=== PATIENT | male | born 1950 | race African-American/Black ===

== ENCOUNTER 2017-06-22 21:05 | Inpatient (IN) | payer MEDICARE ==
[~2017-06-22] VITALS: Ht 167.6 cm; Wt 88.6 kg
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
[2017-06-22] MEDS ORDERED: ASPI81TA50 PO (22:05)
[2017-06-22] MEDS ORDERED: METO100T7 PO (22:05)
[2017-06-22] MEDS ORDERED: DIVA125C PO (22:05)
[2017-06-22] MEDS ORDERED: ACET500T68 PO (22:05)
[2017-06-22] MEDS ORDERED: ATOR20TA58 PO (22:05)
[2017-06-22] MEDS ORDERED: MELA3TAB2 PO (22:05)
[2017-06-22] MEDS ORDERED: CHOL10003 PO (22:05)
[2017-06-22] MEDS ORDERED: DONE5TAB56 PO (22:05)
[2017-06-22] MEDS ORDERED: DOCU-109 PO (22:05)
[2017-06-22] MEDS ORDERED: LACT10SO PO (22:05)
[2017-06-22 22:31] LABS: BASO # 0.1 x10^3/uL (0.0-0.2); BASO % 1 % (0-3); EOS # 0.5 x10^3/uL (0.0-0.7); EOS % 6 % (0-3); HEMOGLOBIN 13.1 g/dL (13.0-17.5); LYMPH # 2.6 x10^3/uL (1.0-4.8); LYMPH % 31 % (24-48); MEAN CORPUSCULAR HEMOGLOBIN 32 pg (25-35); MEAN CORPUSCULAR HGB CONC 34 g/dL (31-37); MEAN CORPUSCULAR VOLUME 94 fL (79-100); MONO # 1.8 x10^3/uL (0.0-1.1); MONO % 21 % (0-9); NEUT # 3.4 x10^3uL (1.8-7.7); NEUT % 40 % (31-73); PLATELET COUNT 156 x10^3/uL (140-400); RED BLOOD COUNT 4.05 x10^6/uL (4.30-5.70); RED CELL DISTRIBUTION WIDTH 13.8 % (11.5-14.5); WHITE BLOOD COUNT 8.5 x10^3/uL (4.0-11.0)
--- NOTE | 2017-06-22 22:31 | EKG ---
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
[2017-06-22 22:36] LABS: AMPHETAMINE/METHAMPHETAMINE NEG (NEG); BARBITURATES NEG (NEG); BENZODIAZEPINES NEG (NEG); CANNABINOIDS NEG (NEG); COCAINE NEG (NEG); METHADONE NEG (NEG); OPIATES NEG (NEG); PHENCYCLIDINE NEG (NEG)
[2017-06-22 22:39] LABS: BACTERIA,URINE 0 /HPF (0-FEW); BILIRUBIN,URINE NEG (NEG); CLARITY,URINE CLEAR; COLOR,URINE YELLOW; GLUCOSE,URINE NEG (NEG); NITRITE,URINE NEG (NEG); UROBILINOGEN,URINE 1 mg/dL (0.2 mg/dL); WBC,URINE OCC /HPF (0-4)
[2017-06-22 22:40] LABS: SQUAMOUS EPITHELIAL CELL,UR OCC /LPF
[2017-06-22 22:44] LABS: ALBUMIN 3.1 g/dL (3.4-5.0); ALBUMIN/GLOBULIN RATIO 0.8 (1.0-1.7); CALCIUM 8.4 mg/dL (8.5-10.1); GFR 90.5; POTASSIUM 3.8 mmol/L (3.5-5.1); TOTAL BILIRUBIN 0.2 mg/dL (0.2-1.0); TOTAL PROTEIN 7.1 g/dL (6.4-8.2)
--- NOTE | 2017-06-22 22:50 | RAD ---
EXAM: Chest, single view. HISTORY: Mental status changes. COMPARISON: None. FINDINGS: Frontal views of the chest are obtained. There is no infiltrate, effusion or pneumothorax. The heart is normal in size. IMPRESSION: No acute pulmonary finding. Electronically signed by: Farheen Cordoba MD (06/22/2017 10:47 PM) [facility]
--- NOTE | 2017-06-22 23:15 | RAD ---
EXAM: Head CT without contrast. HISTORY: Mental status changes. TECHNIQUE: Computed tomographic images of the head were obtained without contrast. *One or more of the following individualized dose reduction techniques were utilized for this examination: 1. Automated exposure control. 2. Adjustment of the mA and/or kV according to patient size. 3. Use of iterative reconstruction technique. COMPARISON: None. FINDINGS: There is no acute or subacute extra-axial or intraparenchymal hemorrhage. There is no mass effect or midline shift. There is no hydrocephalus. There are areas of decreased attenuation within the cerebral white matter, nonspecific and likely related to chronic small vessel disease. There is cerebral atrophy. The orbits and visualized portions of the paranasal sinuses and mastoid air cells are unremarkable. There is masslike thickening of the skin along the right posterior auricular and suboccipital region. IMPRESSION: 1. No acute intracranial finding. Note is made that MRI is more sensitive for acute infarction. 2. Subtle areas of hypodensity within the cerebral white matter, likely due to chronic small vessel disease. 3. Masslike thickening of the skin along the right posterior auricular and suboccipital region. Correlate with visual inspection. Electronically signed by: Farheen Cordoba MD (06/22/2017 11:11 PM) [facility]
[2017-06-23] MEDS ORDERED: ACETAMINOPHEN 325 MG TABLET PO PRN
[2017-06-23] MEDS ORDERED: MAGNESIUM HYDROXIDE 2,400 MG/30 ML ORAL.SUSP. PO PRN
[2017-06-23] MEDS ORDERED: METHYL SALICYLATE/MENTHOL TOPICAL OINTMENT 29GM TUBE. TP PRN
[2017-06-23] MEDS ORDERED: MAG HYDROX/AL HYDROX/SIMETH 30 ML ORAL.SUSP PO PRN
[2017-06-23 00:15] LABS: VAL ACID 47 mcg/mL (50-100)
[2017-06-23 00:34] VITALS: BP 154/97
[2017-06-23 06:12] VITALS: BP 148/76
[2017-06-23] MEDS ORDERED: ACETAMINOPHEN 500 MG TABLET PO PRN (06:30)
[2017-06-23] MEDS: LACTULOSE 20 GM/30 ML SOLUTION. PO SCH ×3 (08:19→17:21)
[2017-06-23] MEDS: ASPIRIN ENTERIC COATED 81 MG TABLET.DR. PO SCH (08:19)
[2017-06-23] MEDS: DIVALPROEX 125 MG CAP.SPRINK PO SCH ×3 (08:20→17:21)
[2017-06-23] MEDS: METOPROLOL TART IMMED RELEASE 50 MG TABLET PO SCH ×2 (08:21→19:33)
[2017-06-23] MEDS: CHOLECALCIFEROL (VITAMIN D3) 1,000 UNIT TABLET PO SCH (09:00)
[2017-06-23] MEDS: DOCUSATE SODIUM 100 MG CAPSULE PO SCH (09:00)
[2017-06-23] MEDS: DONEPEZIL HCL 5 MG TABLET. PO SCH (09:00)
[2017-06-23] MEDS ORDERED: LACTULOSE 20 GM/30 ML SOLUTION. ONE ×3 (09:00)
[2017-06-23 15:55] VITALS: BP 90/60
[2017-06-23] MEDS: ATORVASTATIN CALCIUM 20 MG TABLET PO SCH (19:33)
[2017-06-23] MEDS: MELATONIN 3 MG TABLET PO SCH (19:33)
--- NOTE | 2017-06-23 19:45 | PDOC ---
Exam Note: Darci Note: Please also refer to the separate dictated note~for this date of service dictated separately.~Patient seen individually. Discussed the patient with Nursing staff reviewed the chart.~Reviewed interim history and current functioning. Reviewed vital signs,~Labs/ Radiology~and current medications noted below. Continue current treatment with the changes noted in the dictated addendum note Assessment: Vital Signs: Vital Signs Date Time Temp Pulse Resp B/P (MAP) Pulse Ox O2 Delivery O2 Flow Rate FiO2 06/23/17 19:33 68 122/90 06/23/17 15:55 97.8 19 97 06/22/17 23:09 Room Air I&O Intake and Output 06/23/17 07:00 Intake Total 360 ml Balance 360 ml Intake Oral 360 ml Labs: Laboratory Tests Test 06/22/17 22:03 White Blood Count 8.5 x10^3/uL (4.0-11.0) Red Blood Count 4.05 x10^6/uL (4.30-5.70) L Hemoglobin 13.1 g/dL (13.0-17.5) Hematocrit 38.0 % (39.0-53.0) L Mean Corpuscular Volume 94 fL (79-100) Mean Corpuscular Hemoglobin 32 pg (25-35) Mean Corpuscular Hemoglobin Concent 34 g/dL (31-37) Red Cell Distribution Width 13.8 % (11.5-14.5) Platelet Count 156 x10^3/uL (140-400) Neutrophils (%) (Auto) 40 % (31-73) Lymphocytes (%) (Auto) 31 % (24-48) Monocytes (%) (Auto) 21 % (0-9) H Eosinophils (%) (Auto) 6 % (0-3) H Basophils (%) (Auto) 1 % (0-3) Neutrophils # (Auto) 3.4 x10^3uL (1.8-7.7) Lymphocytes # (Auto) 2.6 x10^3/uL (1.0-4.8) Monocytes # (Auto) 1.8 x10^3/uL (0.0-1.1) H Eosinophils # (Auto) 0.5 x10^3/uL (0.0-0.7) Basophils # (Auto) 0.1 x10^3/uL (0.0-0.2) Prothrombin Time 11.3 SEC (9.4-11.4) Prothrombin Time INR 1.1 (0.9-1.1) PTT 24 SEC (23-33) Urine Collection Type Unknown Urine Color Yellow Urine Clarity Clear Urine pH 6.0 Urine Specific [place] 1.020 Urine Protein Neg (NEG-TRACE) Urine Glucose (UA) Neg mg/dL (NEG) Urine Ketones (Stick) Trace mg/dL (NEG) Urine Blood Trace (NEG) Urine Nitrite Neg (NEG) Urine Bilirubin Neg (NEG) Urine Urobilinogen Dipstick 1 mg/dL (0.2 mg/dL) Urine Leukocyte Esterase Neg (NEG) Urine RBC 1-2 /HPF (0-2) Urine WBC Occ /HPF (0-4) Urine Squamous Epithelial Cells Occ /LPF Urine Bacteria 0 /HPF (0-FEW) Sodium Level 138 mmol/L (136-145) Potassium Level 3.8 mmol/L (3.5-5.1) Chloride Level 102 mmol/L (98-107) Carbon Dioxide Level 26 mmol/L (21-32) Anion Gap 10 (6-14) Blood Urea Nitrogen 19 mg/dL (8-26) Creatinine 1.0 mg/dL (0.7-1.3) Estimated GFR (Cockcroft-Gault) 90.5 BUN/Creatinine Ratio 19 (6-20) Glucose Level 88 mg/dL (70-99) Calcium Level 8.4 mg/dL (8.5-10.1) L Magnesium Level 2.0 mg/dL (1.8-2.4) Iron Level 31 ug/dL (65-175) L Total Iron Binding Capacity 245 ug/dL (250-450) L Iron Saturation 13 % (15-34) L Total Bilirubin 0.2 mg/dL (0.2-1.0) Aspartate Amino Transferase (AST) 14 U/L (15-37) L Alanine Aminotransferase (ALT) 22 U/L (16-63) Alkaline Phosphatase 86 U/L (46-116) Troponin I Quantitative < 0.017 ng/mL (0-0.055) BC-Qxt-F-Type Natriuretic Peptide 272 pg/mL (0-124) H Total Protein 7.1 g/dL (6.4-8.2) Albumin 3.1 g/dL (3.4-5.0) L Albumin/Globulin Ratio 0.8 (1.0-1.7) L Urine Opiates Screen Neg (NEG) Urine Methadone Screen Neg (NEG) Urine Barbiturates Neg (NEG) Valproic Acid Level 47 mcg/mL (50-100) L Valproic Acid Last Dose Date jun 14 Valproic Acid Last Dose Time 0900 Urine Phencyclidine Screen Neg (NEG) Urine Amphetamine/Methamphetamine Neg (NEG) Urine Benzodiazepines Screen Neg (NEG) Urine Cocaine Screen Neg (NEG) Urine Cannabinoids Screen Neg (NEG) Urine Ethyl Alcohol Neg (NEG) Current Medications: Meds: Current Medications Acetaminophen (Tylenol) 650 mg PRN Q6HRS PRN PO MILD PAIN / TEMP; Start at 00:00; Stop 06/23/17 at 06:34; Status DC Multi-Ingredient Ointment (Analgesic Fox) 1 yadi PRN QID PRN TP MUSCLE PAIN; Start 06/23/17 at 00:00 Al Hydroxide/Mg Hydroxide (Mylanta Plus Xs) 15 ml PRN AFTMEALHC PRN PO DYSPEPSIA; Start 06/23/17 at 00:00 Magnesium Hydroxide (Milk Of Magnesia) 2,400 mg PRN QHS PRN PO CONSTIPATION; Start 06/23/17 at 00:00 Divalproex Sodium (Depakote Sprinkles) 250 mg TID@0900,1300,1700 PO Last administered on 06/23/17 17:21; Start 06/23/17 at 09:00 Donepezil HCl (Aricept) 5 mg DAILY PO ; Start 06/23/17 at 09:00 Melatonin 3 mg QHS PO Last administered on 06/23/17 19:33; Start 06/23/17 at 21:00 Olanzapine (ZyPREXA ZYDIS) 2.5 mg PRN Q2HR PRN PO PSYCHOSIS Last administered on 06/23/17 01:08; Start 06/23/17 at 01:15 Acetaminophen (Tylenol) 500 mg PRN Q6HRS PRN PO PAIN / TEMP; Start 06/23/17 at 06:30 Aspirin (Aspirin Enteric Coated) 81 mg DAILY PO Last administered on 08:19; Start 06/23/17 at 09:00 Atorvastatin Calcium (Lipitor) 20 mg QHS PO Last administered on 06/23/17 19: 33; Start 06/23/17 at 21:00 Vitamin D (Vitamin D3) 1,000 unit DAILY PO ; Start 06/23/17 at 09:00 Docusate Sodium (Colace) 100 mg DAILY PO ; Start 06/23/17 at 09:00 Lactulose 20 gm TID@0900,1300,1700 PO Last administered on 06/23/17 17:21; Start 06/23/17 at 09:00 Metoprolol Tartrate (Lopressor) 300 mg BID PO Last administered on 06/23/17 19:33; Start 06/23/17 at 09:00 Active Scripts Active Reported Depakote Sprinkle (Divalproex Sodium) 125 Mg Cap.sprink 250 Mg PO TID@0900,1300, 1700 Acetaminophen 500 Mg Tablet 500 Mg PO PRN Q6HRS PRN Melatonin 3 Mg Tablet 3 Mg PO QHS Atorvastatin Calcium 20 Mg Tablet 20 Mg PO QHS Lactulose 10 Gm/15 Ml Solution 20 Gm PO TID@0900,1300,1700 Metoprolol Tartrate 100 Mg Tablet 300 Mg PO BID Colace (Docusate Sodium) 100 Mg Capsule 100 Mg PO DAILY Vitamin D3 (Cholecalciferol (Vitamin D3)) 1,000 Unit Tablet 1,000 Unit PO DAILY Aricept (Donepezil Hcl) 5 Mg Tablet 5 Mg PO DAILY Aspir-Low (Aspirin) 81 Mg Tablet. 81 Mg PO DAILY I have reviewed the current psychotropics carefully including drug interactions. Risk benefit ratio favors no change other than as noted in my dictated progress note. ELLIS NOBLES MD Jun 23, 2017 19:45
[2017-06-23] MEDS ORDERED: MELATONIN 3 MG TABLET ONE (21:00)
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
[2017-06-24 06:07] VITALS: BP 142/82
[2017-06-24] MEDS: LACTULOSE 20 GM/30 ML SOLUTION. PO SCH ×3 (09:08→16:54)
[2017-06-24] MEDS: DONEPEZIL HCL 5 MG TABLET. PO SCH (09:09)
[2017-06-24] MEDS: DIVALPROEX 125 MG CAP.SPRINK PO SCH ×3 (09:09→16:54)
[2017-06-24] MEDS: ASPIRIN ENTERIC COATED 81 MG TABLET.DR. PO SCH (09:09)
[2017-06-24] MEDS: DOCUSATE SODIUM 100 MG CAPSULE PO SCH (09:10)
[2017-06-24] MEDS: METOPROLOL TART IMMED RELEASE 50 MG TABLET PO SCH ×2 (09:10→19:30)
[2017-06-24] MEDS: CHOLECALCIFEROL (VITAMIN D3) 1,000 UNIT TABLET PO SCH ×2 (09:10→16:54)
--- NOTE | 2017-06-24 11:33 | PN ---
DATE: 06/23/2017 This note covers elements not covered in my initial note of 06/23/2017. The patient was seen individually evening of 06/23/2017. The patient slept very poorly previous evening and we will add trazodone p.r.n. 100 mg, may repeat x 1 for this. He remains confused, restless, anxious, paranoid. REVIEW OF SYSTEMS: No CV, , pulmonary, eye, ENT system symptoms on review. Reliability poor. MENTAL STATUS EXAM: Oriented to himself. Insight, judgment, recent and remote memory, attention, concentration, fund of knowledge poor, consistent with his diagnosis. IMPRESSION: Major neurocognitive disorder, multifactorial. 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 PLAN: Valproic acid level is 47, subtherapeutic. Continue Depakote sprinkles 250 mg 3 times a day. Maintain Aricept, melatonin, and trazodone along with Zyprexa added p.r.n. for psychosis, agitation. We will make further adjustments in psychotropics post baseline assessment. May need to increase Depakote in due course to reach a therapeutic level. ELLIS NOBLES MD DR: MONICA/joe JOB#: [id number] / [id number]
--- NOTE | 2017-06-24 11:40 | CONS ---
DATE OF CONSULTATION: 06/23/2017 REASON FOR CONSULTATION: Medical management. HISTORY OF PRESENT ILLNESS: The patient is a 67-year-old -[place] male patient, a resident at [facility], who was admitted on account of increased aggression, apparently tried to take storage facility housekeeper's dustpan and broom. She got the broom back, then he began to charge when another staff member entered. He has history of hitting staff and peers and all this in a background of dementia with behavioral disturbances and he was admitted to this facility for inpatient psychiatric stabilization. The patient has severe dementia and does not really give any useful information. PAST MEDICAL HISTORY: Significant for supraventricular tachycardia, encephalopathy, hyperlipidemia, vitamin D deficiency. PAST PSYCHIATRIC HISTORY: Significant for dementia with behavioral disturbances. PAST SURGICAL HISTORY: Unobtainable. FAMILY HISTORY: Unobtainable. SOCIAL HISTORY: He is a resident at [facility]. He apparently does not smoke, drink alcohol, or use recreational drugs. REVIEW OF SYSTEMS: Unobtainable. ALLERGIES: He is allergic to PENICILLIN. MEDICATIONS: He is currently on the following medications: Acetaminophen 500 mg every 6 hours, aspirin 81 mg once a day, atorvastatin calcium 20 mg at bedtime, cholecalciferol or vitamin D3 [employer] [address] once a day, divalproex sodium or Depakote 250 mg 3 times a day, Colace 100 mg twice a day, Aricept 5 mg daily, lactulose 20 grams 3 times a day, melatonin 3 mg at bedtime and metoprolol tartrate 300 mg p.o. b.i.d. PHYSICAL EXAMINATION: GENERAL: On examining him, he was sitting on the chair comfortably in no apparent distress. He is awake, alert, very confused, slightly pale, but no jaundice, cyanosis or thyromegaly. No jugular venous distension or edema. VITAL SIGNS: Her heart rate was 69, blood pressure 148/76, temperature was 97.2, respiratory rate was 20, and oxygen saturation was 98%. HEAD, EYES, EARS, NOSE AND THROAT: Shows normocephalic, atraumatic. NECK: Supple. HEART: Showed normal first and second heart sounds with no gallop, rub or murmur. CHEST: Clear to auscultation. No crepitation or rhonchi. ABDOMEN: Distended, soft, nontender. No guarding or rigidity. No organomegaly. Hernial orifice intact. Bowel sounds normal. NEUROLOGIC: He is demented, but there is no lateralizing sign. All his cranial nerves are intact. EXTREMITIES: He moves extremities without difficulty, ambulates without assistance or assistive devices. SKIN: He has very florid keloids both sides of his neck behind the ears. One of them has open wound that is clean without any redness, tenderness or discharge. LABORATORY DATA: This morning showed a serum sodium 138, potassium 3.8, chloride 102, bicarbonate 26, anion gap of 10, BUN 19, creatinine 1, estimated GFR was 90 mL per minute. His glucose was 88, calcium was 8.4, magnesium 2. His serum iron was 51, TIBC was 245 and percent saturation was 13%. His serum total bilirubin, AST, ALT, alkaline phosphatase were normal. His total protein was 7.1, albumin 3.1. His white cell count was 8500, hemoglobin 13, hematocrit 38, MCV 94 and platelet count of 156,000. His prothrombin time was 11.3, INR 1.1, aPTT was 24. Urinalysis showed the urine was yellow, clear with a pH of 6, specific gravity of 1.020. The urine was negative for protein, glucose, trace of ketones, trace of blood, negative for nitrites and leukocyte esterase. There are 1-2 rbc's, occasional wbc's, and no bacteria. His urine toxicology screen showed valproic acid was slightly below the lower limit of normal at 47 mcg/mL. IMPRESSION: In summary, this is a 67-year-old -[place] male patient with dementia and behavioral disturbances, who was admitted on the account of increased aggression. He apparently tried to take the storage facility housekeeper's dustpan and broom. She got the broom back, but he began to charge when another staff member entered. He has a history of hitting staff and peers and was admitted to this facility for inpatient psychiatric stabilization. Medically, he apparently is known to have episodes of supraventricular tachycardia for which he is on large amount of metoprolol 300 mg twice a day. He also has hyperlipidemia and his vital signs are stable as well as his lab work and he has very florid keloids on both sides of his neck behind the ears with an open area on the right side that is clean with no redness, tenderness or discharge. The patient overall seems to be medically stable. I will definitely continue with all these medications. Thank you, Dr. Bennett for allowing me to participate in the care of this patient. SAVANNAH ARIZMENDI MD DR: OCTAVIO/joe JOB#: [id number] / [id number]
[2017-06-24] MEDS ORDERED: CYANOCOBALAMIN (VITAMIN B-12) 1,000 MCG/ML VIAL IM ONE ×2 (14:45→21:00)
[2017-06-24] MEDS: MELATONIN 3 MG TABLET PO SCH (19:30)
[2017-06-24] MEDS: ATORVASTATIN CALCIUM 20 MG TABLET PO SCH (19:30)
--- NOTE | 2017-06-24 20:00 | PDOC ---
Exam Note: Darci Note: Please also refer to the separate dictated note~for this date of service dictated separately.~Patient seen individually. Discussed the patient with Nursing staff reviewed the chart.~Reviewed interim history and current functioning. Reviewed vital signs,~Labs/ Radiology~and current medications noted below. Continue current treatment with the changes noted in the dictated addendum note Assessment: Vital Signs: Vital Signs Date Time Temp Pulse Resp B/P (MAP) Pulse Ox O2 Delivery O2 Flow Rate FiO2 06/24/17 19:30 74 148/88 06/24/17 06:07 18 97 Room Air 06/23/17 15:55 97.8 I&O Intake and Output 06/24/17 07:00 Intake Total 1320 ml Balance 1320 ml Intake Oral 1320 ml # Voids 2 Labs: Laboratory Tests Test 06/24/17 09:59 Triglycerides Level 77 mg/dL (0-150) Cholesterol Level 118 mg/dL (0-200) LDL Cholesterol, Calculated 67 mg/dL (0-100) VLDL Cholesterol, Calculated 15 mg/dL (0-40) Non-HDL Cholesterol Calculated 82 mg/dL (0-129) HDL Cholesterol 36 mg/dL (40-60) L Cholesterol/HDL Ratio 3.0 Current Medications: Meds: Current Medications Acetaminophen (Tylenol) 650 mg PRN Q6HRS PRN PO MILD PAIN / TEMP; Start at 00:00; Stop 06/23/17 at 06:34; Status DC Multi-Ingredient Ointment (Analgesic [place]) 1 yadi PRN QID PRN TP MUSCLE PAIN; Start 06/23/17 at 00:00 Al Hydroxide/Mg Hydroxide (Mylanta Plus Xs) 15 ml PRN AFTMEALHC PRN PO DYSPEPSIA; Start 06/23/17 at 00:00 Magnesium Hydroxide (Milk Of Magnesia) 2,400 mg PRN QHS PRN PO CONSTIPATION; Start 06/23/17 at 00:00 Divalproex Sodium (Depakote Sprinkles) 250 mg TID@0900,1300,1700 PO Last administered on 06/24/17 16:54; Start 06/23/17 at 09:00; Stop 06/24/17 at 18 :39; Status DC Donepezil HCl (Aricept) 5 mg DAILY PO Last administered on 06/24/17 09:09; Start 06/23/17 at 09:00 Melatonin 3 mg QHS PO Last administered on 06/24/17 19:30; Start 06/23/17 at 21:00 Olanzapine (ZyPREXA ZYDIS) 2.5 mg PRN Q2HR PRN PO PSYCHOSIS Last administered on 06/24/17 15:29; Start 06/23/17 at 01:15 Acetaminophen (Tylenol) 500 mg PRN Q6HRS PRN PO PAIN / TEMP; Start 06/23/17 at 06:30 Aspirin (Aspirin Enteric Coated) 81 mg DAILY PO Last administered on 09:09; Start 06/23/17 at 09:00 Atorvastatin Calcium (Lipitor) 20 mg QHS PO Last administered on 06/24/17 19: 30; Start 06/23/17 at 21:00 Vitamin D (Vitamin D3) 1,000 unit DAILY PO Last administered on 06/24/17 09: 10; Start 06/23/17 at 09:00; Stop 06/24/17 at 14:36; Status DC Docusate Sodium (Colace) 100 mg DAILY PO Last administered on 06/24/17 09:10 ; Start 06/23/17 at 09:00 Lactulose 20 gm TID@0900,1300,1700 PO Last administered on 06/24/17 16:54; Start 06/23/17 at 09:00 Metoprolol Tartrate (Lopressor) 300 mg BID PO Last administered on 06/24/17 19:30; Start 06/23/17 at 09:00 Trazodone HCl (Desyrel) 100 mg PRN QHS PRN PO INSOMNIA, MAY REPEAT X1; Start 06/23/17 at 20:30 Prenat Multivit/ [place]/Iron/Folic Ac (Multivitamin ) 1 tab DAILY PO ; Start 06/25/17 at 09:00 Vitamin D (Vitamin D3) 2,000 unit DAILYBFRSUP PO Last administered on 16:54; Start 06/24/17 at 17:00 Cyanocobalamin (Vitamin B-12) 1,000 mcg DAILY PO ; Start 06/25/17 at 09:00 Cyanocobalamin (Vitamin B-12) 1,000 mcg 1X ONCE IM Last administered on 15:27; Start 06/24/17 at 14:45; Stop 06/24/17 at 14:46; Status DC Cyanocobalamin (Vitamin B-12) 1,000 mcg 1X ONCE IM Last administered on 19:44; Start 06/24/17 at 21:00; Stop 06/24/17 at 21:01 Divalproex Sodium (Depakote Sprinkles) 375 mg BID@0900,1700 PO ; Start at 09:00 Divalproex Sodium (Depakote Sprinkles) 250 mg DAILY@1300 PO ; Start 06/25/17 at 13:00 Active Scripts Active Reported Depakote Sprinkle (Divalproex Sodium) 125 Mg Cap.sprink 250 Mg PO TID@0900,1300, 1700 Acetaminophen 500 Mg Tablet 500 Mg PO PRN Q6HRS PRN Melatonin 3 Mg Tablet 3 Mg PO QHS Atorvastatin Calcium 20 Mg Tablet 20 Mg PO QHS Lactulose 10 Gm/15 Ml Solution 20 Gm PO TID@0900,1300,1700 Metoprolol Tartrate 100 Mg Tablet 300 Mg PO BID Colace (Docusate Sodium) 100 Mg Capsule 100 Mg PO DAILY Vitamin D3 (Cholecalciferol (Vitamin D3)) 1,000 Unit Tablet 1,000 Unit PO DAILY Aricept (Donepezil Hcl) 5 Mg Tablet 5 Mg PO DAILY Aspir-Low (Aspirin) 81 Mg Tablet.dr 81 Mg PO DAILY I have reviewed the current psychotropics carefully including drug interactions. Risk benefit ratio favors no change other than as noted in my dictated progress note. Diagnosis: Problems: (1) Anxiety disorder (2) Dementia in Alzheimer's disease with delusions (3) Dementia in Alzheimer's disease with depression (4) Dementia, vascular, with delirium (5) Dementia, vascular, with delusions (6) Impulse control disorder ELLIS NOBLES MD Jun 24, 2017 20:00
[2017-06-24] MEDS ORDERED: MELATONIN 3 MG TABLET ONE (21:00)
[2017-06-24] MEDS ORDERED: LACTULOSE 20 GM/30 ML SOLUTION. ONE ×3 (21:00)
[2017-06-25 01:07] LABS: HEMOGLOBIN A1C 5.8 % (4.8-5.6)
[2017-06-25 06:07] VITALS: BP 146/90
[2017-06-25] MEDS: DOCUSATE SODIUM 100 MG CAPSULE PO SCH (08:17)
[2017-06-25] MEDS: LACTULOSE 20 GM/30 ML SOLUTION. PO SCH ×3 (08:20→17:18)
[2017-06-25] MEDS: METOPROLOL TART IMMED RELEASE 50 MG TABLET PO SCH ×2 (08:20→19:24)
[2017-06-25] MEDS: ASPIRIN ENTERIC COATED 81 MG TABLET.DR. PO SCH (08:20)
[2017-06-25] MEDS: DONEPEZIL HCL 5 MG TABLET. PO SCH (08:20)
[2017-06-25] MEDS: DIVALPROEX 125 MG CAP.SPRINK PO SCH ×3 (08:42→17:18)
[2017-06-25] MEDS: CYANOCOBALAMIN (VITAMIN B-12) 1,000 MCG TABLET. PO SCH (08:42)
[2017-06-25] MEDS: PRENATAL MULTIVITAMIN TABLET. PO SCH (08:42)
[2017-06-25 15:19] VITALS: BP 122/77
[2017-06-25] MEDS: CHOLECALCIFEROL (VITAMIN D3) 1,000 UNIT TABLET PO SCH (17:22)
[2017-06-25] MEDS: ATORVASTATIN CALCIUM 20 MG TABLET PO SCH (19:24)
[2017-06-25] MEDS: MELATONIN 3 MG TABLET PO SCH (19:24)
--- NOTE | 2017-06-25 19:57 | PDOC ---
Exam Note: Darci Note: Please also refer to the separate dictated note~for this date of service dictated separately.~Patient seen individually. Discussed the patient with Nursing staff reviewed the chart.~Reviewed interim history and current functioning. Reviewed vital signs,~Labs/ Radiology~and current medications noted below. Continue current treatment with the changes noted in the dictated addendum note Assessment: Vital Signs: Vital Signs Date Time Temp Pulse Resp B/P (MAP) Pulse Ox O2 Delivery O2 Flow Rate FiO2 06/25/17 19:24 61 122/77 06/25/17 15:19 98.1 16 99 Room Air I&O Intake and Output 06/25/17 07:00 Intake Total 840 ml Balance 840 ml Intake Oral 840 ml Current Medications: Meds: Current Medications Acetaminophen (Tylenol) 650 mg PRN Q6HRS PRN PO MILD PAIN / TEMP; Start at 00:00; Stop 06/23/17 at 06:34; Status DC Multi-Ingredient Ointment (Analgesic [place]) 1 yadi PRN QID PRN TP MUSCLE PAIN; Start 06/23/17 at 00:00 Al Hydroxide/Mg Hydroxide (Mylanta Plus Xs) 15 ml PRN AFTMEALHC PRN PO DYSPEPSIA; Start 06/23/17 at 00:00 Magnesium Hydroxide (Milk Of Magnesia) 2,400 mg PRN QHS PRN PO CONSTIPATION; Start 06/23/17 at 00:00 Divalproex Sodium (Depakote Sprinkles) 250 mg TID@0900,1300,1700 PO Last administered on 06/24/17 16:54; Start 06/23/17 at 09:00; Stop 06/24/17 at 18 :39; Status DC Donepezil HCl (Aricept) 5 mg DAILY PO Last administered on 06/25/17 08:20; Start 06/23/17 at 09:00 Melatonin 3 mg QHS PO Last administered on 06/25/17 19:24; Start 06/23/17 at 21:00 Olanzapine (ZyPREXA ZYDIS) 2.5 mg PRN Q2HR PRN PO PSYCHOSIS Last administered on 06/24/17 15:29; Start 06/23/17 at 01:15 Acetaminophen (Tylenol) 500 mg PRN Q6HRS PRN PO PAIN / TEMP; Start 06/23/17 at 06:30 Aspirin (Aspirin Enteric Coated) 81 mg DAILY PO Last administered on 08:20; Start 06/23/17 at 09:00 Atorvastatin Calcium (Lipitor) 20 mg QHS PO Last administered on 06/25/17 19: 24; Start 06/23/17 at 21:00 Vitamin D (Vitamin D3) 1,000 unit DAILY PO Last administered on 06/24/17 09: 10; Start 06/23/17 at 09:00; Stop 06/24/17 at 14:36; Status DC Docusate Sodium (Colace) 100 mg DAILY PO Last administered on 06/25/17 08:17 ; Start 06/23/17 at 09:00 Lactulose 20 gm TID@0900,1300,1700 PO Last administered on 06/25/17 17:18; Start 06/23/17 at 09:00 Metoprolol Tartrate (Lopressor) 300 mg BID PO Last administered on 06/25/17 19:24; Start 06/23/17 at 09:00 Trazodone HCl (Desyrel) 100 mg PRN QHS PRN PO INSOMNIA, MAY REPEAT X1; Start 06/23/17 at 20:30 Prenat Multivit/ Employment Assistant/Iron/Folic Ac (Multivitamin ) 1 tab DAILY PO Last administered on 06/25/17 08:42; Start 06/25/17 at 09:00 Vitamin D (Vitamin D3) 2,000 unit DAILYBFRSUP PO Last administered on 17:22; Start 06/24/17 at 17:00 Cyanocobalamin (Vitamin B-12) 1,000 mcg DAILY PO Last administered on 08:42; Start 06/25/17 at 09:00 Cyanocobalamin (Vitamin B-12) 1,000 mcg 1X ONCE IM Last administered on 15:27; Start 06/24/17 at 14:45; Stop 06/24/17 at 14:46; Status DC Cyanocobalamin (Vitamin B-12) 1,000 mcg 1X ONCE IM Last administered on 19:44; Start 06/24/17 at 21:00; Stop 06/24/17 at 21:01; Status DC Divalproex Sodium (Depakote Sprinkles) 375 mg BID@0900,1700 PO Last administered on 06/25/17 17:18; Start 06/25/17 at 09:00 Divalproex Sodium (Depakote Sprinkles) 250 mg DAILY@1300 PO Last administered on 06/25/17 13:06; Start 06/25/17 at 13:00 Active Scripts Active Reported Depakote Sprinkle (Divalproex Sodium) 125 Mg Cap.sprink 250 Mg PO TID@0900,1300, 1700 Acetaminophen 500 Mg Tablet 500 Mg PO PRN Q6HRS PRN Melatonin 3 Mg Tablet 3 Mg PO QHS Atorvastatin Calcium 20 Mg Tablet 20 Mg PO QHS Lactulose 10 Gm/15 Ml Solution 20 Gm PO TID@0900,1300,1700 Metoprolol Tartrate 100 Mg Tablet 300 Mg PO BID Colace (Docusate Sodium) 100 Mg Capsule 100 Mg PO DAILY Vitamin D3 (Cholecalciferol (Vitamin D3)) 1,000 Unit Tablet 1,000 Unit PO DAILY Aricept (Donepezil Hcl) 5 Mg Tablet 5 Mg PO DAILY Aspir-Low (Aspirin) 81 Mg Tablet. 81 Mg PO DAILY I have reviewed the current psychotropics carefully including drug interactions. Risk benefit ratio favors no change other than as noted in my dictated progress note. Diagnosis: Problems: (1) Anxiety disorder (2) Dementia in Alzheimer's disease with delusions (3) Dementia in Alzheimer's disease with depression (4) Dementia, vascular, with delirium (5) Dementia, vascular, with delusions (6) Impulse control disorder ELLIS NOBLES MD Jun 25, 2017 19:57
[2017-06-25] MEDS ORDERED: LACTULOSE 20 GM/30 ML SOLUTION. ONE ×3 (21:00)
[2017-06-25] MEDS ORDERED: MELATONIN 3 MG TABLET ONE (21:00)
--- NOTE | 2017-06-25 22:13 | PN ---
DATE: 06/24/2017 This is a late entry for 06/24/2017 and covers elements not covered in my initial note of 06/24/2017. SUBJECTIVE: I met with the patient evening of 06/24/2017. Overall, the patient was quite agitated the previous evening when his blood pressure was being checked. He was walking rapidly difficult to redirect, slept 7-1/4 hours previous evening. He had to be placed in the locked hallway and responded positively to the lower stimuli with de-escalation. REVIEW OF SYSTEMS: No CV, , pulmonary, eye, ENT system symptoms on review. Reliability poor. MENTAL STATUS EXAM: Oriented to himself. Insight, judgment, recent and remote memory, attention, concentration, fund of knowledge poor, consistent with his diagnosis as mentioned in my initial note. PLAN: Valproic acid level subtherapeutic at 47. We will increase the Depakote Sprinkles from 250 mg t.i.d. to 375 mg b.i.d. and 250 mg once a day. Check CBC, CMP, valproic acid level in 3 days. Maintain Aricept 5 mg a day, melatonin 3 mg at bedtime, Zyprexa p.r.n., trazodone 100 mg at bedtime p.r.n., may repeat x 1. Make further adjustments as clinically indicated. MAN Estefany NOBLES MD DR: MONICA/joe JOB#: [id number] / [id number]
[2017-06-26 06:19] VITALS: BP 132/78
[2017-06-26] MEDS: LACTULOSE 20 GM/30 ML SOLUTION. PO SCH ×3 (09:24→16:50)
[2017-06-26] MEDS: DONEPEZIL HCL 5 MG TABLET. PO SCH (09:25)
[2017-06-26] MEDS: METOPROLOL TART IMMED RELEASE 50 MG TABLET PO SCH ×2 (09:25→19:13)
[2017-06-26] MEDS: ASPIRIN ENTERIC COATED 81 MG TABLET.DR. PO SCH (09:25)
[2017-06-26] MEDS: DIVALPROEX 125 MG CAP.SPRINK PO SCH ×3 (09:26→16:50)
[2017-06-26] MEDS: PRENATAL MULTIVITAMIN TABLET. PO SCH (09:26)
[2017-06-26] MEDS: DOCUSATE SODIUM 100 MG CAPSULE PO SCH (09:26)
[2017-06-26] MEDS: CYANOCOBALAMIN (VITAMIN B-12) 1,000 MCG TABLET. PO SCH (09:26)
[2017-06-26 15:24] VITALS: BP 132/81
[2017-06-26] MEDS: CHOLECALCIFEROL (VITAMIN D3) 1,000 UNIT TABLET PO SCH (16:51)
[2017-06-26] MEDS: ATORVASTATIN CALCIUM 20 MG TABLET PO SCH (19:13)
[2017-06-26] MEDS: MELATONIN 3 MG TABLET PO SCH (19:13)
--- NOTE | 2017-06-26 19:57 | PDOC ---
Exam Note: Darci Note: Please also refer to the separate dictated note~for this date of service dictated separately.~Patient seen individually. Discussed the patient with Nursing staff reviewed the chart.~Reviewed interim history and current functioning. Reviewed vital signs,~Labs/ Radiology~and current medications noted below. Continue current treatment with the changes noted in the dictated addendum note Assessment: Vital Signs: Vital Signs Date Time Temp Pulse Resp B/P (MAP) Pulse Ox O2 Delivery O2 Flow Rate FiO2 06/26/17 19:13 73 132/81 06/26/17 15:24 97.8 20 99 06/25/17 15:19 Room Air I&O Intake and Output 06/26/17 07:00 Intake Total 960 ml Balance 960 ml Intake Oral 960 ml Current Medications: Meds: Current Medications Acetaminophen (Tylenol) 650 mg PRN Q6HRS PRN PO MILD PAIN / TEMP; Start at 00:00; Stop 06/23/17 at 06:34; Status DC Multi-Ingredient Ointment (Analgesic [place]) 1 yadi PRN QID PRN TP MUSCLE PAIN; Start 06/23/17 at 00:00 Al Hydroxide/Mg Hydroxide (Mylanta Plus Xs) 15 ml PRN AFTMEALHC PRN PO DYSPEPSIA; Start 06/23/17 at 00:00 Magnesium Hydroxide (Milk Of Magnesia) 2,400 mg PRN QHS PRN PO CONSTIPATION Last administered on 06/26/17 09:58; Start 06/23/17 at 00:00 Divalproex Sodium (Depakote Sprinkles) 250 mg TID@0900,1300,1700 PO Last administered on 06/24/17 16:54; Start 06/23/17 at 09:00; Stop 06/24/17 at 18 :39; Status DC Donepezil HCl (Aricept) 5 mg DAILY PO Last administered on 06/26/17 09:25; Start 06/23/17 at 09:00 Melatonin 3 mg QHS PO Last administered on 06/26/17 19:13; Start 06/23/17 at 21:00 Olanzapine (ZyPREXA ZYDIS) 2.5 mg PRN Q2HR PRN PO PSYCHOSIS Last administered on 06/26/17 15:56; Start 06/23/17 at 01:15 Acetaminophen (Tylenol) 500 mg PRN Q6HRS PRN PO PAIN / TEMP; Start 06/23/17 at 06:30 Aspirin (Aspirin Enteric Coated) 81 mg DAILY PO Last administered on 09:25; Start 06/23/17 at 09:00 Atorvastatin Calcium (Lipitor) 20 mg QHS PO Last administered on 06/26/17 19: 13; Start 06/23/17 at 21:00 Vitamin D (Vitamin D3) 1,000 unit DAILY PO Last administered on 06/24/17 09: 10; Start 06/23/17 at 09:00; Stop 06/24/17 at 14:36; Status DC Docusate Sodium (Colace) 100 mg DAILY PO Last administered on 06/26/17 09:26 ; Start 06/23/17 at 09:00 Lactulose 20 gm TID@0900,1300,1700 PO Last administered on 06/26/17 16:50; Start 06/23/17 at 09:00 Metoprolol Tartrate (Lopressor) 300 mg BID PO Last administered on 06/26/17 19:13; Start 06/23/17 at 09:00 Trazodone HCl (Desyrel) 100 mg PRN QHS PRN PO INSOMNIA, MAY REPEAT X1; Start 06/23/17 at 20:30 Prenat Multivit/ [place]/Iron/Folic Ac (Multivitamin ) 1 tab DAILY PO Last administered on 06/26/17 09:26; Start 06/25/17 at 09:00 Vitamin D (Vitamin D3) 2,000 unit DAILYBFRSUP PO Last administered on 16:51; Start 06/24/17 at 17:00 Cyanocobalamin (Vitamin B-12) 1,000 mcg DAILY PO Last administered on 09:26; Start 06/25/17 at 09:00 Cyanocobalamin (Vitamin B-12) 1,000 mcg 1X ONCE IM Last administered on 15:27; Start 06/24/17 at 14:45; Stop 06/24/17 at 14:46; Status DC Cyanocobalamin (Vitamin B-12) 1,000 mcg 1X ONCE IM Last administered on 19:44; Start 06/24/17 at 21:00; Stop 06/24/17 at 21:01; Status DC Divalproex Sodium (Depakote Sprinkles) 375 mg BID@0900,1700 PO Last administered on 06/26/17 16:50; Start 06/25/17 at 09:00 Divalproex Sodium (Depakote Sprinkles) 250 mg DAILY@1300 PO Last administered on 06/26/17 13:28; Start 06/25/17 at 13:00 Lactulose 20 gm STK-MED ONCE .ROUTE ; Start 06/23/17 at 09:00; Stop 06/26/17 at 18:49; Status DC Lactulose 20 gm STK-MED ONCE .ROUTE ; Start 06/23/17 at 09:00; Stop 06/26/17 at 18:49; Status DC Lactulose 20 gm STK-MED ONCE .ROUTE ; Start 06/23/17 at 09:00; Stop 06/26/17 at 18:49; Status DC Melatonin 3 mg STK-MED ONCE .ROUTE ; Start 06/23/17 at 21:00; Stop 06/26/17 at 18:49; Status DC Lactulose 20 gm STK-MED ONCE .ROUTE ; Start 06/24/17 at 21:00; Stop 06/26/17 at 18:50; Status DC Lactulose 20 gm STK-MED ONCE .ROUTE ; Start 06/24/17 at 21:00; Stop 06/26/17 at 18:50; Status DC Lactulose 20 gm STK-MED ONCE .ROUTE ; Start 06/24/17 at 21:00; Stop 06/26/17 at 18:50; Status DC Melatonin 3 mg STK-MED ONCE .ROUTE ; Start 06/24/17 at 21:00; Stop 06/26/17 at 18:50; Status DC Lactulose 20 gm STK-MED ONCE .ROUTE ; Start 06/25/17 at 21:00; Stop 06/26/17 at 18:50; Status DC Lactulose 20 gm STK-MED ONCE .ROUTE ; Start 06/25/17 at 21:00; Stop 06/26/17 at 18:50; Status DC Lactulose 20 gm STK-MED ONCE .ROUTE ; Start 06/25/17 at 21:00; Stop 06/26/17 at 18:50; Status DC Melatonin 3 mg STK-MED ONCE .ROUTE ; Start 06/25/17 at 21:00; Stop 06/26/17 at 18:50; Status DC Lactulose 20 gm STK-MED ONCE .ROUTE ; Start 06/26/17 at 21:00; Stop 06/26/17 at 21:01; Status DC Lactulose 20 gm STK-MED ONCE .ROUTE ; Start 06/26/17 at 21:00; Stop 06/26/17 at 21:01; Status DC Lactulose 20 gm STK-MED ONCE .ROUTE ; Start 06/26/17 at 21:00; Stop 06/26/17 at 21:01; Status DC Active Scripts Active Reported Depakote Sprinkle (Divalproex Sodium) 125 Mg Cap.sprink 250 Mg PO TID@0900,1300, 1700 Acetaminophen 500 Mg Tablet 500 Mg PO PRN Q6HRS PRN Melatonin 3 Mg Tablet 3 Mg PO QHS Atorvastatin Calcium 20 Mg Tablet 20 Mg PO QHS Lactulose 10 Gm/15 Ml Solution 20 Gm PO TID@0900,1300,1700 Metoprolol Tartrate 100 Mg Tablet 300 Mg PO BID Colace (Docusate Sodium) 100 Mg Capsule 100 Mg PO DAILY Vitamin D3 (Cholecalciferol (Vitamin D3)) 1,000 Unit Tablet 1,000 Unit PO DAILY Aricept (Donepezil Hcl) 5 Mg Tablet 5 Mg PO DAILY Aspir-Low (Aspirin) 81 Mg Tablet. 81 Mg PO DAILY I have reviewed the current psychotropics carefully including drug interactions. Risk benefit ratio favors no change other than as noted in my dictated progress note. Diagnosis: Problems: (1) Anxiety disorder (2) Dementia in Alzheimer's disease with delusions (3) Dementia in Alzheimer's disease with depression (4) Dementia, vascular, with delirium (5) Dementia, vascular, with delusions (6) Impulse control disorder ELLIS NOBLES MD Jun 26, 2017 19:56
[2017-06-26] MEDS ORDERED: LACTULOSE 20 GM/30 ML SOLUTION. ONE ×3 (21:00)
[2017-06-27 05:47] VITALS: BP 141/81
--- NOTE | 2017-06-27 06:36 | PN ---
DATE: 06/25/2017 This is a late entry for 06/25/2017 and covers elements not covered in my initial note of 06/25/2017. SUBJECTIVE: The patient was seen individually evening of 06/25/2017. The patient slept 8 hours previous evening, was calmer, more compliant, knew his date of , but not aware of the year or where he was. REVIEW OF SYSTEMS: No CV, , pulmonary, eye, ENT system symptoms on review. Reliability poor. MENTAL STATUS EXAM: Oriented to himself. Insight, judgment, recent and remote memory, attention, concentration, fund of knowledge poor, consistent with his diagnosis. Quite pleasant, forthcoming, smiling as I met with him. LABORATORY DATA: Reviewed. IMPRESSION: Unchanged from initial note. PLAN: Continue current psychotropics and Depakote was just increased. Follow labs level to reach a therapeutic level. MAN Estefany NOBLES MD DR: MONICA/joe JOB#: [id number] / [id number]
[2017-06-27] MEDS: DIVALPROEX 125 MG CAP.SPRINK PO SCH ×3 (09:04→17:11)
[2017-06-27] MEDS: DOCUSATE SODIUM 100 MG CAPSULE PO SCH (09:04)
[2017-06-27] MEDS: LACTULOSE 20 GM/30 ML SOLUTION. PO SCH ×3 (09:04→17:10)
[2017-06-27] MEDS: PRENATAL MULTIVITAMIN TABLET. PO SCH (09:04)
[2017-06-27] MEDS: METOPROLOL TART IMMED RELEASE 50 MG TABLET PO SCH ×2 (09:05→19:17)
[2017-06-27] MEDS: ASPIRIN ENTERIC COATED 81 MG TABLET.DR. PO SCH (09:05)
[2017-06-27] MEDS: DONEPEZIL HCL 5 MG TABLET. PO SCH (09:05)
[2017-06-27] MEDS: CYANOCOBALAMIN (VITAMIN B-12) 1,000 MCG TABLET. PO SCH (09:05)
[2017-06-27 15:51] VITALS: BP 138/74
[2017-06-27] MEDS: CHOLECALCIFEROL (VITAMIN D3) 1,000 UNIT TABLET PO SCH (17:11)
[2017-06-27] MEDS: MELATONIN 3 MG TABLET PO SCH (19:17)
[2017-06-27] MEDS: ATORVASTATIN CALCIUM 20 MG TABLET PO SCH (19:17)
--- NOTE | 2017-06-27 19:57 | PDOC ---
Exam Note: Darci Note: Please also refer to the separate dictated note~for this date of service dictated separately.~Patient seen individually. Discussed the patient with Nursing staff reviewed the chart.~Reviewed interim history and current functioning. Reviewed vital signs,~Labs/ Radiology~and current medications noted below. Continue current treatment with the changes noted in the dictated addendum note Assessment: Vital Signs: Vital Signs Date Time Temp Pulse Resp B/P (MAP) Pulse Ox O2 Delivery O2 Flow Rate FiO2 06/27/17 19:17 67 138/74 06/27/17 15:51 97.4 18 99 Room Air I&O Intake and Output 06/27/17 07:00 Intake Total 1080 ml Balance 1080 ml Intake Oral 1080 ml Current Medications: Meds: Current Medications Acetaminophen (Tylenol) 650 mg PRN Q6HRS PRN PO MILD PAIN / TEMP; Start at 00:00; Stop 06/23/17 at 06:34; Status DC Multi-Ingredient Ointment (Analgesic [place]) 1 yadi PRN QID PRN TP MUSCLE PAIN; Start 06/23/17 at 00:00 Al Hydroxide/Mg Hydroxide (Mylanta Plus Xs) 15 ml PRN AFTMEALHC PRN PO DYSPEPSIA; Start 06/23/17 at 00:00 Magnesium Hydroxide (Milk Of Magnesia) 2,400 mg PRN QHS PRN PO CONSTIPATION Last administered on 06/26/17 09:58; Start 06/23/17 at 00:00 Divalproex Sodium (Depakote Sprinkles) 250 mg TID@0900,1300,1700 PO Last administered on 06/24/17 16:54; Start 06/23/17 at 09:00; Stop 06/24/17 at 18 :39; Status DC Donepezil HCl (Aricept) 5 mg DAILY PO Last administered on 06/27/17 09:05; Start 06/23/17 at 09:00 Melatonin 3 mg QHS PO Last administered on 06/27/17 19:17; Start 06/23/17 at 21:00 Olanzapine (ZyPREXA ZYDIS) 2.5 mg PRN Q2HR PRN PO PSYCHOSIS Last administered on 06/27/17 16:40; Start 06/23/17 at 01:15 Acetaminophen (Tylenol) 500 mg PRN Q6HRS PRN PO PAIN / TEMP; Start 06/23/17 at 06:30 Aspirin (Aspirin Enteric Coated) 81 mg DAILY PO Last administered on 09:05; Start 06/23/17 at 09:00 Atorvastatin Calcium (Lipitor) 20 mg QHS PO Last administered on 06/27/17 19: 17; Start 06/23/17 at 21:00 Vitamin D (Vitamin D3) 1,000 unit DAILY PO Last administered on 06/24/17 09: 10; Start 06/23/17 at 09:00; Stop 06/24/17 at 14:36; Status DC Docusate Sodium (Colace) 100 mg DAILY PO Last administered on 06/27/17 09:04 ; Start 06/23/17 at 09:00 Lactulose 20 gm TID@0900,1300,1700 PO Last administered on 06/27/17 17:10; Start 06/23/17 at 09:00 Metoprolol Tartrate (Lopressor) 300 mg BID PO Last administered on 06/27/17 19:17; Start 06/23/17 at 09:00 Trazodone HCl (Desyrel) 100 mg PRN QHS PRN PO INSOMNIA, MAY REPEAT X1; Start 06/23/17 at 20:30 Prenat Multivit/ [place]/Iron/Folic Ac (Multivitamin ) 1 tab DAILY PO Last administered on 06/27/17 09:04; Start 06/25/17 at 09:00 Vitamin D (Vitamin D3) 2,000 unit DAILYBFRSUP PO Last administered on 17:11; Start 06/24/17 at 17:00 Cyanocobalamin (Vitamin B-12) 1,000 mcg DAILY PO Last administered on 09:05; Start 06/25/17 at 09:00 Cyanocobalamin (Vitamin B-12) 1,000 mcg 1X ONCE IM Last administered on 15:27; Start 06/24/17 at 14:45; Stop 06/24/17 at 14:46; Status DC Cyanocobalamin (Vitamin B-12) 1,000 mcg 1X ONCE IM Last administered on 19:44; Start 06/24/17 at 21:00; Stop 06/24/17 at 21:01; Status DC Divalproex Sodium (Depakote Sprinkles) 375 mg BID@0900,1700 PO Last administered on 06/27/17 17:11; Start 06/25/17 at 09:00 Divalproex Sodium (Depakote Sprinkles) 250 mg DAILY@1300 PO Last administered on 06/27/17 12:31; Start 06/25/17 at 13:00 Lactulose 20 gm STK-MED ONCE .ROUTE ; Start 06/23/17 at 09:00; Stop 06/26/17 at 18:49; Status DC Lactulose 20 gm STK-MED ONCE .ROUTE ; Start 06/23/17 at 09:00; Stop 06/26/17 at 18:49; Status DC Lactulose 20 gm STK-MED ONCE .ROUTE ; Start 06/23/17 at 09:00; Stop 06/26/17 at 18:49; Status DC Melatonin 3 mg STK-MED ONCE .ROUTE ; Start 06/23/17 at 21:00; Stop 06/26/17 at 18:49; Status DC Lactulose 20 gm STK-MED ONCE .ROUTE ; Start 06/24/17 at 21:00; Stop 06/26/17 at 18:50; Status DC Lactulose 20 gm STK-MED ONCE .ROUTE ; Start 06/24/17 at 21:00; Stop 06/26/17 at 18:50; Status DC Lactulose 20 gm STK-MED ONCE .ROUTE ; Start 06/24/17 at 21:00; Stop 06/26/17 at 18:50; Status DC Melatonin 3 mg STK-MED ONCE .ROUTE ; Start 06/24/17 at 21:00; Stop 06/26/17 at 18:50; Status DC Lactulose 20 gm STK-MED ONCE .ROUTE ; Start 06/25/17 at 21:00; Stop 06/26/17 at 18:50; Status DC Lactulose 20 gm STK-MED ONCE .ROUTE ; Start 06/25/17 at 21:00; Stop 06/26/17 at 18:50; Status DC Lactulose 20 gm STK-MED ONCE .ROUTE ; Start 06/25/17 at 21:00; Stop 06/26/17 at 18:50; Status DC Melatonin 3 mg STK-MED ONCE .ROUTE ; Start 06/25/17 at 21:00; Stop 06/26/17 at 18:50; Status DC Lactulose 20 gm STK-MED ONCE .ROUTE ; Start 06/26/17 at 21:00; Stop 06/26/17 at 21:01; Status DC Lactulose 20 gm STK-MED ONCE .ROUTE ; Start 06/26/17 at 21:00; Stop 06/26/17 at 21:01; Status DC Lactulose 20 gm STK-MED ONCE .ROUTE ; Start 06/26/17 at 21:00; Stop 06/26/17 at 21:01; Status DC Active Scripts Active Reported Depakote Sprinkle (Divalproex Sodium) 125 Mg Cap.sprink 250 Mg PO TID@0900,1300, 1700 Acetaminophen 500 Mg Tablet 500 Mg PO PRN Q6HRS PRN Melatonin 3 Mg Tablet 3 Mg PO QHS Atorvastatin Calcium 20 Mg Tablet 20 Mg PO QHS Lactulose 10 Gm/15 Ml Solution 20 Gm PO TID@0900,1300,1700 Metoprolol Tartrate 100 Mg Tablet 300 Mg PO BID Colace (Docusate Sodium) 100 Mg Capsule 100 Mg PO DAILY Vitamin D3 (Cholecalciferol (Vitamin D3)) 1,000 Unit Tablet 1,000 Unit PO DAILY Aricept (Donepezil Hcl) 5 Mg Tablet 5 Mg PO DAILY Aspir-Low (Aspirin) 81 Mg Tablet.dr 81 Mg PO DAILY I have reviewed the current psychotropics carefully including drug interactions. Risk benefit ratio favors no change other than as noted in my dictated progress note. Diagnosis: Problems: (1) Anxiety disorder (2) Dementia in Alzheimer's disease with delusions (3) Dementia in Alzheimer's disease with depression (4) Dementia, vascular, with delirium (5) Dementia, vascular, with delusions (6) Impulse control disorder ELLIS NOBLES MD Jun 27, 2017 19:57
[2017-06-28 05:38] VITALS: BP 137/76
[2017-06-28 07:58] LABS: ALBUMIN 3.2 g/dL (3.4-5.0); ALBUMIN/GLOBULIN RATIO 0.7 (1.0-1.7); ALK PHOS 81 U/L (46-116); ALT (SGPT) 26 U/L (16-63); ANION GAP 9 (6-14); AST (SGOT) 15 U/L (15-37); BLOOD UREA NITROGEN 17 mg/dL (8-26); BUN/CREATININE RATIO 21 (6-20); CALCIUM 8.5 mg/dL (8.5-10.1); CARBON DIOXIDE 30 mmol/L (21-32); CHLORIDE 104 mmol/L (98-107); CREATININE 0.8 mg/dL (0.7-1.3); GLUCOSE 90 mg/dL (70-99); POTASSIUM 3.9 mmol/L (3.5-5.1); SODIUM 143 mmol/L (136-145); TOTAL BILIRUBIN 0.4 mg/dL (0.2-1.0); TOTAL PROTEIN 7.8 g/dL (6.4-8.2)
[2017-06-28 07:59] LABS: BASO # 0.1 x10^3/uL (0.0-0.2); BASO % 1 % (0-3); EOS # 0.3 x10^3/uL (0.0-0.7); EOS % 5 % (0-3); HEMATOCRIT 42.6 % (39.0-53.0); HEMOGLOBIN 14.5 g/dL (13.0-17.5); LYMPH # 2.3 x10^3/uL (1.0-4.8); LYMPH % 38 % (24-48); MEAN CORPUSCULAR HEMOGLOBIN 33 pg (25-35); MEAN CORPUSCULAR HGB CONC 34 g/dL (31-37); MEAN CORPUSCULAR VOLUME 95 fL (79-100); MONO # 0.7 x10^3/uL (0.0-1.1); MONO % 12 % (0-9); NEUT # 2.7 x10^3uL (1.8-7.7); NEUT % 45 % (31-73); PLATELET COUNT 165 x10^3/uL (140-400); RED BLOOD COUNT 4.46 x10^6/uL (4.30-5.70); RED CELL DISTRIBUTION WIDTH 13.8 % (11.5-14.5); WHITE BLOOD COUNT 6.1 x10^3/uL (4.0-11.0)
[2017-06-28 08:00] LABS: VAL ACID 44 mcg/mL (50-100)
[2017-06-28] MEDS: ASPIRIN ENTERIC COATED 81 MG TABLET.DR. PO SCH (08:56)
[2017-06-28] MEDS: CHOLECALCIFEROL (VITAMIN D3) 1,000 UNIT TABLET PO SCH (08:57)
[2017-06-28] MEDS: DONEPEZIL HCL 5 MG TABLET. PO SCH (08:57)
[2017-06-28] MEDS: DIVALPROEX 125 MG CAP.SPRINK PO SCH ×4 (08:57→19:37)
[2017-06-28] MEDS: CYANOCOBALAMIN (VITAMIN B-12) 1,000 MCG TABLET. PO SCH (08:57)
[2017-06-28] MEDS: DOCUSATE SODIUM 100 MG CAPSULE PO SCH (08:57)
[2017-06-28] MEDS: PRENATAL MULTIVITAMIN TABLET. PO SCH (08:57)
[2017-06-28] MEDS: METOPROLOL TART IMMED RELEASE 50 MG TABLET PO SCH ×2 (08:57→19:35)
[2017-06-28] MEDS: LACTULOSE 20 GM/30 ML SOLUTION. PO SCH ×3 (08:58→17:16)
[2017-06-28 15:47] VITALS: BP 140/81
[2017-06-28] MEDS: ATORVASTATIN CALCIUM 20 MG TABLET PO SCH (19:34)
[2017-06-28] MEDS: MELATONIN 3 MG TABLET PO SCH (19:34)
[2017-06-28] MEDS: traZODone 100 MG TABLET. PO PRN (19:37)
[2017-06-28] MEDS: MIRTAZAPINE 7.5 MG TABLET. PO SCH (19:37)
--- NOTE | 2017-06-28 20:15 | PDOC ---
Exam Note: Darci Note: Please also refer to the separate dictated note~for this date of service dictated separately.~Patient seen individually. Discussed the patient with Nursing staff reviewed the chart.~Reviewed interim history and current functioning. Reviewed vital signs,~Labs/ Radiology~and current medications noted below. Continue current treatment with the changes noted in the dictated addendum note Assessment: Vital Signs: Vital Signs Date Time Temp Pulse Resp B/P (MAP) Pulse Ox O2 Delivery O2 Flow Rate FiO2 06/28/17 19:35 67 140/81 06/28/17 15:47 97.5 18 99 06/27/17 15:51 Room Air I&O Intake and Output 06/28/17 07:00 Intake Total 960 ml Balance 960 ml Intake Oral 960 ml Labs: Laboratory Tests Test 06/28/17 07:28 White Blood Count 6.1 x10^3/uL (4.0-11.0) Red Blood Count 4.46 x10^6/uL (4.30-5.70) Hemoglobin 14.5 g/dL (13.0-17.5) Hematocrit 42.6 % (39.0-53.0) Mean Corpuscular Volume 95 fL (79-100) Mean Corpuscular Hemoglobin 33 pg (25-35) Mean Corpuscular Hemoglobin Concent 34 g/dL (31-37) Red Cell Distribution Width 13.8 % (11.5-14.5) Platelet Count 165 x10^3/uL (140-400) Neutrophils (%) (Auto) 45 % (31-73) Lymphocytes (%) (Auto) 38 % (24-48) Monocytes (%) (Auto) 12 % (0-9) H Eosinophils (%) (Auto) 5 % (0-3) H Basophils (%) (Auto) 1 % (0-3) Neutrophils # (Auto) 2.7 x10^3uL (1.8-7.7) Lymphocytes # (Auto) 2.3 x10^3/uL (1.0-4.8) Monocytes # (Auto) 0.7 x10^3/uL (0.0-1.1) Eosinophils # (Auto) 0.3 x10^3/uL (0.0-0.7) Basophils # (Auto) 0.1 x10^3/uL (0.0-0.2) Sodium Level 143 mmol/L (136-145) Potassium Level 3.9 mmol/L (3.5-5.1) Chloride Level 104 mmol/L (98-107) Carbon Dioxide Level 30 mmol/L (21-32) Anion Gap 9 (6-14) Blood Urea Nitrogen 17 mg/dL (8-26) Creatinine 0.8 mg/dL (0.7-1.3) Estimated GFR (Cockcroft-Gault) 117.0 BUN/Creatinine Ratio 21 (6-20) H Glucose Level 90 mg/dL (70-99) Calcium Level 8.5 mg/dL (8.5-10.1) Total Bilirubin 0.4 mg/dL (0.2-1.0) Aspartate Amino Transferase (AST) 15 U/L (15-37) Alanine Aminotransferase (ALT) 26 U/L (16-63) Alkaline Phosphatase 81 U/L (46-116) Total Protein 7.8 g/dL (6.4-8.2) Albumin 3.2 g/dL (3.4-5.0) L Albumin/Globulin Ratio 0.7 (1.0-1.7) L Valproic Acid Level 44 mcg/mL (50-100) L Valproic Acid Last Dose Date 06/27/17 Valproic Acid Last Dose Time 2100 Current Medications: Meds: Current Medications Acetaminophen (Tylenol) 650 mg PRN Q6HRS PRN PO MILD PAIN / TEMP; Start at 00:00; Stop 06/23/17 at 06:34; Status DC Multi-Ingredient Ointment (Analgesic [place]) 1 yadi PRN QID PRN TP MUSCLE PAIN; Start 06/23/17 at 00:00 Al Hydroxide/Mg Hydroxide (Mylanta Plus Xs) 15 ml PRN AFTMEALHC PRN PO DYSPEPSIA; Start 06/23/17 at 00:00 Magnesium Hydroxide (Milk Of Magnesia) 2,400 mg PRN QHS PRN PO CONSTIPATION Last administered on 06/26/17 09:58; Start 06/23/17 at 00:00 Divalproex Sodium (Depakote Sprinkles) 250 mg TID@0900,1300,1700 PO Last administered on 06/24/17 16:54; Start 06/23/17 at 09:00; Stop 06/24/17 at 18 :39; Status DC Donepezil HCl (Aricept) 5 mg DAILY PO Last administered on 06/28/17 08:57; Start 06/23/17 at 09:00 Melatonin 3 mg QHS PO Last administered on 06/28/17 19:34; Start 06/23/17 at 21:00 Olanzapine (ZyPREXA ZYDIS) 2.5 mg PRN Q2HR PRN PO PSYCHOSIS Last administered on 06/27/17 16:40; Start 06/23/17 at 01:15 Acetaminophen (Tylenol) 500 mg PRN Q6HRS PRN PO PAIN / TEMP; Start 06/23/17 at 06:30 Aspirin (Aspirin Enteric Coated) 81 mg DAILY PO Last administered on 06/28/17 08:56; Start 06/23/17 at 09:00 Atorvastatin Calcium (Lipitor) 20 mg QHS PO Last administered on 06/28/17 19: 34; Start 06/23/17 at 21:00 Vitamin D (Vitamin D3) 1,000 unit DAILY PO Last administered on 06/24/17 09: 10; Start 06/23/17 at 09:00; Stop 06/24/17 at 14:36; Status DC Docusate Sodium (Colace) 100 mg DAILY PO Last administered on 06/28/17 08:57; Start 06/23/17 at 09:00 Lactulose 20 gm TID@0900,1300,1700 PO Last administered on 06/28/17 17:16; Start 06/23/17 at 09:00 Metoprolol Tartrate (Lopressor) 300 mg BID PO Last administered on 06/28/17 19 :35; Start 06/23/17 at 09:00 Trazodone HCl (Desyrel) 100 mg PRN QHS PRN PO INSOMNIA, MAY REPEAT X1 Last administered on 06/28/17 19:37; Start 06/23/17 at 20:30 Prenat Multivit/ [place]/Iron/Folic Ac (Multivitamin ) 1 tab DAILY PO Last administered on 06/28/17 08:57; Start 06/25/17 at 09:00 Vitamin D (Vitamin D3) 2,000 unit DAILYBFRSUP PO Last administered on 08:57; Start 06/24/17 at 17:00 Cyanocobalamin (Vitamin B-12) 1,000 mcg DAILY PO Last administered on 08:57; Start 06/25/17 at 09:00 Cyanocobalamin (Vitamin B-12) 1,000 mcg 1X ONCE IM Last administered on 15:27; Start 06/24/17 at 14:45; Stop 06/24/17 at 14:46; Status DC Cyanocobalamin (Vitamin B-12) 1,000 mcg 1X ONCE IM Last administered on 19:44; Start 06/24/17 at 21:00; Stop 06/24/17 at 21:01; Status DC Divalproex Sodium (Depakote Sprinkles) 375 mg BID@0900,1700 PO Last administered on 06/28/17 17:16; Start 06/25/17 at 09:00; Stop 06/28/17 at 19: 03; Status DC Divalproex Sodium (Depakote Sprinkles) 250 mg DAILY@1300 PO Last administered on 06/28/17 12:42; Start 06/25/17 at 13:00; Stop 06/28/17 at 19:03; Status DC Lactulose 20 gm STK-MED ONCE .ROUTE ; Start 06/23/17 at 09:00; Stop 06/26/17 at 18:49; Status DC Lactulose 20 gm STK-MED ONCE .ROUTE ; Start 06/23/17 at 09:00; Stop 06/26/17 at 18:49; Status DC Lactulose 20 gm STK-MED ONCE .ROUTE ; Start 06/23/17 at 09:00; Stop 06/26/17 at 18:49; Status DC Melatonin 3 mg STK-MED ONCE .ROUTE ; Start 06/23/17 at 21:00; Stop 06/26/17 at 18:49; Status DC Lactulose 20 gm STK-MED ONCE .ROUTE ; Start 06/24/17 at 21:00; Stop 06/26/17 at 18:50; Status DC Lactulose 20 gm STK-MED ONCE .ROUTE ; Start 06/24/17 at 21:00; Stop 06/26/17 at 18:50; Status DC Lactulose 20 gm STK-MED ONCE .ROUTE ; Start 06/24/17 at 21:00; Stop 06/26/17 at 18:50; Status DC Melatonin 3 mg STK-MED ONCE .ROUTE ; Start 06/24/17 at 21:00; Stop 06/26/17 at 18:50; Status DC Lactulose 20 gm STK-MED ONCE .ROUTE ; Start 06/25/17 at 21:00; Stop 06/26/17 at 18:50; Status DC Lactulose 20 gm STK-MED ONCE .ROUTE ; Start 06/25/17 at 21:00; Stop 06/26/17 at 18:50; Status DC Lactulose 20 gm STK-MED ONCE .ROUTE ; Start 06/25/17 at 21:00; Stop 06/26/17 at 18:50; Status DC Melatonin 3 mg STK-MED ONCE .ROUTE ; Start 06/25/17 at 21:00; Stop 06/26/17 at 18:50; Status DC Lactulose 20 gm STK-MED ONCE .ROUTE ; Start 06/26/17 at 21:00; Stop 06/26/17 at 21:01; Status DC Lactulose 20 gm STK-MED ONCE .ROUTE ; Start 06/26/17 at 21:00; Stop 06/26/17 at 21:01; Status DC Lactulose 20 gm STK-MED ONCE .ROUTE ; Start 06/26/17 at 21:00; Stop 06/26/17 at 21:01; Status DC Divalproex Sodium (Depakote Sprinkles) 375 mg TID PO Last administered on t 19:37; Start 06/28/17 at 21:00 Divalproex Sodium (Depakote Sprinkles) 375 mg DAILY@1300 PO ; Start 06/29/17 at 13:00; Status UNV Mirtazapine (Remeron) 7.5 mg QHS PO Last administered on 06/28/17t 19:37; Start 06/28/17 at 21:00 Quetiapine Fumarate (SEROquel) 12.5 mg DAILY@1500 PO ; Start 06/29/17 at 15:00 Active Scripts Active Reported Depakote Sprinkle (Divalproex Sodium) 125 Mg Cap.sprink 250 Mg PO TID@0900,1300, 1700 Acetaminophen 500 Mg Tablet 500 Mg PO PRN Q6HRS PRN Melatonin 3 Mg Tablet 3 Mg PO QHS Atorvastatin Calcium 20 Mg Tablet 20 Mg PO QHS Lactulose 10 Gm/15 Ml Solution 20 Gm PO TID@0900,1300,1700 Metoprolol Tartrate 100 Mg Tablet 300 Mg PO BID Colace (Docusate Sodium) 100 Mg Capsule 100 Mg PO DAILY Vitamin D3 (Cholecalciferol (Vitamin D3)) 1,000 Unit Tablet 1,000 Unit PO DAILY Aricept (Donepezil Hcl) 5 Mg Tablet 5 Mg PO DAILY Aspir-Low (Aspirin) 81 Mg Tablet.dr 81 Mg PO DAILY I have reviewed the current psychotropics carefully including drug interactions. Risk benefit ratio favors no change other than as noted in my dictated progress note. Diagnosis: Problems: (1) Anxiety disorder (2) Dementia in Alzheimer's disease with delusions (3) Dementia in Alzheimer's disease with depression (4) Dementia, vascular, with delirium (5) Dementia, vascular, with delusions (6) Impulse control disorder ELLIS NOBLES MD Jun 28, 2017 20:15
[2017-06-29 05:54] VITALS: BP 158/79
[2017-06-29] MEDS: METOPROLOL TART IMMED RELEASE 50 MG TABLET PO SCH ×2 (08:02→19:22)
[2017-06-29] MEDS: PRENATAL MULTIVITAMIN TABLET. PO SCH (08:02)
[2017-06-29] MEDS: LACTULOSE 20 GM/30 ML SOLUTION. PO SCH ×3 (08:02→17:00)
[2017-06-29] MEDS: DONEPEZIL HCL 5 MG TABLET. PO SCH (08:02)
[2017-06-29] MEDS: CYANOCOBALAMIN (VITAMIN B-12) 1,000 MCG TABLET. PO SCH (08:02)
[2017-06-29] MEDS: DOCUSATE SODIUM 100 MG CAPSULE PO SCH (08:02)
[2017-06-29] MEDS: DIVALPROEX 125 MG CAP.SPRINK PO SCH ×3 (08:03→19:22)
[2017-06-29] MEDS: ASPIRIN ENTERIC COATED 81 MG TABLET.DR. PO SCH (08:03)
[2017-06-29] MEDS ORDERED: DIVALPROEX 125 MG CAP.SPRINK PO SCH (13:00)
[2017-06-29] MEDS: QUEtiapine 25 MG TABLET. PO SCH (13:30)
[2017-06-29] MEDS: CHOLECALCIFEROL (VITAMIN D3) 1,000 UNIT TABLET PO SCH (13:30)
[2017-06-29 16:26] VITALS: BP 125/78
[2017-06-29] MEDS: MIRTAZAPINE 7.5 MG TABLET. PO SCH (19:22)
[2017-06-29] MEDS: ATORVASTATIN CALCIUM 20 MG TABLET PO SCH (19:22)
[2017-06-29] MEDS: MELATONIN 3 MG TABLET PO SCH (19:22)
--- NOTE | 2017-06-29 21:44 | PDOC ---
Exam Note: Darci Note: Please also refer to the separate dictated note~for this date of service dictated separately.~Patient seen individually. Discussed the patient with Nursing staff reviewed the chart.~Reviewed interim history and current functioning. Reviewed vital signs,~Labs/ Radiology~and current medications noted below. Continue current treatment with the changes noted in the dictated addendum note Assessment: Vital Signs: Vital Signs Date Time Temp Pulse Resp B/P (MAP) Pulse Ox O2 Delivery O2 Flow Rate FiO2 06/29/17 19:22 66 125/78 06/29/17 16:26 98.2 16 98 06/27/17 15:51 Room Air I&O Intake and Output 06/29/17 07:00 Intake Total 1440 ml Balance 1440 ml Intake Oral 1440 ml # Voids 2 Current Medications: Meds: Current Medications Acetaminophen (Tylenol) 650 mg PRN Q6HRS PRN PO MILD PAIN / TEMP; Start at 00:00; Stop 06/23/17 at 06:34; Status DC Multi-Ingredient Ointment (Analgesic [place]) 1 yadi PRN QID PRN TP MUSCLE PAIN; Start 06/23/17 at 00:00 Al Hydroxide/Mg Hydroxide (Mylanta Plus Xs) 15 ml PRN AFTMEALHC PRN PO DYSPEPSIA; Start 06/23/17 at 00:00 Magnesium Hydroxide (Milk Of Magnesia) 2,400 mg PRN QHS PRN PO CONSTIPATION Last administered on 06/26/17 09:58; Start 06/23/17 at 00:00 Divalproex Sodium (Depakote Sprinkles) 250 mg TID@0900,1300,1700 PO Last administered on 06/24/17 16:54; Start 06/23/17 at 09:00; Stop 06/24/17 at 18 :39; Status DC Donepezil HCl (Aricept) 5 mg DAILY PO Last administered on 06/29/17 08:02; Start 06/23/17 at 09:00 Melatonin 3 mg QHS PO Last administered on 06/29/17 19:22; Start 06/23/17 at 21:00 Olanzapine (ZyPREXA ZYDIS) 2.5 mg PRN Q2HR PRN PO PSYCHOSIS Last administered on 06/27/17 16:40; Start 06/23/17 at 01:15 Acetaminophen (Tylenol) 500 mg PRN Q6HRS PRN PO PAIN / TEMP; Start 06/23/17 at 06:30 Aspirin (Aspirin Enteric Coated) 81 mg DAILY PO Last administered on 06/29/17 08:03; Start 06/23/17 at 09:00 Atorvastatin Calcium (Lipitor) 20 mg QHS PO Last administered on 06/29/17 19: 22; Start 06/23/17 at 21:00 Vitamin D (Vitamin D3) 1,000 unit DAILY PO Last administered on 06/24/17 09: 10; Start 06/23/17 at 09:00; Stop 06/24/17 at 14:36; Status DC Docusate Sodium (Colace) 100 mg DAILY PO Last administered on 06/29/17 08:02; Start 06/23/17 at 09:00 Lactulose 20 gm TID@0900,1300,1700 PO Last administered on 06/29/17 13:27; Start 06/23/17 at 09:00 Metoprolol Tartrate (Lopressor) 300 mg BID PO Last administered on 06/29/17 19 :22; Start 06/23/17 at 09:00 Trazodone HCl (Desyrel) 100 mg PRN QHS PRN PO INSOMNIA, MAY REPEAT X1 Last administered on 06/28/17 19:37; Start 06/23/17 at 20:30 Prenat Multivit/ [place]/Iron/Folic Ac (Multivitamin ) 1 tab DAILY PO Last administered on 06/29/17 08:02; Start 06/25/17 at 09:00 Vitamin D (Vitamin D3) 2,000 unit DAILYBFRSUP PO Last administered on 13:30; Start 06/24/17 at 17:00 Cyanocobalamin (Vitamin B-12) 1,000 mcg DAILY PO Last administered on 08:02; Start 06/25/17 at 09:00 Cyanocobalamin (Vitamin B-12) 1,000 mcg 1X ONCE IM Last administered on 15:27; Start 06/24/17 at 14:45; Stop 06/24/17 at 14:46; Status DC Cyanocobalamin (Vitamin B-12) 1,000 mcg 1X ONCE IM Last administered on 19:44; Start 06/24/17 at 21:00; Stop 06/24/17 at 21:01; Status DC Divalproex Sodium (Depakote Sprinkles) 375 mg BID@0900,1700 PO Last administered on 06/28/17 17:16; Start 06/25/17 at 09:00; Stop 06/28/17 at 19: 03; Status DC Divalproex Sodium (Depakote Sprinkles) 250 mg DAILY@1300 PO Last administered on 06/28/17 12:42; Start 06/25/17 at 13:00; Stop 06/28/17 at 19:03; Status DC Lactulose 20 gm STK-MED ONCE .ROUTE ; Start 06/23/17 at 09:00; Stop 06/26/17 at 18:49; Status DC Lactulose 20 gm STK-MED ONCE .ROUTE ; Start 06/23/17 at 09:00; Stop 06/26/17 at 18:49; Status DC Lactulose 20 gm STK-MED ONCE .ROUTE ; Start 06/23/17 at 09:00; Stop 06/26/17 at 18:49; Status DC Melatonin 3 mg STK-MED ONCE .ROUTE ; Start 06/23/17 at 21:00; Stop 06/26/17 at 18:49; Status DC Lactulose 20 gm STK-MED ONCE .ROUTE ; Start 06/24/17 at 21:00; Stop 06/26/17 at 18:50; Status DC Lactulose 20 gm STK-MED ONCE .ROUTE ; Start 06/24/17 at 21:00; Stop 06/26/17 at 18:50; Status DC Lactulose 20 gm STK-MED ONCE .ROUTE ; Start 06/24/17 at 21:00; Stop 06/26/17 at 18:50; Status DC Melatonin 3 mg STK-MED ONCE .ROUTE ; Start 06/24/17 at 21:00; Stop 06/26/17 at 18:50; Status DC Lactulose 20 gm STK-MED ONCE .ROUTE ; Start 06/25/17 at 21:00; Stop 06/26/17 at 18:50; Status DC Lactulose 20 gm STK-MED ONCE .ROUTE ; Start 06/25/17 at 21:00; Stop 06/26/17 at 18:50; Status DC Lactulose 20 gm STK-MED ONCE .ROUTE ; Start 06/25/17 at 21:00; Stop 06/26/17 at 18:50; Status DC Melatonin 3 mg STK-MED ONCE .ROUTE ; Start 06/25/17 at 21:00; Stop 06/26/17 at 18:50; Status DC Lactulose 20 gm STK-MED ONCE .ROUTE ; Start 06/26/17 at 21:00; Stop 06/26/17 at 21:01; Status DC Lactulose 20 gm STK-MED ONCE .ROUTE ; Start 06/26/17 at 21:00; Stop 06/26/17 at 21:01; Status DC Lactulose 20 gm STK-MED ONCE .ROUTE ; Start 06/26/17 at 21:00; Stop 06/26/17 at 21:01; Status DC Divalproex Sodium (Depakote Sprinkles) 375 mg TID PO Last administered on 19:22; Start 06/28/17 at 21:00 Divalproex Sodium (Depakote Sprinkles) 375 mg DAILY@1300 PO ; Start 06/29/17 at 13:00; Status UNV Mirtazapine (Remeron) 7.5 mg QHS PO Last administered on 06/29/17 19:22; Start 06/28/17 at 21:00 Quetiapine Fumarate (SEROquel) 12.5 mg DAILY@1500 PO Last administered on 13:30; Start 06/29/17 at 15:00 Active Scripts Active Reported Depakote Sprinkle (Divalproex Sodium) 125 Mg Cap.sprink 250 Mg PO TID@0900,1300, 1700 Acetaminophen 500 Mg Tablet 500 Mg PO PRN Q6HRS PRN Melatonin 3 Mg Tablet 3 Mg PO QHS Atorvastatin Calcium 20 Mg Tablet 20 Mg PO QHS Lactulose 10 Gm/15 Ml Solution 20 Gm PO TID@0900,1300,1700 Metoprolol Tartrate 100 Mg Tablet 300 Mg PO BID Colace (Docusate Sodium) 100 Mg Capsule 100 Mg PO DAILY Vitamin D3 (Cholecalciferol (Vitamin D3)) 1,000 Unit Tablet 1,000 Unit PO DAILY Aricept (Donepezil Hcl) 5 Mg Tablet 5 Mg PO DAILY Aspir-Low (Aspirin) 81 Mg Tablet. 81 Mg PO DAILY I have reviewed the current psychotropics carefully including drug interactions. Risk benefit ratio favors no change other than as noted in my dictated progress note. Diagnosis: Problems: (1) Anxiety disorder (2) Dementia in Alzheimer's disease with delusions (3) Dementia in Alzheimer's disease with depression (4) Dementia, vascular, with delirium (5) Dementia, vascular, with delusions (6) Impulse control disorder ELLIS NOBLES MD Jun 29, 2017 21:44
[2017-06-30 05:48] VITALS: BP 133/82
[2017-06-30] MEDS: ASPIRIN ENTERIC COATED 81 MG TABLET.DR. PO SCH (08:32)
[2017-06-30] MEDS: CYANOCOBALAMIN (VITAMIN B-12) 1,000 MCG TABLET. PO SCH (08:32)
[2017-06-30] MEDS: DIVALPROEX 125 MG CAP.SPRINK PO SCH ×3 (08:32→19:30)
[2017-06-30] MEDS: LACTULOSE 20 GM/30 ML SOLUTION. PO SCH ×3 (08:33→16:47)
[2017-06-30] MEDS: DONEPEZIL HCL 5 MG TABLET. PO SCH (08:33)
[2017-06-30] MEDS: PRENATAL MULTIVITAMIN TABLET. PO SCH (08:33)
[2017-06-30] MEDS: METOPROLOL TART IMMED RELEASE 50 MG TABLET PO SCH ×2 (08:33→19:34)
[2017-06-30] MEDS: DOCUSATE SODIUM 100 MG CAPSULE PO SCH (08:33)
[2017-06-30] MEDS: QUEtiapine 25 MG TABLET. PO SCH (14:39)
[2017-06-30] MEDS: CHOLECALCIFEROL (VITAMIN D3) 1,000 UNIT TABLET PO SCH (14:40)
[2017-06-30 16:10] VITALS: BP 132/80
[2017-06-30] MEDS: MIRTAZAPINE 7.5 MG TABLET. PO SCH (19:31)
[2017-06-30] MEDS: traZODone 100 MG TABLET. PO PRN (19:31)
[2017-06-30] MEDS: MELATONIN 3 MG TABLET PO SCH (19:33)
[2017-06-30] MEDS: ATORVASTATIN CALCIUM 20 MG TABLET PO SCH (19:34)
--- NOTE | 2017-06-30 19:58 | PDOC ---
Exam Note: Darci Note: Please also refer to the separate dictated note~for this date of service dictated separately.~Patient seen individually. Discussed the patient with Nursing staff reviewed the chart.~Reviewed interim history and current functioning. Reviewed vital signs,~Labs/ Radiology~and current medications noted below. Continue current treatment with the changes noted in the dictated addendum note Assessment: Vital Signs: Vital Signs Date Time Temp Pulse Resp B/P (MAP) Pulse Ox O2 Delivery O2 Flow Rate FiO2 06/30/17 19:34 69 132/80 06/30/17 16:10 97.4 18 100 06/27/17 15:51 Room Air I&O Intake and Output 06/30/17 07:00 Intake Total 1080 ml Balance 1080 ml Intake Oral 1080 ml Current Medications: Meds: Current Medications Acetaminophen (Tylenol) 650 mg PRN Q6HRS PRN PO MILD PAIN / TEMP; Start at 00:00; Stop 06/23/17 at 06:34; Status DC Multi-Ingredient Ointment (Analgesic [place]) 1 yadi PRN QID PRN TP MUSCLE PAIN; Start 06/23/17 at 00:00 Al Hydroxide/Mg Hydroxide (Mylanta Plus Xs) 15 ml PRN AFTMEALHC PRN PO DYSPEPSIA; Start 06/23/17 at 00:00 Magnesium Hydroxide (Milk Of Magnesia) 2,400 mg PRN QHS PRN PO CONSTIPATION Last administered on 06/26/17 09:58; Start 06/23/17 at 00:00 Divalproex Sodium (Depakote Sprinkles) 250 mg TID@0900,1300,1700 PO Last administered on 06/24/17 16:54; Start 06/23/17 at 09:00; Stop 06/24/17 at 18 :39; Status DC Donepezil HCl (Aricept) 5 mg DAILY PO Last administered on 06/30/17 08:33; Start 06/23/17 at 09:00 Melatonin 3 mg QHS PO Last administered on 06/30/17 19:33; Start 06/23/17 at 21:00 Olanzapine (ZyPREXA ZYDIS) 2.5 mg PRN Q2HR PRN PO PSYCHOSIS Last administered on 06/27/17 16:40; Start 06/23/17 at 01:15 Acetaminophen (Tylenol) 500 mg PRN Q6HRS PRN PO PAIN / TEMP; Start 06/23/17 at 06:30 Aspirin (Aspirin Enteric Coated) 81 mg DAILY PO Last administered on 06/30/17 08:32; Start 06/23/17 at 09:00 Atorvastatin Calcium (Lipitor) 20 mg QHS PO Last administered on 06/30/17 19: 34; Start 06/23/17 at 21:00 Vitamin D (Vitamin D3) 1,000 unit DAILY PO Last administered on 06/24/17 09: 10; Start 06/23/17 at 09:00; Stop 06/24/17 at 14:36; Status DC Docusate Sodium (Colace) 100 mg DAILY PO Last administered on 06/30/17 08:33; Start 06/23/17 at 09:00 Lactulose 20 gm TID@0900,1300,1700 PO Last administered on 06/30/17 14:39; Start 06/23/17 at 09:00 Metoprolol Tartrate (Lopressor) 300 mg BID PO Last administered on 06/30/17 19 :34; Start 06/23/17 at 09:00 Trazodone HCl (Desyrel) 100 mg PRN QHS PRN PO INSOMNIA, MAY REPEAT X1 Last administered on 06/30/17 19:31; Start 06/23/17 at 20:30 Prenat Multivit/ [place]/Iron/Folic Ac (Multivitamin ) 1 tab DAILY PO Last administered on 06/30/17 08:33; Start 06/25/17 at 09:00 Vitamin D (Vitamin D3) 2,000 unit DAILYBFRSUP PO Last administered on 14:40; Start 06/24/17 at 17:00 Cyanocobalamin (Vitamin B-12) 1,000 mcg DAILY PO Last administered on 08:32; Start 06/25/17 at 09:00 Cyanocobalamin (Vitamin B-12) 1,000 mcg 1X ONCE IM Last administered on 15:27; Start 06/24/17 at 14:45; Stop 06/24/17 at 14:46; Status DC Cyanocobalamin (Vitamin B-12) 1,000 mcg 1X ONCE IM Last administered on 19:44; Start 06/24/17 at 21:00; Stop 06/24/17 at 21:01; Status DC Divalproex Sodium (Depakote Sprinkles) 375 mg BID@0900,1700 PO Last administered on 06/28/17 17:16; Start 06/25/17 at 09:00; Stop 06/28/17 at 19: 03; Status DC Divalproex Sodium (Depakote Sprinkles) 250 mg DAILY@1300 PO Last administered on 06/28/17 12:42; Start 06/25/17 at 13:00; Stop 06/28/17 at 19:03; Status DC Lactulose 20 gm STK-MED ONCE .ROUTE ; Start 06/23/17 at 09:00; Stop 06/26/17 at 18:49; Status DC Lactulose 20 gm STK-MED ONCE .ROUTE ; Start 06/23/17 at 09:00; Stop 06/26/17 at 18:49; Status DC Lactulose 20 gm STK-MED ONCE .ROUTE ; Start 06/23/17 at 09:00; Stop 06/26/17 at 18:49; Status DC Melatonin 3 mg STK-MED ONCE .ROUTE ; Start 06/23/17 at 21:00; Stop 06/26/17 at 18:49; Status DC Lactulose 20 gm STK-MED ONCE .ROUTE ; Start 06/24/17 at 21:00; Stop 06/26/17 at 18:50; Status DC Lactulose 20 gm STK-MED ONCE .ROUTE ; Start 06/24/17 at 21:00; Stop 06/26/17 at 18:50; Status DC Lactulose 20 gm STK-MED ONCE .ROUTE ; Start 06/24/17 at 21:00; Stop 06/26/17 at 18:50; Status DC Melatonin 3 mg STK-MED ONCE .ROUTE ; Start 06/24/17 at 21:00; Stop 06/26/17 at 18:50; Status DC Lactulose 20 gm STK-MED ONCE .ROUTE ; Start 06/25/17 at 21:00; Stop 06/26/17 at 18:50; Status DC Lactulose 20 gm STK-MED ONCE .ROUTE ; Start 06/25/17 at 21:00; Stop 06/26/17 at 18:50; Status DC Lactulose 20 gm STK-MED ONCE .ROUTE ; Start 06/25/17 at 21:00; Stop 06/26/17 at 18:50; Status DC Melatonin 3 mg STK-MED ONCE .ROUTE ; Start 06/25/17 at 21:00; Stop 06/26/17 at 18:50; Status DC Lactulose 20 gm STK-MED ONCE .ROUTE ; Start 06/26/17 at 21:00; Stop 06/26/17 at 21:01; Status DC Lactulose 20 gm STK-MED ONCE .ROUTE ; Start 06/26/17 at 21:00; Stop 06/26/17 at 21:01; Status DC Lactulose 20 gm STK-MED ONCE .ROUTE ; Start 06/26/17 at 21:00; Stop 06/26/17 at 21:01; Status DC Divalproex Sodium (Depakote Sprinkles) 375 mg TID PO Last administered on 19:30; Start 06/28/17 at 21:00 Divalproex Sodium (Depakote Sprinkles) 375 mg DAILY@1300 PO ; Start 06/29/17 at 13:00; Status UNV Mirtazapine (Remeron) 7.5 mg QHS PO Last administered on 06/30/17 19:31; Start 06/28/17 at 21:00 Quetiapine Fumarate (SEROquel) 12.5 mg DAILY@1500 PO Last administered on 14:39; Start 06/29/17 at 15:00 Active Scripts Active Reported Depakote Sprinkle (Divalproex Sodium) 125 Mg Cap.sprink 250 Mg PO TID@0900,1300, 1700 Acetaminophen 500 Mg Tablet 500 Mg PO PRN Q6HRS PRN Melatonin 3 Mg Tablet 3 Mg PO QHS Atorvastatin Calcium 20 Mg Tablet 20 Mg PO QHS Lactulose 10 Gm/15 Ml Solution 20 Gm PO TID@0900,1300,1700 Metoprolol Tartrate 100 Mg Tablet 300 Mg PO BID Colace (Docusate Sodium) 100 Mg Capsule 100 Mg PO DAILY Vitamin D3 (Cholecalciferol (Vitamin D3)) 1,000 Unit Tablet 1,000 Unit PO DAILY Aricept (Donepezil Hcl) 5 Mg Tablet 5 Mg PO DAILY Aspir-Low (Aspirin) 81 Mg Tablet. 81 Mg PO DAILY I have reviewed the current psychotropics carefully including drug interactions. Risk benefit ratio favors no change other than as noted in my dictated progress note. Diagnosis: Problems: (1) Anxiety disorder (2) Dementia in Alzheimer's disease with delusions (3) Dementia in Alzheimer's disease with depression (4) Dementia, vascular, with delirium (5) Dementia, vascular, with delusions (6) Impulse control disorder ELLIS NOBLES MD Jun 30, 2017 19:58
[2017-07-01 05:51] VITALS: BP 169/87
[2017-07-01 08:04] LABS: BASO % 1 % (0-3); EOS # 0.3 x10^3/uL (0.0-0.7); EOS % 5 % (0-3); HEMATOCRIT 43.3 % (39.0-53.0); HEMOGLOBIN 14.6 g/dL (13.0-17.5); LYMPH # 2.2 x10^3/uL (1.0-4.8); LYMPH % 38 % (24-48); MEAN CORPUSCULAR HEMOGLOBIN 32 pg (25-35); MEAN CORPUSCULAR HGB CONC 34 g/dL (31-37); MEAN CORPUSCULAR VOLUME 96 fL (79-100); MONO # 0.6 x10^3/uL (0.0-1.1); MONO % 11 % (0-9); NEUT # 2.6 x10^3uL (1.8-7.7); NEUT % 46 % (31-73); PLATELET COUNT 203 x10^3/uL (140-400); RED BLOOD COUNT 4.53 x10^6/uL (4.30-5.70); RED CELL DISTRIBUTION WIDTH 13.7 % (11.5-14.5); WHITE BLOOD COUNT 5.7 x10^3/uL (4.0-11.0)
[2017-07-01 08:13] LABS: ALBUMIN 3.1 g/dL (3.4-5.0); ALBUMIN/GLOBULIN RATIO 0.7 (1.0-1.7); ALK PHOS 80 U/L (46-116); ALT (SGPT) 28 U/L (16-63); ANION GAP 7 (6-14); AST (SGOT) 17 U/L (15-37); BLOOD UREA NITROGEN 15 mg/dL (8-26); BUN/CREATININE RATIO 17 (6-20); CALCIUM 8.7 mg/dL (8.5-10.1); CARBON DIOXIDE 30 mmol/L (21-32); CHLORIDE 103 mmol/L (98-107); CREATININE 0.9 mg/dL (0.7-1.3); GFR 102.2; GLUCOSE 87 mg/dL (70-99); SODIUM 140 mmol/L (136-145); TOTAL BILIRUBIN 0.3 mg/dL (0.2-1.0); TOTAL PROTEIN 7.7 g/dL (6.4-8.2)
[2017-07-01 08:19] LABS: VAL ACID 55 mcg/mL (50-100)
[2017-07-01] MEDS: LACTULOSE 20 GM/30 ML SOLUTION. PO SCH ×3 (09:35→17:17)
[2017-07-01] MEDS: METOPROLOL TART IMMED RELEASE 50 MG TABLET PO SCH ×2 (09:36→19:22)
[2017-07-01] MEDS: CYANOCOBALAMIN (VITAMIN B-12) 1,000 MCG TABLET. PO SCH (09:36)
[2017-07-01] MEDS: DOCUSATE SODIUM 100 MG CAPSULE PO SCH (09:36)
[2017-07-01] MEDS: DIVALPROEX 125 MG CAP.SPRINK PO SCH ×3 (09:36→19:21)
[2017-07-01] MEDS: DONEPEZIL HCL 5 MG TABLET. PO SCH (09:36)
[2017-07-01] MEDS: PRENATAL MULTIVITAMIN TABLET. PO SCH (09:36)
[2017-07-01] MEDS: ASPIRIN ENTERIC COATED 81 MG TABLET.DR. PO SCH (09:36)
--- NOTE | 2017-07-01 09:40 | PN ---
DATE: 06/26/2017 PSYCHIATRIC PROGRESS NOTE This is a late entry for 06/26/2017, covers the elements not covered in my initial note of 06/26/2017. SUBJECTIVE: I met with the patient evening of 06/26/2017, patient slept 6-3/4 hours previous evening, remains confused, did well until about 1600, then was loud in the dining room, had to be placed in the hallway to separate from the others to reduce stimulation, talking about his mother being "madam" and talking about gangsters. Somewhat psychotic. He is described having to protect his sister on the streets. All of this is not totally confirmed information. REVIEW OF SYSTEMS: No CV, , pulmonary, eye, ENT system symptoms on review. Reliability poor. MENTAL STATUS EXAM: Oriented to himself. Insight, judgment, recent and remote memory, attention, concentration, fund of knowledge poor, consistent with his diagnosis mentioned in my initial note. PLAN: Check CBC, CMP, valproic acid level in 3 days. Depakote was increased, attempt to reach a therapeutic level, then may add scheduled atypical antipsychotic. Continue Aricept, melatonin, along with trazodone and Zyprexa p.r.n. ELLIS NOBLES MD DR: MONICA/joe JOB#: [id number] / [id number]
--- NOTE | 2017-07-01 09:51 | PN ---
DATE: 06/27/2017 PSYCHIATRIC PROGRESS NOTE This late entry 06/27/2017 covers elements not covered in my initial note of 06/27/2017. I met with the patient evening of 06/27/2017, staffed at treatment team meeting with the entire team morning of 06/27/2017. Reviewed his history at length. 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 No clear alcohol history noted on further verification from family and other sources. He remains withdrawn, confused, somewhat paranoid. No CV, , pulmonary, eye, ENT system symptoms on review. MENTAL STATUS EXAM: Oriented to himself. Insight, judgment, recent and remote memory, attention, concentration, fund of knowledge poor, consistent with his diagnosis. Speech moderate latency, often responses monosyllabic, somewhat paranoid. LABORATORY DATA: Reviewed. IMPRESSION: Unchanged from initial note. PLAN: Continue psychotropics mentioned in my initial note. Check valproic acid levels since Depakote was increased. We will achieve a therapeutic level and then add an atypical antipsychotic if above symptoms persist including the paranoia. Reviewed at length. MAN Estefany NOBLES MD DR: MONICA/joe JOB#: [id number] / [id number]
--- NOTE | 2017-07-01 09:52 | PN ---
DATE: 06/28/2017 PSYCHIATRIC PROGRESS NOTE This late entry 06/28/2017 covers elements, not covered in my initial note of 06/28/2017. I met with the patient in the evening of 06/28/2017. The patient remains somewhat withdrawn, walks into other patient's rooms, wanders, confused, agitated, almost daily around 3 and 4 p.m., slept 4-1/2 hours previous evening. REVIEW OF SYSTEMS: No CV, , pulmonary, eye, ENT system symptoms on review. Reliability poor. MENTAL STATUS EXAM: Oriented to himself. Insight, judgment, recent and remote memory, attention, concentration, fund of knowledge poor, consistent with his diagnosis. Valproic acid level is 44. IMPRESSION: Unchanged from initial note. PLAN: Increase Depakote from 250 mg at 1300 to 375 mg at 1300 and continue the 375 mg at 900 and 1500. Check CBC, CMP, valproic acid level in 3 days. Start Seroquel 12.5 mg at 3 p.m. to help with his mood lability, agitation, which presents almost daily around 4:00 p.m. Start Remeron 7.5 mg p.o. at bedtime, both for his insomnia and anxiety symptoms. Zyprexa remains p.r.n. Lengthy consideration regarding changes and treatment noted. MAN Estefany NOBLES MD DR: MONICA/joe JOB#: [id number] / [id number]
--- NOTE | 2017-07-01 09:53 | PN ---
DATE: 06/29/2017 PSYCHIATRIC PROGRESS NOTE This late entry 06/29/2017 covers elements, not covered in my initial of 06/29/2017. I met with the patient in the evening of 06/29/2017. The patient has been agitated in the evening and intermittently in the morning, takes his medications in ice cream. Otherwise, withdrawn, confused. REVIEW OF SYSTEMS: No CV, , pulmonary, eye, ENT system symptoms on review. Ambulates independently. MENTAL STATUS EXAM: Oriented to himself. Insight, judgment, recent and remote memory, attention, concentration, fund of knowledge poor, consistent with his diagnosis. His dressing had come off the lesion on the right side of his neck and it was oozing. I have asked the nursing staff to address this with Dr. Valerio. IMPRESSION: Unchanged from initial note. PLAN: Continue psychotropics mentioned in my initial note with the changes noted for 06/28/2017 including increase of Depakote. Repeat labs. Addition of Seroquel and Remeron amongst others. MAN Estefany NOBELS MD DR: MONICA/joe JOB#: [id number] / [id number]
[2017-07-01 15:58] VITALS: BP 142/85
[2017-07-01] MEDS: QUEtiapine 25 MG TABLET. PO SCH (16:12)
[2017-07-01] MEDS: CHOLECALCIFEROL (VITAMIN D3) 1,000 UNIT TABLET PO SCH (17:16)
[2017-07-01] MEDS: MIRTAZAPINE 7.5 MG TABLET. PO SCH (19:20)
[2017-07-01] MEDS: ATORVASTATIN CALCIUM 20 MG TABLET PO SCH (19:21)
[2017-07-01] MEDS: MELATONIN 3 MG TABLET PO SCH (19:21)
--- NOTE | 2017-07-01 19:56 | PDOC ---
Exam Note: Darci Note: Please also refer to the separate dictated note~for this date of service dictated separately.~Patient seen individually. Discussed the patient with Nursing staff reviewed the chart.~Reviewed interim history and current functioning. Reviewed vital signs,~Labs/ Radiology~and current medications noted below. Continue current treatment with the changes noted in the dictated addendum note Assessment: Vital Signs: Vital Signs Date Time Temp Pulse Resp B/P (MAP) Pulse Ox O2 Delivery O2 Flow Rate FiO2 07/01/17 19:22 64 142/85 07/01/17 15:58 97.9 18 99 06/27/17 15:51 Room Air I&O Intake and Output 07/01/17 07:00 Intake Total 1200 ml Balance 1200 ml Intake Oral 1200 ml # Voids 1 # Bowel Movements 1 Labs: Laboratory Tests Test 07/01/17 07:28 White Blood Count 5.7 x10^3/uL (4.0-11.0) Red Blood Count 4.53 x10^6/uL (4.30-5.70) Hemoglobin 14.6 g/dL (13.0-17.5) Hematocrit 43.3 % (39.0-53.0) Mean Corpuscular Volume 96 fL (79-100) Mean Corpuscular Hemoglobin 32 pg (25-35) Mean Corpuscular Hemoglobin Concent 34 g/dL (31-37) Red Cell Distribution Width 13.7 % (11.5-14.5) Platelet Count 203 x10^3/uL (140-400) Neutrophils (%) (Auto) 46 % (31-73) Lymphocytes (%) (Auto) 38 % (24-48) Monocytes (%) (Auto) 11 % (0-9) H Eosinophils (%) (Auto) 5 % (0-3) H Basophils (%) (Auto) 1 % (0-3) Neutrophils # (Auto) 2.6 x10^3uL (1.8-7.7) Lymphocytes # (Auto) 2.2 x10^3/uL (1.0-4.8) Monocytes # (Auto) 0.6 x10^3/uL (0.0-1.1) Eosinophils # (Auto) 0.3 x10^3/uL (0.0-0.7) Basophils # (Auto) 0.0 x10^3/uL (0.0-0.2) Sodium Level 140 mmol/L (136-145) Potassium Level 4.0 mmol/L (3.5-5.1) Chloride Level 103 mmol/L (98-107) Carbon Dioxide Level 30 mmol/L (21-32) Anion Gap 7 (6-14) Blood Urea Nitrogen 15 mg/dL (8-26) Creatinine 0.9 mg/dL (0.7-1.3) Estimated GFR (Cockcroft-Gault) 102.2 BUN/Creatinine Ratio 17 (6-20) Glucose Level 87 mg/dL (70-99) Calcium Level 8.7 mg/dL (8.5-10.1) Total Bilirubin 0.3 mg/dL (0.2-1.0) Aspartate Amino Transferase (AST) 17 U/L (15-37) Alanine Aminotransferase (ALT) 28 U/L (16-63) Alkaline Phosphatase 80 U/L (46-116) Total Protein 7.7 g/dL (6.4-8.2) Albumin 3.1 g/dL (3.4-5.0) L Albumin/Globulin Ratio 0.7 (1.0-1.7) L Valproic Acid Level 55 mcg/mL (50-100) Valproic Acid Last Dose Date 06/30/17 Valproic Acid Last Dose Time 2100 Current Medications: Meds: Current Medications Acetaminophen (Tylenol) 650 mg PRN Q6HRS PRN PO MILD PAIN / TEMP; Start at 00:00; Stop 06/23/17 at 06:34; Status DC Multi-Ingredient Ointment (Analgesic [place]) 1 yadi PRN QID PRN TP MUSCLE PAIN; Start 06/23/17 at 00:00 Al Hydroxide/Mg Hydroxide (Mylanta Plus Xs) 15 ml PRN AFTMEALHC PRN PO DYSPEPSIA; Start 06/23/17 at 00:00 Magnesium Hydroxide (Milk Of Magnesia) 2,400 mg PRN QHS PRN PO CONSTIPATION Last administered on 06/26/17 09:58; Start 06/23/17 at 00:00 Divalproex Sodium (Depakote Sprinkles) 250 mg TID@0900,1300,1700 PO Last administered on 06/24/17 16:54; Start 06/23/17 at 09:00; Stop 06/24/17 at 18 :39; Status DC Donepezil HCl (Aricept) 5 mg DAILY PO Last administered on 07/01/17 09:36; Start 06/23/17 at 09:00 Melatonin 3 mg QHS PO Last administered on 07/01/17 19:21; Start 06/23/17 at 21:00 Olanzapine (ZyPREXA ZYDIS) 2.5 mg PRN Q2HR PRN PO PSYCHOSIS Last administered on 07/01/17 11:49; Start 06/23/17 at 01:15 Acetaminophen (Tylenol) 500 mg PRN Q6HRS PRN PO PAIN / TEMP; Start 06/23/17 at 06:30 Aspirin (Aspirin Enteric Coated) 81 mg DAILY PO Last administered on 07/01/17 09:36; Start 06/23/17 at 09:00 Atorvastatin Calcium (Lipitor) 20 mg QHS PO Last administered on 07/01/17 19: 21; Start 06/23/17 at 21:00 Vitamin D (Vitamin D3) 1,000 unit DAILY PO Last administered on 06/24/17 09: 10; Start 06/23/17 at 09:00; Stop 06/24/17 at 14:36; Status DC Docusate Sodium (Colace) 100 mg DAILY PO Last administered on 07/01/17 09:36; Start 06/23/17 at 09:00 Lactulose 20 gm TID@0900,1300,1700 PO Last administered on 07/01/17 17:17; Start 06/23/17 at 09:00 Metoprolol Tartrate (Lopressor) 300 mg BID PO Last administered on 07/01/17 19 :22; Start 06/23/17 at 09:00 Trazodone HCl (Desyrel) 100 mg PRN QHS PRN PO INSOMNIA, MAY REPEAT X1 Last administered on 06/30/17 19:31; Start 06/23/17 at 20:30 Prenat Multivit/ [place]/Iron/Folic Ac (Multivitamin ) 1 tab DAILY PO Last administered on 07/01/17 09:36; Start 06/25/17 at 09:00 Vitamin D (Vitamin D3) 2,000 unit DAILYBFRSUP PO Last administered on 17:16; Start 06/24/17 at 17:00 Cyanocobalamin (Vitamin B-12) 1,000 mcg DAILY PO Last administered on 09:36; Start 06/25/17 at 09:00 Cyanocobalamin (Vitamin B-12) 1,000 mcg 1X ONCE IM Last administered on 15:27; Start 06/24/17 at 14:45; Stop 06/24/17 at 14:46; Status DC Cyanocobalamin (Vitamin B-12) 1,000 mcg 1X ONCE IM Last administered on 19:44; Start 06/24/17 at 21:00; Stop 06/24/17 at 21:01; Status DC Divalproex Sodium (Depakote Sprinkles) 375 mg BID@0900,1700 PO Last administered on 06/28/17 17:16; Start 06/25/17 at 09:00; Stop 06/28/17 at 19: 03; Status DC Divalproex Sodium (Depakote Sprinkles) 250 mg DAILY@1300 PO Last administered on 06/28/17 12:42; Start 06/25/17 at 13:00; Stop 06/28/17 at 19:03; Status DC Lactulose 20 gm STK-MED ONCE .ROUTE ; Start 06/23/17 at 09:00; Stop 06/26/17 at 18:49; Status DC Lactulose 20 gm STK-MED ONCE .ROUTE ; Start 06/23/17 at 09:00; Stop 06/26/17 at 18:49; Status DC Lactulose 20 gm STK-MED ONCE .ROUTE ; Start 06/23/17 at 09:00; Stop 06/26/17 at 18:49; Status DC Melatonin 3 mg STK-MED ONCE .ROUTE ; Start 06/23/17 at 21:00; Stop 06/26/17 at 18:49; Status DC Lactulose 20 gm STK-MED ONCE .ROUTE ; Start 06/24/17 at 21:00; Stop 06/26/17 at 18:50; Status DC Lactulose 20 gm STK-MED ONCE .ROUTE ; Start 06/24/17 at 21:00; Stop 06/26/17 at 18:50; Status DC Lactulose 20 gm STK-MED ONCE .ROUTE ; Start 06/24/17 at 21:00; Stop 06/26/17 at 18:50; Status DC Melatonin 3 mg STK-MED ONCE .ROUTE ; Start 06/24/17 at 21:00; Stop 06/26/17 at 18:50; Status DC Lactulose 20 gm STK-MED ONCE .ROUTE ; Start 06/25/17 at 21:00; Stop 06/26/17 at 18:50; Status DC Lactulose 20 gm STK-MED ONCE .ROUTE ; Start 06/25/17 at 21:00; Stop 06/26/17 at 18:50; Status DC Lactulose 20 gm STK-MED ONCE .ROUTE ; Start 06/25/17 at 21:00; Stop 06/26/17 at 18:50; Status DC Melatonin 3 mg STK-MED ONCE .ROUTE ; Start 06/25/17 at 21:00; Stop 06/26/17 at 18:50; Status DC Lactulose 20 gm STK-MED ONCE .ROUTE ; Start 06/26/17 at 21:00; Stop 06/26/17 at 21:01; Status DC Lactulose 20 gm STK-MED ONCE .ROUTE ; Start 06/26/17 at 21:00; Stop 06/26/17 at 21:01; Status DC Lactulose 20 gm STK-MED ONCE .ROUTE ; Start 06/26/17 at 21:00; Stop 06/26/17 at 21:01; Status DC Divalproex Sodium (Depakote Sprinkles) 375 mg TID PO Last administered on 19:21; Start 06/28/17 at 21:00 Divalproex Sodium (Depakote Sprinkles) 375 mg DAILY@1300 PO ; Start 06/29/17 at 13:00; Status UNV Mirtazapine (Remeron) 7.5 mg QHS PO Last administered on 07/01/17 19:20; Start 06/28/17 at 21:00 Quetiapine Fumarate (SEROquel) 12.5 mg DAILY@1500 PO Last administered on 16:12; Start 06/29/17 at 15:00 Active Scripts Active Reported Depakote Sprinkle (Divalproex Sodium) 125 Mg Cap.sprink 250 Mg PO TID@0900,1300, 1700 Acetaminophen 500 Mg Tablet 500 Mg PO PRN Q6HRS PRN Melatonin 3 Mg Tablet 3 Mg PO QHS Atorvastatin Calcium 20 Mg Tablet 20 Mg PO QHS Lactulose 10 Gm/15 Ml Solution 20 Gm PO TID@0900,1300,1700 Metoprolol Tartrate 100 Mg Tablet 300 Mg PO BID Colace (Docusate Sodium) 100 Mg Capsule 100 Mg PO DAILY Vitamin D3 (Cholecalciferol (Vitamin D3)) 1,000 Unit Tablet 1,000 Unit PO DAILY Aricept (Donepezil Hcl) 5 Mg Tablet 5 Mg PO DAILY Aspir-Low (Aspirin) 81 Mg Tablet.dr 81 Mg PO DAILY I have reviewed the current psychotropics carefully including drug interactions. Risk benefit ratio favors no change other than as noted in my dictated progress note. Diagnosis: Problems: (1) Anxiety disorder (2) Dementia in Alzheimer's disease with delusions (3) Dementia in Alzheimer's disease with depression (4) Dementia, vascular, with delirium (5) Dementia, vascular, with delusions (6) Impulse control disorder ELLIS NOBLES MD Jul 01, 2017 19:56
[2017-07-01] MEDS: traZODone 100 MG TABLET. PO PRN (21:06)
[2017-07-02 06:19] VITALS: BP 123/80
[2017-07-02] MEDS: PRENATAL MULTIVITAMIN TABLET. PO SCH (09:28)
[2017-07-02] MEDS: LACTULOSE 20 GM/30 ML SOLUTION. PO SCH ×3 (09:28→18:27)
[2017-07-02] MEDS: METOPROLOL TART IMMED RELEASE 50 MG TABLET PO SCH ×2 (09:28→19:28)
[2017-07-02] MEDS: DIVALPROEX 125 MG CAP.SPRINK PO SCH ×3 (09:29→19:28)
[2017-07-02] MEDS: CYANOCOBALAMIN (VITAMIN B-12) 1,000 MCG TABLET. PO SCH (09:29)
[2017-07-02] MEDS: DONEPEZIL HCL 5 MG TABLET. PO SCH (09:29)
[2017-07-02] MEDS: ASPIRIN ENTERIC COATED 81 MG TABLET.DR. PO SCH (09:29)
[2017-07-02] MEDS: DOCUSATE SODIUM 100 MG CAPSULE PO SCH (09:30)
--- NOTE | 2017-07-02 10:07 | PN ---
DATE: 06/30/2017 This is a late entry, covers the elements not covered in my initial note of 06/30/2017. I met with the patient in the evening of 06/30/2017. The patient has been somewhat withdrawn, not very verbal, takes his meds in ice cream. Slept 6-1/4 hours the previous evening. The patient has not been aggressive. REVIEW OF SYSTEMS: No CV, , pulmonary, eye, ENT system symptoms on review. MENTAL STATUS EXAM: Oriented to himself. Insight, judgment, recent and remote memory, attention, concentration, fund of knowledge poor, consistent with his diagnosis, not very verbal. LABORATORY DATA: Reviewed. IMPRESSION: Major neurocognitive disorder, Alzheimer, vascular with depression, delusion, behavioral disturbance; anxiety disorder, unspecified; impulse control disorder, unspecified. PLAN: Continue current psychotropics as mentioned in my initial note. Reviewed drug interactions, risk/benefit ratio favors no further change, may need to adjust Seroquel further depending on his progress agitation or aggression. MAN Estefany NOBLES MD DR: MONICA/joe JOB#: [id number] / [id number]
[2017-07-02 15:07] VITALS: BP 144/88
[2017-07-02] MEDS: QUEtiapine 25 MG TABLET. PO SCH (15:09)
[2017-07-02] MEDS: CHOLECALCIFEROL (VITAMIN D3) 1,000 UNIT TABLET PO SCH (18:27)
[2017-07-02] MEDS: ATORVASTATIN CALCIUM 20 MG TABLET PO SCH (19:28)
[2017-07-02] MEDS: MELATONIN 3 MG TABLET PO SCH (19:28)
[2017-07-02] MEDS: MIRTAZAPINE 7.5 MG TABLET. PO SCH (19:28)
--- NOTE | 2017-07-02 19:56 | PDOC ---
Exam Note: Darci Note: Please also refer to the separate dictated note~for this date of service dictated separately.~Patient seen individually. Discussed the patient with Nursing staff reviewed the chart.~Reviewed interim history and current functioning. Reviewed vital signs,~Labs/ Radiology~and current medications noted below. Continue current treatment with the changes noted in the dictated addendum note Assessment: Vital Signs: Vital Signs Date Time Temp Pulse Resp B/P (MAP) Pulse Ox O2 Delivery O2 Flow Rate FiO2 07/02/17 19:28 66 144/88 07/02/17 15:07 97.9 18 99 06/27/17 15:51 Room Air I&O Intake and Output 07/02/17 07:00 Intake Total 1680 ml Balance 1680 ml Intake Oral 1680 ml # Voids 1 Current Medications: Meds: Current Medications Acetaminophen (Tylenol) 650 mg PRN Q6HRS PRN PO MILD PAIN / TEMP; Start at 00:00; Stop 06/23/17 at 06:34; Status DC Multi-Ingredient Ointment (Analgesic [place]) 1 yadi PRN QID PRN TP MUSCLE PAIN; Start 06/23/17 at 00:00 Al Hydroxide/Mg Hydroxide (Mylanta Plus Xs) 15 ml PRN AFTMEALHC PRN PO DYSPEPSIA; Start 06/23/17 at 00:00 Magnesium Hydroxide (Milk Of Magnesia) 2,400 mg PRN QHS PRN PO CONSTIPATION Last administered on 06/26/17 09:58; Start 06/23/17 at 00:00 Divalproex Sodium (Depakote Sprinkles) 250 mg TID@0900,1300,1700 PO Last administered on 06/24/17 16:54; Start 06/23/17 at 09:00; Stop 06/24/17 at 18 :39; Status DC Donepezil HCl (Aricept) 5 mg DAILY PO Last administered on 07/02/17 09:29; Start 06/23/17 at 09:00 Melatonin 3 mg QHS PO Last administered on 07/02/17 19:28; Start 06/23/17 at 21:00 Olanzapine (ZyPREXA ZYDIS) 2.5 mg PRN Q2HR PRN PO PSYCHOSIS Last administered on 07/02/17 13:52; Start 06/23/17 at 01:15 Acetaminophen (Tylenol) 500 mg PRN Q6HRS PRN PO PAIN / TEMP; Start 06/23/17 at 06:30 Aspirin (Aspirin Enteric Coated) 81 mg DAILY PO Last administered on 07/02/17 09:29; Start 06/23/17 at 09:00 Atorvastatin Calcium (Lipitor) 20 mg QHS PO Last administered on 07/02/17 19: 28; Start 06/23/17 at 21:00 Vitamin D (Vitamin D3) 1,000 unit DAILY PO Last administered on 06/24/17 09: 10; Start 06/23/17 at 09:00; Stop 06/24/17 at 14:36; Status DC Docusate Sodium (Colace) 100 mg DAILY PO Last administered on 07/02/17 09:30; Start 06/23/17 at 09:00 Lactulose 20 gm TID@0900,1300,1700 PO Last administered on 07/02/17 18:27; Start 06/23/17 at 09:00 Metoprolol Tartrate (Lopressor) 300 mg BID PO Last administered on 07/02/17 19 :28; Start 06/23/17 at 09:00 Trazodone HCl (Desyrel) 100 mg PRN QHS PRN PO INSOMNIA, MAY REPEAT X1 Last administered on 07/01/17 21:06; Start 06/23/17 at 20:30 Prenat Multivit/ [place]/Iron/Folic Ac (Multivitamin ) 1 tab DAILY PO Last administered on 07/02/17 09:28; Start 06/25/17 at 09:00 Vitamin D (Vitamin D3) 2,000 unit DAILYBFRSUP PO Last administered on 18:27; Start 06/24/17 at 17:00 Cyanocobalamin (Vitamin B-12) 1,000 mcg DAILY PO Last administered on 09:29; Start 06/25/17 at 09:00 Cyanocobalamin (Vitamin B-12) 1,000 mcg 1X ONCE IM Last administered on 15:27; Start 06/24/17 at 14:45; Stop 06/24/17 at 14:46; Status DC Cyanocobalamin (Vitamin B-12) 1,000 mcg 1X ONCE IM Last administered on 19:44; Start 06/24/17 at 21:00; Stop 06/24/17 at 21:01; Status DC Divalproex Sodium (Depakote Sprinkles) 375 mg BID@0900,1700 PO Last administered on 06/28/17 17:16; Start 06/25/17 at 09:00; Stop 06/28/17 at 19: 03; Status DC Divalproex Sodium (Depakote Sprinkles) 250 mg DAILY@1300 PO Last administered on 06/28/17 12:42; Start 06/25/17 at 13:00; Stop 06/28/17 at 19:03; Status DC Lactulose 20 gm STK-MED ONCE .ROUTE ; Start 06/23/17 at 09:00; Stop 06/26/17 at 18:49; Status DC Lactulose 20 gm STK-MED ONCE .ROUTE ; Start 06/23/17 at 09:00; Stop 06/26/17 at 18:49; Status DC Lactulose 20 gm STK-MED ONCE .ROUTE ; Start 06/23/17 at 09:00; Stop 06/26/17 at 18:49; Status DC Melatonin 3 mg STK-MED ONCE .ROUTE ; Start 06/23/17 at 21:00; Stop 06/26/17 at 18:49; Status DC Lactulose 20 gm STK-MED ONCE .ROUTE ; Start 06/24/17 at 21:00; Stop 06/26/17 at 18:50; Status DC Lactulose 20 gm STK-MED ONCE .ROUTE ; Start 06/24/17 at 21:00; Stop 06/26/17 at 18:50; Status DC Lactulose 20 gm STK-MED ONCE .ROUTE ; Start 06/24/17 at 21:00; Stop 06/26/17 at 18:50; Status DC Melatonin 3 mg STK-MED ONCE .ROUTE ; Start 06/24/17 at 21:00; Stop 06/26/17 at 18:50; Status DC Lactulose 20 gm STK-MED ONCE .ROUTE ; Start 06/25/17 at 21:00; Stop 06/26/17 at 18:50; Status DC Lactulose 20 gm STK-MED ONCE .ROUTE ; Start 06/25/17 at 21:00; Stop 06/26/17 at 18:50; Status DC Lactulose 20 gm STK-MED ONCE .ROUTE ; Start 06/25/17 at 21:00; Stop 06/26/17 at 18:50; Status DC Melatonin 3 mg STK-MED ONCE .ROUTE ; Start 06/25/17 at 21:00; Stop 06/26/17 at 18:50; Status DC Lactulose 20 gm STK-MED ONCE .ROUTE ; Start 06/26/17 at 21:00; Stop 06/26/17 at 21:01; Status DC Lactulose 20 gm STK-MED ONCE .ROUTE ; Start 06/26/17 at 21:00; Stop 06/26/17 at 21:01; Status DC Lactulose 20 gm STK-MED ONCE .ROUTE ; Start 06/26/17 at 21:00; Stop 06/26/17 at 21:01; Status DC Divalproex Sodium (Depakote Sprinkles) 375 mg TID PO Last administered on 19:28; Start 06/28/17 at 21:00 Divalproex Sodium (Depakote Sprinkles) 375 mg DAILY@1300 PO ; Start 06/29/17 at 13:00; Status UNV Mirtazapine (Remeron) 7.5 mg QHS PO Last administered on 07/02/17 19:28; Start 06/28/17 at 21:00 Quetiapine Fumarate (SEROquel) 12.5 mg DAILY@1500 PO Last administered on 15:09; Start 06/29/17 at 15:00; Stop 07/02/17 at 17:45; Status DC Quetiapine Fumarate (SEROquel) 12.5 mg DAILY@0900,1500 PO ; Start 07/03/17 at 09 :00 Active Scripts Active Reported Depakote Sprinkle (Divalproex Sodium) 125 Mg Cap.sprink 250 Mg PO TID@0900,1300, 1700 Acetaminophen 500 Mg Tablet 500 Mg PO PRN Q6HRS PRN Melatonin 3 Mg Tablet 3 Mg PO QHS Atorvastatin Calcium 20 Mg Tablet 20 Mg PO QHS Lactulose 10 Gm/15 Ml Solution 20 Gm PO TID@0900,1300,1700 Metoprolol Tartrate 100 Mg Tablet 300 Mg PO BID Colace (Docusate Sodium) 100 Mg Capsule 100 Mg PO DAILY Vitamin D3 (Cholecalciferol (Vitamin D3)) 1,000 Unit Tablet 1,000 Unit PO DAILY Aricept (Donepezil Hcl) 5 Mg Tablet 5 Mg PO DAILY Aspir-Low (Aspirin) 81 Mg Tablet.dr 81 Mg PO DAILY I have reviewed the current psychotropics carefully including drug interactions. Risk benefit ratio favors no change other than as noted in my dictated progress note. Diagnosis: Problems: (1) Anxiety disorder (2) Dementia in Alzheimer's disease with delusions (3) Dementia in Alzheimer's disease with depression (4) Dementia, vascular, with delirium (5) Dementia, vascular, with delusions (6) Impulse control disorder ELLIS NOBLES MD Jul 02, 2017 19:56
[2017-07-02] MEDS: traZODone 100 MG TABLET. PO PRN (21:56)
[2017-07-03 06:17] VITALS: BP 123/85
[2017-07-03] MEDS: METOPROLOL TART IMMED RELEASE 50 MG TABLET PO SCH ×2 (09:02→19:31)
[2017-07-03] MEDS: DOCUSATE SODIUM 100 MG CAPSULE PO SCH (09:02)
[2017-07-03] MEDS: PRENATAL MULTIVITAMIN TABLET. PO SCH (09:02)
[2017-07-03] MEDS: ASPIRIN ENTERIC COATED 81 MG TABLET.DR. PO SCH (09:02)
[2017-07-03] MEDS: CYANOCOBALAMIN (VITAMIN B-12) 1,000 MCG TABLET. PO SCH (09:02)
[2017-07-03] MEDS: DIVALPROEX 125 MG CAP.SPRINK PO SCH ×3 (09:02→19:31)
[2017-07-03] MEDS: LACTULOSE 20 GM/30 ML SOLUTION. PO SCH ×3 (09:02→16:30)
[2017-07-03] MEDS: DONEPEZIL HCL 5 MG TABLET. PO SCH (09:02)
[2017-07-03] MEDS: QUEtiapine 25 MG TABLET. PO SCH ×2 (09:03→16:29)
--- NOTE | 2017-07-03 11:50 | PN ---
DATE: 07/01/2017 This is a late entry for 07/01/2017 and covers the elements not covered in my initial of 07/01/2017. SUBJECTIVE: I met with the patient in the evening of 07/01/2017. The patient slept 7-1/2 hours previous evening, remains confused, wandering, had a brief episode of agitation when approached by a peer, Zyprexa was given, spent short time in the hallway. REVIEW OF SYSTEMS: No CV, , pulmonary, eye, ENT system symptoms on review. Reliability poor. MENTAL STATUS EXAM: Oriented to himself. Insight, judgment, recent and remote memory, attention, concentration, fund of knowledge poor, consistent with his diagnosis mentioned in my initial note. He is not very verbal as I met with him. LABORATORY DATA: Reviewed. IMPRESSION: Unchanged from initial note. PLAN: Continue psychotropics mentioned in my initial note. Valproic acid level is therapeutic at 55. We will increase the Seroquel to 12.5 mg at 9 and 3. MAN Estefany NOBLES MD DR: MONICA/joe JOB#: [id number] / [id number]
[2017-07-03 16:26] VITALS: BP 124/80
[2017-07-03] MEDS: CHOLECALCIFEROL (VITAMIN D3) 1,000 UNIT TABLET PO SCH (16:30)
[2017-07-03] MEDS: MELATONIN 3 MG TABLET PO SCH (19:26)
[2017-07-03] MEDS: ATORVASTATIN CALCIUM 20 MG TABLET PO SCH (19:31)
[2017-07-03] MEDS: MIRTAZAPINE 7.5 MG TABLET. PO SCH (19:31)
--- NOTE | 2017-07-03 21:07 | PDOC ---
Exam Note: Darci Note: Please also refer to the separate dictated note~for this date of service dictated separately.~Patient seen individually. Discussed the patient with Nursing staff reviewed the chart.~Reviewed interim history and current functioning. Reviewed vital signs,~Labs/ Radiology~and current medications noted below. Continue current treatment with the changes noted in the dictated addendum note Assessment: Vital Signs: Vital Signs Date Time Temp Pulse Resp B/P (MAP) Pulse Ox O2 Delivery O2 Flow Rate FiO2 07/03/17 19:31 67 131/82 07/03/17 16:26 97.7 18 95 Room Air I&O Intake and Output 07/03/17 07:00 Intake Total 1320 ml Balance 1320 ml Intake Oral 1320 ml # Voids 1 Current Medications: Meds: Current Medications Acetaminophen (Tylenol) 650 mg PRN Q6HRS PRN PO MILD PAIN / TEMP; Start at 00:00; Stop 06/23/17 at 06:34; Status DC Multi-Ingredient Ointment (Analgesic [place]) 1 yadi PRN QID PRN TP MUSCLE PAIN; Start 06/23/17 at 00:00 Al Hydroxide/Mg Hydroxide (Mylanta Plus Xs) 15 ml PRN AFTMEALHC PRN PO DYSPEPSIA; Start 06/23/17 at 00:00 Magnesium Hydroxide (Milk Of Magnesia) 2,400 mg PRN QHS PRN PO CONSTIPATION Last administered on 06/26/17 09:58; Start 06/23/17 at 00:00 Divalproex Sodium (Depakote Sprinkles) 250 mg TID@0900,1300,1700 PO Last administered on 06/24/17 16:54; Start 06/23/17 at 09:00; Stop 06/24/17 at 18 :39; Status DC Donepezil HCl (Aricept) 5 mg DAILY PO Last administered on 07/03/17 09:02; Start 06/23/17 at 09:00; Stop 07/03/17 at 18:23; Status DC Melatonin 3 mg QHS PO Last administered on 07/03/17 19:26; Start 06/23/17 at 21:00 Olanzapine (ZyPREXA ZYDIS) 2.5 mg PRN Q2HR PRN PO PSYCHOSIS Last administered on 07/02/17 13:52; Start 06/23/17 at 01:15 Acetaminophen (Tylenol) 500 mg PRN Q6HRS PRN PO PAIN / TEMP; Start 06/23/17 at 06:30 Aspirin (Aspirin Enteric Coated) 81 mg DAILY PO Last administered on 07/03/17 09:02; Start 06/23/17 at 09:00 Atorvastatin Calcium (Lipitor) 20 mg QHS PO Last administered on 07/03/17 19: 31; Start 06/23/17 at 21:00 Vitamin D (Vitamin D3) 1,000 unit DAILY PO Last administered on 06/24/17 09: 10; Start 06/23/17 at 09:00; Stop 06/24/17 at 14:36; Status DC Docusate Sodium (Colace) 100 mg DAILY PO Last administered on 07/03/17 09:02; Start 06/23/17 at 09:00 Lactulose 20 gm TID@0900,1300,1700 PO Last administered on 07/03/17 16:30; Start 06/23/17 at 09:00 Metoprolol Tartrate (Lopressor) 300 mg BID PO Last administered on 07/03/17 19 :31; Start 06/23/17 at 09:00 Trazodone HCl (Desyrel) 100 mg PRN QHS PRN PO INSOMNIA, MAY REPEAT X1 Last administered on 07/02/17 21:56; Start 06/23/17 at 20:30 Prenat Multivit/ [place]/Iron/Folic Ac (Multivitamin ) 1 tab DAILY PO Last administered on 07/03/17 09:02; Start 06/25/17 at 09:00 Vitamin D (Vitamin D3) 2,000 unit DAILYBFRSUP PO Last administered on 16:30; Start 06/24/17 at 17:00 Cyanocobalamin (Vitamin B-12) 1,000 mcg DAILY PO Last administered on 09:02; Start 06/25/17 at 09:00 Cyanocobalamin (Vitamin B-12) 1,000 mcg 1X ONCE IM Last administered on 15:27; Start 06/24/17 at 14:45; Stop 06/24/17 at 14:46; Status DC Cyanocobalamin (Vitamin B-12) 1,000 mcg 1X ONCE IM Last administered on 19:44; Start 06/24/17 at 21:00; Stop 06/24/17 at 21:01; Status DC Divalproex Sodium (Depakote Sprinkles) 375 mg BID@0900,1700 PO Last administered on 06/28/17 17:16; Start 06/25/17 at 09:00; Stop 06/28/17 at 19: 03; Status DC Divalproex Sodium (Depakote Sprinkles) 250 mg DAILY@1300 PO Last administered on 06/28/17 12:42; Start 06/25/17 at 13:00; Stop 06/28/17 at 19:03; Status DC Lactulose 20 gm STK-MED ONCE .ROUTE ; Start 06/23/17 at 09:00; Stop 06/26/17 at 18:49; Status DC Lactulose 20 gm STK-MED ONCE .ROUTE ; Start 06/23/17 at 09:00; Stop 06/26/17 at 18:49; Status DC Lactulose 20 gm STK-MED ONCE .ROUTE ; Start 06/23/17 at 09:00; Stop 06/26/17 at 18:49; Status DC Melatonin 3 mg STK-MED ONCE .ROUTE ; Start 06/23/17 at 21:00; Stop 06/26/17 at 18:49; Status DC Lactulose 20 gm STK-MED ONCE .ROUTE ; Start 06/24/17 at 21:00; Stop 06/26/17 at 18:50; Status DC Lactulose 20 gm STK-MED ONCE .ROUTE ; Start 06/24/17 at 21:00; Stop 06/26/17 at 18:50; Status DC Lactulose 20 gm STK-MED ONCE .ROUTE ; Start 06/24/17 at 21:00; Stop 06/26/17 at 18:50; Status DC Melatonin 3 mg STK-MED ONCE .ROUTE ; Start 06/24/17 at 21:00; Stop 06/26/17 at 18:50; Status DC Lactulose 20 gm STK-MED ONCE .ROUTE ; Start 06/25/17 at 21:00; Stop 06/26/17 at 18:50; Status DC Lactulose 20 gm STK-MED ONCE .ROUTE ; Start 06/25/17 at 21:00; Stop 06/26/17 at 18:50; Status DC Lactulose 20 gm STK-MED ONCE .ROUTE ; Start 06/25/17 at 21:00; Stop 06/26/17 at 18:50; Status DC Melatonin 3 mg STK-MED ONCE .ROUTE ; Start 06/25/17 at 21:00; Stop 06/26/17 at 18:50; Status DC Lactulose 20 gm STK-MED ONCE .ROUTE ; Start 06/26/17 at 21:00; Stop 06/26/17 at 21:01; Status DC Lactulose 20 gm STK-MED ONCE .ROUTE ; Start 06/26/17 at 21:00; Stop 06/26/17 at 21:01; Status DC Lactulose 20 gm STK-MED ONCE .ROUTE ; Start 06/26/17 at 21:00; Stop 06/26/17 at 21:01; Status DC Divalproex Sodium (Depakote Sprinkles) 375 mg TID PO Last administered on 19:31; Start 06/28/17 at 21:00 Divalproex Sodium (Depakote Sprinkles) 375 mg DAILY@1300 PO ; Start 06/29/17 at 13:00; Status UNV Mirtazapine (Remeron) 7.5 mg QHS PO Last administered on 07/03/17 19:31; Start 06/28/17 at 21:00 Quetiapine Fumarate (SEROquel) 12.5 mg DAILY@1500 PO Last administered on 15:09; Start 06/29/17 at 15:00; Stop 07/02/17 at 17:45; Status DC Quetiapine Fumarate (SEROquel) 12.5 mg DAILY@0900,1500 PO Last administered on 07/03/17 16:29; Start 07/03/17 at 09:00 Donepezil HCl (Aricept) 10 mg DAILY PO ; Start 07/04/17 at 09:00 Active Scripts Active Reported Depakote Sprinkle (Divalproex Sodium) 125 Mg Cap.sprink 250 Mg PO TID@0900,1300, 1700 Acetaminophen 500 Mg Tablet 500 Mg PO PRN Q6HRS PRN Melatonin 3 Mg Tablet 3 Mg PO QHS Atorvastatin Calcium 20 Mg Tablet 20 Mg PO QHS Lactulose 10 Gm/15 Ml Solution 20 Gm PO TID@0900,1300,1700 Metoprolol Tartrate 100 Mg Tablet 300 Mg PO BID Colace (Docusate Sodium) 100 Mg Capsule 100 Mg PO DAILY Vitamin D3 (Cholecalciferol (Vitamin D3)) 1,000 Unit Tablet 1,000 Unit PO DAILY Aricept (Donepezil Hcl) 5 Mg Tablet 5 Mg PO DAILY Aspir-Low (Aspirin) 81 Mg Tablet.dr 81 Mg PO DAILY I have reviewed the current psychotropics carefully including drug interactions. Risk benefit ratio favors no change other than as noted in my dictated progress note. Diagnosis: Problems: (1) Anxiety disorder (2) Dementia in Alzheimer's disease with delusions (3) Dementia in Alzheimer's disease with depression (4) Dementia, vascular, with delirium (5) Dementia, vascular, with delusions (6) Impulse control disorder ELLIS NOBLES MD Jul 03, 2017 21:07
[2017-07-03] MEDS: traZODone 100 MG TABLET. PO PRN (21:53)
[2017-07-04 05:42] VITALS: BP 137/78
[2017-07-04] MEDS: CYANOCOBALAMIN (VITAMIN B-12) 1,000 MCG TABLET. PO SCH (09:19)
[2017-07-04] MEDS: METOPROLOL TART IMMED RELEASE 50 MG TABLET PO SCH ×2 (09:19→19:16)
[2017-07-04] MEDS: DIVALPROEX 125 MG CAP.SPRINK PO SCH ×3 (09:19→19:14)
[2017-07-04] MEDS: ASPIRIN ENTERIC COATED 81 MG TABLET.DR. PO SCH (09:19)
[2017-07-04] MEDS: LACTULOSE 20 GM/30 ML SOLUTION. PO SCH ×3 (09:19→17:27)
[2017-07-04] MEDS: QUEtiapine 25 MG TABLET. PO SCH ×4 (09:19→19:30)
[2017-07-04] MEDS: PRENATAL MULTIVITAMIN TABLET. PO SCH (09:19)
[2017-07-04] MEDS: DOCUSATE SODIUM 100 MG CAPSULE PO SCH (09:20)
[2017-07-04] MEDS: DONEPEZIL HCL 10 MG TABLET PO SCH (09:20)
--- NOTE | 2017-07-04 10:35 | PN ---
DATE: 07/02/2017 This is a late entry 07/02, covers elements not covered in my initial note 07/02. SUBJECTIVE: I met with the patient in the evening of 07/02. The patient was somewhat agitated previous evening, refused to go to his room, difficult to redirect until much later after he received trazodone, Zyprexa and slept thereafter. He has been wandering during the day on 07/02 into others' rooms. Slept 7-1/2 hours previous evening. REVIEW OF SYSTEMS: No CV, , pulmonary, eye, ENT system symptoms on review. Reliability poor. MENTAL STATUS EXAM: Oriented to himself. Insight, judgment, recent and remote memory, attention, concentration, fund of knowledge poor, consistent with his diagnosis mentioned in my initial note. PLAN: Continue current psychotropics mentioned in my initial note. Adjust further as clinically indicated. MAN Estefany NOBLES MD DR: MONICA/joe JOB#: [id number] / [id number]
[2017-07-04 16:30] VITALS: BP 116/73
[2017-07-04] MEDS: CHOLECALCIFEROL (VITAMIN D3) 1,000 UNIT TABLET PO SCH (17:27)
[2017-07-04] MEDS: ATORVASTATIN CALCIUM 20 MG TABLET PO SCH (19:14)
[2017-07-04] MEDS: MIRTAZAPINE 7.5 MG TABLET. PO SCH (19:14)
[2017-07-04] MEDS: MELATONIN 3 MG TABLET PO SCH (19:14)
[2017-07-04] MEDS: traZODone 100 MG TABLET. PO PRN (19:27)
--- NOTE | 2017-07-04 19:51 | PDOC ---
Exam Note: Daric Note: Please also refer to the separate dictated note~for this date of service dictated separately.~Patient seen individually. Discussed the patient with Nursing staff reviewed the chart.~Reviewed interim history and current functioning. Reviewed vital signs,~Labs/ Radiology~and current medications noted below. Continue current treatment with the changes noted in the dictated addendum note Assessment: Vital Signs: Vital Signs Date Time Temp Pulse Resp B/P (MAP) Pulse Ox O2 Delivery O2 Flow Rate FiO2 07/04/17 19:16 62 116/73 07/04/17 16:30 97.1 18 100 07/04/17 05:42 Room Air I&O Intake and Output 07/04/17 07:00 Intake Total 960 ml Balance 960 ml Intake Oral 960 ml # Voids 1 Current Medications: Meds: Current Medications Acetaminophen (Tylenol) 650 mg PRN Q6HRS PRN PO MILD PAIN / TEMP; Start at 00:00; Stop 06/23/17 at 06:34; Status DC Multi-Ingredient Ointment (Analgesic [place]) 1 yadi PRN QID PRN TP MUSCLE PAIN; Start 06/23/17 at 00:00 Al Hydroxide/Mg Hydroxide (Mylanta Plus Xs) 15 ml PRN AFTMEALHC PRN PO DYSPEPSIA; Start 06/23/17 at 00:00 Magnesium Hydroxide (Milk Of Magnesia) 2,400 mg PRN QHS PRN PO CONSTIPATION Last administered on 06/26/17 09:58; Start 06/23/17 at 00:00 Divalproex Sodium (Depakote Sprinkles) 250 mg TID@0900,1300,1700 PO Last administered on 06/24/17 16:54; Start 06/23/17 at 09:00; Stop 06/24/17 at 18 :39; Status DC Donepezil HCl (Aricept) 5 mg DAILY PO Last administered on 07/03/17 09:02; Start 06/23/17 at 09:00; Stop 07/03/17 at 18:23; Status DC Melatonin 3 mg QHS PO Last administered on 07/04/17 19:14; Start 06/23/17 at 21:00 Olanzapine (ZyPREXA ZYDIS) 2.5 mg PRN Q2HR PRN PO PSYCHOSIS Last administered on 07/02/17 13:52; Start 06/23/17 at 01:15 Acetaminophen (Tylenol) 500 mg PRN Q6HRS PRN PO PAIN / TEMP; Start 06/23/17 at 06:30 Aspirin (Aspirin Enteric Coated) 81 mg DAILY PO Last administered on 07/04/17 09:19; Start 06/23/17 at 09:00 Atorvastatin Calcium (Lipitor) 20 mg QHS PO Last administered on 07/04/17 19: 14; Start 06/23/17 at 21:00 Vitamin D (Vitamin D3) 1,000 unit DAILY PO Last administered on 06/24/17 09: 10; Start 06/23/17 at 09:00; Stop 06/24/17 at 14:36; Status DC Docusate Sodium (Colace) 100 mg DAILY PO Last administered on 07/04/17 09:20; Start 06/23/17 at 09:00 Lactulose 20 gm TID@0900,1300,1700 PO Last administered on 07/04/17 17:27; Start 06/23/17 at 09:00 Metoprolol Tartrate (Lopressor) 300 mg BID PO Last administered on 07/04/17 19 :16; Start 06/23/17 at 09:00 Trazodone HCl (Desyrel) 100 mg PRN QHS PRN PO INSOMNIA, MAY REPEAT X1 Last administered on 07/04/17 19:27; Start 06/23/17 at 20:30 Prenat Multivit/ [place]/Iron/Folic Ac (Multivitamin ) 1 tab DAILY PO Last administered on 07/04/17 09:19; Start 06/25/17 at 09:00 Vitamin D (Vitamin D3) 2,000 unit DAILYBFRSUP PO Last administered on 17:27; Start 06/24/17 at 17:00 Cyanocobalamin (Vitamin B-12) 1,000 mcg DAILY PO Last administered on 09:19; Start 06/25/17 at 09:00 Cyanocobalamin (Vitamin B-12) 1,000 mcg 1X ONCE IM Last administered on 15:27; Start 06/24/17 at 14:45; Stop 06/24/17 at 14:46; Status DC Cyanocobalamin (Vitamin B-12) 1,000 mcg 1X ONCE IM Last administered on 19:44; Start 06/24/17 at 21:00; Stop 06/24/17 at 21:01; Status DC Divalproex Sodium (Depakote Sprinkles) 375 mg BID@0900,1700 PO Last administered on 06/28/17 17:16; Start 06/25/17 at 09:00; Stop 06/28/17 at 19: 03; Status DC Divalproex Sodium (Depakote Sprinkles) 250 mg DAILY@1300 PO Last administered on 06/28/17 12:42; Start 06/25/17 at 13:00; Stop 06/28/17 at 19:03; Status DC Lactulose 20 gm STK-MED ONCE .ROUTE ; Start 06/23/17 at 09:00; Stop 06/26/17 at 18:49; Status DC Lactulose 20 gm STK-MED ONCE .ROUTE ; Start 06/23/17 at 09:00; Stop 06/26/17 at 18:49; Status DC Lactulose 20 gm STK-MED ONCE .ROUTE ; Start 06/23/17 at 09:00; Stop 06/26/17 at 18:49; Status DC Melatonin 3 mg STK-MED ONCE .ROUTE ; Start 06/23/17 at 21:00; Stop 06/26/17 at 18:49; Status DC Lactulose 20 gm STK-MED ONCE .ROUTE ; Start 06/24/17 at 21:00; Stop 06/26/17 at 18:50; Status DC Lactulose 20 gm STK-MED ONCE .ROUTE ; Start 06/24/17 at 21:00; Stop 06/26/17 at 18:50; Status DC Lactulose 20 gm STK-MED ONCE .ROUTE ; Start 06/24/17 at 21:00; Stop 06/26/17 at 18:50; Status DC Melatonin 3 mg STK-MED ONCE .ROUTE ; Start 06/24/17 at 21:00; Stop 06/26/17 at 18:50; Status DC Lactulose 20 gm STK-MED ONCE .ROUTE ; Start 06/25/17 at 21:00; Stop 06/26/17 at 18:50; Status DC Lactulose 20 gm STK-MED ONCE .ROUTE ; Start 06/25/17 at 21:00; Stop 06/26/17 at 18:50; Status DC Lactulose 20 gm STK-MED ONCE .ROUTE ; Start 06/25/17 at 21:00; Stop 06/26/17 at 18:50; Status DC Melatonin 3 mg STK-MED ONCE .ROUTE ; Start 06/25/17 at 21:00; Stop 06/26/17 at 18:50; Status DC Lactulose 20 gm STK-MED ONCE .ROUTE ; Start 06/26/17 at 21:00; Stop 06/26/17 at 21:01; Status DC Lactulose 20 gm STK-MED ONCE .ROUTE ; Start 06/26/17 at 21:00; Stop 06/26/17 at 21:01; Status DC Lactulose 20 gm STK-MED ONCE .ROUTE ; Start 06/26/17 at 21:00; Stop 06/26/17 at 21:01; Status DC Divalproex Sodium (Depakote Sprinkles) 375 mg TID PO Last administered on 19:14; Start 06/28/17 at 21:00 Divalproex Sodium (Depakote Sprinkles) 375 mg DAILY@1300 PO ; Start 06/29/17 at 13:00; Status UNV Mirtazapine (Remeron) 7.5 mg QHS PO Last administered on 07/04/17 19:14; Start 06/28/17 at 21:00 Quetiapine Fumarate (SEROquel) 12.5 mg DAILY@1500 PO Last administered on 15:09; Start 06/29/17 at 15:00; Stop 07/02/17 at 17:45; Status DC Quetiapine Fumarate (SEROquel) 12.5 mg DAILY@0900,1500 PO Last administered on 07/04/17 09:19; Start 07/03/17 at 09:00; Stop 07/04/17 at 11:51; Status DC Donepezil HCl (Aricept) 10 mg DAILY PO Last administered on 07/04/17 09:20; Start 07/04/17 at 09:00 Quetiapine Fumarate (SEROquel) 12.5 mg DAILY@0900,1300,1700 PO Last administered on 07/04/17 17:27; Start 07/04/17 at 13:00 Quetiapine Fumarate (SEROquel) 12.5 mg QHS PO Last administered on 07/04/17 19 :30; Start 07/04/17 at 21:00 Neomycin/ Polymyxin/ Bacitracin (Triple Antibiotic) 1 yadi BID TP ; Start at 21:00 Active Scripts Active Reported Depakote Sprinkle (Divalproex Sodium) 125 Mg Cap.sprink 250 Mg PO TID@0900,1300, 1700 Acetaminophen 500 Mg Tablet 500 Mg PO PRN Q6HRS PRN Melatonin 3 Mg Tablet 3 Mg PO QHS Atorvastatin Calcium 20 Mg Tablet 20 Mg PO QHS Lactulose 10 Gm/15 Ml Solution 20 Gm PO TID@0900,1300,1700 Metoprolol Tartrate 100 Mg Tablet 300 Mg PO BID Colace (Docusate Sodium) 100 Mg Capsule 100 Mg PO DAILY Vitamin D3 (Cholecalciferol (Vitamin D3)) 1,000 Unit Tablet 1,000 Unit PO DAILY Aricept (Donepezil Hcl) 5 Mg Tablet 5 Mg PO DAILY Aspir-Low (Aspirin) 81 Mg Tablet.dr 81 Mg PO DAILY I have reviewed the current psychotropics carefully including drug interactions. Risk benefit ratio favors no change other than as noted in my dictated progress note. Diagnosis: Problems: (1) Anxiety disorder (2) Dementia in Alzheimer's disease with delusions (3) Dementia in Alzheimer's disease with depression (4) Dementia, vascular, with delirium (5) Dementia, vascular, with delusions (6) Impulse control disorder ELLIS NOBLES MD Jul 04, 2017 19:51
[2017-07-04] MEDS: NEOMYCIN/BACITRAC/POLY TOPICAL OINTMENT 28GM TUBE. TP SCH (21:00)
[2017-07-05 05:44] VITALS: BP 135/76
[2017-07-05] MEDS: ASPIRIN ENTERIC COATED 81 MG TABLET.DR. PO SCH (09:03)
[2017-07-05] MEDS: QUEtiapine 25 MG TABLET. PO SCH ×4 (09:03→19:28)
[2017-07-05] MEDS: DIVALPROEX 125 MG CAP.SPRINK PO SCH ×3 (09:04→19:28)
[2017-07-05] MEDS: PRENATAL MULTIVITAMIN TABLET. PO SCH (09:04)
[2017-07-05] MEDS: DONEPEZIL HCL 10 MG TABLET PO SCH (09:04)
[2017-07-05] MEDS: DOCUSATE SODIUM 100 MG CAPSULE PO SCH (09:04)
[2017-07-05] MEDS: CYANOCOBALAMIN (VITAMIN B-12) 1,000 MCG TABLET. PO SCH (09:04)
[2017-07-05] MEDS: LACTULOSE 20 GM/30 ML SOLUTION. PO SCH ×3 (09:05→17:46)
[2017-07-05] MEDS: METOPROLOL TART IMMED RELEASE 50 MG TABLET PO SCH ×2 (09:05→19:29)
--- NOTE | 2017-07-05 09:40 | PN ---
DATE: 07/03/2017 This is a late entry, covers the elements not covered in my initial note 07/03/2017. SUBJECTIVE: I met with the patient evening of 07/03/2017. The patient takes his medications in ice cream, quite confused, wandering the hallways, wandering previous evening as well. Received trazodone at 2200, which seemed to help. REVIEW OF SYSTEMS: No CV, , pulmonary, eye, ENT system symptoms on review. Reliability poor. MENTAL STATUS EXAM: Oriented to himself. Insight, judgment, recent and remote memory, attention, concentration, fund of knowledge poor, consistent with his diagnosis mentioned in my initial note. PLAN: Increase Aricept to 10 mg a day. Continue rest psychotropics unchanged. Adjust as clinically indicated. MAN Estefany NOBLES MD DR: MONICA/joe JOB#: [id number] / [id number]
[2017-07-05] MEDS: NEOMYCIN/BACITRAC/POLY TOPICAL OINTMENT 28GM TUBE. TP SCH ×2 (12:17→19:30)
[2017-07-05 15:59] VITALS: BP 132/86
[2017-07-05] MEDS: CHOLECALCIFEROL (VITAMIN D3) 1,000 UNIT TABLET PO SCH (17:46)
[2017-07-05] MEDS: ATORVASTATIN CALCIUM 20 MG TABLET PO SCH (19:28)
[2017-07-05] MEDS: MIRTAZAPINE 7.5 MG TABLET. PO SCH (19:28)
[2017-07-05] MEDS: MELATONIN 3 MG TABLET PO SCH (19:28)
--- NOTE | 2017-07-05 19:46 | PDOC ---
Exam Note: Darci Note: Please also refer to the separate dictated note~for this date of service dictated separately.~Patient seen individually. Discussed the patient with Nursing staff reviewed the chart.~Reviewed interim history and current functioning. Reviewed vital signs,~Labs/ Radiology~and current medications noted below. Continue current treatment with the changes noted in the dictated addendum note Assessment: Vital Signs: Vital Signs Date Time Temp Pulse Resp B/P (MAP) Pulse Ox O2 Delivery O2 Flow Rate FiO2 07/05/17 19:29 62 132/86 07/05/17 15:59 97.2 18 98 07/04/17 05:42 Room Air I&O Intake and Output 07/05/17 07:00 Intake Total 1200 ml Balance 1200 ml Intake Oral 1200 ml # Voids 2 Current Medications: Meds: Current Medications Acetaminophen (Tylenol) 650 mg PRN Q6HRS PRN PO MILD PAIN / TEMP; Start at 00:00; Stop 06/23/17 at 06:34; Status DC Multi-Ingredient Ointment (Analgesic [place]) 1 yadi PRN QID PRN TP MUSCLE PAIN; Start 06/23/17 at 00:00 Al Hydroxide/Mg Hydroxide (Mylanta Plus Xs) 15 ml PRN AFTMEALHC PRN PO DYSPEPSIA; Start 06/23/17 at 00:00 Magnesium Hydroxide (Milk Of Magnesia) 2,400 mg PRN QHS PRN PO CONSTIPATION Last administered on 06/26/17 09:58; Start 06/23/17 at 00:00 Divalproex Sodium (Depakote Sprinkles) 250 mg TID@0900,1300,1700 PO Last administered on 06/24/17 16:54; Start 06/23/17 at 09:00; Stop 06/24/17 at 18 :39; Status DC Donepezil HCl (Aricept) 5 mg DAILY PO Last administered on 07/03/17 09:02; Start 06/23/17 at 09:00; Stop 07/03/17 at 18:23; Status DC Melatonin 3 mg QHS PO Last administered on 07/05/17 19:28; Start 06/23/17 at 21:00 Olanzapine (ZyPREXA ZYDIS) 2.5 mg PRN Q2HR PRN PO PSYCHOSIS Last administered on 07/02/17 13:52; Start 06/23/17 at 01:15 Acetaminophen (Tylenol) 500 mg PRN Q6HRS PRN PO PAIN / TEMP; Start 06/23/17 at 06:30 Aspirin (Aspirin Enteric Coated) 81 mg DAILY PO Last administered on 07/05/17 09:03; Start 06/23/17 at 09:00 Atorvastatin Calcium (Lipitor) 20 mg QHS PO Last administered on 07/05/17 19: 28; Start 06/23/17 at 21:00 Vitamin D (Vitamin D3) 1,000 unit DAILY PO Last administered on 06/24/17 09: 10; Start 06/23/17 at 09:00; Stop 06/24/17 at 14:36; Status DC Docusate Sodium (Colace) 100 mg DAILY PO Last administered on 07/05/17 09:04; Start 06/23/17 at 09:00 Lactulose 20 gm TID@0900,1300,1700 PO Last administered on 07/05/17 17:46; Start 06/23/17 at 09:00 Metoprolol Tartrate (Lopressor) 300 mg BID PO Last administered on 07/05/17 19 :29; Start 06/23/17 at 09:00 Trazodone HCl (Desyrel) 100 mg PRN QHS PRN PO INSOMNIA, MAY REPEAT X1 Last administered on 07/04/17 19:27; Start 06/23/17 at 20:30 Prenat Multivit/ [place]/Iron/Folic Ac (Multivitamin ) 1 tab DAILY PO Last administered on 07/05/17 09:04; Start 06/25/17 at 09:00 Vitamin D (Vitamin D3) 2,000 unit DAILYBFRSUP PO Last administered on 17:46; Start 06/24/17 at 17:00 Cyanocobalamin (Vitamin B-12) 1,000 mcg DAILY PO Last administered on 09:04; Start 06/25/17 at 09:00 Cyanocobalamin (Vitamin B-12) 1,000 mcg 1X ONCE IM Last administered on 15:27; Start 06/24/17 at 14:45; Stop 06/24/17 at 14:46; Status DC Cyanocobalamin (Vitamin B-12) 1,000 mcg 1X ONCE IM Last administered on 19:44; Start 06/24/17 at 21:00; Stop 06/24/17 at 21:01; Status DC Divalproex Sodium (Depakote Sprinkles) 375 mg BID@0900,1700 PO Last administered on 06/28/17 17:16; Start 06/25/17 at 09:00; Stop 06/28/17 at 19: 03; Status DC Divalproex Sodium (Depakote Sprinkles) 250 mg DAILY@1300 PO Last administered on 06/28/17 12:42; Start 06/25/17 at 13:00; Stop 06/28/17 at 19:03; Status DC Lactulose 20 gm STK-MED ONCE .ROUTE ; Start 06/23/17 at 09:00; Stop 06/26/17 at 18:49; Status DC Lactulose 20 gm STK-MED ONCE .ROUTE ; Start 06/23/17 at 09:00; Stop 06/26/17 at 18:49; Status DC Lactulose 20 gm STK-MED ONCE .ROUTE ; Start 06/23/17 at 09:00; Stop 06/26/17 at 18:49; Status DC Melatonin 3 mg STK-MED ONCE .ROUTE ; Start 06/23/17 at 21:00; Stop 06/26/17 at 18:49; Status DC Lactulose 20 gm STK-MED ONCE .ROUTE ; Start 06/24/17 at 21:00; Stop 06/26/17 at 18:50; Status DC Lactulose 20 gm STK-MED ONCE .ROUTE ; Start 06/24/17 at 21:00; Stop 06/26/17 at 18:50; Status DC Lactulose 20 gm STK-MED ONCE .ROUTE ; Start 06/24/17 at 21:00; Stop 06/26/17 at 18:50; Status DC Melatonin 3 mg STK-MED ONCE .ROUTE ; Start 06/24/17 at 21:00; Stop 06/26/17 at 18:50; Status DC Lactulose 20 gm STK-MED ONCE .ROUTE ; Start 06/25/17 at 21:00; Stop 06/26/17 at 18:50; Status DC Lactulose 20 gm STK-MED ONCE .ROUTE ; Start 06/25/17 at 21:00; Stop 06/26/17 at 18:50; Status DC Lactulose 20 gm STK-MED ONCE .ROUTE ; Start 06/25/17 at 21:00; Stop 06/26/17 at 18:50; Status DC Melatonin 3 mg STK-MED ONCE .ROUTE ; Start 06/25/17 at 21:00; Stop 06/26/17 at 18:50; Status DC Lactulose 20 gm STK-MED ONCE .ROUTE ; Start 06/26/17 at 21:00; Stop 06/26/17 at 21:01; Status DC Lactulose 20 gm STK-MED ONCE .ROUTE ; Start 06/26/17 at 21:00; Stop 06/26/17 at 21:01; Status DC Lactulose 20 gm STK-MED ONCE .ROUTE ; Start 06/26/17 at 21:00; Stop 06/26/17 at 21:01; Status DC Divalproex Sodium (Depakote Sprinkles) 375 mg TID PO Last administered on 19:28; Start 06/28/17 at 21:00 Divalproex Sodium (Depakote Sprinkles) 375 mg DAILY@1300 PO ; Start 06/29/17 at 13:00; Status UNV Mirtazapine (Remeron) 7.5 mg QHS PO Last administered on 07/05/17 19:28; Start 06/28/17 at 21:00 Quetiapine Fumarate (SEROquel) 12.5 mg DAILY@1500 PO Last administered on 15:09; Start 06/29/17 at 15:00; Stop 07/02/17 at 17:45; Status DC Quetiapine Fumarate (SEROquel) 12.5 mg DAILY@0900,1500 PO Last administered on 07/04/17 09:19; Start 07/03/17 at 09:00; Stop 07/04/17 at 11:51; Status DC Donepezil HCl (Aricept) 10 mg DAILY PO Last administered on 07/05/17 09:04; Start 07/04/17 at 09:00 Quetiapine Fumarate (SEROquel) 12.5 mg DAILY@0900,1300,1700 PO Last administered on 12/8/17at 17:45; Start 07/04/17 at 13:00 Quetiapine Fumarate (SEROquel) 12.5 mg QHS PO Last administered on 07/05/17 19 :28; Start 07/04/17 at 21:00 Neomycin/ Polymyxin/ Bacitracin (Triple Antibiotic) 1 yadi BID TP Last administered on 07/05/17t 12:17; Start 07/04/17 at 21:00 Active Scripts Active Reported Depakote Sprinkle (Divalproex Sodium) 125 Mg Cap.sprink 250 Mg PO TID@0900,1300, 1700 Acetaminophen 500 Mg Tablet 500 Mg PO PRN Q6HRS PRN Melatonin 3 Mg Tablet 3 Mg PO QHS Atorvastatin Calcium 20 Mg Tablet 20 Mg PO QHS Lactulose 10 Gm/15 Ml Solution 20 Gm PO TID@0900,1300,1700 Metoprolol Tartrate 100 Mg Tablet 300 Mg PO BID Colace (Docusate Sodium) 100 Mg Capsule 100 Mg PO DAILY Vitamin D3 (Cholecalciferol (Vitamin D3)) 1,000 Unit Tablet 1,000 Unit PO DAILY Aricept (Donepezil Hcl) 5 Mg Tablet 5 Mg PO DAILY Aspir-Low (Aspirin) 81 Mg Tablet. 81 Mg PO DAILY I have reviewed the current psychotropics carefully including drug interactions. Risk benefit ratio favors no change other than as noted in my dictated progress note. Diagnosis: Problems: (1) Anxiety disorder (2) Dementia in Alzheimer's disease with delusions (3) Dementia in Alzheimer's disease with depression (4) Dementia, vascular, with delirium (5) Dementia, vascular, with delusions (6) Impulse control disorder ELLIS NOBLES MD Jul 05, 2017 19:46
[2017-07-06] MEDS: LACTULOSE 20 GM/30 ML SOLUTION. PO SCH ×3 (08:15→17:20)
[2017-07-06] MEDS: ASPIRIN ENTERIC COATED 81 MG TABLET.DR. PO SCH (08:16)
[2017-07-06] MEDS: DONEPEZIL HCL 10 MG TABLET PO SCH (08:16)
[2017-07-06] MEDS: DIVALPROEX 125 MG CAP.SPRINK PO SCH ×3 (08:16→20:10)
[2017-07-06] MEDS: QUEtiapine 25 MG TABLET. PO SCH ×4 (08:16→20:12)
[2017-07-06] MEDS: DOCUSATE SODIUM 100 MG CAPSULE PO SCH (08:16)
[2017-07-06] MEDS: PRENATAL MULTIVITAMIN TABLET. PO SCH (08:16)
[2017-07-06] MEDS: CYANOCOBALAMIN (VITAMIN B-12) 1,000 MCG TABLET. PO SCH (08:17)
[2017-07-06] MEDS: CHOLECALCIFEROL (VITAMIN D3) 1,000 UNIT TABLET PO SCH (08:18)
[2017-07-06] MEDS: NEOMYCIN/BACITRAC/POLY TOPICAL OINTMENT 28GM TUBE. TP SCH ×2 (08:18→20:21)
[2017-07-06 08:22] VITALS: BP 130/72
[2017-07-06] MEDS: METOPROLOL TART IMMED RELEASE 50 MG TABLET PO SCH ×2 (09:00→20:12)
[2017-07-06 16:16] VITALS: BP 142/86
[2017-07-06] MEDS: MELATONIN 3 MG TABLET PO SCH (20:10)
[2017-07-06] MEDS: MIRTAZAPINE 7.5 MG TABLET. PO SCH (20:12)
[2017-07-06] MEDS: ATORVASTATIN CALCIUM 20 MG TABLET PO SCH (20:12)
--- NOTE | 2017-07-06 21:30 | PDOC ---
Exam Note: Darci Note: Please also refer to the separate dictated note~for this date of service dictated separately.~Patient seen individually. Discussed the patient with Nursing staff reviewed the chart.~Reviewed interim history and current functioning. Reviewed vital signs,~Labs/ Radiology~and current medications noted below. Continue current treatment with the changes noted in the dictated addendum note Assessment: Vital Signs: Vital Signs Date Time Temp Pulse Resp B/P (MAP) Pulse Ox O2 Delivery O2 Flow Rate FiO2 07/06/17 20:12 64 142/86 07/06/17 16:16 97.8 20 100 Room Air I&O Intake and Output 07/06/17 07:00 Intake Total 1080 ml Balance 1080 ml Intake Oral 1080 ml # Voids 2 Current Medications: Meds: Current Medications Acetaminophen (Tylenol) 650 mg PRN Q6HRS PRN PO MILD PAIN / TEMP; Start at 00:00; Stop 06/23/17 at 06:34; Status DC Multi-Ingredient Ointment (Analgesic [place]) 1 yadi PRN QID PRN TP MUSCLE PAIN; Start 06/23/17 at 00:00 Al Hydroxide/Mg Hydroxide (Mylanta Plus Xs) 15 ml PRN AFTMEALHC PRN PO DYSPEPSIA; Start 06/23/17 at 00:00 Magnesium Hydroxide (Milk Of Magnesia) 2,400 mg PRN QHS PRN PO CONSTIPATION Last administered on 06/26/17 09:58; Start 06/23/17 at 00:00 Divalproex Sodium (Depakote Sprinkles) 250 mg TID@0900,1300,1700 PO Last administered on 06/24/17 16:54; Start 06/23/17 at 09:00; Stop 06/24/17 at 18 :39; Status DC Donepezil HCl (Aricept) 5 mg DAILY PO Last administered on 07/03/17 09:02; Start 06/23/17 at 09:00; Stop 07/03/17 at 18:23; Status DC Melatonin 3 mg QHS PO Last administered on 07/06/17 20:10; Start 06/23/17 at 21:00 Olanzapine (ZyPREXA ZYDIS) 2.5 mg PRN Q2HR PRN PO PSYCHOSIS Last administered on 07/02/17 13:52; Start 06/23/17 at 01:15 Acetaminophen (Tylenol) 500 mg PRN Q6HRS PRN PO PAIN / TEMP; Start 06/23/17 at 06:30 Aspirin (Aspirin Enteric Coated) 81 mg DAILY PO Last administered on 07/06/17 08:16; Start 06/23/17 at 09:00 Atorvastatin Calcium (Lipitor) 20 mg QHS PO Last administered on 07/06/17 20: 12; Start 06/23/17 at 21:00 Vitamin D (Vitamin D3) 1,000 unit DAILY PO Last administered on 06/24/17 09: 10; Start 06/23/17 at 09:00; Stop 06/24/17 at 14:36; Status DC Docusate Sodium (Colace) 100 mg DAILY PO Last administered on 07/06/17 08:16; Start 06/23/17 at 09:00 Lactulose 20 gm TID@0900,1300,1700 PO Last administered on 07/06/17 17:20; Start 06/23/17 at 09:00 Metoprolol Tartrate (Lopressor) 300 mg BID PO Last administered on 07/06/17 20 :12; Start 06/23/17 at 09:00 Trazodone HCl (Desyrel) 100 mg PRN QHS PRN PO INSOMNIA, MAY REPEAT X1 Last administered on 07/04/17 19:27; Start 06/23/17 at 20:30 Prenat Multivit/ [place]/Iron/Folic Ac (Multivitamin ) 1 tab DAILY PO Last administered on 07/06/17 08:16; Start 06/25/17 at 09:00 Vitamin D (Vitamin D3) 2,000 unit DAILYBFRSUP PO Last administered on 08:18; Start 06/24/17 at 17:00 Cyanocobalamin (Vitamin B-12) 1,000 mcg DAILY PO Last administered on 08:17; Start 06/25/17 at 09:00 Cyanocobalamin (Vitamin B-12) 1,000 mcg 1X ONCE IM Last administered on 15:27; Start 06/24/17 at 14:45; Stop 06/24/17 at 14:46; Status DC Cyanocobalamin (Vitamin B-12) 1,000 mcg 1X ONCE IM Last administered on 19:44; Start 06/24/17 at 21:00; Stop 06/24/17 at 21:01; Status DC Divalproex Sodium (Depakote Sprinkles) 375 mg BID@0900,1700 PO Last administered on 06/28/17 17:16; Start 06/25/17 at 09:00; Stop 06/28/17 at 19: 03; Status DC Divalproex Sodium (Depakote Sprinkles) 250 mg DAILY@1300 PO Last administered on 06/28/17 12:42; Start 06/25/17 at 13:00; Stop 06/28/17 at 19:03; Status DC Lactulose 20 gm STK-MED ONCE .ROUTE ; Start 06/23/17 at 09:00; Stop 06/26/17 at 18:49; Status DC Lactulose 20 gm STK-MED ONCE .ROUTE ; Start 06/23/17 at 09:00; Stop 06/26/17 at 18:49; Status DC Lactulose 20 gm STK-MED ONCE .ROUTE ; Start 06/23/17 at 09:00; Stop 06/26/17 at 18:49; Status DC Melatonin 3 mg STK-MED ONCE .ROUTE ; Start 06/23/17 at 21:00; Stop 06/26/17 at 18:49; Status DC Lactulose 20 gm STK-MED ONCE .ROUTE ; Start 06/24/17 at 21:00; Stop 06/26/17 at 18:50; Status DC Lactulose 20 gm STK-MED ONCE .ROUTE ; Start 06/24/17 at 21:00; Stop 06/26/17 at 18:50; Status DC Lactulose 20 gm STK-MED ONCE .ROUTE ; Start 06/24/17 at 21:00; Stop 06/26/17 at 18:50; Status DC Melatonin 3 mg STK-MED ONCE .ROUTE ; Start 06/24/17 at 21:00; Stop 06/26/17 at 18:50; Status DC Lactulose 20 gm STK-MED ONCE .ROUTE ; Start 06/25/17 at 21:00; Stop 06/26/17 at 18:50; Status DC Lactulose 20 gm STK-MED ONCE .ROUTE ; Start 06/25/17 at 21:00; Stop 06/26/17 at 18:50; Status DC Lactulose 20 gm STK-MED ONCE .ROUTE ; Start 06/25/17 at 21:00; Stop 06/26/17 at 18:50; Status DC Melatonin 3 mg STK-MED ONCE .ROUTE ; Start 06/25/17 at 21:00; Stop 06/26/17 at 18:50; Status DC Lactulose 20 gm STK-MED ONCE .ROUTE ; Start 06/26/17 at 21:00; Stop 06/26/17 at 21:01; Status DC Lactulose 20 gm STK-MED ONCE .ROUTE ; Start 06/26/17 at 21:00; Stop 06/26/17 at 21:01; Status DC Lactulose 20 gm STK-MED ONCE .ROUTE ; Start 06/26/17 at 21:00; Stop 06/26/17 at 21:01; Status DC Divalproex Sodium (Depakote Sprinkles) 375 mg TID PO Last administered on 20:10; Start 06/28/17 at 21:00 Divalproex Sodium (Depakote Sprinkles) 375 mg DAILY@1300 PO ; Start 06/29/17 at 13:00; Status UNV Mirtazapine (Remeron) 7.5 mg QHS PO Last administered on 07/06/17 20:12; Start 06/28/17 at 21:00 Quetiapine Fumarate (SEROquel) 12.5 mg DAILY@1500 PO Last administered on 15:09; Start 06/29/17 at 15:00; Stop 07/02/17 at 17:45; Status DC Quetiapine Fumarate (SEROquel) 12.5 mg DAILY@0900,1500 PO Last administered on 07/04/17 09:19; Start 07/03/17 at 09:00; Stop 07/04/17 at 11:51; Status DC Donepezil HCl (Aricept) 10 mg DAILY PO Last administered on 07/06/17 08:16; Start 07/04/17 at 09:00 Quetiapine Fumarate (SEROquel) 12.5 mg DAILY@0900,1300,1700 PO Last administered on 07/06/17 17:20; Start 07/04/17 at 13:00 Quetiapine Fumarate (SEROquel) 12.5 mg QHS PO Last administered on 07/06/17 20 :12; Start 07/04/17 at 21:00 Neomycin/ Polymyxin/ Bacitracin (Triple Antibiotic) 1 yadi BID TP Last administered on 07/06/17 20:21; Start 07/04/17 at 21:00 Active Scripts Active Reported Depakote Sprinkle (Divalproex Sodium) 125 Mg Cap.sprink 250 Mg PO TID@0900,1300, 1700 Acetaminophen 500 Mg Tablet 500 Mg PO PRN Q6HRS PRN Melatonin 3 Mg Tablet 3 Mg PO QHS Atorvastatin Calcium 20 Mg Tablet 20 Mg PO QHS Lactulose 10 Gm/15 Ml Solution 20 Gm PO TID@0900,1300,1700 Metoprolol Tartrate 100 Mg Tablet 300 Mg PO BID Colace (Docusate Sodium) 100 Mg Capsule 100 Mg PO DAILY Vitamin D3 (Cholecalciferol (Vitamin D3)) 1,000 Unit Tablet 1,000 Unit PO DAILY Aricept (Donepezil Hcl) 5 Mg Tablet 5 Mg PO DAILY Aspir-Low (Aspirin) 81 Mg Tablet. 81 Mg PO DAILY I have reviewed the current psychotropics carefully including drug interactions. Risk benefit ratio favors no change other than as noted in my dictated progress note. Diagnosis: Problems: (1) Anxiety disorder (2) Dementia in Alzheimer's disease with delusions (3) Dementia in Alzheimer's disease with depression (4) Dementia, vascular, with delirium (5) Dementia, vascular, with delusions (6) Impulse control disorder ELLIS NOBLES MD Jul 06, 2017 21:30
[2017-07-06] MEDS: traZODone 100 MG TABLET. PO PRN (21:57)
[2017-07-07 06:03] VITALS: BP 142/91
--- NOTE | 2017-07-07 07:11 | PN ---
DATE: 07/04/2017 PSYCHIATRIC PROGRESS NOTE This late entry 07/04/2017 covers elements not covered in my initial note of 07/04/2017. I met with the patient evening of 07/04/2017. SUBJECTIVE: The patient was staffed at treatment team meeting morning of 07/04/2017. Reviewed the patient's progress diagnosis. He has been babbling in his speech, seems to be psychotic, hallucinating, talking about "____ and righteousness" amongst other things. He has been paranoid, looking through the window, wandering in and out of other patient's rooms. REVIEW OF SYSTEMS: No CV, , pulmonary, eye, ENT system symptoms on review. Reliability poor. MENTAL STATUS EXAM: Oriented to himself. Insight, judgment, recent and remote memory, attention, concentration, fund of knowledge poor, consistent with his diagnosis mentioned in my initial note. PLAN: Increase Seroquel from 12.5 mg twice a day to 12.5 mg 4 times a day. Maintain Depakote, melatonin, Aricept, trazodone, Remeron at current dosage. Adjust further as clinically indicated. MAN Estefany NOBLES MD DR: MONICA/joe JOB#: [id number] / [id number]
[2017-07-07] MEDS: LACTULOSE 20 GM/30 ML SOLUTION. PO SCH ×3 (08:18→17:09)
[2017-07-07] MEDS: PRENATAL MULTIVITAMIN TABLET. PO SCH (08:19)
[2017-07-07] MEDS: CYANOCOBALAMIN (VITAMIN B-12) 1,000 MCG TABLET. PO SCH (08:19)
[2017-07-07] MEDS: DIVALPROEX 125 MG CAP.SPRINK PO SCH ×3 (08:19→19:54)
[2017-07-07] MEDS: DONEPEZIL HCL 10 MG TABLET PO SCH (08:19)
[2017-07-07] MEDS: QUEtiapine 25 MG TABLET. PO SCH ×4 (08:19→19:55)
[2017-07-07] MEDS: ASPIRIN ENTERIC COATED 81 MG TABLET.DR. PO SCH (08:19)
[2017-07-07] MEDS: DOCUSATE SODIUM 100 MG CAPSULE PO SCH (08:19)
[2017-07-07] MEDS: CHOLECALCIFEROL (VITAMIN D3) 1,000 UNIT TABLET PO SCH (08:31)
[2017-07-07] MEDS: NEOMYCIN/BACITRAC/POLY TOPICAL OINTMENT 28GM TUBE. TP SCH ×2 (08:32→19:56)
[2017-07-07] MEDS: METOPROLOL TART IMMED RELEASE 50 MG TABLET PO SCH ×2 (10:43→19:54)
[2017-07-07 11:14] LABS: BASO % 1 % (0-3); EOS # 0.3 x10^3/uL (0.0-0.7); EOS % 5 % (0-3); HEMATOCRIT 45.5 % (39.0-53.0); HEMOGLOBIN 15.3 g/dL (13.0-17.5); LYMPH # 2.2 x10^3/uL (1.0-4.8); LYMPH % 37 % (24-48); MEAN CORPUSCULAR HEMOGLOBIN 32 pg (25-35); MEAN CORPUSCULAR HGB CONC 34 g/dL (31-37); MEAN CORPUSCULAR VOLUME 96 fL (79-100); MONO # 0.7 x10^3/uL (0.0-1.1); MONO % 11 % (0-9); NEUT # 2.8 x10^3uL (1.8-7.7); NEUT % 47 % (31-73); PLATELET COUNT 180 x10^3/uL (140-400); RED BLOOD COUNT 4.73 x10^6/uL (4.30-5.70); RED CELL DISTRIBUTION WIDTH 14.2 % (11.5-14.5)
[2017-07-07 11:19] LABS: ALBUMIN 3.3 g/dL (3.4-5.0); ALBUMIN/GLOBULIN RATIO 0.7 (1.0-1.7); CALCIUM 8.8 mg/dL (8.5-10.1); GFR 90.5; TOTAL BILIRUBIN 0.3 mg/dL (0.2-1.0); TOTAL PROTEIN 8.2 g/dL (6.4-8.2)
--- NOTE | 2017-07-07 12:25 | PN ---
DATE: 07/05/2017 PSYCHIATRIC PROGRESS NOTE This is a late entry 07/05/2017, covers elements not covered in my initial note 07/05/2017. SUBJECTIVE: I met with the patient the evening of 07/05/2017. The patient has not had to be from the [facility], which is an improvement. He was somewhat anxious lunch time, restless, paranoid, better after that. REVIEW OF SYSTEMS: No CV, , pulmonary, eye, ENT system symptoms on review. Reliability poor. MENTAL STATUS EXAM: Oriented to himself. Insight, judgment, recent and remote memory, attention, concentration, fund of knowledge poor, consistent with his diagnoses mentioned in my initial note. PLAN: Continue current psychotropics with Seroquel having being adjusted up to 4 times a day, Depakote at current dosage, level therapeutic at 55, Aricept 10 mg a day, melatonin 3 mg at bedtime, Remeron 7.5 at bedtime, trazodone p.r.n. Adjust further as clinically indicated. MAN Estefany NOBLES MD DR: MONICA/joe JOB#: [id number] / [id number]
[2017-07-07 16:13] VITALS: BP 124/75
--- NOTE | 2017-07-07 19:52 | PDOC ---
Exam Note: Darci Note: Please also refer to the separate dictated note~for this date of service dictated separately.~Patient seen individually. Discussed the patient with Nursing staff reviewed the chart.~Reviewed interim history and current functioning. Reviewed vital signs,~Labs/ Radiology~and current medications noted below. Continue current treatment with the changes noted in the dictated addendum note Assessment: Vital Signs: Vital Signs Date Time Temp Pulse Resp B/P (MAP) Pulse Ox O2 Delivery O2 Flow Rate FiO2 07/07/17 16:13 97.5 68 18 124/75 (91) 100 07/06/17 16:16 Room Air I&O Intake and Output 07/07/17 07:00 Intake Total 720 ml Balance 720 ml Intake Oral 720 ml Labs: Laboratory Tests Test 07/07/17 10:45 White Blood Count 6.0 x10^3/uL (4.0-11.0) Red Blood Count 4.73 x10^6/uL (4.30-5.70) Hemoglobin 15.3 g/dL (13.0-17.5) Hematocrit 45.5 % (39.0-53.0) Mean Corpuscular Volume 96 fL (79-100) Mean Corpuscular Hemoglobin 32 pg (25-35) Mean Corpuscular Hemoglobin Concent 34 g/dL (31-37) Red Cell Distribution Width 14.2 % (11.5-14.5) Platelet Count 180 x10^3/uL (140-400) Neutrophils (%) (Auto) 47 % (31-73) Lymphocytes (%) (Auto) 37 % (24-48) Monocytes (%) (Auto) 11 % (0-9) H Eosinophils (%) (Auto) 5 % (0-3) H Basophils (%) (Auto) 1 % (0-3) Neutrophils # (Auto) 2.8 x10^3uL (1.8-7.7) Lymphocytes # (Auto) 2.2 x10^3/uL (1.0-4.8) Monocytes # (Auto) 0.7 x10^3/uL (0.0-1.1) Eosinophils # (Auto) 0.3 x10^3/uL (0.0-0.7) Basophils # (Auto) 0.0 x10^3/uL (0.0-0.2) Sodium Level 142 mmol/L (136-145) Potassium Level 4.0 mmol/L (3.5-5.1) Chloride Level 103 mmol/L (98-107) Carbon Dioxide Level 31 mmol/L (21-32) Anion Gap 8 (6-14) Blood Urea Nitrogen 15 mg/dL (8-26) Creatinine 1.0 mg/dL (0.7-1.3) Estimated GFR (Cockcroft-Gault) 90.5 BUN/Creatinine Ratio 15 (6-20) Glucose Level 99 mg/dL (70-99) Calcium Level 8.8 mg/dL (8.5-10.1) Total Bilirubin 0.3 mg/dL (0.2-1.0) Aspartate Amino Transferase (AST) 21 U/L (15-37) Alanine Aminotransferase (ALT) 31 U/L (16-63) Alkaline Phosphatase 84 U/L (46-116) Total Protein 8.2 g/dL (6.4-8.2) Albumin 3.3 g/dL (3.4-5.0) L Albumin/Globulin Ratio 0.7 (1.0-1.7) L Current Medications: Meds: Current Medications Acetaminophen (Tylenol) 650 mg PRN Q6HRS PRN PO MILD PAIN / TEMP; Start at 00:00; Stop 06/23/17 at 06:34; Status DC Multi-Ingredient Ointment (Analgesic [place]) 1 yadi PRN QID PRN TP MUSCLE PAIN; Start 06/23/17 at 00:00 Al Hydroxide/Mg Hydroxide (Mylanta Plus Xs) 15 ml PRN AFTMEALHC PRN PO DYSPEPSIA; Start 06/23/17 at 00:00 Magnesium Hydroxide (Milk Of Magnesia) 2,400 mg PRN QHS PRN PO CONSTIPATION Last administered on 06/26/17 09:58; Start 06/23/17 at 00:00 Divalproex Sodium (Depakote Sprinkles) 250 mg TID@0900,1300,1700 PO Last administered on 06/24/17 16:54; Start 06/23/17 at 09:00; Stop 06/24/17 at 18 :39; Status DC Donepezil HCl (Aricept) 5 mg DAILY PO Last administered on 07/03/17 09:02; Start 06/23/17 at 09:00; Stop 07/03/17 at 18:23; Status DC Melatonin 3 mg QHS PO Last administered on 07/06/17 20:10; Start 06/23/17 at 21:00 Olanzapine (ZyPREXA ZYDIS) 2.5 mg PRN Q2HR PRN PO PSYCHOSIS Last administered on 07/02/17 13:52; Start 06/23/17 at 01:15 Acetaminophen (Tylenol) 500 mg PRN Q6HRS PRN PO PAIN / TEMP; Start 06/23/17 at 06:30 Aspirin (Aspirin Enteric Coated) 81 mg DAILY PO Last administered on 08:19; Start 06/23/17 at 09:00 Atorvastatin Calcium (Lipitor) 20 mg QHS PO Last administered on 07/06/17 20: 12; Start 06/23/17 at 21:00 Vitamin D (Vitamin D3) 1,000 unit DAILY PO Last administered on 06/24/17 09: 10; Start 06/23/17 at 09:00; Stop 06/24/17 at 14:36; Status DC Docusate Sodium (Colace) 100 mg DAILY PO Last administered on 07/07/17 08:19 ; Start 06/23/17 at 09:00 Lactulose 20 gm TID@0900,1300,1700 PO Last administered on 07/07/17 17:09; Start 06/23/17 at 09:00 Metoprolol Tartrate (Lopressor) 300 mg BID PO Last administered on 07/07/17 10:43; Start 06/23/17 at 09:00 Trazodone HCl (Desyrel) 100 mg PRN QHS PRN PO INSOMNIA, MAY REPEAT X1 Last administered on 07/06/17 21:57; Start 06/23/17 at 20:30 Prenat Multivit/ [place]/Iron/Folic Ac (Multivitamin ) 1 tab DAILY PO Last administered on 07/07/17 08:19; Start 06/25/17 at 09:00 Vitamin D (Vitamin D3) 2,000 unit DAILYBFRSUP PO Last administered on 08:31; Start 06/24/17 at 17:00 Cyanocobalamin (Vitamin B-12) 1,000 mcg DAILY PO Last administered on 08:19; Start 06/25/17 at 09:00 Cyanocobalamin (Vitamin B-12) 1,000 mcg 1X ONCE IM Last administered on 15:27; Start 06/24/17 at 14:45; Stop 06/24/17 at 14:46; Status DC Cyanocobalamin (Vitamin B-12) 1,000 mcg 1X ONCE IM Last administered on 19:44; Start 06/24/17 at 21:00; Stop 06/24/17 at 21:01; Status DC Divalproex Sodium (Depakote Sprinkles) 375 mg BID@0900,1700 PO Last administered on 06/28/17 17:16; Start 06/25/17 at 09:00; Stop 06/28/17 at 19: 03; Status DC Divalproex Sodium (Depakote Sprinkles) 250 mg DAILY@1300 PO Last administered on 06/28/17 12:42; Start 06/25/17 at 13:00; Stop 06/28/17 at 19:03; Status DC Lactulose 20 gm STK-MED ONCE .ROUTE ; Start 06/23/17 at 09:00; Stop 06/26/17 at 18:49; Status DC Lactulose 20 gm STK-MED ONCE .ROUTE ; Start 06/23/17 at 09:00; Stop 06/26/17 at 18:49; Status DC Lactulose 20 gm STK-MED ONCE .ROUTE ; Start 06/23/17 at 09:00; Stop 06/26/17 at 18:49; Status DC Melatonin 3 mg STK-MED ONCE .ROUTE ; Start 06/23/17 at 21:00; Stop 06/26/17 at 18:49; Status DC Lactulose 20 gm STK-MED ONCE .ROUTE ; Start 06/24/17 at 21:00; Stop 06/26/17 at 18:50; Status DC Lactulose 20 gm STK-MED ONCE .ROUTE ; Start 06/24/17 at 21:00; Stop 06/26/17 at 18:50; Status DC Lactulose 20 gm STK-MED ONCE .ROUTE ; Start 06/24/17 at 21:00; Stop 06/26/17 at 18:50; Status DC Melatonin 3 mg STK-MED ONCE .ROUTE ; Start 06/24/17 at 21:00; Stop 06/26/17 at 18:50; Status DC Lactulose 20 gm STK-MED ONCE .ROUTE ; Start 06/25/17 at 21:00; Stop 06/26/17 at 18:50; Status DC Lactulose 20 gm STK-MED ONCE .ROUTE ; Start 06/25/17 at 21:00; Stop 06/26/17 at 18:50; Status DC Lactulose 20 gm STK-MED ONCE .ROUTE ; Start 06/25/17 at 21:00; Stop 06/26/17 at 18:50; Status DC Melatonin 3 mg STK-MED ONCE .ROUTE ; Start 06/25/17 at 21:00; Stop 06/26/17 at 18:50; Status DC Lactulose 20 gm STK-MED ONCE .ROUTE ; Start 06/26/17 at 21:00; Stop 06/26/17 at 21:01; Status DC Lactulose 20 gm STK-MED ONCE .ROUTE ; Start 06/26/17 at 21:00; Stop 06/26/17 at 21:01; Status DC Lactulose 20 gm STK-MED ONCE .ROUTE ; Start 06/26/17 at 21:00; Stop 06/26/17 at 21:01; Status DC Divalproex Sodium (Depakote Sprinkles) 375 mg TID PO Last administered on 07/07 14:06; Start 06/28/17 at 21:00 Divalproex Sodium (Depakote Sprinkles) 375 mg DAILY@1300 PO ; Start 06/29/17 at 13:00; Status UNV Mirtazapine (Remeron) 7.5 mg QHS PO Last administered on 07/06/17 20:12; Start 06/28/17 at 21:00 Quetiapine Fumarate (SEROquel) 12.5 mg DAILY@1500 PO Last administered on 15:09; Start 06/29/17 at 15:00; Stop 07/02/17 at 17:45; Status DC Quetiapine Fumarate (SEROquel) 12.5 mg DAILY@0900,1500 PO Last administered on 07/04/17 09:19; Start 07/03/17 at 09:00; Stop 07/04/17 at 11:51; Status DC Donepezil HCl (Aricept) 10 mg DAILY PO Last administered on 07/07/17 08:19; Start 07/04/17 at 09:00 Quetiapine Fumarate (SEROquel) 12.5 mg DAILY@0900,1300,1700 PO Last administered on 07/07/17 17:09; Start 07/04/17 at 13:00 Quetiapine Fumarate (SEROquel) 12.5 mg QHS PO Last administered on 07/06/17 20 :12; Start 07/04/17 at 21:00 Neomycin/ Polymyxin/ Bacitracin (Triple Antibiotic) 1 yadi BID TP Last administered on 07/06/17 20:21; Start 07/04/17 at 21:00 Active Scripts Active Reported Depakote Sprinkle (Divalproex Sodium) 125 Mg Cap.sprink 250 Mg PO TID@0900,1300, 1700 Acetaminophen 500 Mg Tablet 500 Mg PO PRN Q6HRS PRN Melatonin 3 Mg Tablet 3 Mg PO QHS Atorvastatin Calcium 20 Mg Tablet 20 Mg PO QHS Lactulose 10 Gm/15 Ml Solution 20 Gm PO TID@0900,1300,1700 Metoprolol Tartrate 100 Mg Tablet 300 Mg PO BID Colace (Docusate Sodium) 100 Mg Capsule 100 Mg PO DAILY Vitamin D3 (Cholecalciferol (Vitamin D3)) 1,000 Unit Tablet 1,000 Unit PO DAILY Aricept (Donepezil Hcl) 5 Mg Tablet 5 Mg PO DAILY Aspir-Low (Aspirin) 81 Mg Tablet. 81 Mg PO DAILY I have reviewed the current psychotropics carefully including drug interactions. Risk benefit ratio favors no change other than as noted in my dictated progress note. Diagnosis: Problems: (1) Anxiety disorder (2) Dementia in Alzheimer's disease with delusions (3) Dementia in Alzheimer's disease with depression (4) Dementia, vascular, with delirium (5) Dementia, vascular, with delusions (6) Impulse control disorder ELLIS NOBLES MD Jul 07, 2017 19:52
[2017-07-07] MEDS: MELATONIN 3 MG TABLET PO SCH (19:54)
[2017-07-07] MEDS: ATORVASTATIN CALCIUM 20 MG TABLET PO SCH (19:54)
[2017-07-07] MEDS: MIRTAZAPINE 7.5 MG TABLET. PO SCH (19:54)
[2017-07-07] MEDS: traZODone 100 MG TABLET. PO PRN (19:57)
--- NOTE | 2017-07-08 05:35 | PN ---
DATE: 07/06/2017 This is a late entry 07/06/2017 covers elements not covered in my initial note 07/06/2017. I met with the patient evening of 07/06/2017. Previous evening, the patient was threatening nursing staff, "I will punch you in the head." He got irritable at snack time. During the day on 07/06/2017, he is not very verbal in the morning, but smiling more in the afternoon, not talking to unknown objects as he was a few days back. REVIEW OF SYSTEMS: No CV, , pulmonary, eye, ENT system symptoms on review. Reliability poor. MENTAL STATUS EXAM: Oriented to himself. Insight, judgment, recent and remote memory, attention, concentration, fund of knowledge poor, consistent with his diagnosis mentioned in my initial note. PLAN: Continue his psychotropics mentioned in my initial note. Adjust as clinically indicated. MAN Estefany NOBLES MD DR: MONICA/joe JOB#: [id number] / [id number]
[2017-07-08 05:50] VITALS: BP 135/75
[2017-07-08] MEDS: ASPIRIN ENTERIC COATED 81 MG TABLET.DR. PO SCH (09:58)
[2017-07-08] MEDS: DOCUSATE SODIUM 100 MG CAPSULE PO SCH (09:58)
[2017-07-08] MEDS: DIVALPROEX 125 MG CAP.SPRINK PO SCH ×3 (09:58→19:49)
[2017-07-08] MEDS: DONEPEZIL HCL 10 MG TABLET PO SCH (09:58)
[2017-07-08] MEDS: LACTULOSE 20 GM/30 ML SOLUTION. PO SCH ×3 (09:58→17:02)
[2017-07-08] MEDS: METOPROLOL TART IMMED RELEASE 50 MG TABLET PO SCH ×2 (10:00→19:48)
[2017-07-08] MEDS: CYANOCOBALAMIN (VITAMIN B-12) 1,000 MCG TABLET. PO SCH (10:00)
[2017-07-08] MEDS: QUEtiapine 25 MG TABLET. PO SCH ×4 (10:00→19:47)
[2017-07-08] MEDS: PRENATAL MULTIVITAMIN TABLET. PO SCH (10:00)
[2017-07-08] MEDS: NEOMYCIN/BACITRAC/POLY TOPICAL OINTMENT 28GM TUBE. TP SCH ×2 (10:01→19:53)
[2017-07-08] MEDS: CHOLECALCIFEROL (VITAMIN D3) 1,000 UNIT TABLET PO SCH (10:01)
--- NOTE | 2017-07-08 12:28 | EKG ---
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
[2017-07-08 13:34] VITALS: BP 107/70
[2017-07-08 15:52] VITALS: BP 131/78
[2017-07-08] MEDS: MIRTAZAPINE 7.5 MG TABLET. PO SCH (19:48)
[2017-07-08] MEDS: ATORVASTATIN CALCIUM 20 MG TABLET PO SCH (19:48)
[2017-07-08] MEDS: MELATONIN 3 MG TABLET PO SCH (19:48)
--- NOTE | 2017-07-08 21:20 | PDOC ---
Exam Note: Darci Note: Please also refer to the separate dictated note~for this date of service dictated separately.~Patient seen individually. Discussed the patient with Nursing staff reviewed the chart.~Reviewed interim history and current functioning. Reviewed vital signs,~Labs/ Radiology~and current medications noted below. Continue current treatment with the changes noted in the dictated addendum note Assessment: Vital Signs: Vital Signs Date Time Temp Pulse Resp B/P (MAP) Pulse Ox O2 Delivery O2 Flow Rate FiO2 07/08/17 19:48 65 131/78 07/08/17 15:52 98.0 16 97 07/06/17 16:16 Room Air I&O Intake and Output 07/08/17 06:59 Intake Total 960 ml Balance 960 ml Intake Oral 960 ml Current Medications: Meds: Current Medications Acetaminophen (Tylenol) 650 mg PRN Q6HRS PRN PO MILD PAIN / TEMP; Start at 00:00; Stop 06/23/17 at 06:34; Status DC Multi-Ingredient Ointment (Analgesic [place]) 1 yadi PRN QID PRN TP MUSCLE PAIN; Start 06/23/17 at 00:00 Al Hydroxide/Mg Hydroxide (Mylanta Plus Xs) 15 ml PRN AFTMEALHC PRN PO DYSPEPSIA; Start 06/23/17 at 00:00 Magnesium Hydroxide (Milk Of Magnesia) 2,400 mg PRN QHS PRN PO CONSTIPATION Last administered on 06/26/17 09:58; Start 06/23/17 at 00:00 Divalproex Sodium (Depakote Sprinkles) 250 mg TID@0900,1300,1700 PO Last administered on 06/24/17 16:54; Start 06/23/17 at 09:00; Stop 06/24/17 at 18 :39; Status DC Donepezil HCl (Aricept) 5 mg DAILY PO Last administered on 07/03/17 09:02; Start 06/23/17 at 09:00; Stop 07/03/17 at 18:23; Status DC Melatonin 3 mg QHS PO Last administered on 07/08/17 19:48; Start 06/23/17 at 21:00 Olanzapine (ZyPREXA ZYDIS) 2.5 mg PRN Q2HR PRN PO PSYCHOSIS Last administered on 07/08/17 12:21; Start 06/23/17 at 01:15 Acetaminophen (Tylenol) 500 mg PRN Q6HRS PRN PO PAIN / TEMP; Start 06/23/17 at 06:30 Aspirin (Aspirin Enteric Coated) 81 mg DAILY PO Last administered on 09:58; Start 06/23/17 at 09:00 Atorvastatin Calcium (Lipitor) 20 mg QHS PO Last administered on 07/08/17 19: 48; Start 06/23/17 at 21:00 Vitamin D (Vitamin D3) 1,000 unit DAILY PO Last administered on 06/24/17 09: 10; Start 06/23/17 at 09:00; Stop 06/24/17 at 14:36; Status DC Docusate Sodium (Colace) 100 mg DAILY PO Last administered on 07/08/17 09:58 ; Start 06/23/17 at 09:00 Lactulose 20 gm TID@0900,1300,1700 PO Last administered on 07/08/17 17:02; Start 06/23/17 at 09:00 Metoprolol Tartrate (Lopressor) 300 mg BID PO Last administered on 07/08/17 19:48; Start 06/23/17 at 09:00 Trazodone HCl (Desyrel) 100 mg PRN QHS PRN PO INSOMNIA, MAY REPEAT X1 Last administered on 07/07/17 19:57; Start 06/23/17 at 20:30 Prenat Multivit/ [place]/Iron/Folic Ac (Multivitamin ) 1 tab DAILY PO Last administered on 07/08/17 10:00; Start 06/25/17 at 09:00 Vitamin D (Vitamin D3) 2,000 unit DAILYBFRSUP PO Last administered on 10:01; Start 06/24/17 at 17:00 Cyanocobalamin (Vitamin B-12) 1,000 mcg DAILY PO Last administered on 10:00; Start 06/25/17 at 09:00 Cyanocobalamin (Vitamin B-12) 1,000 mcg 1X ONCE IM Last administered on 15:27; Start 06/24/17 at 14:45; Stop 06/24/17 at 14:46; Status DC Cyanocobalamin (Vitamin B-12) 1,000 mcg 1X ONCE IM Last administered on 19:44; Start 06/24/17 at 21:00; Stop 06/24/17 at 21:01; Status DC Divalproex Sodium (Depakote Sprinkles) 375 mg BID@0900,1700 PO Last administered on 06/28/17 17:16; Start 06/25/17 at 09:00; Stop 06/28/17 at 19: 03; Status DC Divalproex Sodium (Depakote Sprinkles) 250 mg DAILY@1300 PO Last administered on 06/28/17 12:42; Start 06/25/17 at 13:00; Stop 06/28/17 at 19:03; Status DC Lactulose 20 gm STK-MED ONCE .ROUTE ; Start 06/23/17 at 09:00; Stop 06/26/17 at 18:49; Status DC Lactulose 20 gm STK-MED ONCE .ROUTE ; Start 06/23/17 at 09:00; Stop 06/26/17 at 18:49; Status DC Lactulose 20 gm STK-MED ONCE .ROUTE ; Start 06/23/17 at 09:00; Stop 06/26/17 at 18:49; Status DC Melatonin 3 mg STK-MED ONCE .ROUTE ; Start 06/23/17 at 21:00; Stop 06/26/17 at 18:49; Status DC Lactulose 20 gm STK-MED ONCE .ROUTE ; Start 06/24/17 at 21:00; Stop 06/26/17 at 18:50; Status DC Lactulose 20 gm STK-MED ONCE .ROUTE ; Start 06/24/17 at 21:00; Stop 06/26/17 at 18:50; Status DC Lactulose 20 gm STK-MED ONCE .ROUTE ; Start 06/24/17 at 21:00; Stop 06/26/17 at 18:50; Status DC Melatonin 3 mg STK-MED ONCE .ROUTE ; Start 06/24/17 at 21:00; Stop 06/26/17 at 18:50; Status DC Lactulose 20 gm STK-MED ONCE .ROUTE ; Start 06/25/17 at 21:00; Stop 06/26/17 at 18:50; Status DC Lactulose 20 gm STK-MED ONCE .ROUTE ; Start 06/25/17 at 21:00; Stop 06/26/17 at 18:50; Status DC Lactulose 20 gm STK-MED ONCE .ROUTE ; Start 06/25/17 at 21:00; Stop 06/26/17 at 18:50; Status DC Melatonin 3 mg STK-MED ONCE .ROUTE ; Start 06/25/17 at 21:00; Stop 06/26/17 at 18:50; Status DC Lactulose 20 gm STK-MED ONCE .ROUTE ; Start 06/26/17 at 21:00; Stop 06/26/17 at 21:01; Status DC Lactulose 20 gm STK-MED ONCE .ROUTE ; Start 06/26/17 at 21:00; Stop 06/26/17 at 21:01; Status DC Lactulose 20 gm STK-MED ONCE .ROUTE ; Start 06/26/17 at 21:00; Stop 06/26/17 at 21:01; Status DC Divalproex Sodium (Depakote Sprinkles) 375 mg TID PO Last administered on 07/08 19:49; Start 06/28/17 at 21:00 Divalproex Sodium (Depakote Sprinkles) 375 mg DAILY@1300 PO ; Start 06/29/17 at 13:00; Status UNV Mirtazapine (Remeron) 7.5 mg QHS PO Last administered on 07/08/17 19:48; Start 06/28/17 at 21:00 Quetiapine Fumarate (SEROquel) 12.5 mg DAILY@1500 PO Last administered on 15:09; Start 06/29/17 at 15:00; Stop 07/02/17 at 17:45; Status DC Quetiapine Fumarate (SEROquel) 12.5 mg DAILY@0900,1500 PO Last administered on 07/04/17 09:19; Start 07/03/17 at 09:00; Stop 07/04/17 at 11:51; Status DC Donepezil HCl (Aricept) 10 mg DAILY PO Last administered on 07/08/17 09:58; Start 07/04/17 at 09:00 Quetiapine Fumarate (SEROquel) 12.5 mg DAILY@0900,1300,1700 PO Last administered on 07/08/17 17:03; Start 07/04/17 at 13:00 Quetiapine Fumarate (SEROquel) 12.5 mg QHS PO Last administered on 07/08/17 19:47; Start 07/04/17 at 21:00 Neomycin/ Polymyxin/ Bacitracin (Triple Antibiotic) 1 yaid BID TP Last administered on 07/08/17 19:53; Start 07/04/17 at 21:00 Sertraline HCl (Zoloft) 50 mg DAILY PO ; Start 07/09/17 at 09:00 Active Scripts Active Reported Depakote Sprinkle (Divalproex Sodium) 125 Mg Cap.sprink 250 Mg PO TID@0900,1300, 1700 Acetaminophen 500 Mg Tablet 500 Mg PO PRN Q6HRS PRN Melatonin 3 Mg Tablet 3 Mg PO QHS Atorvastatin Calcium 20 Mg Tablet 20 Mg PO QHS Lactulose 10 Gm/15 Ml Solution 20 Gm PO TID@0900,1300,1700 Metoprolol Tartrate 100 Mg Tablet 300 Mg PO BID Colace (Docusate Sodium) 100 Mg Capsule 100 Mg PO DAILY Vitamin D3 (Cholecalciferol (Vitamin D3)) 1,000 Unit Tablet 1,000 Unit PO DAILY Aricept (Donepezil Hcl) 5 Mg Tablet 5 Mg PO DAILY Aspir-Low (Aspirin) 81 Mg Tablet. 81 Mg PO DAILY I have reviewed the current psychotropics carefully including drug interactions. Risk benefit ratio favors no change other than as noted in my dictated progress note. Diagnosis: Problems: (1) Anxiety disorder (2) Dementia in Alzheimer's disease with delusions (3) Dementia in Alzheimer's disease with depression (4) Dementia, vascular, with delirium (5) Dementia, vascular, with delusions (6) Impulse control disorder ELLIS NOBLES MD Jul 08, 2017 21:20
--- NOTE | 2017-07-09 05:24 | PN ---
DATE: 07/07/2017 PSYCHIATRIC PROGRESS NOTE This late entry for date of service 07/07/2017 covers elements not covered in my initial note of 07/07/2017. SUBJECTIVE: I met with the patient evening of 07/07/2017. The patient remains confused, wandering the hallways, sleeping well at night, not actively hallucinating like he was a couple of days back. REVIEW OF SYSTEMS: No CV, , pulmonary, eye, ENT system symptoms on review. Reliability poor. MENTAL STATUS EXAM: Oriented to himself. Insight, judgment, recent and remote memory, attention, concentration, fund of knowledge poor, consistent with his diagnosis mentioned in my initial note. PLAN: Continue current psychotropics mentioned in my initial note. Adjust further as clinically indicated. Valproic acid level therapeutic at 55. MAN Estefany NOBLES MD DR: MONICA/joe JOB#: [id number] / [id number]
[2017-07-09 05:50] VITALS: BP 135/69
[2017-07-09] MEDS: ASPIRIN ENTERIC COATED 81 MG TABLET.DR. PO SCH (08:02)
[2017-07-09] MEDS: CHOLECALCIFEROL (VITAMIN D3) 1,000 UNIT TABLET PO SCH (08:02)
[2017-07-09] MEDS: PRENATAL MULTIVITAMIN TABLET. PO SCH (08:02)
[2017-07-09] MEDS: DOCUSATE SODIUM 100 MG CAPSULE PO SCH (08:02)
[2017-07-09] MEDS: LACTULOSE 20 GM/30 ML SOLUTION. PO SCH ×3 (08:02→17:19)
[2017-07-09] MEDS: DONEPEZIL HCL 10 MG TABLET PO SCH (08:02)
[2017-07-09] MEDS: DIVALPROEX 125 MG CAP.SPRINK PO SCH ×3 (08:03→20:07)
[2017-07-09] MEDS: CYANOCOBALAMIN (VITAMIN B-12) 1,000 MCG TABLET. PO SCH (08:03)
[2017-07-09] MEDS: QUEtiapine 25 MG TABLET. PO SCH ×4 (08:03→20:09)
[2017-07-09] MEDS: METOPROLOL TART IMMED RELEASE 50 MG TABLET PO SCH (08:04)
[2017-07-09] MEDS: SERTRALINE 50 MG TABLET. PO SCH (08:08)
[2017-07-09] MEDS: NEOMYCIN/BACITRAC/POLY TOPICAL OINTMENT 28GM TUBE. TP SCH ×2 (08:09→20:09)
--- NOTE | 2017-07-09 14:37 | PDOC2 ---
CONSULT Date of Admission DATE: 07/09/17 TIME: 14:34 Reason for Consult: History of SVT, bradycardia, metoprolol dosing Problem List Problems Medical Problems: (1) Dementia Status: Acute History of Present Illness Mr Lemon is a 67 year old male with a history of SVT on a current dose of 300mg BID of metoprolol. Nursing noted that he had been mildly bradycardic and so consult was called. Mr Lemon was originally admitted to [facility] increased aggression, and behavioral disturbances in the setting of severe dementia. He is unable to give history though he does admit to the history of SVT "years ago ". He denies any chest discomfort, dyspnea or palpitations. He denies lightheadedness or sycnope. Past Medical History supraventricular tachycardia, encephalopathy, hyperlipidemia, vitamin D deficiency. Past Surgical History PAST SURGICAL HISTORY: Unobtainable due to patient mental status. Family History Unobtainable due to mental status Social History He is a resident at [facility]. He apparently does not smoke, drink alcohol, or use recreational drugs. Current Medications Current Medications Acetaminophen (Tylenol) 650 mg PRN Q6HRS PRN PO MILD PAIN / TEMP; Start at 00:00; Stop 06/23/17 at 06:34; Status DC Multi-Ingredient Ointment (Analgesic [place]) 1 yadi PRN QID PRN TP MUSCLE PAIN; Start 06/23/17 at 00:00 Al Hydroxide/Mg Hydroxide (Mylanta Plus Xs) 15 ml PRN AFTMEALHC PRN PO DYSPEPSIA; Start 06/23/17 at 00:00 Magnesium Hydroxide (Milk Of Magnesia) 2,400 mg PRN QHS PRN PO CONSTIPATION Last administered on 06/26/17 09:58; Start 06/23/17 at 00:00 Divalproex Sodium (Depakote Sprinkles) 250 mg TID@0900,1300,1700 PO Last administered on 06/24/17 16:54; Start 06/23/17 at 09:00; Stop 06/24/17 at 18 :39; Status DC Donepezil HCl (Aricept) 5 mg DAILY PO Last administered on 07/03/17 09:02; Start 06/23/17 at 09:00; Stop 07/03/17 at 18:23; Status DC Melatonin 3 mg QHS PO Last administered on 07/08/17 19:48; Start 06/23/17 at 21:00 Olanzapine (ZyPREXA ZYDIS) 2.5 mg PRN Q2HR PRN PO PSYCHOSIS Last administered on 07/08/17 12:21; Start 06/23/17 at 01:15 Acetaminophen (Tylenol) 500 mg PRN Q6HRS PRN PO PAIN / TEMP; Start 06/23/17 at 06:30 Aspirin (Aspirin Enteric Coated) 81 mg DAILY PO Last administered on 08:02; Start 06/23/17 at 09:00 Atorvastatin Calcium (Lipitor) 20 mg QHS PO Last administered on 07/08/17 19: 48; Start 06/23/17 at 21:00 Vitamin D (Vitamin D3) 1,000 unit DAILY PO Last administered on 06/24/17 09: 10; Start 06/23/17 at 09:00; Stop 06/24/17 at 14:36; Status DC Docusate Sodium (Colace) 100 mg DAILY PO Last administered on 07/09/17 08:02 ; Start 06/23/17 at 09:00 Lactulose 20 gm TID@0900,1300,1700 PO Last administered on 07/09/17 13:06; Start 06/23/17 at 09:00 Metoprolol Tartrate (Lopressor) 300 mg BID PO Last administered on 07/09/17 08:04; Start 06/23/17 at 09:00; Stop 07/09/17 at 10:43; Status DC Trazodone HCl (Desyrel) 100 mg PRN QHS PRN PO INSOMNIA, MAY REPEAT X1 Last administered on 07/07/17 19:57; Start 06/23/17 at 20:30 Prenat Multivit/ [place]/Iron/Folic Ac (Multivitamin ) 1 tab DAILY PO Last administered on 07/09/17 08:02; Start 06/25/17 at 09:00 Vitamin D (Vitamin D3) 2,000 unit DAILYBFRSUP PO Last administered on 08:02; Start 06/24/17 at 17:00 Cyanocobalamin (Vitamin B-12) 1,000 mcg DAILY PO Last administered on 08:03; Start 06/25/17 at 09:00 Cyanocobalamin (Vitamin B-12) 1,000 mcg 1X ONCE IM Last administered on 15:27; Start 06/24/17 at 14:45; Stop 06/24/17 at 14:46; Status DC Cyanocobalamin (Vitamin B-12) 1,000 mcg 1X ONCE IM Last administered on 19:44; Start 06/24/17 at 21:00; Stop 06/24/17 at 21:01; Status DC Divalproex Sodium (Depakote Sprinkles) 375 mg BID@0900,1700 PO Last administered on 06/28/17 17:16; Start 06/25/17 at 09:00; Stop 06/28/17 at 19: 03; Status DC Divalproex Sodium (Depakote Sprinkles) 250 mg DAILY@1300 PO Last administered on 06/28/17 12:42; Start 06/25/17 at 13:00; Stop 06/28/17 at 19:03; Status DC Lactulose 20 gm STK-MED ONCE .ROUTE ; Start 06/23/17 at 09:00; Stop 06/26/17 at 18:49; Status DC Lactulose 20 gm STK-MED ONCE .ROUTE ; Start 06/23/17 at 09:00; Stop 06/26/17 at 18:49; Status DC Lactulose 20 gm STK-MED ONCE .ROUTE ; Start 06/23/17 at 09:00; Stop 06/26/17 at 18:49; Status DC Melatonin 3 mg STK-MED ONCE .ROUTE ; Start 06/23/17 at 21:00; Stop 06/26/17 at 18:49; Status DC Lactulose 20 gm STK-MED ONCE .ROUTE ; Start 06/24/17 at 21:00; Stop 06/26/17 at 18:50; Status DC Lactulose 20 gm STK-MED ONCE .ROUTE ; Start 06/24/17 at 21:00; Stop 06/26/17 at 18:50; Status DC Lactulose 20 gm STK-MED ONCE .ROUTE ; Start 06/24/17 at 21:00; Stop 06/26/17 at 18:50; Status DC Melatonin 3 mg STK-MED ONCE .ROUTE ; Start 06/24/17 at 21:00; Stop 06/26/17 at 18:50; Status DC Lactulose 20 gm STK-MED ONCE .ROUTE ; Start 06/25/17 at 21:00; Stop 06/26/17 at 18:50; Status DC Lactulose 20 gm STK-MED ONCE .ROUTE ; Start 06/25/17 at 21:00; Stop 06/26/17 at 18:50; Status DC Lactulose 20 gm STK-MED ONCE .ROUTE ; Start 06/25/17 at 21:00; Stop 06/26/17 at 18:50; Status DC Melatonin 3 mg STK-MED ONCE .ROUTE ; Start 06/25/17 at 21:00; Stop 06/26/17 at 18:50; Status DC Lactulose 20 gm STK-MED ONCE .ROUTE ; Start 06/26/17 at 21:00; Stop 06/26/17 at 21:01; Status DC Lactulose 20 gm STK-MED ONCE .ROUTE ; Start 06/26/17 at 21:00; Stop 06/26/17 at 21:01; Status DC Lactulose 20 gm STK-MED ONCE .ROUTE ; Start 06/26/17 at 21:00; Stop 06/26/17 at 21:01; Status DC Divalproex Sodium (Depakote Sprinkles) 375 mg TID PO Last administered on 07/09 13:06; Start 06/28/17 at 21:00 Divalproex Sodium (Depakote Sprinkles) 375 mg DAILY@1300 PO ; Start 06/29/17 at 13:00; Status UNV Mirtazapine (Remeron) 7.5 mg QHS PO Last administered on 07/08/17 19:48; Start 06/28/17 at 21:00 Quetiapine Fumarate (SEROquel) 12.5 mg DAILY@1500 PO Last administered on 15:09; Start 06/29/17 at 15:00; Stop 07/02/17 at 17:45; Status DC Quetiapine Fumarate (SEROquel) 12.5 mg DAILY@0900,1500 PO Last administered on 07/04/17 09:19; Start 07/03/17 at 09:00; Stop 07/04/17 at 11:51; Status DC Donepezil HCl (Aricept) 10 mg DAILY PO Last administered on 07/09/17 08:02; Start 07/04/17 at 09:00 Quetiapine Fumarate (SEROquel) 12.5 mg DAILY@0900,1300,1700 PO Last administered on 07/09/17 13:07; Start 07/04/17 at 13:00 Quetiapine Fumarate (SEROquel) 12.5 mg QHS PO Last administered on 07/08/17 19:47; Start 07/04/17 at 21:00 Neomycin/ Polymyxin/ Bacitracin (Triple Antibiotic) 1 yadi BID TP Last administered on 07/09/17 08:09; Start 07/04/17 at 21:00 Sertraline HCl (Zoloft) 50 mg DAILY PO Last administered on 07/09/17 08:08; Start 07/09/17 at 09:00 Metoprolol Succinate (Toprol Xl) 200 mg DAILY PO ; Start 07/10/17 at 09:00 Active Scripts Active Reported Depakote Sprinkle (Divalproex Sodium) 125 Mg Cap.sprink 250 Mg PO TID@0900,1300, 1700 Acetaminophen 500 Mg Tablet 500 Mg PO PRN Q6HRS PRN Melatonin 3 Mg Tablet 3 Mg PO QHS Atorvastatin Calcium 20 Mg Tablet 20 Mg PO QHS Lactulose 10 Gm/15 Ml Solution 20 Gm PO TID@0900,1300,1700 Metoprolol Tartrate 100 Mg Tablet 300 Mg PO BID Colace (Docusate Sodium) 100 Mg Capsule 100 Mg PO DAILY Vitamin D3 (Cholecalciferol (Vitamin D3)) 1,000 Unit Tablet 1,000 Unit PO DAILY Aricept (Donepezil Hcl) 5 Mg Tablet 5 Mg PO DAILY Aspir-Low (Aspirin) 81 Mg Tablet.dr 81 Mg PO DAILY Allergies: Coded Allergies: Penicillins (Verified Allergy, Intermediate, 06/22/17) Review of System unobtainable General: Alert, Cooperative, No acute distress HEENT: EOMI, Mucous membr. moist/pink Lungs: Clear to auscultation, Normal air movement Heart: Regular rate, Normal S1, Normal S2 Abdomen: Normal bowel sounds, Soft Extremities: No cyanosis, Normal pulses Neuro: Normal gait Psych/Mental Status: Mood NL VITALS Vital Signs Date Time Temp Pulse Resp B/P (MAP) Pulse Ox O2 Delivery O2 Flow Rate FiO2 07/09/17 08:04 56 135/69 07/09/17 05:50 97.2 16 99 07/06/17 16:16 Room Air Labs Reviewed. Images EKG - sinus rhythm without acute ischemic changes. Assessment/Plan 1. Bradycardia - reviewed VS history. No significant bradycardia noted. 2. Hx of SVT - on significant dose of metoprolol. Will reduce to Metoprolol ER 200 daily as there are no recommendations for dosing above this. Call for any recurrent tachycardia. 3. neurocognitive disorder - mgmt per Psych. Thank you for the consult, no further recommendations at this time. Call with any questions or concerns. Problems: JOANA EDUARDO [employer]SERVATION AGENT Jul 09, 2017 14:37
[2017-07-09 16:02] VITALS: BP 135/89
[2017-07-09] MEDS: MELATONIN 3 MG TABLET PO SCH (20:07)
[2017-07-09] MEDS: ATORVASTATIN CALCIUM 20 MG TABLET PO SCH (20:07)
[2017-07-09] MEDS: MIRTAZAPINE 7.5 MG TABLET. PO SCH (20:09)
--- NOTE | 2017-07-09 22:02 | PDOC ---
Exam Note: Darci Note: Please also refer to the separate dictated note~for this date of service dictated separately.~Patient seen individually. Discussed the patient with Nursing staff reviewed the chart.~Reviewed interim history and current functioning. Reviewed vital signs,~Labs/ Radiology~and current medications noted below. Continue current treatment with the changes noted in the dictated addendum note Assessment: Vital Signs: Vital Signs Date Time Temp Pulse Resp B/P (MAP) Pulse Ox O2 Delivery O2 Flow Rate FiO2 07/09/17 16:02 97.1 65 16 135/89 (104) 97 07/06/17 16:16 Room Air I&O Intake and Output 07/09/17 07:00 Intake Total 960 ml Balance 960 ml Intake Oral 960 ml Current Medications: Meds: Current Medications Acetaminophen (Tylenol) 650 mg PRN Q6HRS PRN PO MILD PAIN / TEMP; Start at 00:00; Stop 06/23/17 at 06:34; Status DC Multi-Ingredient Ointment (Analgesic [place]) 1 yadi PRN QID PRN TP MUSCLE PAIN; Start 06/23/17 at 00:00 Al Hydroxide/Mg Hydroxide (Mylanta Plus Xs) 15 ml PRN AFTMEALHC PRN PO DYSPEPSIA; Start 06/23/17 at 00:00 Magnesium Hydroxide (Milk Of Magnesia) 2,400 mg PRN QHS PRN PO CONSTIPATION Last administered on 06/26/17 09:58; Start 06/23/17 at 00:00 Divalproex Sodium (Depakote Sprinkles) 250 mg TID@0900,1300,1700 PO Last administered on 06/24/17 16:54; Start 06/23/17 at 09:00; Stop 06/24/17 at 18 :39; Status DC Donepezil HCl (Aricept) 5 mg DAILY PO Last administered on 07/03/17 09:02; Start 06/23/17 at 09:00; Stop 07/03/17 at 18:23; Status DC Melatonin 3 mg QHS PO Last administered on 07/09/17 20:07; Start 06/23/17 at 21:00 Olanzapine (ZyPREXA ZYDIS) 2.5 mg PRN Q2HR PRN PO PSYCHOSIS Last administered on 07/08/17 12:21; Start 06/23/17 at 01:15 Acetaminophen (Tylenol) 500 mg PRN Q6HRS PRN PO PAIN / TEMP; Start 06/23/17 at 06:30 Aspirin (Aspirin Enteric Coated) 81 mg DAILY PO Last administered on 08:02; Start 06/23/17 at 09:00 Atorvastatin Calcium (Lipitor) 20 mg QHS PO Last administered on 07/09/17 20: 07; Start 06/23/17 at 21:00 Vitamin D (Vitamin D3) 1,000 unit DAILY PO Last administered on 06/24/17 09: 10; Start 06/23/17 at 09:00; Stop 06/24/17 at 14:36; Status DC Docusate Sodium (Colace) 100 mg DAILY PO Last administered on 07/09/17 08:02 ; Start 06/23/17 at 09:00 Lactulose 20 gm TID@0900,1300,1700 PO Last administered on 07/09/17 17:19; Start 06/23/17 at 09:00 Metoprolol Tartrate (Lopressor) 300 mg BID PO Last administered on 07/09/17 08:04; Start 06/23/17 at 09:00; Stop 07/09/17 at 10:43; Status DC Trazodone HCl (Desyrel) 100 mg PRN QHS PRN PO INSOMNIA, MAY REPEAT X1 Last administered on 07/07/17 19:57; Start 06/23/17 at 20:30 Prenat Multivit/ [place]/Iron/Folic Ac (Multivitamin ) 1 tab DAILY PO Last administered on 07/09/17 08:02; Start 06/25/17 at 09:00 Vitamin D (Vitamin D3) 2,000 unit DAILYBFRSUP PO Last administered on 08:02; Start 06/24/17 at 17:00 Cyanocobalamin (Vitamin B-12) 1,000 mcg DAILY PO Last administered on 08:03; Start 06/25/17 at 09:00 Cyanocobalamin (Vitamin B-12) 1,000 mcg 1X ONCE IM Last administered on 15:27; Start 06/24/17 at 14:45; Stop 06/24/17 at 14:46; Status DC Cyanocobalamin (Vitamin B-12) 1,000 mcg 1X ONCE IM Last administered on 19:44; Start 06/24/17 at 21:00; Stop 06/24/17 at 21:01; Status DC Divalproex Sodium (Depakote Sprinkles) 375 mg BID@0900,1700 PO Last administered on 06/28/17 17:16; Start 06/25/17 at 09:00; Stop 06/28/17 at 19: 03; Status DC Divalproex Sodium (Depakote Sprinkles) 250 mg DAILY@1300 PO Last administered on 06/28/17 12:42; Start 06/25/17 at 13:00; Stop 06/28/17 at 19:03; Status DC Lactulose 20 gm STK-MED ONCE .ROUTE ; Start 06/23/17 at 09:00; Stop 06/26/17 at 18:49; Status DC Lactulose 20 gm STK-MED ONCE .ROUTE ; Start 06/23/17 at 09:00; Stop 06/26/17 at 18:49; Status DC Lactulose 20 gm STK-MED ONCE .ROUTE ; Start 06/23/17 at 09:00; Stop 06/26/17 at 18:49; Status DC Melatonin 3 mg STK-MED ONCE .ROUTE ; Start 06/23/17 at 21:00; Stop 06/26/17 at 18:49; Status DC Lactulose 20 gm STK-MED ONCE .ROUTE ; Start 06/24/17 at 21:00; Stop 06/26/17 at 18:50; Status DC Lactulose 20 gm STK-MED ONCE .ROUTE ; Start 06/24/17 at 21:00; Stop 06/26/17 at 18:50; Status DC Lactulose 20 gm STK-MED ONCE .ROUTE ; Start 06/24/17 at 21:00; Stop 06/26/17 at 18:50; Status DC Melatonin 3 mg STK-MED ONCE .ROUTE ; Start 06/24/17 at 21:00; Stop 06/26/17 at 18:50; Status DC Lactulose 20 gm STK-MED ONCE .ROUTE ; Start 06/25/17 at 21:00; Stop 06/26/17 at 18:50; Status DC Lactulose 20 gm STK-MED ONCE .ROUTE ; Start 06/25/17 at 21:00; Stop 06/26/17 at 18:50; Status DC Lactulose 20 gm STK-MED ONCE .ROUTE ; Start 06/25/17 at 21:00; Stop 06/26/17 at 18:50; Status DC Melatonin 3 mg STK-MED ONCE .ROUTE ; Start 06/25/17 at 21:00; Stop 06/26/17 at 18:50; Status DC Lactulose 20 gm STK-MED ONCE .ROUTE ; Start 06/26/17 at 21:00; Stop 06/26/17 at 21:01; Status DC Lactulose 20 gm STK-MED ONCE .ROUTE ; Start 06/26/17 at 21:00; Stop 06/26/17 at 21:01; Status DC Lactulose 20 gm STK-MED ONCE .ROUTE ; Start 06/26/17 at 21:00; Stop 06/26/17 at 21:01; Status DC Divalproex Sodium (Depakote Sprinkles) 375 mg TID PO Last administered on 07/09 20:07; Start 06/28/17 at 21:00 Divalproex Sodium (Depakote Sprinkles) 375 mg DAILY@1300 PO ; Start 06/29/17 at 13:00; Status UNV Mirtazapine (Remeron) 7.5 mg QHS PO Last administered on 07/09/17 20:09; Start 06/28/17 at 21:00 Quetiapine Fumarate (SEROquel) 12.5 mg DAILY@1500 PO Last administered on 15:09; Start 06/29/17 at 15:00; Stop 07/02/17 at 17:45; Status DC Quetiapine Fumarate (SEROquel) 12.5 mg DAILY@0900,1500 PO Last administered on 07/04/17 09:19; Start 07/03/17 at 09:00; Stop 07/04/17 at 11:51; Status DC Donepezil HCl (Aricept) 10 mg DAILY PO Last administered on 07/09/17 08:02; Start 07/04/17 at 09:00 Quetiapine Fumarate (SEROquel) 12.5 mg DAILY@0900,1300,1700 PO Last administered on 07/09/17 17:19; Start 07/04/17 at 13:00 Quetiapine Fumarate (SEROquel) 12.5 mg QHS PO Last administered on 07/09/17 20:09; Start 07/04/17 at 21:00 Neomycin/ Polymyxin/ Bacitracin (Triple Antibiotic) 1 yadi BID TP Last administered on 07/09/17 20:09; Start 07/04/17 at 21:00 Sertraline HCl (Zoloft) 50 mg DAILY PO Last administered on 07/09/17 08:08; Start 07/09/17 at 09:00 Metoprolol Succinate (Toprol Xl) 200 mg DAILY PO ; Start 07/10/17 at 09:00 Active Scripts Active Reported Depakote Sprinkle (Divalproex Sodium) 125 Mg Cap.sprink 250 Mg PO TID@0900,1300, 1700 Acetaminophen 500 Mg Tablet 500 Mg PO PRN Q6HRS PRN Melatonin 3 Mg Tablet 3 Mg PO QHS Atorvastatin Calcium 20 Mg Tablet 20 Mg PO QHS Lactulose 10 Gm/15 Ml Solution 20 Gm PO TID@0900,1300,1700 Metoprolol Tartrate 100 Mg Tablet 300 Mg PO BID Colace (Docusate Sodium) 100 Mg Capsule 100 Mg PO DAILY Vitamin D3 (Cholecalciferol (Vitamin D3)) 1,000 Unit Tablet 1,000 Unit PO DAILY Aricept (Donepezil Hcl) 5 Mg Tablet 5 Mg PO DAILY Aspir-Low (Aspirin) 81 Mg Tablet.dr 81 Mg PO DAILY I have reviewed the current psychotropics carefully including drug interactions. Risk benefit ratio favors no change other than as noted in my dictated progress note. 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
--- NOTE | 2017-07-10 05:33 | PN ---
DATE: 07/08/2017 PSYCHIATRIC PROGRESS NOTE This is a late entry for 07/08/2017, covers elements not covered in my initial note of 07/08/2017. SUBJECTIVE: The patient slept 7 hours previous evening. Previous night, he was irritable at night, pacing the hallways. Today, he walked to the dining room with someone else's clothing, got quite agitated, mumbling "f--- you" to the nursing staff, received Zyprexa p.r.n., little better after that, appears depressed, pulse in the 60s, is on a high dose of metoprolol. Cardiology consult in place. REVIEW OF SYSTEMS: No CV, , pulmonary, eye, ENT system symptoms on review. Reliability poor. MENTAL STATUS EXAM: Oriented to himself. Insight, judgment, recent and remote memory, attention, concentration, fund of knowledge poor, consistent with his diagnosis mentioned in my initial note. PLAN: Start Zoloft 50 mg a day. Continue rest psychotropics as mentioned in my initial note including Seroquel 12.5 mg 4 times a day. MAN Estefany NOBLES MD DR: MONICA/joe JOB#: [id number] / [id number]
[2017-07-10 06:13] VITALS: BP 146/98
[2017-07-10] MEDS: DONEPEZIL HCL 10 MG TABLET PO SCH (10:10)
[2017-07-10] MEDS: PRENATAL MULTIVITAMIN TABLET. PO SCH (10:10)
[2017-07-10] MEDS: ASPIRIN ENTERIC COATED 81 MG TABLET.DR. PO SCH (10:11)
[2017-07-10] MEDS: DIVALPROEX 125 MG CAP.SPRINK PO SCH ×3 (10:11→20:12)
[2017-07-10] MEDS: CYANOCOBALAMIN (VITAMIN B-12) 1,000 MCG TABLET. PO SCH (10:12)
[2017-07-10] MEDS: DOCUSATE SODIUM 100 MG CAPSULE PO SCH (10:12)
[2017-07-10] MEDS: QUEtiapine 25 MG TABLET. PO SCH ×4 (10:12→20:11)
[2017-07-10] MEDS: LACTULOSE 20 GM/30 ML SOLUTION. PO SCH ×3 (10:13→18:02)
[2017-07-10] MEDS: SERTRALINE 50 MG TABLET. PO SCH (10:13)
[2017-07-10] MEDS: METOPROLOL SUCC 24HR ER 50 MG TAB.ER.24H. PO SCH (10:15)
[2017-07-10] MEDS: NEOMYCIN/BACITRAC/POLY TOPICAL OINTMENT 28GM TUBE. TP SCH ×2 (10:16→20:12)
[2017-07-10 16:22] VITALS: BP 138/90
[2017-07-10] MEDS: CHOLECALCIFEROL (VITAMIN D3) 1,000 UNIT TABLET PO SCH (18:02)
--- NOTE | 2017-07-10 20:01 | PDOC ---
Exam Note: Darci Note: Please also refer to the separate dictated note~for this date of service dictated separately.~Patient seen individually. Discussed the patient with Nursing staff reviewed the chart.~Reviewed interim history and current functioning. Reviewed vital signs,~Labs/ Radiology~and current medications noted below. Continue current treatment with the changes noted in the dictated addendum note Assessment: Vital Signs: Vital Signs Date Time Temp Pulse Resp B/P (MAP) Pulse Ox O2 Delivery O2 Flow Rate FiO2 07/10/17 16:22 97.4 66 19 138/90 (106) 97 07/06/17 16:16 Room Air I&O Intake and Output 07/10/17 07:00 Intake Total 1560 ml Balance 1560 ml Intake Oral 1560 ml Current Medications: Meds: Current Medications Acetaminophen (Tylenol) 650 mg PRN Q6HRS PRN PO MILD PAIN / TEMP; Start at 00:00; Stop 06/23/17 at 06:34; Status DC Multi-Ingredient Ointment (Analgesic [place]) 1 yadi PRN QID PRN TP MUSCLE PAIN; Start 06/23/17 at 00:00 Al Hydroxide/Mg Hydroxide (Mylanta Plus Xs) 15 ml PRN AFTMEALHC PRN PO DYSPEPSIA; Start 06/23/17 at 00:00 Magnesium Hydroxide (Milk Of Magnesia) 2,400 mg PRN QHS PRN PO CONSTIPATION Last administered on 06/26/17 09:58; Start 06/23/17 at 00:00 Divalproex Sodium (Depakote Sprinkles) 250 mg TID@0900,1300,1700 PO Last administered on 06/24/17 16:54; Start 06/23/17 at 09:00; Stop 06/24/17 at 18 :39; Status DC Donepezil HCl (Aricept) 5 mg DAILY PO Last administered on 07/03/17 09:02; Start 06/23/17 at 09:00; Stop 07/03/17 at 18:23; Status DC Melatonin 3 mg QHS PO Last administered on 07/09/17 20:07; Start 06/23/17 at 21:00 Olanzapine (ZyPREXA ZYDIS) 2.5 mg PRN Q2HR PRN PO PSYCHOSIS Last administered on 12/11/17at 12:21; Start 06/23/17 at 01:15 Acetaminophen (Tylenol) 500 mg PRN Q6HRS PRN PO PAIN / TEMP; Start 06/23/17 at 06:30 Aspirin (Aspirin Enteric Coated) 81 mg DAILY PO Last administered on 10:11; Start 06/23/17 at 09:00 Atorvastatin Calcium (Lipitor) 20 mg QHS PO Last administered on 07/09/17 20: 07; Start 06/23/17 at 21:00 Vitamin D (Vitamin D3) 1,000 unit DAILY PO Last administered on 06/24/17 09: 10; Start 06/23/17 at 09:00; Stop 06/24/17 at 14:36; Status DC Docusate Sodium (Colace) 100 mg DAILY PO Last administered on 07/10/17 10:12 ; Start 06/23/17 at 09:00 Lactulose 20 gm TID@0900,1300,1700 PO Last administered on 07/10/17 18:02; Start 06/23/17 at 09:00 Metoprolol Tartrate (Lopressor) 300 mg BID PO Last administered on 07/09/17 08:04; Start 06/23/17 at 09:00; Stop 07/09/17 at 10:43; Status DC Trazodone HCl (Desyrel) 100 mg PRN QHS PRN PO INSOMNIA, MAY REPEAT X1 Last administered on 07/07/17 19:57; Start 06/23/17 at 20:30 Prenat Multivit/ Fire Management Technician/Iron/Folic Ac (Multivitamin ) 1 tab DAILY PO Last administered on 07/10/17 10:10; Start 06/25/17 at 09:00 Vitamin D (Vitamin D3) 2,000 unit DAILYBFRSUP PO Last administered on 18:02; Start 06/24/17 at 17:00 Cyanocobalamin (Vitamin B-12) 1,000 mcg DAILY PO Last administered on 10:12; Start 06/25/17 at 09:00 Cyanocobalamin (Vitamin B-12) 1,000 mcg 1X ONCE IM Last administered on 15:27; Start 06/24/17 at 14:45; Stop 06/24/17 at 14:46; Status DC Cyanocobalamin (Vitamin B-12) 1,000 mcg 1X ONCE IM Last administered on 19:44; Start 06/24/17 at 21:00; Stop 06/24/17 at 21:01; Status DC Divalproex Sodium (Depakote Sprinkles) 375 mg BID@0900,1700 PO Last administered on 06/28/17 17:16; Start 06/25/17 at 09:00; Stop 06/28/17 at 19: 03; Status DC Divalproex Sodium (Depakote Sprinkles) 250 mg DAILY@1300 PO Last administered on 06/28/17 12:42; Start 06/25/17 at 13:00; Stop 06/28/17 at 19:03; Status DC Lactulose 20 gm STK-MED ONCE .ROUTE ; Start 06/23/17 at 09:00; Stop 06/26/17 at 18:49; Status DC Lactulose 20 gm STK-MED ONCE .ROUTE ; Start 06/23/17 at 09:00; Stop 06/26/17 at 18:49; Status DC Lactulose 20 gm STK-MED ONCE .ROUTE ; Start 06/23/17 at 09:00; Stop 06/26/17 at 18:49; Status DC Melatonin 3 mg STK-MED ONCE .ROUTE ; Start 06/23/17 at 21:00; Stop 06/26/17 at 18:49; Status DC Lactulose 20 gm STK-MED ONCE .ROUTE ; Start 06/24/17 at 21:00; Stop 06/26/17 at 18:50; Status DC Lactulose 20 gm STK-MED ONCE .ROUTE ; Start 06/24/17 at 21:00; Stop 06/26/17 at 18:50; Status DC Lactulose 20 gm STK-MED ONCE .ROUTE ; Start 06/24/17 at 21:00; Stop 06/26/17 at 18:50; Status DC Melatonin 3 mg STK-MED ONCE .ROUTE ; Start 06/24/17 at 21:00; Stop 06/26/17 at 18:50; Status DC Lactulose 20 gm STK-MED ONCE .ROUTE ; Start 06/25/17 at 21:00; Stop 06/26/17 at 18:50; Status DC Lactulose 20 gm STK-MED ONCE .ROUTE ; Start 06/25/17 at 21:00; Stop 06/26/17 at 18:50; Status DC Lactulose 20 gm STK-MED ONCE .ROUTE ; Start 06/25/17 at 21:00; Stop 06/26/17 at 18:50; Status DC Melatonin 3 mg STK-MED ONCE .ROUTE ; Start 06/25/17 at 21:00; Stop 06/26/17 at 18:50; Status DC Lactulose 20 gm STK-MED ONCE .ROUTE ; Start 06/26/17 at 21:00; Stop 06/26/17 at 21:01; Status DC Lactulose 20 gm STK-MED ONCE .ROUTE ; Start 06/26/17 at 21:00; Stop 06/26/17 at 21:01; Status DC Lactulose 20 gm STK-MED ONCE .ROUTE ; Start 06/26/17 at 21:00; Stop 06/26/17 at 21:01; Status DC Divalproex Sodium (Depakote Sprinkles) 375 mg TID PO Last administered on 07/10 15:04; Start 06/28/17 at 21:00 Divalproex Sodium (Depakote Sprinkles) 375 mg DAILY@1300 PO ; Start 06/29/17 at 13:00; Status UNV Mirtazapine (Remeron) 7.5 mg QHS PO Last administered on 07/09/17 20:09; Start 06/28/17 at 21:00 Quetiapine Fumarate (SEROquel) 12.5 mg DAILY@1500 PO Last administered on 15:09; Start 06/29/17 at 15:00; Stop 07/02/17 at 17:45; Status DC Quetiapine Fumarate (SEROquel) 12.5 mg DAILY@0900,1500 PO Last administered on 07/04/17 09:19; Start 07/03/17 at 09:00; Stop 07/04/17 at 11:51; Status DC Donepezil HCl (Aricept) 10 mg DAILY PO Last administered on 07/10/17 10:10; Start 07/04/17 at 09:00 Quetiapine Fumarate (SEROquel) 12.5 mg DAILY@0900,1300,1700 PO Last administered on 07/10/17 18:03; Start 07/04/17 at 13:00 Quetiapine Fumarate (SEROquel) 12.5 mg QHS PO Last administered on 07/09/17 20:09; Start 07/04/17 at 21:00 Neomycin/ Polymyxin/ Bacitracin (Triple Antibiotic) 1 yadi BID TP Last administered on 07/10/17 10:16; Start 07/04/17 at 21:00 Sertraline HCl (Zoloft) 50 mg DAILY PO Last administered on 07/10/17 10:13; Start 07/09/17 at 09:00 Metoprolol Succinate (Toprol Xl) 200 mg DAILY PO Last administered on 10:15; Start 07/10/17 at 09:00 Active Scripts Active Reported Depakote Sprinkle (Divalproex Sodium) 125 Mg Cap.sprink 250 Mg PO TID@0900,1300, 1700 Acetaminophen 500 Mg Tablet 500 Mg PO PRN Q6HRS PRN Melatonin 3 Mg Tablet 3 Mg PO QHS Atorvastatin Calcium 20 Mg Tablet 20 Mg PO QHS Lactulose 10 Gm/15 Ml Solution 20 Gm PO TID@0900,1300,1700 Metoprolol Tartrate 100 Mg Tablet 300 Mg PO BID Colace (Docusate Sodium) 100 Mg Capsule 100 Mg PO DAILY Vitamin D3 (Cholecalciferol (Vitamin D3)) 1,000 Unit Tablet 1,000 Unit PO DAILY Aricept (Donepezil Hcl) 5 Mg Tablet 5 Mg PO DAILY Aspir-Low (Aspirin) 81 Mg Tablet. 81 Mg PO DAILY I have reviewed the current psychotropics carefully including drug interactions. Risk benefit ratio favors no change other than as noted in my dictated progress note. Diagnosis: Problems: (1) Anxiety disorder (2) Dementia in Alzheimer's disease with delusions (3) Dementia in Alzheimer's disease with depression (4) Dementia, vascular, with delirium (5) Dementia, vascular, with delusions (6) Impulse control disorder ELLIS NOBLES MD Jul 10, 2017 20:01
[2017-07-10] MEDS: MELATONIN 3 MG TABLET PO SCH (20:10)
[2017-07-10] MEDS: ATORVASTATIN CALCIUM 20 MG TABLET PO SCH (20:10)
[2017-07-10] MEDS: MIRTAZAPINE 7.5 MG TABLET. PO SCH (20:10)
[2017-07-11 06:08] VITALS: BP 119/80
--- NOTE | 2017-07-11 09:31 | PN ---
DATE: 07/09/2017 This late entry 07/09/2017 covers elements not covered in my initial note 07/09/2017. I met with the patient evening of 07/09/2017. Overall, the patient remains confused, but less psychotic, not hallucinating as much as before, and not talking to himself when no one is around him. REVIEW OF SYSTEMS: No CV, , pulmonary, eye, ENT system symptoms on review. Reliability poor. MENTAL STATUS EXAM: Oriented to himself. Insight, judgment, recent and remote memory, attention, concentration, fund of knowledge poor consistent with his diagnosis mentioned in my initial note. PLAN: Continue current psychotropics mentioned in my initial note. Valproic acid level therapeutic at 55 on Depakote Sprinkles 375 mg t.i.d. Continue rest unchanged. MAN Estefany NOBLES MD DR: MONICA/joe JOB#: [id number] / [id number]
[2017-07-11] MEDS: SERTRALINE 50 MG TABLET. PO SCH (11:00)
[2017-07-11] MEDS: LACTULOSE 20 GM/30 ML SOLUTION. PO SCH ×3 (11:00→17:14)
[2017-07-11] MEDS: CYANOCOBALAMIN (VITAMIN B-12) 1,000 MCG TABLET. PO SCH (11:01)
[2017-07-11] MEDS: DOCUSATE SODIUM 100 MG CAPSULE PO SCH (11:01)
[2017-07-11] MEDS: METOPROLOL SUCC 24HR ER 50 MG TAB.ER.24H. PO SCH (11:01)
[2017-07-11] MEDS: ASPIRIN ENTERIC COATED 81 MG TABLET.DR. PO SCH (11:01)
[2017-07-11] MEDS: DIVALPROEX 125 MG CAP.SPRINK PO SCH ×3 (11:01→19:46)
[2017-07-11] MEDS: QUEtiapine 25 MG TABLET. PO SCH ×4 (11:02→19:46)
[2017-07-11] MEDS: NEOMYCIN/BACITRAC/POLY TOPICAL OINTMENT 28GM TUBE. TP SCH ×2 (11:03→19:47)
[2017-07-11] MEDS: DONEPEZIL HCL 10 MG TABLET PO SCH (11:03)
[2017-07-11] MEDS: PRENATAL MULTIVITAMIN TABLET. PO SCH (11:03)
[2017-07-11 16:22] VITALS: BP 133/76
[2017-07-11] MEDS: CHOLECALCIFEROL (VITAMIN D3) 1,000 UNIT TABLET PO SCH (17:13)
[2017-07-11] MEDS: MELATONIN 3 MG TABLET PO SCH (19:45)
[2017-07-11] MEDS: ATORVASTATIN CALCIUM 20 MG TABLET PO SCH (19:46)
[2017-07-11] MEDS: MIRTAZAPINE 7.5 MG TABLET. PO SCH (19:46)
--- NOTE | 2017-07-11 20:03 | PDOC ---
Exam Note: Darci Note: Please also refer to the separate dictated note~for this date of service dictated separately.~Patient seen individually. Discussed the patient with Nursing staff reviewed the chart.~Reviewed interim history and current functioning. Reviewed vital signs,~Labs/ Radiology~and current medications noted below. Continue current treatment with the changes noted in the dictated addendum note Assessment: Vital Signs: Vital Signs Date Time Temp Pulse Resp B/P (MAP) Pulse Ox O2 Delivery O2 Flow Rate FiO2 07/11/17 16:22 97.6 61 16 133/76 (95) 99 07/06/17 16:16 Room Air I&O Intake and Output 07/11/17 07:00 Intake Total 960 ml Balance 960 ml Intake Oral 960 ml Current Medications: Meds: Current Medications Acetaminophen (Tylenol) 650 mg PRN Q6HRS PRN PO MILD PAIN / TEMP; Start at 00:00; Stop 06/23/17 at 06:34; Status DC Multi-Ingredient Ointment (Analgesic [place]) 1 yadi PRN QID PRN TP MUSCLE PAIN; Start 06/23/17 at 00:00 Al Hydroxide/Mg Hydroxide (Mylanta Plus Xs) 15 ml PRN AFTMEALHC PRN PO DYSPEPSIA; Start 06/23/17 at 00:00 Magnesium Hydroxide (Milk Of Magnesia) 2,400 mg PRN QHS PRN PO CONSTIPATION Last administered on 06/26/17 09:58; Start 06/23/17 at 00:00 Divalproex Sodium (Depakote Sprinkles) 250 mg TID@0900,1300,1700 PO Last administered on 06/24/17 16:54; Start 06/23/17 at 09:00; Stop 06/24/17 at 18 :39; Status DC Donepezil HCl (Aricept) 5 mg DAILY PO Last administered on 07/03/17 09:02; Start 06/23/17 at 09:00; Stop 07/03/17 at 18:23; Status DC Melatonin 3 mg QHS PO Last administered on 07/11/17 19:45; Start 06/23/17 at 21:00 Olanzapine (ZyPREXA ZYDIS) 2.5 mg PRN Q2HR PRN PO PSYCHOSIS Last administered on 12/14/17at 08:08; Start 06/23/17 at 01:15 Acetaminophen (Tylenol) 500 mg PRN Q6HRS PRN PO PAIN / TEMP; Start 06/23/17 at 06:30 Aspirin (Aspirin Enteric Coated) 81 mg DAILY PO Last administered on 11:01; Start 06/23/17 at 09:00 Atorvastatin Calcium (Lipitor) 20 mg QHS PO Last administered on 07/11/17 19: 46; Start 06/23/17 at 21:00 Vitamin D (Vitamin D3) 1,000 unit DAILY PO Last administered on 06/24/17 09: 10; Start 06/23/17 at 09:00; Stop 06/24/17 at 14:36; Status DC Docusate Sodium (Colace) 100 mg DAILY PO Last administered on 07/11/17 11:01 ; Start 06/23/17 at 09:00 Lactulose 20 gm TID@0900,1300,1700 PO Last administered on 07/11/17 17:14; Start 06/23/17 at 09:00 Metoprolol Tartrate (Lopressor) 300 mg BID PO Last administered on 07/09/17 08:04; Start 06/23/17 at 09:00; Stop 07/09/17 at 10:43; Status DC Trazodone HCl (Desyrel) 100 mg PRN QHS PRN PO INSOMNIA, MAY REPEAT X1 Last administered on 07/07/17 19:57; Start 06/23/17 at 20:30 Prenat Multivit/ [place]/Iron/Folic Ac (Multivitamin ) 1 tab DAILY PO Last administered on 07/11/17 11:03; Start 06/25/17 at 09:00 Vitamin D (Vitamin D3) 2,000 unit DAILYBFRSUP PO Last administered on 17:13; Start 06/24/17 at 17:00 Cyanocobalamin (Vitamin B-12) 1,000 mcg DAILY PO Last administered on 11:01; Start 06/25/17 at 09:00 Cyanocobalamin (Vitamin B-12) 1,000 mcg 1X ONCE IM Last administered on 15:27; Start 06/24/17 at 14:45; Stop 06/24/17 at 14:46; Status DC Cyanocobalamin (Vitamin B-12) 1,000 mcg 1X ONCE IM Last administered on 19:44; Start 06/24/17 at 21:00; Stop 06/24/17 at 21:01; Status DC Divalproex Sodium (Depakote Sprinkles) 375 mg BID@0900,1700 PO Last administered on 06/28/17 17:16; Start 06/25/17 at 09:00; Stop 06/28/17 at 19: 03; Status DC Divalproex Sodium (Depakote Sprinkles) 250 mg DAILY@1300 PO Last administered on 06/28/17 12:42; Start 06/25/17 at 13:00; Stop 06/28/17 at 19:03; Status DC Lactulose 20 gm STK-MED ONCE .ROUTE ; Start 06/23/17 at 09:00; Stop 06/26/17 at 18:49; Status DC Lactulose 20 gm STK-MED ONCE .ROUTE ; Start 06/23/17 at 09:00; Stop 06/26/17 at 18:49; Status DC Lactulose 20 gm STK-MED ONCE .ROUTE ; Start 06/23/17 at 09:00; Stop 06/26/17 at 18:49; Status DC Melatonin 3 mg STK-MED ONCE .ROUTE ; Start 06/23/17 at 21:00; Stop 06/26/17 at 18:49; Status DC Lactulose 20 gm STK-MED ONCE .ROUTE ; Start 06/24/17 at 21:00; Stop 06/26/17 at 18:50; Status DC Lactulose 20 gm STK-MED ONCE .ROUTE ; Start 06/24/17 at 21:00; Stop 06/26/17 at 18:50; Status DC Lactulose 20 gm STK-MED ONCE .ROUTE ; Start 06/24/17 at 21:00; Stop 06/26/17 at 18:50; Status DC Melatonin 3 mg STK-MED ONCE .ROUTE ; Start 06/24/17 at 21:00; Stop 06/26/17 at 18:50; Status DC Lactulose 20 gm STK-MED ONCE .ROUTE ; Start 06/25/17 at 21:00; Stop 06/26/17 at 18:50; Status DC Lactulose 20 gm STK-MED ONCE .ROUTE ; Start 06/25/17 at 21:00; Stop 06/26/17 at 18:50; Status DC Lactulose 20 gm STK-MED ONCE .ROUTE ; Start 06/25/17 at 21:00; Stop 06/26/17 at 18:50; Status DC Melatonin 3 mg STK-MED ONCE .ROUTE ; Start 06/25/17 at 21:00; Stop 06/26/17 at 18:50; Status DC Lactulose 20 gm STK-MED ONCE .ROUTE ; Start 06/26/17 at 21:00; Stop 06/26/17 at 21:01; Status DC Lactulose 20 gm STK-MED ONCE .ROUTE ; Start 06/26/17 at 21:00; Stop 06/26/17 at 21:01; Status DC Lactulose 20 gm STK-MED ONCE .ROUTE ; Start 06/26/17 at 21:00; Stop 06/26/17 at 21:01; Status DC Divalproex Sodium (Depakote Sprinkles) 375 mg TID PO Last administered on 07/11 19:46; Start 06/28/17 at 21:00 Divalproex Sodium (Depakote Sprinkles) 375 mg DAILY@1300 PO ; Start 06/29/17 at 13:00; Status UNV Mirtazapine (Remeron) 7.5 mg QHS PO Last administered on 07/11/17 19:46; Start 06/28/17 at 21:00 Quetiapine Fumarate (SEROquel) 12.5 mg DAILY@1500 PO Last administered on 15:09; Start 06/29/17 at 15:00; Stop 07/02/17 at 17:45; Status DC Quetiapine Fumarate (SEROquel) 12.5 mg DAILY@0900,1500 PO Last administered on 07/04/17 09:19; Start 07/03/17 at 09:00; Stop 07/04/17 at 11:51; Status DC Donepezil HCl (Aricept) 10 mg DAILY PO Last administered on 07/11/17 11:03; Start 07/04/17 at 09:00 Quetiapine Fumarate (SEROquel) 12.5 mg DAILY@0900,1300,1700 PO Last administered on 07/11/17 11:02; Start 07/04/17 at 13:00; Stop 07/11/17 at 11: 09; Status DC Quetiapine Fumarate (SEROquel) 12.5 mg QHS PO Last administered on 07/10/17 20:11; Start 07/04/17 at 21:00; Stop 07/11/17 at 11:13; Status DC Neomycin/ Polymyxin/ Bacitracin (Triple Antibiotic) 1 yadi BID TP Last administered on 07/11/17 19:47; Start 07/04/17 at 21:00 Sertraline HCl (Zoloft) 50 mg DAILY PO Last administered on 07/11/17 11:00; Start 07/09/17 at 09:00 Metoprolol Succinate (Toprol Xl) 200 mg DAILY PO Last administered on 11:01; Start 07/10/17 at 09:00 Quetiapine Fumarate (SEROquel) 25 mg BID@0900,1700 PO Last administered on 17:14; Start 07/11/17 at 17:00 Quetiapine Fumarate (SEROquel) 12.5 mg DAILY@1300,2100 PO Last administered on 07/11/17 19:46; Start 07/11/17 at 13:00 Active Scripts Active Reported Depakote Sprinkle (Divalproex Sodium) 125 Mg Cap.sprink 250 Mg PO TID@0900,1300, 1700 Acetaminophen 500 Mg Tablet 500 Mg PO PRN Q6HRS PRN Melatonin 3 Mg Tablet 3 Mg PO QHS Atorvastatin Calcium 20 Mg Tablet 20 Mg PO QHS Lactulose 10 Gm/15 Ml Solution 20 Gm PO TID@0900,1300,1700 Metoprolol Tartrate 100 Mg Tablet 300 Mg PO BID Colace (Docusate Sodium) 100 Mg Capsule 100 Mg PO DAILY Vitamin D3 (Cholecalciferol (Vitamin D3)) 1,000 Unit Tablet 1,000 Unit PO DAILY Aricept (Donepezil Hcl) 5 Mg Tablet 5 Mg PO DAILY Aspir-Low (Aspirin) 81 Mg Tablet. 81 Mg PO DAILY I have reviewed the current psychotropics carefully including drug interactions. Risk benefit ratio favors no change other than as noted in my dictated progress note. Diagnosis: Problems: (1) Anxiety disorder (2) Dementia in Alzheimer's disease with delusions (3) Dementia in Alzheimer's disease with depression (4) Dementia, vascular, with delirium (5) Dementia, vascular, with delusions (6) Impulse control disorder ELLIS NOBLES MD Jul 11, 2017 20:03
[2017-07-12 06:20] VITALS: BP 148/89
[2017-07-12] MEDS: DIVALPROEX 125 MG CAP.SPRINK PO SCH ×3 (08:26→19:28)
[2017-07-12] MEDS: LACTULOSE 20 GM/30 ML SOLUTION. PO SCH ×3 (08:26→17:41)
[2017-07-12] MEDS: DONEPEZIL HCL 10 MG TABLET PO SCH (08:26)
[2017-07-12] MEDS: CYANOCOBALAMIN (VITAMIN B-12) 1,000 MCG TABLET. PO SCH (08:27)
[2017-07-12] MEDS: PRENATAL MULTIVITAMIN TABLET. PO SCH (08:27)
[2017-07-12] MEDS: QUEtiapine 25 MG TABLET. PO SCH ×4 (08:27→19:30)
[2017-07-12] MEDS: METOPROLOL SUCC 24HR ER 50 MG TAB.ER.24H. PO SCH (08:27)
[2017-07-12] MEDS: ASPIRIN ENTERIC COATED 81 MG TABLET.DR. PO SCH (08:27)
[2017-07-12] MEDS: SERTRALINE 50 MG TABLET. PO SCH (08:27)
[2017-07-12] MEDS: DOCUSATE SODIUM 100 MG CAPSULE PO SCH (08:27)
[2017-07-12] MEDS: NEOMYCIN/BACITRAC/POLY TOPICAL OINTMENT 28GM TUBE. TP SCH ×2 (10:07→19:29)
[2017-07-12 16:10] VITALS: BP 148/103
[2017-07-12] MEDS: CHOLECALCIFEROL (VITAMIN D3) 1,000 UNIT TABLET PO SCH (17:41)
[2017-07-12] MEDS: ATORVASTATIN CALCIUM 20 MG TABLET PO SCH (19:28)
[2017-07-12] MEDS: MELATONIN 3 MG TABLET PO SCH (19:28)
[2017-07-12] MEDS: MIRTAZAPINE 7.5 MG TABLET. PO SCH (19:29)
[2017-07-12] MEDS: traZODone 100 MG TABLET. PO PRN (22:01)
[2017-07-13 06:06] VITALS: BP 179/96
--- NOTE | 2017-07-13 07:11 | PN ---
DATE: 07/11/2017 This is a late entry for 07/11/2017 and covers elements not covered in my initial note of 07/11/2017. The patient was staffed at a treatment team meeting morning of 07/11/2017, seen individually evening of 07/11/2017. The patient has been anxious, intrusive, agitated in the morning, aggressive with nursing staff, flipping staff off at one point. REVIEW OF SYSTEMS: No CV, , pulmonary, eye, ENT system symptoms on review. Reliability poor. MENTAL STATUS EXAM: Oriented to himself. Insight, judgment, recent and remote memory, attention, concentration, fund of knowledge poor, consistent with his diagnosis as mentioned in my initial note. PLAN: Increase Seroquel from 12.5 mg 4 times a day to 25 mg twice a day and 12.5 mg twice a day. Maintain rest unchanged. Reviewed drug interactions, risk/benefit ratio favors no further change. ELLIS NOBLES MD DR: MONICA/joe JOB#: [id number] / [id number]
[2017-07-13] MEDS: LACTULOSE 20 GM/30 ML SOLUTION. PO SCH ×3 (08:21→16:31)
[2017-07-13] MEDS: DOCUSATE SODIUM 100 MG CAPSULE PO SCH (08:21)
[2017-07-13] MEDS: DONEPEZIL HCL 10 MG TABLET PO SCH (08:21)
[2017-07-13] MEDS: ASPIRIN ENTERIC COATED 81 MG TABLET.DR. PO SCH (08:21)
[2017-07-13] MEDS: DIVALPROEX 125 MG CAP.SPRINK PO SCH ×3 (08:22→20:11)
[2017-07-13] MEDS: QUEtiapine 25 MG TABLET. PO SCH ×4 (08:22→20:13)
[2017-07-13] MEDS: PRENATAL MULTIVITAMIN TABLET. PO SCH (08:22)
[2017-07-13] MEDS: CYANOCOBALAMIN (VITAMIN B-12) 1,000 MCG TABLET. PO SCH (08:23)
[2017-07-13] MEDS: METOPROLOL SUCC 24HR ER 50 MG TAB.ER.24H. PO SCH (08:23)
[2017-07-13] MEDS: NEOMYCIN/BACITRAC/POLY TOPICAL OINTMENT 28GM TUBE. TP SCH ×2 (08:23→20:12)
[2017-07-13] MEDS: SERTRALINE 50 MG TABLET. PO SCH (08:23)
[2017-07-13 09:20] LABS: BASO # 0.1 x10^3/uL (0.0-0.2); BASO % 1 % (0-3); EOS # 0.2 x10^3/uL (0.0-0.7); EOS % 4 % (0-3); HEMATOCRIT 44.1 % (39.0-53.0); HEMOGLOBIN 14.7 g/dL (13.0-17.5); LYMPH # 2.2 x10^3/uL (1.0-4.8); LYMPH % 33 % (24-48); MEAN CORPUSCULAR HEMOGLOBIN 32 pg (25-35); MEAN CORPUSCULAR HGB CONC 33 g/dL (31-37); MEAN CORPUSCULAR VOLUME 96 fL (79-100); MONO # 0.7 x10^3/uL (0.0-1.1); MONO % 11 % (0-9); NEUT # 3.4 x10^3uL (1.8-7.7); NEUT % 52 % (31-73); PLATELET COUNT 161 x10^3/uL (140-400); RED BLOOD COUNT 4.58 x10^6/uL (4.30-5.70); RED CELL DISTRIBUTION WIDTH 14.2 % (11.5-14.5); WHITE BLOOD COUNT 6.7 x10^3/uL (4.0-11.0)
[2017-07-13 09:36] LABS: ALBUMIN 3.4 g/dL (3.4-5.0); ALBUMIN/GLOBULIN RATIO 0.7 (1.0-1.7); CALCIUM 8.7 mg/dL (8.5-10.1); GFR 90.5; POTASSIUM 3.6 mmol/L (3.5-5.1); TOTAL BILIRUBIN 0.3 mg/dL (0.2-1.0); TOTAL PROTEIN 8.1 g/dL (6.4-8.2)
--- NOTE | 2017-07-13 10:16 | PDOC ---
Exam Note: Darci Note: This is late entry for date of service 07/12/2017.Please also refer to the separate dictated note~for this date of service dictated separately.~Patient seen individually. Discussed the patient with Nursing staff reviewed the chart.~ Reviewed interim history and current functioning. Reviewed vital signs,~Labs/ Radiology~and current medications noted below. Continue current treatment with the changes noted in the dictated addendum note Assessment: Vital Signs: VS - Last 72 Hours, by Label Date Time Temp Pulse Resp B/P (MAP) Pulse Ox O2 Delivery O2 Flow Rate FiO2 07/13/17 08:23 68 179/96 07/13/17 06:06 96.9 68 18 179/96 (123) 99 07/12/17 16:10 98.2 73 16 148/103 (118) 96 Room Air 07/12/17 08:27 54 148/89 07/12/17 06:20 97.3 54 18 148/89 (108) 100 Room Air 07/11/17 16:22 97.6 61 16 133/76 (95) 99 07/11/17 11:01 60 119/80 07/11/17 06:08 97.2 60 16 119/80 (93) 96 07/10/17 16:22 97.4 66 19 138/90 (106) 97 Vital Signs Date Time Temp Pulse Resp B/P (MAP) Pulse Ox O2 Delivery O2 Flow Rate FiO2 07/13/17 08:23 68 179/96 07/13/17 06:06 96.9 18 99 07/12/17 16:10 Room Air I&O Intake and Output 07/13/17 07:00 Intake Total 1080 ml Balance 1080 ml Intake Oral 1080 ml Labs: Laboratory Tests Test 07/13/17 09:10 White Blood Count 6.7 x10^3/uL (4.0-11.0) Red Blood Count 4.58 x10^6/uL (4.30-5.70) Hemoglobin 14.7 g/dL (13.0-17.5) Hematocrit 44.1 % (39.0-53.0) Mean Corpuscular Volume 96 fL (79-100) Mean Corpuscular Hemoglobin 32 pg (25-35) Mean Corpuscular Hemoglobin Concent 33 g/dL (31-37) Red Cell Distribution Width 14.2 % (11.5-14.5) Platelet Count 161 x10^3/uL (140-400) Neutrophils (%) (Auto) 52 % (31-73) Lymphocytes (%) (Auto) 33 % (24-48) Monocytes (%) (Auto) 11 % (0-9) H Eosinophils (%) (Auto) 4 % (0-3) H Basophils (%) (Auto) 1 % (0-3) Neutrophils # (Auto) 3.4 x10^3uL (1.8-7.7) Lymphocytes # (Auto) 2.2 x10^3/uL (1.0-4.8) Monocytes # (Auto) 0.7 x10^3/uL (0.0-1.1) Eosinophils # (Auto) 0.2 x10^3/uL (0.0-0.7) Basophils # (Auto) 0.1 x10^3/uL (0.0-0.2) Sodium Level 146 mmol/L (136-145) H Potassium Level 3.6 mmol/L (3.5-5.1) Chloride Level 105 mmol/L (98-107) Carbon Dioxide Level 30 mmol/L (21-32) Anion Gap 11 (6-14) Blood Urea Nitrogen 19 mg/dL (8-26) Creatinine 1.0 mg/dL (0.7-1.3) Estimated GFR (Cockcroft-Gault) 90.5 BUN/Creatinine Ratio 19 (6-20) Glucose Level 102 mg/dL (70-99) H Calcium Level 8.7 mg/dL (8.5-10.1) Total Bilirubin 0.3 mg/dL (0.2-1.0) Aspartate Amino Transferase (AST) 21 U/L (15-37) Alanine Aminotransferase (ALT) 47 U/L (16-63) Alkaline Phosphatase 89 U/L (46-116) Total Protein 8.1 g/dL (6.4-8.2) Albumin 3.4 g/dL (3.4-5.0) Albumin/Globulin Ratio 0.7 (1.0-1.7) L Current Medications: Meds: Current Medications Acetaminophen (Tylenol) 650 mg PRN Q6HRS PRN PO MILD PAIN / TEMP; Start at 00:00; Stop 06/23/17 at 06:34; Status DC Multi-Ingredient Ointment (Analgesic [place]) 1 yadi PRN QID PRN TP MUSCLE PAIN; Start 06/23/17 at 00:00 Al Hydroxide/Mg Hydroxide (Mylanta Plus Xs) 15 ml PRN AFTMEALHC PRN PO DYSPEPSIA; Start 06/23/17 at 00:00 Magnesium Hydroxide (Milk Of Magnesia) 2,400 mg PRN QHS PRN PO CONSTIPATION Last administered on 06/26/17 09:58; Start 06/23/17 at 00:00 Divalproex Sodium (Depakote Sprinkles) 250 mg TID@0900,1300,1700 PO Last administered on 06/24/17 16:54; Start 06/23/17 at 09:00; Stop 06/24/17 at 18 :39; Status DC Donepezil HCl (Aricept) 5 mg DAILY PO Last administered on 07/03/17 09:02; Start 06/23/17 at 09:00; Stop 07/03/17 at 18:23; Status DC Melatonin 3 mg QHS PO Last administered on 07/12/17 19:28; Start 06/23/17 at 21:00 Olanzapine (ZyPREXA ZYDIS) 2.5 mg PRN Q2HR PRN PO PSYCHOSIS Last administered on 07/11/17 08:08; Start 06/23/17 at 01:15 Acetaminophen (Tylenol) 500 mg PRN Q6HRS PRN PO PAIN / TEMP; Start 06/23/17 at 06:30 Aspirin (Aspirin Enteric Coated) 81 mg DAILY PO Last administered on 08:21; Start 06/23/17 at 09:00 Atorvastatin Calcium (Lipitor) 20 mg QHS PO Last administered on 07/12/17 19: 28; Start 06/23/17 at 21:00 Vitamin D (Vitamin D3) 1,000 unit DAILY PO Last administered on 06/24/17 09: 10; Start 06/23/17 at 09:00; Stop 06/24/17 at 14:36; Status DC Docusate Sodium (Colace) 100 mg DAILY PO Last administered on 07/13/17 08:21 ; Start 06/23/17 at 09:00 Lactulose 20 gm TID@0900,1300,1700 PO Last administered on 07/13/17 08:21; Start 06/23/17 at 09:00 Metoprolol Tartrate (Lopressor) 300 mg BID PO Last administered on 07/09/17 08:04; Start 06/23/17 at 09:00; Stop 07/09/17 at 10:43; Status DC Trazodone HCl (Desyrel) 100 mg PRN QHS PRN PO INSOMNIA, MAY REPEAT X1 Last administered on 07/12/17 22:01; Start 06/23/17 at 20:30 Prenat Multivit/ [place]/Iron/Folic Ac (Multivitamin ) 1 tab DAILY PO Last administered on 07/13/17 08:22; Start 06/25/17 at 09:00 Vitamin D (Vitamin D3) 2,000 unit DAILYBFRSUP PO Last administered on 17:41; Start 06/24/17 at 17:00 Cyanocobalamin (Vitamin B-12) 1,000 mcg DAILY PO Last administered on 08:23; Start 06/25/17 at 09:00 Cyanocobalamin (Vitamin B-12) 1,000 mcg 1X ONCE IM Last administered on 15:27; Start 06/24/17 at 14:45; Stop 06/24/17 at 14:46; Status DC Cyanocobalamin (Vitamin B-12) 1,000 mcg 1X ONCE IM Last administered on 19:44; Start 06/24/17 at 21:00; Stop 06/24/17 at 21:01; Status DC Divalproex Sodium (Depakote Sprinkles) 375 mg BID@0900,1700 PO Last administered on 06/28/17 17:16; Start 06/25/17 at 09:00; Stop 06/28/17 at 19: 03; Status DC Divalproex Sodium (Depakote Sprinkles) 250 mg DAILY@1300 PO Last administered on 06/28/17 12:42; Start 06/25/17 at 13:00; Stop 06/28/17 at 19:03; Status DC Lactulose 20 gm STK-MED ONCE .ROUTE ; Start 06/23/17 at 09:00; Stop 06/26/17 at 18:49; Status DC Lactulose 20 gm STK-MED ONCE .ROUTE ; Start 06/23/17 at 09:00; Stop 06/26/17 at 18:49; Status DC Lactulose 20 gm STK-MED ONCE .ROUTE ; Start 06/23/17 at 09:00; Stop 06/26/17 at 18:49; Status DC Melatonin 3 mg STK-MED ONCE .ROUTE ; Start 06/23/17 at 21:00; Stop 06/26/17 at 18:49; Status DC Lactulose 20 gm STK-MED ONCE .ROUTE ; Start 06/24/17 at 21:00; Stop 06/26/17 at 18:50; Status DC Lactulose 20 gm STK-MED ONCE .ROUTE ; Start 06/24/17 at 21:00; Stop 06/26/17 at 18:50; Status DC Lactulose 20 gm STK-MED ONCE .ROUTE ; Start 06/24/17 at 21:00; Stop 06/26/17 at 18:50; Status DC Melatonin 3 mg STK-MED ONCE .ROUTE ; Start 06/24/17 at 21:00; Stop 06/26/17 at 18:50; Status DC Lactulose 20 gm STK-MED ONCE .ROUTE ; Start 06/25/17 at 21:00; Stop 06/26/17 at 18:50; Status DC Lactulose 20 gm STK-MED ONCE .ROUTE ; Start 06/25/17 at 21:00; Stop 06/26/17 at 18:50; Status DC Lactulose 20 gm STK-MED ONCE .ROUTE ; Start 06/25/17 at 21:00; Stop 06/26/17 at 18:50; Status DC Melatonin 3 mg STK-MED ONCE .ROUTE ; Start 06/25/17 at 21:00; Stop 06/26/17 at 18:50; Status DC Lactulose 20 gm STK-MED ONCE .ROUTE ; Start 06/26/17 at 21:00; Stop 06/26/17 at 21:01; Status DC Lactulose 20 gm STK-MED ONCE .ROUTE ; Start 06/26/17 at 21:00; Stop 06/26/17 at 21:01; Status DC Lactulose 20 gm STK-MED ONCE .ROUTE ; Start 06/26/17 at 21:00; Stop 06/26/17 at 21:01; Status DC Divalproex Sodium (Depakote Sprinkles) 375 mg TID PO Last administered on 07/13 08:22; Start 06/28/17 at 21:00 Divalproex Sodium (Depakote Sprinkles) 375 mg DAILY@1300 PO ; Start 06/29/17 at 13:00; Status UNV Mirtazapine (Remeron) 7.5 mg QHS PO Last administered on 07/12/17 19:29; Start 06/28/17 at 21:00 Quetiapine Fumarate (SEROquel) 12.5 mg DAILY@1500 PO Last administered on 15:09; Start 06/29/17 at 15:00; Stop 07/02/17 at 17:45; Status DC Quetiapine Fumarate (SEROquel) 12.5 mg DAILY@0900,1500 PO Last administered on 07/04/17 09:19; Start 07/03/17 at 09:00; Stop 07/04/17 at 11:51; Status DC Donepezil HCl (Aricept) 10 mg DAILY PO Last administered on 07/13/17 08:21; Start 07/04/17 at 09:00 Quetiapine Fumarate (SEROquel) 12.5 mg DAILY@0900,1300,1700 PO Last administered on 07/11/17 11:02; Start 07/04/17 at 13:00; Stop 07/11/17 at 11: 09; Status DC Quetiapine Fumarate (SEROquel) 12.5 mg QHS PO Last administered on 07/10/17 20:11; Start 07/04/17 at 21:00; Stop 07/11/17 at 11:13; Status DC Neomycin/ Polymyxin/ Bacitracin (Triple Antibiotic) 1 yadi BID TP Last administered on 07/13/17 08:23; Start 07/04/17 at 21:00 Sertraline HCl (Zoloft) 50 mg DAILY PO Last administered on 07/13/17 08:23; Start 07/09/17 at 09:00 Metoprolol Succinate (Toprol Xl) 200 mg DAILY PO Last administered on 08:23; Start 07/10/17 at 09:00 Quetiapine Fumarate (SEROquel) 25 mg BID@0900,1700 PO Last administered on 08:22; Start 07/11/17 at 17:00 Quetiapine Fumarate (SEROquel) 12.5 mg DAILY@1300,2100 PO Last administered on 07/12/17 19:30; Start 07/11/17 at 13:00 Active Scripts Active Reported Depakote Sprinkle (Divalproex Sodium) 125 Mg Cap.sprink 250 Mg PO TID@0900,1300, 1700 Acetaminophen 500 Mg Tablet 500 Mg PO PRN Q6HRS PRN Melatonin 3 Mg Tablet 3 Mg PO QHS Atorvastatin Calcium 20 Mg Tablet 20 Mg PO QHS Lactulose 10 Gm/15 Ml Solution 20 Gm PO TID@0900,1300,1700 Metoprolol Tartrate 100 Mg Tablet 300 Mg PO BID Colace (Docusate Sodium) 100 Mg Capsule 100 Mg PO DAILY Vitamin D3 (Cholecalciferol (Vitamin D3)) 1,000 Unit Tablet 1,000 Unit PO DAILY Aricept (Donepezil Hcl) 5 Mg Tablet 5 Mg PO DAILY Aspir-Low (Aspirin) 81 Mg Tablet.dr 81 Mg PO DAILY I have reviewed the current psychotropics carefully including drug interactions. Risk benefit ratio favors no change other than as noted in my dictated progress note. Diagnosis: Problems: (1) Anxiety disorder (2) Dementia in Alzheimer's disease with delusions (3) Dementia in Alzheimer's disease with depression (4) Dementia, vascular, with delirium (5) Dementia, vascular, with delusions (6) Impulse control disorder ELLIS NOBLES MD Jul 13, 2017 10:16
[2017-07-13 13:44] VITALS: BP 165/77
[2017-07-13 16:29] VITALS: BP 136/79
[2017-07-13] MEDS: CHOLECALCIFEROL (VITAMIN D3) 1,000 UNIT TABLET PO SCH (16:31)
[2017-07-13] MEDS: MELATONIN 3 MG TABLET PO SCH (20:11)
[2017-07-13] MEDS: ATORVASTATIN CALCIUM 20 MG TABLET PO SCH (20:12)
[2017-07-13] MEDS: MIRTAZAPINE 7.5 MG TABLET. PO SCH (20:12)
--- NOTE | 2017-07-13 21:37 | PDOC ---
Exam Note: Darci Note: Please also refer to the separate dictated note~for this date of service dictated separately.~Patient seen individually. Discussed the patient with Nursing staff reviewed the chart.~Reviewed interim history and current functioning. Reviewed vital signs,~Labs/ Radiology~and current medications noted below. Continue current treatment with the changes noted in the dictated addendum note Assessment: Vital Signs: Vital Signs Date Time Temp Pulse Resp B/P (MAP) Pulse Ox O2 Delivery O2 Flow Rate FiO2 07/13/17 16:29 97.8 88 18 136/79 (98) 97 07/12/17 16:10 Room Air I&O Intake and Output 07/13/17 07:00 Intake Total 1080 ml Balance 1080 ml Intake Oral 1080 ml Labs: Laboratory Tests Test 07/13/17 09:10 White Blood Count 6.7 x10^3/uL (4.0-11.0) Red Blood Count 4.58 x10^6/uL (4.30-5.70) Hemoglobin 14.7 g/dL (13.0-17.5) Hematocrit 44.1 % (39.0-53.0) Mean Corpuscular Volume 96 fL (79-100) Mean Corpuscular Hemoglobin 32 pg (25-35) Mean Corpuscular Hemoglobin Concent 33 g/dL (31-37) Red Cell Distribution Width 14.2 % (11.5-14.5) Platelet Count 161 x10^3/uL (140-400) Neutrophils (%) (Auto) 52 % (31-73) Lymphocytes (%) (Auto) 33 % (24-48) Monocytes (%) (Auto) 11 % (0-9) H Eosinophils (%) (Auto) 4 % (0-3) H Basophils (%) (Auto) 1 % (0-3) Neutrophils # (Auto) 3.4 x10^3uL (1.8-7.7) Lymphocytes # (Auto) 2.2 x10^3/uL (1.0-4.8) Monocytes # (Auto) 0.7 x10^3/uL (0.0-1.1) Eosinophils # (Auto) 0.2 x10^3/uL (0.0-0.7) Basophils # (Auto) 0.1 x10^3/uL (0.0-0.2) Sodium Level 146 mmol/L (136-145) H Potassium Level 3.6 mmol/L (3.5-5.1) Chloride Level 105 mmol/L (98-107) Carbon Dioxide Level 30 mmol/L (21-32) Anion Gap 11 (6-14) Blood Urea Nitrogen 19 mg/dL (8-26) Creatinine 1.0 mg/dL (0.7-1.3) Estimated GFR (Cockcroft-Gault) 90.5 BUN/Creatinine Ratio 19 (6-20) Glucose Level 102 mg/dL (70-99) H Calcium Level 8.7 mg/dL (8.5-10.1) Total Bilirubin 0.3 mg/dL (0.2-1.0) Aspartate Amino Transferase (AST) 21 U/L (15-37) Alanine Aminotransferase (ALT) 47 U/L (16-63) Alkaline Phosphatase 89 U/L (46-116) Total Protein 8.1 g/dL (6.4-8.2) Albumin 3.4 g/dL (3.4-5.0) Albumin/Globulin Ratio 0.7 (1.0-1.7) L Current Medications: Meds: Current Medications Acetaminophen (Tylenol) 650 mg PRN Q6HRS PRN PO MILD PAIN / TEMP; Start at 00:00; Stop 06/23/17 at 06:34; Status DC Multi-Ingredient Ointment (Analgesic [place]) 1 yadi PRN QID PRN TP MUSCLE PAIN; Start 06/23/17 at 00:00 Al Hydroxide/Mg Hydroxide (Mylanta Plus Xs) 15 ml PRN AFTMEALHC PRN PO DYSPEPSIA; Start 06/23/17 at 00:00 Magnesium Hydroxide (Milk Of Magnesia) 2,400 mg PRN QHS PRN PO CONSTIPATION Last administered on 06/26/17 09:58; Start 06/23/17 at 00:00 Divalproex Sodium (Depakote Sprinkles) 250 mg TID@0900,1300,1700 PO Last administered on 06/24/17 16:54; Start 06/23/17 at 09:00; Stop 06/24/17 at 18 :39; Status DC Donepezil HCl (Aricept) 5 mg DAILY PO Last administered on 07/03/17 09:02; Start 06/23/17 at 09:00; Stop 07/03/17 at 18:23; Status DC Melatonin 3 mg QHS PO Last administered on 07/13/17 20:11; Start 06/23/17 at 21:00 Olanzapine (ZyPREXA ZYDIS) 2.5 mg PRN Q2HR PRN PO PSYCHOSIS Last administered on 07/11/17 08:08; Start 06/23/17 at 01:15 Acetaminophen (Tylenol) 500 mg PRN Q6HRS PRN PO PAIN / TEMP; Start 06/23/17 at 06:30 Aspirin (Aspirin Enteric Coated) 81 mg DAILY PO Last administered on 08:21; Start 06/23/17 at 09:00 Atorvastatin Calcium (Lipitor) 20 mg QHS PO Last administered on 07/13/17 20: 12; Start 06/23/17 at 21:00 Vitamin D (Vitamin D3) 1,000 unit DAILY PO Last administered on 06/24/17 09: 10; Start 06/23/17 at 09:00; Stop 06/24/17 at 14:36; Status DC Docusate Sodium (Colace) 100 mg DAILY PO Last administered on 07/13/17 08:21 ; Start 06/23/17 at 09:00 Lactulose 20 gm TID@0900,1300,1700 PO Last administered on 07/13/17 16:31; Start 06/23/17 at 09:00 Metoprolol Tartrate (Lopressor) 300 mg BID PO Last administered on 07/09/17 08:04; Start 06/23/17 at 09:00; Stop 07/09/17 at 10:43; Status DC Trazodone HCl (Desyrel) 100 mg PRN QHS PRN PO INSOMNIA, MAY REPEAT X1 Last administered on 07/12/17 22:01; Start 06/23/17 at 20:30 Prenat Multivit/ [employer]/Iron/Folic Ac (Multivitamin ) 1 tab DAILY PO Last administered on 07/13/17 08:22; Start 06/25/17 at 09:00 Vitamin D (Vitamin D3) 2,000 unit DAILYBFRSUP PO Last administered on 16:31; Start 06/24/17 at 17:00 Cyanocobalamin (Vitamin B-12) 1,000 mcg DAILY PO Last administered on 08:23; Start 06/25/17 at 09:00 Cyanocobalamin (Vitamin B-12) 1,000 mcg 1X ONCE IM Last administered on 15:27; Start 06/24/17 at 14:45; Stop 06/24/17 at 14:46; Status DC Cyanocobalamin (Vitamin B-12) 1,000 mcg 1X ONCE IM Last administered on 19:44; Start 06/24/17 at 21:00; Stop 06/24/17 at 21:01; Status DC Divalproex Sodium (Depakote Sprinkles) 375 mg BID@0900,1700 PO Last administered on 06/28/17 17:16; Start 06/25/17 at 09:00; Stop 06/28/17 at 19: 03; Status DC Divalproex Sodium (Depakote Sprinkles) 250 mg DAILY@1300 PO Last administered on 06/28/17 12:42; Start 06/25/17 at 13:00; Stop 06/28/17 at 19:03; Status DC Lactulose 20 gm STK-MED ONCE .ROUTE ; Start 06/23/17 at 09:00; Stop 06/26/17 at 18:49; Status DC Lactulose 20 gm STK-MED ONCE .ROUTE ; Start 06/23/17 at 09:00; Stop 06/26/17 at 18:49; Status DC Lactulose 20 gm STK-MED ONCE .ROUTE ; Start 06/23/17 at 09:00; Stop 06/26/17 at 18:49; Status DC Melatonin 3 mg STK-MED ONCE .ROUTE ; Start 06/23/17 at 21:00; Stop 06/26/17 at 18:49; Status DC Lactulose 20 gm STK-MED ONCE .ROUTE ; Start 06/24/17 at 21:00; Stop 06/26/17 at 18:50; Status DC Lactulose 20 gm STK-MED ONCE .ROUTE ; Start 06/24/17 at 21:00; Stop 06/26/17 at 18:50; Status DC Lactulose 20 gm STK-MED ONCE .ROUTE ; Start 06/24/17 at 21:00; Stop 06/26/17 at 18:50; Status DC Melatonin 3 mg STK-MED ONCE .ROUTE ; Start 06/24/17 at 21:00; Stop 06/26/17 at 18:50; Status DC Lactulose 20 gm STK-MED ONCE .ROUTE ; Start 06/25/17 at 21:00; Stop 06/26/17 at 18:50; Status DC Lactulose 20 gm STK-MED ONCE .ROUTE ; Start 06/25/17 at 21:00; Stop 06/26/17 at 18:50; Status DC Lactulose 20 gm STK-MED ONCE .ROUTE ; Start 06/25/17 at 21:00; Stop 06/26/17 at 18:50; Status DC Melatonin 3 mg STK-MED ONCE .ROUTE ; Start 06/25/17 at 21:00; Stop 06/26/17 at 18:50; Status DC Lactulose 20 gm STK-MED ONCE .ROUTE ; Start 06/26/17 at 21:00; Stop 06/26/17 at 21:01; Status DC Lactulose 20 gm STK-MED ONCE .ROUTE ; Start 06/26/17 at 21:00; Stop 06/26/17 at 21:01; Status DC Lactulose 20 gm STK-MED ONCE .ROUTE ; Start 06/26/17 at 21:00; Stop 06/26/17 at 21:01; Status DC Divalproex Sodium (Depakote Sprinkles) 375 mg TID PO Last administered on 07/13 20:11; Start 06/28/17 at 21:00 Divalproex Sodium (Depakote Sprinkles) 375 mg DAILY@1300 PO ; Start 06/29/17 at 13:00; Status UNV Mirtazapine (Remeron) 7.5 mg QHS PO Last administered on 07/13/17 20:12; Start 06/28/17 at 21:00 Quetiapine Fumarate (SEROquel) 12.5 mg DAILY@1500 PO Last administered on 15:09; Start 06/29/17 at 15:00; Stop 07/02/17 at 17:45; Status DC Quetiapine Fumarate (SEROquel) 12.5 mg DAILY@0900,1500 PO Last administered on 07/04/17 09:19; Start 07/03/17 at 09:00; Stop 07/04/17 at 11:51; Status DC Donepezil HCl (Aricept) 10 mg DAILY PO Last administered on 07/13/17 08:21; Start 07/04/17 at 09:00 Quetiapine Fumarate (SEROquel) 12.5 mg DAILY@0900,1300,1700 PO Last administered on 07/11/17 11:02; Start 07/04/17 at 13:00; Stop 07/11/17 at 11: 09; Status DC Quetiapine Fumarate (SEROquel) 12.5 mg QHS PO Last administered on 07/10/17 20:11; Start 07/04/17 at 21:00; Stop 07/11/17 at 11:13; Status DC Neomycin/ Polymyxin/ Bacitracin (Triple Antibiotic) 1 yadi BID TP Last administered on 07/13/17 20:12; Start 07/04/17 at 21:00 Sertraline HCl (Zoloft) 50 mg DAILY PO Last administered on 07/13/17 08:23; Start 07/09/17 at 09:00 Metoprolol Succinate (Toprol Xl) 200 mg DAILY PO Last administered on 08:23; Start 07/10/17 at 09:00; Stop 07/13/17 at 15:20; Status DC Quetiapine Fumarate (SEROquel) 25 mg BID@0900,1700 PO Last administered on 16:31; Start 07/11/17 at 17:00 Quetiapine Fumarate (SEROquel) 12.5 mg DAILY@1300,2100 PO Last administered on 07/13/17 20:13; Start 07/11/17 at 13:00 Amlodipine Besylate (Norvasc) 2.5 mg DAILY PO ; Start 07/14/17 at 09:00 Metoprolol Tartrate (Lopressor) 100 mg BID PO ; Start 07/14/17 at 09:00 Active Scripts Active Reported Depakote Sprinkle (Divalproex Sodium) 125 Mg Cap.sprink 250 Mg PO TID@0900,1300, 1700 Acetaminophen 500 Mg Tablet 500 Mg PO PRN Q6HRS PRN Melatonin 3 Mg Tablet 3 Mg PO QHS Atorvastatin Calcium 20 Mg Tablet 20 Mg PO QHS Lactulose 10 Gm/15 Ml Solution 20 Gm PO TID@0900,1300,1700 Metoprolol Tartrate 100 Mg Tablet 300 Mg PO BID Colace (Docusate Sodium) 100 Mg Capsule 100 Mg PO DAILY Vitamin D3 (Cholecalciferol (Vitamin D3)) 1,000 Unit Tablet 1,000 Unit PO DAILY Aricept (Donepezil Hcl) 5 Mg Tablet 5 Mg PO DAILY Aspir-Low (Aspirin) 81 Mg Tablet.dr 81 Mg PO DAILY I have reviewed the current psychotropics carefully including drug interactions. Risk benefit ratio favors no change other than as noted in my dictated progress note. Diagnosis: Problems: (1) Anxiety disorder (2) Dementia in Alzheimer's disease with delusions (3) Dementia in Alzheimer's disease with depression (4) Dementia, vascular, with delirium (5) Dementia, vascular, with delusions (6) Impulse control disorder ELLIS NOBLES MD Jul 13, 2017 21:37
[2017-07-14 05:44] VITALS: BP 104/69
--- NOTE | 2017-07-14 08:32 | PN ---
DATE: 07/12/2017 This is a late entry for 07/12/2017 and covers elements not covered in my initial note of 07/12/2017. I met with the patient the evening of 07/12/2017. He has been coming out of his room more into the dayroom the previous evening, he was wandering, but compliant. REVIEW OF SYSTEMS: No CV, , pulmonary, eye, ENT system symptoms on review. Reliability poor. MENTAL STATUS EXAM: Oriented to himself. Insight, judgment, recent and remote memory, attention, concentration, fund of knowledge poor, consistent with his diagnosis as mentioned in my initial note. PLAN: Continue psychotropics as mentioned in my initial, no further change from a psychiatric standpoint. MAN Estefany NOBLES MD DR: MONICA/joe JOB#: [id number] / [id number]
--- NOTE | 2017-07-14 08:34 | PN ---
DATE: 07/13/2017 This is a late entry for 07/13/2017 and covers elements not covered in my initial note of 07/13/2017. I met with the patient in the evening of 07/13/2017. The patient did reasonably well previous evening, irritable in the morning. He had a Cardiology consult. Metoprolol is being adjusted. REVIEW OF SYSTEMS: Ambulation impaired with walker. No CV, , pulmonary, eye system symptoms on review. MENTAL STATUS EXAM: Oriented to himself and situation. Speech has some latency, coherent, often responses monosyllabic. Abstraction fair, computation impaired, language function intact. Mood and affect withdrawn. IMPRESSION: Unchanged from initial note. PLAN: Continue psychotropics as mentioned in my initial note. Valproic acid level therapeutic at 55. MAN Estefany NOBLES MD DR: MONICA/joe JOB#: [id number] / [id number]
[2017-07-14] MEDS: LACTULOSE 20 GM/30 ML SOLUTION. PO SCH ×3 (08:40→17:05)
[2017-07-14] MEDS: ASPIRIN ENTERIC COATED 81 MG TABLET.DR. PO SCH (08:41)
[2017-07-14] MEDS: DONEPEZIL HCL 10 MG TABLET PO SCH (08:41)
[2017-07-14] MEDS: DOCUSATE SODIUM 100 MG CAPSULE PO SCH (08:41)
[2017-07-14] MEDS: DIVALPROEX 125 MG CAP.SPRINK PO SCH ×3 (08:42→20:14)
[2017-07-14] MEDS: QUEtiapine 25 MG TABLET. PO SCH ×4 (08:46→20:18)
[2017-07-14] MEDS: PRENATAL MULTIVITAMIN TABLET. PO SCH (08:46)
[2017-07-14] MEDS: METOPROLOL TART IMMED RELEASE 50 MG TABLET PO SCH ×2 (08:46→20:15)
[2017-07-14] MEDS: SERTRALINE 50 MG TABLET. PO SCH (08:46)
[2017-07-14] MEDS: CYANOCOBALAMIN (VITAMIN B-12) 1,000 MCG TABLET. PO SCH (08:46)
[2017-07-14] MEDS ORDERED: amLODIPine BESYLATE 2.5 MG TABLET PO SCH (09:00)
[2017-07-14] MEDS: NEOMYCIN/BACITRAC/POLY TOPICAL OINTMENT 28GM TUBE. TP SCH ×2 (12:17→20:18)
[2017-07-14 16:04] VITALS: BP 154/80
[2017-07-14] MEDS: CHOLECALCIFEROL (VITAMIN D3) 1,000 UNIT TABLET PO SCH (17:06)
--- NOTE | 2017-07-14 20:10 | PDOC ---
Exam Note: Darci Note: Please also refer to the separate dictated note~for this date of service dictated separately.~Patient seen individually. Discussed the patient with Nursing staff reviewed the chart.~Reviewed interim history and current functioning. Reviewed vital signs,~Labs/ Radiology~and current medications noted below. Continue current treatment with the changes noted in the dictated addendum note Assessment: Vital Signs: Vital Signs Date Time Temp Pulse Resp B/P (MAP) Pulse Ox O2 Delivery O2 Flow Rate FiO2 07/14/17 16:04 98.0 84 18 154/80 (104) 95 07/12/17 16:10 Room Air I&O Intake and Output 07/14/17 07:00 Intake Total 960 ml Balance 960 ml Intake Oral 960 ml Current Medications: Meds: Current Medications Acetaminophen (Tylenol) 650 mg PRN Q6HRS PRN PO MILD PAIN / TEMP; Start at 00:00; Stop 06/23/17 at 06:34; Status DC Multi-Ingredient Ointment (Analgesic [place]) 1 yadi PRN QID PRN TP MUSCLE PAIN; Start 06/23/17 at 00:00 Al Hydroxide/Mg Hydroxide (Mylanta Plus Xs) 15 ml PRN AFTMEALHC PRN PO DYSPEPSIA; Start 06/23/17 at 00:00 Magnesium Hydroxide (Milk Of Magnesia) 2,400 mg PRN QHS PRN PO CONSTIPATION Last administered on 06/26/17 09:58; Start 06/23/17 at 00:00 Divalproex Sodium (Depakote Sprinkles) 250 mg TID@0900,1300,1700 PO Last administered on 06/24/17 16:54; Start 06/23/17 at 09:00; Stop 06/24/17 at 18 :39; Status DC Donepezil HCl (Aricept) 5 mg DAILY PO Last administered on 07/03/17 09:02; Start 06/23/17 at 09:00; Stop 07/03/17 at 18:23; Status DC Melatonin 3 mg QHS PO Last administered on 07/13/17 20:11; Start 06/23/17 at 21:00 Olanzapine (ZyPREXA ZYDIS) 2.5 mg PRN Q2HR PRN PO PSYCHOSIS Last administered on 12/14/17at 08:08; Start 06/23/17 at 01:15 Acetaminophen (Tylenol) 500 mg PRN Q6HRS PRN PO PAIN / TEMP; Start 06/23/17 at 06:30 Aspirin (Aspirin Enteric Coated) 81 mg DAILY PO Last administered on 08:41; Start 06/23/17 at 09:00 Atorvastatin Calcium (Lipitor) 20 mg QHS PO Last administered on 07/13/17 20: 12; Start 06/23/17 at 21:00 Vitamin D (Vitamin D3) 1,000 unit DAILY PO Last administered on 06/24/17 09: 10; Start 06/23/17 at 09:00; Stop 06/24/17 at 14:36; Status DC Docusate Sodium (Colace) 100 mg DAILY PO Last administered on 07/14/17 08:41 ; Start 06/23/17 at 09:00 Lactulose 20 gm TID@0900,1300,1700 PO Last administered on 07/14/17 17:05; Start 06/23/17 at 09:00 Metoprolol Tartrate (Lopressor) 300 mg BID PO Last administered on 07/09/17 08:04; Start 06/23/17 at 09:00; Stop 07/09/17 at 10:43; Status DC Trazodone HCl (Desyrel) 100 mg PRN QHS PRN PO INSOMNIA, MAY REPEAT X1 Last administered on 07/12/17 22:01; Start 06/23/17 at 20:30 Prenat Multivit/ [place]/Iron/Folic Ac (Multivitamin ) 1 tab DAILY PO Last administered on 07/14/17 08:46; Start 06/25/17 at 09:00 Vitamin D (Vitamin D3) 2,000 unit DAILYBFRSUP PO Last administered on 17:06; Start 06/24/17 at 17:00 Cyanocobalamin (Vitamin B-12) 1,000 mcg DAILY PO Last administered on 08:46; Start 06/25/17 at 09:00 Cyanocobalamin (Vitamin B-12) 1,000 mcg 1X ONCE IM Last administered on 15:27; Start 06/24/17 at 14:45; Stop 06/24/17 at 14:46; Status DC Cyanocobalamin (Vitamin B-12) 1,000 mcg 1X ONCE IM Last administered on 19:44; Start 06/24/17 at 21:00; Stop 06/24/17 at 21:01; Status DC Divalproex Sodium (Depakote Sprinkles) 375 mg BID@0900,1700 PO Last administered on 06/28/17 17:16; Start 06/25/17 at 09:00; Stop 06/28/17 at 19: 03; Status DC Divalproex Sodium (Depakote Sprinkles) 250 mg DAILY@1300 PO Last administered on 06/28/17 12:42; Start 06/25/17 at 13:00; Stop 06/28/17 at 19:03; Status DC Lactulose 20 gm STK-MED ONCE .ROUTE ; Start 06/23/17 at 09:00; Stop 06/26/17 at 18:49; Status DC Lactulose 20 gm STK-MED ONCE .ROUTE ; Start 06/23/17 at 09:00; Stop 06/26/17 at 18:49; Status DC Lactulose 20 gm STK-MED ONCE .ROUTE ; Start 06/23/17 at 09:00; Stop 06/26/17 at 18:49; Status DC Melatonin 3 mg STK-MED ONCE .ROUTE ; Start 06/23/17 at 21:00; Stop 06/26/17 at 18:49; Status DC Lactulose 20 gm STK-MED ONCE .ROUTE ; Start 06/24/17 at 21:00; Stop 06/26/17 at 18:50; Status DC Lactulose 20 gm STK-MED ONCE .ROUTE ; Start 06/24/17 at 21:00; Stop 06/26/17 at 18:50; Status DC Lactulose 20 gm STK-MED ONCE .ROUTE ; Start 06/24/17 at 21:00; Stop 06/26/17 at 18:50; Status DC Melatonin 3 mg STK-MED ONCE .ROUTE ; Start 06/24/17 at 21:00; Stop 06/26/17 at 18:50; Status DC Lactulose 20 gm STK-MED ONCE .ROUTE ; Start 06/25/17 at 21:00; Stop 06/26/17 at 18:50; Status DC Lactulose 20 gm STK-MED ONCE .ROUTE ; Start 06/25/17 at 21:00; Stop 06/26/17 at 18:50; Status DC Lactulose 20 gm STK-MED ONCE .ROUTE ; Start 06/25/17 at 21:00; Stop 06/26/17 at 18:50; Status DC Melatonin 3 mg STK-MED ONCE .ROUTE ; Start 06/25/17 at 21:00; Stop 06/26/17 at 18:50; Status DC Lactulose 20 gm STK-MED ONCE .ROUTE ; Start 06/26/17 at 21:00; Stop 06/26/17 at 21:01; Status DC Lactulose 20 gm STK-MED ONCE .ROUTE ; Start 06/26/17 at 21:00; Stop 06/26/17 at 21:01; Status DC Lactulose 20 gm STK-MED ONCE .ROUTE ; Start 06/26/17 at 21:00; Stop 06/26/17 at 21:01; Status DC Divalproex Sodium (Depakote Sprinkles) 375 mg TID PO Last administered on 07/14 13:57; Start 06/28/17 at 21:00 Divalproex Sodium (Depakote Sprinkles) 375 mg DAILY@1300 PO ; Start 06/29/17 at 13:00; Status UNV Mirtazapine (Remeron) 7.5 mg QHS PO Last administered on 07/13/17 20:12; Start 06/28/17 at 21:00 Quetiapine Fumarate (SEROquel) 12.5 mg DAILY@1500 PO Last administered on 15:09; Start 06/29/17 at 15:00; Stop 07/02/17 at 17:45; Status DC Quetiapine Fumarate (SEROquel) 12.5 mg DAILY@0900,1500 PO Last administered on 07/04/17 09:19; Start 07/03/17 at 09:00; Stop 07/04/17 at 11:51; Status DC Donepezil HCl (Aricept) 10 mg DAILY PO Last administered on 07/14/17 08:41; Start 07/04/17 at 09:00 Quetiapine Fumarate (SEROquel) 12.5 mg DAILY@0900,1300,1700 PO Last administered on 07/11/17 11:02; Start 07/04/17 at 13:00; Stop 07/11/17 at 11: 09; Status DC Quetiapine Fumarate (SEROquel) 12.5 mg QHS PO Last administered on 07/10/17 20:11; Start 07/04/17 at 21:00; Stop 07/11/17 at 11:13; Status DC Neomycin/ Polymyxin/ Bacitracin (Triple Antibiotic) 1 yadi BID TP Last administered on 07/14/17 12:17; Start 07/04/17 at 21:00 Sertraline HCl (Zoloft) 50 mg DAILY PO Last administered on 07/14/17 08:46; Start 07/09/17 at 09:00 Metoprolol Succinate (Toprol Xl) 200 mg DAILY PO Last administered on 08:23; Start 07/10/17 at 09:00; Stop 07/13/17 at 15:20; Status DC Quetiapine Fumarate (SEROquel) 25 mg BID@0900,1700 PO Last administered on 17:07; Start 07/11/17 at 17:00 Quetiapine Fumarate (SEROquel) 12.5 mg DAILY@1300,2100 PO Last administered on 07/14/17 13:57; Start 07/11/17 at 13:00 Amlodipine Besylate (Norvasc) 2.5 mg DAILY PO ; Start 07/14/17 at 09:00; Stop 07/14/17 at 09:00; Status DC Metoprolol Tartrate (Lopressor) 100 mg BID PO Last administered on 07/14/17 08:46; Start 07/14/17 at 09:00 Active Scripts Active Reported Depakote Sprinkle (Divalproex Sodium) 125 Mg Cap.sprink 250 Mg PO TID@0900,1300, 1700 Acetaminophen 500 Mg Tablet 500 Mg PO PRN Q6HRS PRN Melatonin 3 Mg Tablet 3 Mg PO QHS Atorvastatin Calcium 20 Mg Tablet 20 Mg PO QHS Lactulose 10 Gm/15 Ml Solution 20 Gm PO TID@0900,1300,1700 Metoprolol Tartrate 100 Mg Tablet 300 Mg PO BID Colace (Docusate Sodium) 100 Mg Capsule 100 Mg PO DAILY Vitamin D3 (Cholecalciferol (Vitamin D3)) 1,000 Unit Tablet 1,000 Unit PO DAILY Aricept (Donepezil Hcl) 5 Mg Tablet 5 Mg PO DAILY Aspir-Low (Aspirin) 81 Mg Tablet. 81 Mg PO DAILY I have reviewed the current psychotropics carefully including drug interactions. Risk benefit ratio favors no change other than as noted in my dictated progress note. Diagnosis: Problems: (1) Anxiety disorder (2) Dementia in Alzheimer's disease with delusions (3) Dementia in Alzheimer's disease with depression (4) Dementia, vascular, with delirium (5) Dementia, vascular, with delusions (6) Impulse control disorder ELLIS NOBLES MD Jul 14, 2017 20:10
[2017-07-14] MEDS: MIRTAZAPINE 7.5 MG TABLET. PO SCH (20:15)
[2017-07-14] MEDS: ATORVASTATIN CALCIUM 20 MG TABLET PO SCH (20:15)
[2017-07-14] MEDS: MELATONIN 3 MG TABLET PO SCH (20:17)
[2017-07-15 06:31] VITALS: BP 148/89
[2017-07-15] MEDS: DOCUSATE SODIUM 100 MG CAPSULE PO SCH (08:24)
[2017-07-15] MEDS: SERTRALINE 50 MG TABLET. PO SCH (08:24)
[2017-07-15] MEDS: DIVALPROEX 125 MG CAP.SPRINK PO SCH ×3 (08:24→19:36)
[2017-07-15] MEDS: DONEPEZIL HCL 10 MG TABLET PO SCH (08:24)
[2017-07-15] MEDS: METOPROLOL TART IMMED RELEASE 50 MG TABLET PO SCH ×2 (08:24→19:40)
[2017-07-15] MEDS: ASPIRIN ENTERIC COATED 81 MG TABLET.DR. PO SCH (08:24)
[2017-07-15] MEDS: LACTULOSE 20 GM/30 ML SOLUTION. PO SCH ×3 (08:24→17:07)
[2017-07-15] MEDS: PRENATAL MULTIVITAMIN TABLET. PO SCH (08:25)
[2017-07-15] MEDS: QUEtiapine 25 MG TABLET. PO SCH ×4 (08:25→19:41)
[2017-07-15] MEDS: CYANOCOBALAMIN (VITAMIN B-12) 1,000 MCG TABLET. PO SCH (08:25)
[2017-07-15] MEDS: NEOMYCIN/BACITRAC/POLY TOPICAL OINTMENT 28GM TUBE. TP SCH ×2 (08:26→19:42)
--- NOTE | 2017-07-15 09:10 | PN ---
DATE: 07/10/2017 This is a late entry 07/10/2017 covers elements not covered in my initial note 07/10/2017 I met with the patient evening of 07/10/2017. The patient has been somewhat anxious, slept 5-1/4 hours, compliant with medications, but coming out more to the day room, smiling at times, talking about having taken care of his grandmother. REVIEW OF SYSTEMS: No CV, , pulmonary, eye, ENT system symptoms on review. Reliability poor. MENTAL STATUS EXAM: Oriented to himself. Insight, judgment, recent and remote memory, attention, concentration, fund of knowledge poor, consistent with his diagnosis mentioned in my initial note. PLAN: Continue current psychotropics. Adjust further as clinically indicated. MAN Estefany NOBLES MD DR: MONICA/joe JOB#: [id number] / [id number]
--- NOTE | 2017-07-15 09:11 | PN ---
DATE: 07/11/2017 This is a late entry 07/11/2017 covers elements not covered in my initial note 07/11/2017. I met with the patient evening of 07/11/2017 and staffed at a treatment team meeting with the entire team morning of 07/11/2017. The patient has been sleeping reasonably, was agitated in the morning, intrusive, disruptive and somewhat labile in his mood. REVIEW OF SYSTEMS: No CV, , pulmonary, eye, ENT system symptoms on review. Reliability poor. MENTAL STATUS EXAM: Oriented to himself. Insight, judgment, recent and remote memory, attention, concentration, fund of knowledge poor, consistent with his diagnosis mentioned in my initial note. PLAN: Continue current psychotropics mentioned in my initial note, may need to increase Seroquel if mood lability persist. MAN Estefany NOBLES MD DR: MONICA/joe JOB#: [id number] / [id number]
[2017-07-15 15:57] VITALS: BP 143/74
[2017-07-15] MEDS: CHOLECALCIFEROL (VITAMIN D3) 1,000 UNIT TABLET PO SCH (17:07)
[2017-07-15] MEDS: ATORVASTATIN CALCIUM 20 MG TABLET PO SCH (19:35)
[2017-07-15] MEDS: MELATONIN 3 MG TABLET PO SCH (19:37)
[2017-07-15] MEDS: MIRTAZAPINE 7.5 MG TABLET. PO SCH (19:37)
--- NOTE | 2017-07-15 19:59 | PDOC ---
Exam Note: Darci Note: Please also refer to the separate dictated note~for this date of service dictated separately.~Patient seen individually. Discussed the patient with Nursing staff reviewed the chart.~Reviewed interim history and current functioning. Reviewed vital signs,~Labs/ Radiology~and current medications noted below. Continue current treatment with the changes noted in the dictated addendum note Assessment: Vital Signs: Vital Signs Date Time Temp Pulse Resp B/P (MAP) Pulse Ox O2 Delivery O2 Flow Rate FiO2 07/15/17 19:40 72 143/74 07/15/17 15:57 97.4 16 100 07/12/17 16:10 Room Air I&O Intake and Output 07/15/17 07:00 Intake Total 960 ml Balance 960 ml Intake Oral 960 ml # Voids 2 Current Medications: Meds: Current Medications Acetaminophen (Tylenol) 650 mg PRN Q6HRS PRN PO MILD PAIN / TEMP; Start at 00:00; Stop 06/23/17 at 06:34; Status DC Multi-Ingredient Ointment (Analgesic [place]) 1 yadi PRN QID PRN TP MUSCLE PAIN; Start 06/23/17 at 00:00 Al Hydroxide/Mg Hydroxide (Mylanta Plus Xs) 15 ml PRN AFTMEALHC PRN PO DYSPEPSIA; Start 06/23/17 at 00:00 Magnesium Hydroxide (Milk Of Magnesia) 2,400 mg PRN QHS PRN PO CONSTIPATION Last administered on 06/26/17 09:58; Start 06/23/17 at 00:00 Divalproex Sodium (Depakote Sprinkles) 250 mg TID@0900,1300,1700 PO Last administered on 06/24/17 16:54; Start 06/23/17 at 09:00; Stop 06/24/17 at 18 :39; Status DC Donepezil HCl (Aricept) 5 mg DAILY PO Last administered on 07/03/17 09:02; Start 06/23/17 at 09:00; Stop 07/03/17 at 18:23; Status DC Melatonin 3 mg QHS PO Last administered on 07/15/17 19:37; Start 06/23/17 at 21:00 Olanzapine (ZyPREXA ZYDIS) 2.5 mg PRN Q2HR PRN PO PSYCHOSIS Last administered on 07/11/17 08:08; Start 06/23/17 at 01:15 Acetaminophen (Tylenol) 500 mg PRN Q6HRS PRN PO PAIN / TEMP; Start 06/23/17 at 06:30 Aspirin (Aspirin Enteric Coated) 81 mg DAILY PO Last administered on 08:24; Start 06/23/17 at 09:00 Atorvastatin Calcium (Lipitor) 20 mg QHS PO Last administered on 07/15/17 19: 35; Start 06/23/17 at 21:00 Vitamin D (Vitamin D3) 1,000 unit DAILY PO Last administered on 06/24/17 09: 10; Start 06/23/17 at 09:00; Stop 06/24/17 at 14:36; Status DC Docusate Sodium (Colace) 100 mg DAILY PO Last administered on 07/15/17 08:24 ; Start 06/23/17 at 09:00 Lactulose 20 gm TID@0900,1300,1700 PO Last administered on 07/15/17 17:07; Start 06/23/17 at 09:00 Metoprolol Tartrate (Lopressor) 300 mg BID PO Last administered on 07/09/17 08:04; Start 06/23/17 at 09:00; Stop 07/09/17 at 10:43; Status DC Trazodone HCl (Desyrel) 100 mg PRN QHS PRN PO INSOMNIA, MAY REPEAT X1 Last administered on 07/12/17 22:01; Start 06/23/17 at 20:30 Prenat Multivit/ [place]/Iron/Folic Ac (Multivitamin ) 1 tab DAILY PO Last administered on 07/15/17 08:25; Start 06/25/17 at 09:00 Vitamin D (Vitamin D3) 2,000 unit DAILYBFRSUP PO Last administered on 17:07; Start 06/24/17 at 17:00 Cyanocobalamin (Vitamin B-12) 1,000 mcg DAILY PO Last administered on 08:25; Start 06/25/17 at 09:00 Cyanocobalamin (Vitamin B-12) 1,000 mcg 1X ONCE IM Last administered on 15:27; Start 06/24/17 at 14:45; Stop 06/24/17 at 14:46; Status DC Cyanocobalamin (Vitamin B-12) 1,000 mcg 1X ONCE IM Last administered on 19:44; Start 06/24/17 at 21:00; Stop 06/24/17 at 21:01; Status DC Divalproex Sodium (Depakote Sprinkles) 375 mg BID@0900,1700 PO Last administered on 06/28/17 17:16; Start 06/25/17 at 09:00; Stop 06/28/17 at 19: 03; Status DC Divalproex Sodium (Depakote Sprinkles) 250 mg DAILY@1300 PO Last administered on 06/28/17 12:42; Start 06/25/17 at 13:00; Stop 06/28/17 at 19:03; Status DC Lactulose 20 gm STK-MED ONCE .ROUTE ; Start 06/23/17 at 09:00; Stop 06/26/17 at 18:49; Status DC Lactulose 20 gm STK-MED ONCE .ROUTE ; Start 06/23/17 at 09:00; Stop 06/26/17 at 18:49; Status DC Lactulose 20 gm STK-MED ONCE .ROUTE ; Start 06/23/17 at 09:00; Stop 06/26/17 at 18:49; Status DC Melatonin 3 mg STK-MED ONCE .ROUTE ; Start 06/23/17 at 21:00; Stop 06/26/17 at 18:49; Status DC Lactulose 20 gm STK-MED ONCE .ROUTE ; Start 06/24/17 at 21:00; Stop 06/26/17 at 18:50; Status DC Lactulose 20 gm STK-MED ONCE .ROUTE ; Start 06/24/17 at 21:00; Stop 06/26/17 at 18:50; Status DC Lactulose 20 gm STK-MED ONCE .ROUTE ; Start 06/24/17 at 21:00; Stop 06/26/17 at 18:50; Status DC Melatonin 3 mg STK-MED ONCE .ROUTE ; Start 06/24/17 at 21:00; Stop 06/26/17 at 18:50; Status DC Lactulose 20 gm STK-MED ONCE .ROUTE ; Start 06/25/17 at 21:00; Stop 06/26/17 at 18:50; Status DC Lactulose 20 gm STK-MED ONCE .ROUTE ; Start 06/25/17 at 21:00; Stop 06/26/17 at 18:50; Status DC Lactulose 20 gm STK-MED ONCE .ROUTE ; Start 06/25/17 at 21:00; Stop 06/26/17 at 18:50; Status DC Melatonin 3 mg STK-MED ONCE .ROUTE ; Start 06/25/17 at 21:00; Stop 06/26/17 at 18:50; Status DC Lactulose 20 gm STK-MED ONCE .ROUTE ; Start 06/26/17 at 21:00; Stop 06/26/17 at 21:01; Status DC Lactulose 20 gm STK-MED ONCE .ROUTE ; Start 06/26/17 at 21:00; Stop 06/26/17 at 21:01; Status DC Lactulose 20 gm STK-MED ONCE .ROUTE ; Start 06/26/17 at 21:00; Stop 06/26/17 at 21:01; Status DC Divalproex Sodium (Depakote Sprinkles) 375 mg TID PO Last administered on 07/15 19:36; Start 06/28/17 at 21:00 Divalproex Sodium (Depakote Sprinkles) 375 mg DAILY@1300 PO ; Start 06/29/17 at 13:00; Status UNV Mirtazapine (Remeron) 7.5 mg QHS PO Last administered on 07/15/17 19:37; Start 06/28/17 at 21:00 Quetiapine Fumarate (SEROquel) 12.5 mg DAILY@1500 PO Last administered on 15:09; Start 06/29/17 at 15:00; Stop 07/02/17 at 17:45; Status DC Quetiapine Fumarate (SEROquel) 12.5 mg DAILY@0900,1500 PO Last administered on 07/04/17 09:19; Start 07/03/17 at 09:00; Stop 07/04/17 at 11:51; Status DC Donepezil HCl (Aricept) 10 mg DAILY PO Last administered on 07/15/17 08:24; Start 07/04/17 at 09:00 Quetiapine Fumarate (SEROquel) 12.5 mg DAILY@0900,1300,1700 PO Last administered on 07/11/17 11:02; Start 07/04/17 at 13:00; Stop 07/11/17 at 11: 09; Status DC Quetiapine Fumarate (SEROquel) 12.5 mg QHS PO Last administered on 07/10/17 20:11; Start 07/04/17 at 21:00; Stop 07/11/17 at 11:13; Status DC Neomycin/ Polymyxin/ Bacitracin (Triple Antibiotic) 1 yadi BID TP Last administered on 07/15/17 19:42; Start 07/04/17 at 21:00 Sertraline HCl (Zoloft) 50 mg DAILY PO Last administered on 07/15/17 08:24; Start 07/09/17 at 09:00 Metoprolol Succinate (Toprol Xl) 200 mg DAILY PO Last administered on 08:23; Start 07/10/17 at 09:00; Stop 07/13/17 at 15:20; Status DC Quetiapine Fumarate (SEROquel) 25 mg BID@0900,1700 PO Last administered on 17:07; Start 07/11/17 at 17:00 Quetiapine Fumarate (SEROquel) 12.5 mg DAILY@1300,2100 PO Last administered on 07/15/17 19:41; Start 07/11/17 at 13:00 Amlodipine Besylate (Norvasc) 2.5 mg DAILY PO ; Start 07/14/17 at 09:00; Stop 07/14/17 at 09:00; Status DC Metoprolol Tartrate (Lopressor) 100 mg BID PO Last administered on 07/15/17 19:40; Start 07/14/17 at 09:00 Active Scripts Active Reported Depakote Sprinkle (Divalproex Sodium) 125 Mg Cap.sprink 250 Mg PO TID@0900,1300, 1700 Acetaminophen 500 Mg Tablet 500 Mg PO PRN Q6HRS PRN Melatonin 3 Mg Tablet 3 Mg PO QHS Atorvastatin Calcium 20 Mg Tablet 20 Mg PO QHS Lactulose 10 Gm/15 Ml Solution 20 Gm PO TID@0900,1300,1700 Metoprolol Tartrate 100 Mg Tablet 300 Mg PO BID Colace (Docusate Sodium) 100 Mg Capsule 100 Mg PO DAILY Vitamin D3 (Cholecalciferol (Vitamin D3)) 1,000 Unit Tablet 1,000 Unit PO DAILY Aricept (Donepezil Hcl) 5 Mg Tablet 5 Mg PO DAILY Aspir-Low (Aspirin) 81 Mg Tablet. 81 Mg PO DAILY I have reviewed the current psychotropics carefully including drug interactions. Risk benefit ratio favors no change other than as noted in my dictated progress note. Diagnosis: Problems: (1) Anxiety disorder (2) Dementia in Alzheimer's disease with delusions (3) Dementia in Alzheimer's disease with depression (4) Dementia, vascular, with delirium (5) Dementia, vascular, with delusions (6) Impulse control disorder ELLIS NOBLES MD Jul 15, 2017 19:59
[2017-07-15] MEDS: traZODone 100 MG TABLET. PO PRN (21:37)
[2017-07-15] MEDS ORDERED: CYAN10005 PO (22:46)
[2017-07-15] MEDS ORDERED: DIVA125C3 PO (22:47)
[2017-07-15] MEDS ORDERED: DONE10TA7 PO (22:47)
[2017-07-15] MEDS ORDERED: MAG355OR17 PO (22:48)
[2017-07-15] MEDS ORDERED: MAGN2400 PO (22:48)
[2017-07-15] MEDS ORDERED: METH29OI TP (22:49)
[2017-07-15] MEDS ORDERED: MIRT15TA3 PO (22:49)
[2017-07-15] MEDS ORDERED: NEOM1OIN TP (22:51)
[2017-07-15] MEDS ORDERED: OLAN5TAB5 PO (22:52)
[2017-07-15] MEDS ORDERED: PNV1TABL25 PO (22:52)
[2017-07-15] MEDS ORDERED: QUET25TA5 PO ×2 (22:53)
[2017-07-15] MEDS ORDERED: SERT50TA PO (22:54)
[2017-07-15] MEDS ORDERED: TRAZ-90 PO (22:54)
[2017-07-16 06:16] VITALS: BP 115/67
[2017-07-16 08:12] VITALS: BP 115/67
[2017-07-16] MEDS: METOPROLOL TART IMMED RELEASE 50 MG TABLET PO SCH (08:12)
[2017-07-16] MEDS: PRENATAL MULTIVITAMIN TABLET. PO SCH (08:12)
[2017-07-16] MEDS: DIVALPROEX 125 MG CAP.SPRINK PO SCH (08:12)
[2017-07-16] MEDS: CYANOCOBALAMIN (VITAMIN B-12) 1,000 MCG TABLET. PO SCH (08:13)
[2017-07-16] MEDS: ASPIRIN ENTERIC COATED 81 MG TABLET.DR. PO SCH (08:13)
[2017-07-16] MEDS: DOCUSATE SODIUM 100 MG CAPSULE PO SCH (08:13)
[2017-07-16] MEDS: QUEtiapine 25 MG TABLET. PO SCH (08:13)
[2017-07-16] MEDS: SERTRALINE 50 MG TABLET. PO SCH (08:13)
[2017-07-16] MEDS: LACTULOSE 20 GM/30 ML SOLUTION. PO SCH (08:13)
[2017-07-16] MEDS: DONEPEZIL HCL 10 MG TABLET PO SCH (08:13)
[2017-07-16] MEDS: NEOMYCIN/BACITRAC/POLY TOPICAL OINTMENT 28GM TUBE. TP SCH (08:14)
--- NOTE | 2017-07-16 09:23 | PN ---
DATE: 07/14/2017 This is a late entry 07/14, covers elements not covered in my initial note 07/14. SUBJECTIVE: I met with the patient in the evening of 07/14. Overall, the patient remains confused, has been wandering around the unit, gets into other patient's room at times, resistive to medications, but not aggressive. REVIEW OF SYSTEMS: No CV, , pulmonary, eye, ENT system symptoms on review. Reliability poor. MENTAL STATUS EXAM: Oriented to himself. Insight, judgment, recent and remote memory, attention, concentration, fund of knowledge poor, consistent with his diagnosis mentioned in my initial note. PLAN: Continue psychotropics mentioned in my initial note. MAN Estefany NOBLES MD DR: MONICA/joe JOB#: [id number] / [id number]
--- NOTE | 2017-07-16 17:24 | PDOC ---
Exam Note: Darci Note: Please also refer to the separate dictated note~for this date of service dictated separately.~Patient seen individually. Discussed the patient with Nursing staff reviewed the chart.~Reviewed interim history and current functioning. Reviewed vital signs,~Labs/ Radiology~and current medications noted below. Continue current treatment with the changes noted in the dictated addendum note Assessment: Vital Signs: Vital Signs Date Time Temp Pulse Resp B/P (MAP) Pulse Ox O2 Delivery O2 Flow Rate FiO2 07/16/17 08:12 62 115/67 07/16/17 06:16 97.4 18 97 07/12/17 16:10 Room Air I&O Intake and Output 07/16/17 07:00 Intake Total 840 ml Balance 840 ml Intake Oral 840 ml # Bowel Movements 1 Current Medications: Meds: Current Medications Acetaminophen (Tylenol) 650 mg PRN Q6HRS PRN PO MILD PAIN / TEMP; Start at 00:00; Stop 06/23/17 at 06:34; Status DC Multi-Ingredient Ointment (Analgesic [place]) 1 sonja PRN QID PRN TP MUSCLE PAIN; Start 06/23/17 at 00:00; Stop 07/16/17 at 10:10; Status DC Al Hydroxide/Mg Hydroxide (Mylanta Plus Xs) 15 ml PRN AFTMEALHC PRN PO DYSPEPSIA; Start 06/23/17 at 00:00; Stop 07/16/17 at 10:10; Status DC Magnesium Hydroxide (Milk Of Magnesia) 2,400 mg PRN QHS PRN PO CONSTIPATION Last administered on 06/26/17 09:58; Start 06/23/17 at 00:00; Stop 07/16/17 at 10:10; Status DC Divalproex Sodium (Depakote Sprinkles) 250 mg TID@0900,1300,1700 PO Last administered on 06/24/17 16:54; Start 06/23/17 at 09:00; Stop 06/24/17 at 18 :39; Status DC Donepezil HCl (Aricept) 5 mg DAILY PO Last administered on 07/03/17 09:02; Start 06/23/17 at 09:00; Stop 07/03/17 at 18:23; Status DC Melatonin 3 mg QHS PO Last administered on 07/15/17 19:37; Start 06/23/17 at 21:00; Stop 07/16/17 at 10:10; Status DC Olanzapine (ZyPREXA ZYDIS) 2.5 mg PRN Q2HR PRN PO PSYCHOSIS Last administered on 07/16/17 08:13; Start 06/23/17 at 01:15; Stop 07/16/17 at 10:10; Status DC Acetaminophen (Tylenol) 500 mg PRN Q6HRS PRN PO PAIN / TEMP; Start 06/23/17 at 06:30; Stop 07/16/17 at 10:10; Status DC Aspirin (Aspirin Enteric Coated) 81 mg DAILY PO Last administered on 08:13; Start 06/23/17 at 09:00; Stop 07/16/17 at 10:10; Status DC Atorvastatin Calcium (Lipitor) 20 mg QHS PO Last administered on 07/15/17 19: 35; Start 06/23/17 at 21:00; Stop 07/16/17 at 10:10; Status DC Vitamin D (Vitamin D3) 1,000 unit DAILY PO Last administered on 06/24/17 09: 10; Start 06/23/17 at 09:00; Stop 06/24/17 at 14:36; Status DC Docusate Sodium (Colace) 100 mg DAILY PO Last administered on 07/16/17 08:13 ; Start 06/23/17 at 09:00; Stop 07/16/17 at 10:10; Status DC Lactulose 20 gm TID@0900,1300,1700 PO Last administered on 07/16/17 08:13; Start 06/23/17 at 09:00; Stop 07/16/17 at 10:10; Status DC Metoprolol Tartrate (Lopressor) 300 mg BID PO Last administered on 07/09/17 08:04; Start 06/23/17 at 09:00; Stop 07/09/17 at 10:43; Status DC Trazodone HCl (Desyrel) 100 mg PRN QHS PRN PO INSOMNIA, MAY REPEAT X1 Last administered on 07/15/17 21:37; Start 06/23/17 at 20:30; Stop 07/16/17 at 10 :10; Status DC Prenat Multivit/ [place]/Iron/Folic Ac (Multivitamin ) 1 tab DAILY PO Last administered on 07/16/17 08:12; Start 06/25/17 at 09:00; Stop 07/16/17 at 10:10; Status DC Vitamin D (Vitamin D3) 2,000 unit DAILYBFRSUP PO Last administered on 17:07; Start 06/24/17 at 17:00; Stop 07/16/17 at 10:10; Status DC Cyanocobalamin (Vitamin B-12) 1,000 mcg DAILY PO Last administered on 08:13; Start 06/25/17 at 09:00; Stop 07/16/17 at 10:10; Status DC Cyanocobalamin (Vitamin B-12) 1,000 mcg 1X ONCE IM Last administered on 15:27; Start 06/24/17 at 14:45; Stop 06/24/17 at 14:46; Status DC Cyanocobalamin (Vitamin B-12) 1,000 mcg 1X ONCE IM Last administered on 19:44; Start 06/24/17 at 21:00; Stop 06/24/17 at 21:01; Status DC Divalproex Sodium (Depakote Sprinkles) 375 mg BID@0900,1700 PO Last administered on 06/28/17 17:16; Start 06/25/17 at 09:00; Stop 06/28/17 at 19: 03; Status DC Divalproex Sodium (Depakote Sprinkles) 250 mg DAILY@1300 PO Last administered on 06/28/17 12:42; Start 06/25/17 at 13:00; Stop 06/28/17 at 19:03; Status DC Lactulose 20 gm STK-MED ONCE .ROUTE ; Start 06/23/17 at 09:00; Stop 06/26/17 at 18:49; Status DC Lactulose 20 gm STK-MED ONCE .ROUTE ; Start 06/23/17 at 09:00; Stop 06/26/17 at 18:49; Status DC Lactulose 20 gm STK-MED ONCE .ROUTE ; Start 06/23/17 at 09:00; Stop 06/26/17 at 18:49; Status DC Melatonin 3 mg STK-MED ONCE .ROUTE ; Start 06/23/17 at 21:00; Stop 06/26/17 at 18:49; Status DC Lactulose 20 gm STK-MED ONCE .ROUTE ; Start 06/24/17 at 21:00; Stop 06/26/17 at 18:50; Status DC Lactulose 20 gm STK-MED ONCE .ROUTE ; Start 06/24/17 at 21:00; Stop 06/26/17 at 18:50; Status DC Lactulose 20 gm STK-MED ONCE .ROUTE ; Start 06/24/17 at 21:00; Stop 06/26/17 at 18:50; Status DC Melatonin 3 mg STK-MED ONCE .ROUTE ; Start 06/24/17 at 21:00; Stop 06/26/17 at 18:50; Status DC Lactulose 20 gm STK-MED ONCE .ROUTE ; Start 06/25/17 at 21:00; Stop 06/26/17 at 18:50; Status DC Lactulose 20 gm STK-MED ONCE .ROUTE ; Start 06/25/17 at 21:00; Stop 06/26/17 at 18:50; Status DC Lactulose 20 gm STK-MED ONCE .ROUTE ; Start 06/25/17 at 21:00; Stop 06/26/17 at 18:50; Status DC Melatonin 3 mg STK-MED ONCE .ROUTE ; Start 06/25/17 at 21:00; Stop 06/26/17 at 18:50; Status DC Lactulose 20 gm STK-MED ONCE .ROUTE ; Start 06/26/17 at 21:00; Stop 06/26/17 at 21:01; Status DC Lactulose 20 gm STK-MED ONCE .ROUTE ; Start 06/26/17 at 21:00; Stop 06/26/17 at 21:01; Status DC Lactulose 20 gm STK-MED ONCE .ROUTE ; Start 06/26/17 at 21:00; Stop 06/26/17 at 21:01; Status DC Divalproex Sodium (Depakote Sprinkles) 375 mg TID PO Last administered on 07/16t 08:12; Start 06/28/17 at 21:00; Stop 07/16/17 at 10:10; Status DC Divalproex Sodium (Depakote Sprinkles) 375 mg DAILY@1300 PO ; Start 06/29/17 at 13:00; Status UNV Mirtazapine (Remeron) 7.5 mg QHS PO Last administered on 07/15/17 19:37; Start 06/28/17 at 21:00; Stop 07/16/17 at 10:10; Status DC Quetiapine Fumarate (SEROquel) 12.5 mg DAILY@1500 PO Last administered on 15:09; Start 06/29/17 at 15:00; Stop 07/02/17 at 17:45; Status DC Quetiapine Fumarate (SEROquel) 12.5 mg DAILY@0900,1500 PO Last administered on 07/04/17 09:19; Start 07/03/17 at 09:00; Stop 07/04/17 at 11:51; Status DC Donepezil HCl (Aricept) 10 mg DAILY PO Last administered on 07/16/17 08:13; Start 07/04/17 at 09:00; Stop 07/16/17 at 10:10; Status DC Quetiapine Fumarate (SEROquel) 12.5 mg DAILY@0900,1300,1700 PO Last administered on 07/11/17 11:02; Start 07/04/17 at 13:00; Stop 07/11/17 at 11: 09; Status DC Quetiapine Fumarate (SEROquel) 12.5 mg QHS PO Last administered on 07/10/17 20:11; Start 07/04/17 at 21:00; Stop 07/11/17 at 11:13; Status DC Neomycin/ Polymyxin/ Bacitracin (Triple Antibiotic) 1 sonja BID TP Last administered on 07/16/17 08:14; Start 07/04/17 at 21:00; Stop 07/16/17 at 10: 10; Status DC Sertraline HCl (Zoloft) 50 mg DAILY PO Last administered on 07/16/17 08:13; Start 07/09/17 at 09:00; Stop 07/16/17 at 10:10; Status DC Metoprolol Succinate (Toprol Xl) 200 mg DAILY PO Last administered on 08:23; Start 07/10/17 at 09:00; Stop 07/13/17 at 15:20; Status DC Quetiapine Fumarate (SEROquel) 25 mg BID@0900,1700 PO Last administered on 08:13; Start 07/11/17 at 17:00; Stop 07/16/17 at 10:10; Status DC Quetiapine Fumarate (SEROquel) 12.5 mg DAILY@1300,2100 PO Last administered on 07/15/17 19:41; Start 07/11/17 at 13:00; Stop 07/16/17 at 10:10; Status DC Amlodipine Besylate (Norvasc) 2.5 mg DAILY PO ; Start 07/14/17 at 09:00; Stop 07/14/17 at 09:00; Status DC Metoprolol Tartrate (Lopressor) 100 mg BID PO Last administered on 07/16/17 08:12; Start 07/14/17 at 09:00; Stop 07/16/17 at 10:10; Status DC Active Scripts Active Reported Trazodone Hcl 100 Mg Tablet 100 Mg PO PRN QHS PRN Zoloft (Sertraline Hcl) 50 Mg Tablet 50 Mg PO DAILY Seroquel (Quetiapine Fumarate) 25 Mg Tablet 25 Mg PO BID@0900,1700 Seroquel (Quetiapine Fumarate) 25 Mg Tablet 12.5 Mg PO BID@1300,2100 Tablet (Pnv Cmb#95/Ferrous Fumarate/Fa) 1 Each Tablet 1 Tab PO DAILY Zyprexa Zydis (Olanzapine) 5 Mg Tab.rapdis 2.5 Mg PO PRN Q2HR PRN Curad Triple Antibiotic Oint (Neomycin/Bacitracin/Polymyxinb) 1 Each Oint.pack 1 Sonja TP BID Mirtazapine 15 Mg Tablet 7.5 Mg PO HS Analgesic [place] (Methyl Salicylate/Menthol) 28 Gm Oint...g. 1 Sonja TP PRN QID PRN Milk Of Magnesia (Magnesium Hydroxide) 2,400 Mg/10 Ml Oral.susp 2,400 Mg PO PRN QHS PRN Advanced Antacid Liquid (Mag Hydrox/Al Hydrox/Simeth) 355 Ml Oral.susp 15 Ml PO PRN AFTMEALHC PRN Donepezil Hcl 10 Mg Tablet 10 Mg PO DAILY Divalproex Sodium 125 Mg Cap.sprink 375 Mg PO TID Vitamin B-12 (Cyanocobalamin (Vitamin B-12)) 1,000 Mcg Tablet 1,000 Mcg PO DAILY Acetaminophen 500 Mg Tablet 500 Mg PO PRN Q6HRS PRN Melatonin 3 Mg Tablet 3 Mg PO QHS Atorvastatin Calcium 20 Mg Tablet 20 Mg PO QHS Lactulose 10 Gm/15 Ml Solution 20 Gm PO TID@0900,1300,1700 Metoprolol Tartrate 100 Mg Tablet 100 Mg PO BID Colace (Docusate Sodium) 100 Mg Capsule 100 Mg PO DAILY Vitamin D3 (Cholecalciferol (Vitamin D3)) 1,000 Unit Tablet 2,000 Unit PO DAILYBFRSUP Aspir-Low (Aspirin) 81 Mg Tablet.dr 81 Mg PO DAILY I have reviewed the current psychotropics carefully including drug interactions. Risk benefit ratio favors no change other than as noted in my dictated progress note. Diagnosis: Problems: (1) Impulse control disorder (2) Dementia, vascular, with delusions (3) Dementia, vascular, with delirium (4) Dementia in Alzheimer's disease with depression (5) Dementia in Alzheimer's disease with delusions (6) Anxiety disorder ELLIS NOBLES MD Jul 16, 2017 17:24
--- NOTE | 2017-07-17 00:26 | PN ---
DATE: 07/15/2017 This is a late entry 07/15/2017 covers elements not covered in my initial note 07/15/2017, met with the patient in the evening of 07/15/2017. Overall, the patient has done reasonably well. He remains confused, wanders up and down the hallway into other patient's rooms, but not aggressive. REVIEW OF SYSTEMS: No CV, , pulmonary, eye, ENT system symptoms on review. Reliability poor. MENTAL STATUS EXAM: Oriented to himself. Insight, judgment, recent and remote memory, attention, concentration, fund of knowledge poor, consistent with his diagnosis mentioned in my initial note. IMPRESSION: Major neurocognitive disorder, Alzheimer, vascular with depression, delusion, behavioral disturbance. Rest unchanged. PLAN: Continue psychotropics mentioned in my initial note for now. Valproic acid level therapeutic at 55. MAN Estefany NOBLES MD DR: MONICA/joe JOB#: [id number] / [id number]
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
== END 2017-07-16 08:50 | disposition home or self-care (01) | DRG 884 ==
LOC: EEVIPCON 21:05 → ER 21:05 → GEROPSY 23:50
PROVIDERS: ADMIT Psychiatry & Neurology Psychiatry; ATTEND Psychiatry & Neurology Psychiatry
DX: F01.51 Vascular dementia, unspecified severity, with behavioral disturbance (principal); G30.9 Alzheimer's disease, unspecified; F02.81 Dementia in other diseases classified elsewhere, unspecified severity, with behavioral disturbance; E78.5 Hyperlipidemia, unspecified; F22 Delusional disorders; F10.11 Alcohol abuse, in remission; F32.9 Major depressive disorder, single episode, unspecified; G47.00 Insomnia, unspecified; F41.9 Anxiety disorder, unspecified; F63.9 Impulse disorder, unspecified; Z79.899 Other long term (current) drug therapy; Z88.0 Allergy status to penicillin; Z91.83 Wandering in diseases classified elsewhere
CPT/HCPCS: 36415; 70450; 71010; 80053; 80061; 80164; 80307; 81001; 82306; 82607; 83036; 83540; 83550; 83735; 83880; 84484; 85025; 85610; 85730; 93005; J3420; G0479

== ENCOUNTER 2017-12-27 08:33 | Inpatient (IN) | payer MEDICARE ==
[~2017-12-27] VITALS: Ht 188 cm; Wt 88.5 kg
[~2017-12-27 08:33] MED LIST: ACET500T68 PO; ASPI81TA50 PO; ATOR20TA58 PO; CHOL10003 PO; CYAN10005 PO; DIVA125C PO; DIVA125C3 PO; DOCU-109 PO; DONE10TA7 PO; DONE5TAB56 PO; LACT10SO PO; MAG355OR17 PO; MAGN2400 PO; MELA3TAB2 PO; METH29OI TP; METO100T7 PO; MIRT15TA3 PO; NEOM1OIN TP; OLAN5TAB5 PO; PNV1TABL25 PO; QUET25TA5 PO; SERT50TA PO; TRAZ-90 PO
--- NOTE | 2017-12-27 09:04 | EKG ---
[address] [address] Test Date: 2017-12-27 Test Time: 08:58:36 Pat Name: ARMIDA CLARK Department: Room: Gender: M [employer]: : 1950 Requested By: DENA SR Order Number: [id number] Reading MD: Héctor Luna MD Measurements Intervals [place] Rate: 59 P: MA: QRS: -6 QRSD: 78 T: 44 QT: 426 QTc: 422 Interpretive Statements SR Electronically Signed On 01-13-2018 11:08:35 CDT by Héctor Luna MD
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
[2017-12-27 09:33] LABS: BASO % 0 % (0-3); EOS # 0.4 x10^3/uL (0.0-0.7); EOS % 7 % (0-3); HEMOGLOBIN 13.9 g/dL (13.0-17.5); LYMPH # 1.9 x10^3/uL (1.0-4.8); LYMPH % 36 % (24-48); MEAN CORPUSCULAR HEMOGLOBIN 32 pg (25-35); MEAN CORPUSCULAR HGB CONC 33 g/dL (31-37); MEAN CORPUSCULAR VOLUME 98 fL (79-100); MONO # 0.6 x10^3/uL (0.0-1.1); MONO % 11 % (0-9); NEUT # 2.4 x10^3uL (1.8-7.7); NEUT % 46 % (31-73); PLATELET COUNT 186 x10^3/uL (140-400); RED BLOOD COUNT 4.29 x10^6/uL (4.30-5.70); RED CELL DISTRIBUTION WIDTH 14.8 % (11.5-14.5); WHITE BLOOD COUNT 5.3 x10^3/uL (4.0-11.0)
[2017-12-27 09:46] LABS: ALBUMIN 3.3 g/dL (3.4-5.0); ALBUMIN/GLOBULIN RATIO 0.8 (1.0-1.7); CALCIUM 8.3 mg/dL (8.5-10.1); CREATININE 0.9 mg/dL (0.7-1.3); GFR 102.2; MAGNESIUM 2.5 mg/dL (1.8-2.4); POTASSIUM 3.8 mmol/L (3.5-5.1); TOTAL BILIRUBIN 0.3 mg/dL (0.2-1.0); TOTAL PROTEIN 7.6 g/dL (6.4-8.2)
[2017-12-27 09:52] LABS: CLARITY,URINE CLEAR; COLOR,URINE YELLOW
[2017-12-27 09:53] LABS: BACTERIA,URINE 0 /HPF (0-FEW); BARBITURATES NEG (NEG); BENZODIAZEPINES NEG (NEG); BILIRUBIN,URINE NEG (NEG); CANNABINOIDS NEG (NEG); COCAINE NEG (NEG); GLUCOSE,URINE NEG (NEG); METHADONE NEG (NEG); NITRITE,URINE NEG (NEG); OPIATES NEG (NEG); PHENCYCLIDINE NEG (NEG); RBC,URINE RARE /HPF (0-2); SQUAMOUS EPITHELIAL CELL,UR OCC /LPF; UROBILINOGEN,URINE 1 mg/dL (0.2 mg/dL); WBC,URINE RARE /HPF (0-4)
[2017-12-27 09:55] LABS: AMPHETAMINE/METHAMPHETAMINE NEG (NEG)
[2017-12-27 12:20] VITALS: BP 134/82
[2017-12-27] MEDS ORDERED: METHYL SALICYLATE/MENTHOL TOPICAL OINTMENT 29GM TUBE. TP PRN ×2 (13:00→14:45)
[2017-12-27] MEDS ORDERED: ACETAMINOPHEN 325 MG TABLET PO PRN (13:00)
[2017-12-27] MEDS ORDERED: MAG HYDROX/AL HYDROX/SIMETH 30 ML ORAL.SUSP PO PRN (13:00)
[2017-12-27] MEDS ORDERED: MAGNESIUM HYDROXIDE 2,400 MG/30 ML ORAL.SUSP. PO PRN (13:00)
[2017-12-27] MEDS ORDERED: NON FORMULARY ITEM (Magnesium Hydroxide (Milk Of Magnesia) 2,400 MG) PO PRN (14:45)
[2017-12-27] MEDS ORDERED: NON FORMULARY ITEM (Acetaminophen 500 MG) PO PRN (14:45)
[2017-12-27] MEDS ORDERED: NON FORMULARY ITEM (Mag Hydrox/Al Hydrox/Simeth (Advanced Antacid Liquid) 15 ML) PO PRN (14:45)
[2017-12-27] MEDS ORDERED: MULT1TAB52 PO (14:57)
[2017-12-27 16:14] VITALS: BP 131/80
[2017-12-27] MEDS: QUEtiapine 25 MG TABLET. PO SCH (17:29)
[2017-12-27] MEDS: CHOLECALCIFEROL (VITAMIN D3) 1,000 UNIT TABLET PO SCH (17:29)
[2017-12-27] MEDS: LACTULOSE 20 GM/30 ML SOLUTION. PO SCH (17:29)
[2017-12-27] MEDS: MELATONIN 3 MG TABLET PO SCH (20:06)
[2017-12-27] MEDS: ATORVASTATIN CALCIUM 20 MG TABLET PO SCH (20:06)
[2017-12-27] MEDS: MIRTAZAPINE 7.5 MG TABLET. PO SCH (20:06)
[2017-12-27] MEDS: METOPROLOL TART IMMED RELEASE 50 MG TABLET PO SCH (20:07)
[2017-12-27] MEDS: traZODone 50 MG TABLET. PO PRN (20:07)
[2017-12-27] MEDS: DIVALPROEX 125 MG CAP.SPRINK PO SCH (20:08)
--- NOTE | 2017-12-27 20:49 | PDOC ---
Exam Note: Darci Note: Please also refer to the separate dictated note~for this date of service dictated separately.~Patient seen individually. Discussed the patient with Nursing staff reviewed the chart.~Reviewed interim history and current functioning. Reviewed vital signs,~Labs/ Radiology~and current medications noted below. Continue current treatment with the changes noted in the dictated addendum note Assessment: Vital Signs: Vital Signs Date Time Temp Pulse Resp B/P (MAP) Pulse Ox O2 Delivery O2 Flow Rate FiO2 12/27/17 20:07 66 131/80 12/27/17 16:14 97.2 16 100 12/27/17 08:33 Room Air Labs: Laboratory Tests Test 12/27/17 09:18 12/27/17 09:30 White Blood Count 5.3 x10^3/uL (4.0-11.0) Red Blood Count 4.29 x10^6/uL (4.30-5.70) L Hemoglobin 13.9 g/dL (13.0-17.5) Hematocrit 42.0 % (39.0-53.0) Mean Corpuscular Volume 98 fL (79-100) Mean Corpuscular Hemoglobin 32 pg (25-35) Mean Corpuscular Hemoglobin Concent 33 g/dL (31-37) Red Cell Distribution Width 14.8 % (11.5-14.5) H Platelet Count 186 x10^3/uL (140-400) Neutrophils (%) (Auto) 46 % (31-73) Lymphocytes (%) (Auto) 36 % (24-48) Monocytes (%) (Auto) 11 % (0-9) H Eosinophils (%) (Auto) 7 % (0-3) H Basophils (%) (Auto) 0 % (0-3) Neutrophils # (Auto) 2.4 x10^3uL (1.8-7.7) Lymphocytes # (Auto) 1.9 x10^3/uL (1.0-4.8) Monocytes # (Auto) 0.6 x10^3/uL (0.0-1.1) Eosinophils # (Auto) 0.4 x10^3/uL (0.0-0.7) Basophils # (Auto) 0.0 x10^3/uL (0.0-0.2) Sodium Level 142 mmol/L (136-145) Potassium Level 3.8 mmol/L (3.5-5.1) Chloride Level 103 mmol/L (98-107) Carbon Dioxide Level 30 mmol/L (21-32) Anion Gap 9 (6-14) Blood Urea Nitrogen 17 mg/dL (8-26) Creatinine 0.9 mg/dL (0.7-1.3) Estimated GFR (Cockcroft-Gault) 102.2 BUN/Creatinine Ratio 19 (6-20) Glucose Level 72 mg/dL (70-99) Calcium Level 8.3 mg/dL (8.5-10.1) L Magnesium Level 2.5 mg/dL (1.8-2.4) H Total Bilirubin 0.3 mg/dL (0.2-1.0) Aspartate Amino Transferase (AST) 12 U/L (15-37) L Alanine Aminotransferase (ALT) 25 U/L (16-63) Alkaline Phosphatase 70 U/L (46-116) Total Protein 7.6 g/dL (6.4-8.2) Albumin 3.3 g/dL (3.4-5.0) L Albumin/Globulin Ratio 0.8 (1.0-1.7) L Urine Collection Type Unknown Urine Color Yellow Urine Clarity Clear Urine pH 7.5 Urine Specific [place] 1.020 Urine Protein Neg (NEG-TRACE) Urine Glucose (UA) Neg mg/dL (NEG) Urine Ketones (Stick) Neg mg/dL (NEG) Urine Blood Neg (NEG) Urine Nitrite Neg (NEG) Urine Bilirubin Neg (NEG) Urine Urobilinogen Dipstick 1 mg/dL (0.2 mg/dL) Urine Leukocyte Esterase Neg (NEG) Urine RBC Rare /HPF (0-2) Urine WBC Rare /HPF (0-4) Urine Squamous Epithelial Cells Occ /LPF Urine Bacteria 0 /HPF (0-FEW) Urine Opiates Screen Neg (NEG) Urine Methadone Screen Neg (NEG) Urine Barbiturates Neg (NEG) Urine Phencyclidine Screen Neg (NEG) Urine Amphetamine/Methamphetamine Neg (NEG) Urine Benzodiazepines Screen Neg (NEG) Urine Cocaine Screen Neg (NEG) Urine Cannabinoids Screen Neg (NEG) Urine Ethyl Alcohol Neg (NEG) Current Medications: Meds: Current Medications Olanzapine (ZyPREXA ZYDIS) 2.5 mg PRN Q2HR PRN PO PSYCHOSIS; Start 12/27/17 at 12:45 Acetaminophen (Tylenol) 650 mg PRN Q6HRS PRN PO PAIN / TEMP; Start 12/27/17 at 13:00 Multi-Ingredient Ointment (Analgesic [place]) 1 sonja PRN QID PRN TP MUSCLE PAIN; Start 12/27/17 at 13:00 Al Hydroxide/Mg Hydroxide (Mylanta Plus Xs) 15 ml PRN AFTMEALHC PRN PO DYSPEPSIA; Start 12/27/17 at 13:00 Magnesium Hydroxide (Milk Of Magnesia) 2,400 mg PRN QHS PRN PO CONSTIPATION; Start 12/27/17 at 13:00 Atorvastatin Calcium (Lipitor) 20 mg QHS PO Last administered on 12/27/17at 20:06 ; Start 12/27/17 at 21:00 Vitamin D (Vitamin D3) 2,000 unit DAILYBFRSUP PO Last administered on 12/27/17at 17:29; Start 12/27/17 at 17:00 Cyanocobalamin (Vitamin B-12) 1,000 mcg DAILY PO ; Start 12/28/17 at 09:00 Multi-Ingredient Ointment (Analgesic [place]) 1 sonja PRN QID PRN TP MUSCLE PAIN; Start 12/27/17 at 14:45; Stop 12/27/17 at 15:06; Status DC Sertraline HCl (Zoloft) 50 mg DAILY PO ; Start 12/28/17 at 09:00 Non-Formulary Medication (Acetaminophen ) 500 mg PRN Q6HRS PRN PO PAIN / TEMP; Start 12/27/17 at 14:45; Stop 12/27/17 at 15:11; Status DC Aspirin (Children'S Aspirin) 81 mg DAILYWBKFT PO ; Start 12/28/17 at 08:00 Divalproex Sodium (Depakote Sprinkles) 375 mg TID PO Last administered on at 20:08; Start 12/27/17 at 21:00 Donepezil HCl (Aricept) 10 mg DAILY PO ; Start 12/28/17 at 09:00 Lactulose (Lactulose) 20 gm TID@0900,1300,1700 PO Last administered on at 17:29; Start 12/27/17 at 17:00 Non-Formulary Medication (Mag Hydrox/Al Hydrox/Simeth (Advanced Antacid Liquid) ) 15 ml PRN AFTMEALHC PRN PO DYSPEPSIA; Start 12/27/17 at 14:45; Stop 12/27/17 at 15:06; Status DC Non-Formulary Medication (Magnesium Hydroxide (Milk Of Magnesia)) 2,400 mg PRN QHS PRN PO CONSTIPATION; Start 12/27/17 at 14:45; Stop 12/27/17 at 15:06; Status DC Melatonin 3 mg QHS PO Last administered on 12/27/17at 20:06; Start 12/27/17 at 21: 00 Metoprolol Tartrate (Lopressor) 100 mg BID PO Last administered on 12/27/17at 20: 07; Start 12/27/17 at 21:00 Mirtazapine (Remeron) 7.5 mg QHS PO Last administered on 12/27/17at 20:06; Start 12/27/17 at 21:00 Multivitamins/ Calcium (Thera-M Plus) 1 tab DAILY PO ; Start 12/28/17 at 09:00 Quetiapine Fumarate (SEROquel) 37.5 mg BID@0900,1700 PO Last administered on 12/27/17at 17:29; Start 12/27/17 at 17:00 Trazodone HCl (Desyrel) 50 mg PRN QHS PRN PO INSOMNIA Last administered on at 20:07; Start 12/27/17 at 15:30 Active Scripts Active Reported Multivitamins (Multivitamin) 1 Each Tablet 1 Tab PO DAILY Trazodone Hcl 100 Mg Tablet 100 Mg PO PRN QHS PRN Zoloft (Sertraline Hcl) 50 Mg Tablet 50 Mg PO DAILY Seroquel (Quetiapine Fumarate) 25 Mg Tablet 37.5 Mg PO BID@0900,1700 Seroquel (Quetiapine Fumarate) 25 Mg Tablet 12.5 Mg PO BID@1300,2100 Tablet (Pnv Cmb#95/Ferrous Fumarate/Fa) 1 Each Tablet 1 Tab PO DAILY Zyprexa Zydis (Olanzapine) 5 Mg Tab.rapdis 2.5 Mg PO PRN Q2HR PRN Curad Triple Antibiotic Oint (Neomycin/Bacitracin/Polymyxinb) 1 Each Oint.pack 1 Sonja TP BID Mirtazapine 15 Mg Tablet 7.5 Mg PO HS Analgesic [place] (Methyl Salicylate/Menthol) 28 Gm Oint...g. 1 Sonja TP PRN QID PRN Milk Of Magnesia (Magnesium Hydroxide) 2,400 Mg/10 Ml Oral.susp 2,400 Mg PO PRN QHS PRN Advanced Antacid Liquid (Mag Hydrox/Al Hydrox/Simeth) 355 Ml Oral.susp 15 Ml PO PRN AFTMEALHC PRN Donepezil Hcl 10 Mg Tablet 10 Mg PO DAILY Divalproex Sodium 125 Mg Cap.sprink 375 Mg PO TID Vitamin B-12 (Cyanocobalamin (Vitamin B-12)) 1,000 Mcg Tablet 1,000 Mcg PO DAILY Acetaminophen 500 Mg Tablet 500 Mg PO PRN Q6HRS PRN Melatonin 3 Mg Tablet 3 Mg PO QHS Atorvastatin Calcium 20 Mg Tablet 20 Mg PO QHS Lactulose 10 Gm/15 Ml Solution 20 Gm PO TID@0900,1300,1700 Metoprolol Tartrate 100 Mg Tablet 100 Mg PO BID Colace (Docusate Sodium) 100 Mg Capsule 100 Mg PO DAILY Vitamin D3 (Cholecalciferol (Vitamin D3)) 1,000 Unit Tablet 2,000 Unit PO DAILYBFRSUP Aspir-Low (Aspirin) 81 Mg Tablet. 81 Mg PO DAILY I have reviewed the current psychotropics carefully including drug interactions. Risk benefit ratio favors no change other than as noted in my dictated progress note. Diagnosis: Problems: (1) Anxiety disorder (2) Dementia in Alzheimer's disease with delusions (3) Dementia in Alzheimer's disease with depression (4) Dementia, vascular, with delirium (5) Dementia, vascular, with delusions (6) Impulse control disorder (7) Violent behavior ELLIS NOBLES MD Dec 27, 2017 20:49
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
[2017-12-28 06:22] VITALS: BP 149/81
[2017-12-28 07:33] LABS: BASO % 1 % (0-3); EOS # 0.3 x10^3/uL (0.0-0.7); EOS % 6 % (0-3); HEMATOCRIT 37.5 % (39.0-53.0); HEMOGLOBIN 12.6 g/dL (13.0-17.5); LYMPH # 2.2 x10^3/uL (1.0-4.8); LYMPH % 40 % (24-48); MEAN CORPUSCULAR HEMOGLOBIN 33 pg (25-35); MEAN CORPUSCULAR HGB CONC 34 g/dL (31-37); MEAN CORPUSCULAR VOLUME 97 fL (79-100); MONO # 0.5 x10^3/uL (0.0-1.1); MONO % 10 % (0-9); NEUT # 2.3 x10^3uL (1.8-7.7); NEUT % 43 % (31-73); PLATELET COUNT 180 x10^3/uL (140-400); RED BLOOD COUNT 3.88 x10^6/uL (4.30-5.70); RED CELL DISTRIBUTION WIDTH 14.4 % (11.5-14.5); WHITE BLOOD COUNT 5.4 x10^3/uL (4.0-11.0)
[2017-12-28 07:51] LABS: ALBUMIN 3.4 g/dL (3.4-5.0); ALBUMIN/GLOBULIN RATIO 0.8 (1.0-1.7); CALCIUM 8.7 mg/dL (8.5-10.1); CREATININE 0.9 mg/dL (0.7-1.3); GFR 102.2; MAGNESIUM 2.4 mg/dL (1.8-2.4); POTASSIUM 3.9 mmol/L (3.5-5.1); TOTAL BILIRUBIN 0.4 mg/dL (0.2-1.0); TOTAL PROTEIN 7.9 g/dL (6.4-8.2)
[2017-12-28] MEDS: LACTULOSE 20 GM/30 ML SOLUTION. PO SCH ×3 (07:57→17:20)
[2017-12-28] MEDS: DIVALPROEX 125 MG CAP.SPRINK PO SCH ×3 (07:57→20:36)
[2017-12-28] MEDS: QUEtiapine 25 MG TABLET. PO SCH ×2 (07:57→17:20)
[2017-12-28] MEDS: METOPROLOL TART IMMED RELEASE 50 MG TABLET PO SCH ×2 (07:57→20:35)
[2017-12-28 07:58] LABS: VAL ACID 47 mcg/mL (50-100)
[2017-12-28] MEDS: CYANOCOBALAMIN (VITAMIN B-12) 1,000 MCG TABLET. PO SCH (07:58)
[2017-12-28] MEDS: SERTRALINE 50 MG TABLET. PO SCH (07:58)
[2017-12-28] MEDS: DONEPEZIL HCL 10 MG TABLET PO SCH (07:58)
[2017-12-28] MEDS: ASPIRIN 81 MG TAB.CHEW PO SCH (07:59)
[2017-12-28] MEDS: MULTIVITAMIN with MINERAL TABLET. PO SCH (08:01)
[2017-12-28 10:37] LABS: THYROID STIM HORMONE (TSH) 2.957 uIU/mL (0.358-3.740)
[2017-12-28 13:13] LABS: T3 TOTAL 145 ng/dL (71-180); THYROXINE 6.5 ug/dL (4.5-12.0)
[2017-12-28 16:43] VITALS: BP 104/72
[2017-12-28] MEDS: CHOLECALCIFEROL (VITAMIN D3) 1,000 UNIT TABLET PO SCH (17:20)
[2017-12-28] MEDS: ATORVASTATIN CALCIUM 20 MG TABLET PO SCH (20:35)
[2017-12-28] MEDS: MIRTAZAPINE 7.5 MG TABLET. PO SCH (20:35)
[2017-12-28] MEDS: MELATONIN 3 MG TABLET PO SCH (20:36)
[2017-12-28] MEDS: traZODone 50 MG TABLET. PO PRN (20:36)
[2017-12-28 21:09] LABS: HEMOGLOBIN A1C 5.5 % (4.8-5.6)
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
--- NOTE | 2017-12-28 22:12 | PDOC ---
Exam Note: Darci Note: Please also refer to the separate dictated note~for this date of service dictated separately.~Patient seen individually. Discussed the patient with Nursing staff reviewed the chart.~Reviewed interim history and current functioning. Reviewed vital signs,~Labs/ Radiology~and current medications noted below. Continue current treatment with the changes noted in the dictated addendum note Assessment: Vital Signs: Vital Signs Date Time Temp Pulse Resp B/P (MAP) Pulse Ox O2 Delivery O2 Flow Rate FiO2 12/28/17 20:35 65 104/72 12/28/17 16:43 97.6 19 99 12/27/17 08:33 Room Air I&O Intake and Output 12/28/17 07:00 Intake Total 965 ml Balance 965 ml Intake Oral 965 ml # Voids 1 Labs: Laboratory Tests Test 12/28/17 07:10 White Blood Count 5.4 x10^3/uL (4.0-11.0) Red Blood Count 3.88 x10^6/uL (4.30-5.70) L Hemoglobin 12.6 g/dL (13.0-17.5) L Hematocrit 37.5 % (39.0-53.0) L Mean Corpuscular Volume 97 fL (79-100) Mean Corpuscular Hemoglobin 33 pg (25-35) Mean Corpuscular Hemoglobin Concent 34 g/dL (31-37) Red Cell Distribution Width 14.4 % (11.5-14.5) Platelet Count 180 x10^3/uL (140-400) Neutrophils (%) (Auto) 43 % (31-73) Lymphocytes (%) (Auto) 40 % (24-48) Monocytes (%) (Auto) 10 % (0-9) H Eosinophils (%) (Auto) 6 % (0-3) H Basophils (%) (Auto) 1 % (0-3) Neutrophils # (Auto) 2.3 x10^3uL (1.8-7.7) Lymphocytes # (Auto) 2.2 x10^3/uL (1.0-4.8) Monocytes # (Auto) 0.5 x10^3/uL (0.0-1.1) Eosinophils # (Auto) 0.3 x10^3/uL (0.0-0.7) Basophils # (Auto) 0.0 x10^3/uL (0.0-0.2) Sodium Level 141 mmol/L (136-145) Potassium Level 3.9 mmol/L (3.5-5.1) Chloride Level 104 mmol/L (98-107) Carbon Dioxide Level 32 mmol/L (21-32) Anion Gap 5 (6-14) L Blood Urea Nitrogen 13 mg/dL (8-26) Creatinine 0.9 mg/dL (0.7-1.3) Estimated GFR (Cockcroft-Gault) 102.2 BUN/Creatinine Ratio 14 (6-20) Glucose Level 72 mg/dL (70-99) Hemoglobin A1c 5.5 % (4.8-5.6) Calcium Level 8.7 mg/dL (8.5-10.1) Magnesium Level 2.4 mg/dL (1.8-2.4) Iron Level 90 ug/dL (65-175) Total Iron Binding Capacity 269 ug/dL (250-450) Iron Saturation 33 % (15-34) Total Bilirubin 0.4 mg/dL (0.2-1.0) Aspartate Amino Transferase (AST) 19 U/L (15-37) Alanine Aminotransferase (ALT) 26 U/L (16-63) Alkaline Phosphatase 73 U/L (46-116) Total Protein 7.9 g/dL (6.4-8.2) Albumin 3.4 g/dL (3.4-5.0) Albumin/Globulin Ratio 0.8 (1.0-1.7) L Triglycerides Level 73 mg/dL (0-150) Cholesterol Level 114 mg/dL (0-200) LDL Cholesterol, Calculated 56 mg/dL (0-100) VLDL Cholesterol, Calculated 14 mg/dL (0-40) Non-HDL Cholesterol Calculated 70 mg/dL (0-129) HDL Cholesterol 44 mg/dL (40-60) Cholesterol/HDL Ratio 2.0 Thyroid Stimulating Hormone (TSH) 2.957 uIU/mL (0.358-3.740) Thyroxine (T4) 6.5 ug/dL (4.5-12.0) Total Triiodothyronine (TT3) 145 ng/dL (71-180) Valproic Acid Level 47 mcg/mL (50-100) L Valproic Acid Last Dose Date 12/27/17 Valproic Acid Last Dose Time 2100 Rapid Plasma Reagin Non reactive (Non Reactive) Current Medications: Meds: Current Medications Olanzapine (ZyPREXA ZYDIS) 2.5 mg PRN Q2HR PRN PO PSYCHOSIS Last administered on 12/28/17at 14:56; Start 12/27/17 at 12:45 Acetaminophen (Tylenol) 650 mg PRN Q6HRS PRN PO PAIN / TEMP; Start 12/27/17 at 13:00 Multi-Ingredient Ointment (Analgesic [place]) 1 sonja PRN QID PRN TP MUSCLE PAIN; Start 12/27/17 at 13:00 Al Hydroxide/Mg Hydroxide (Mylanta Plus Xs) 15 ml PRN AFTMEALHC PRN PO DYSPEPSIA; Start 12/27/17 at 13:00 Magnesium Hydroxide (Milk Of Magnesia) 2,400 mg PRN QHS PRN PO CONSTIPATION; Start 12/27/17 at 13:00 Atorvastatin Calcium (Lipitor) 20 mg QHS PO Last administered on 12/28/17at 20:35 ; Start 12/27/17 at 21:00 Vitamin D (Vitamin D3) 2,000 unit DAILYBFRSUP PO Last administered on 12/28/17at 17:20; Start 12/27/17 at 17:00 Cyanocobalamin (Vitamin B-12) 1,000 mcg DAILY PO Last administered on 12/28/17at 07:58; Start 12/28/17 at 09:00 Multi-Ingredient Ointment (Analgesic [place]) 1 sonja PRN QID PRN TP MUSCLE PAIN; Start 12/27/17 at 14:45; Stop 12/27/17 at 15:06; Status DC Sertraline HCl (Zoloft) 50 mg DAILY PO Last administered on 12/28/17at 07:58; Start 12/28/17 at 09:00 Non-Formulary Medication (Acetaminophen ) 500 mg PRN Q6HRS PRN PO PAIN / TEMP; Start 12/27/17 at 14:45; Stop 12/27/17 at 15:11; Status DC Aspirin (Children'S Aspirin) 81 mg DAILYWBKFT PO Last administered on 12/28/17at 07:59; Start 12/28/17 at 08:00 Divalproex Sodium (Depakote Sprinkles) 375 mg TID PO Last administered on at 12:00; Start 12/27/17 at 21:00; Stop 12/28/17 at 18:33; Status DC Donepezil HCl (Aricept) 10 mg DAILY PO Last administered on 12/28/17 07:58; Start 12/28/17 at 09:00 Lactulose (Lactulose) 20 gm TID@0900,1300,1700 PO Last administered on 17:20; Start 12/27/17 at 17:00 Non-Formulary Medication (Mag Hydrox/Al Hydrox/Simeth (Advanced Antacid Liquid) ) 15 ml PRN AFTMEALHC PRN PO DYSPEPSIA; Start 12/27/17 at 14:45; Stop 12/27/17 at 15:06; Status DC Non-Formulary Medication (Magnesium Hydroxide (Milk Of Magnesia)) 2,400 mg PRN QHS PRN PO CONSTIPATION; Start 12/27/17 at 14:45; Stop 12/27/17 at 15:06; Status DC Melatonin 3 mg QHS PO Last administered on 12/28/17 20:36; Start 12/27/17 at 21: 00 Metoprolol Tartrate (Lopressor) 100 mg BID PO Last administered on 12/28/17 20: 35; Start 12/27/17 at 21:00 Mirtazapine (Remeron) 7.5 mg QHS PO Last administered on 12/28/17 20:35; Start 12/27/17 at 21:00 Multivitamins/ Calcium (Thera-M Plus) 1 tab DAILY PO Last administered on at 08:01; Start 12/28/17 at 09:00 Quetiapine Fumarate (SEROquel) 37.5 mg BID@0900,1700 PO Last administered on 17:20; Start 12/27/17 at 17:00 Trazodone HCl (Desyrel) 50 mg PRN QHS PRN PO INSOMNIA Last administered on 20:36; Start 12/27/17 at 15:30 Divalproex Sodium (Depakote Sprinkles) 500 mg TID PO Last administered on 20:36; Start 12/28/17 at 21:00 Active Scripts Active Reported Multivitamins (Multivitamin) 1 Each Tablet 1 Tab PO DAILY Trazodone Hcl 100 Mg Tablet 100 Mg PO PRN QHS PRN Zoloft (Sertraline Hcl) 50 Mg Tablet 50 Mg PO DAILY Seroquel (Quetiapine Fumarate) 25 Mg Tablet 37.5 Mg PO BID@0900,1700 Seroquel (Quetiapine Fumarate) 25 Mg Tablet 12.5 Mg PO BID@1300,2100 Tablet (Pnv Cmb#95/Ferrous Fumarate/Fa) 1 Each Tablet 1 Tab PO DAILY Zyprexa Zydis (Olanzapine) 5 Mg Tab.rapdis 2.5 Mg PO PRN Q2HR PRN Curad Triple Antibiotic Oint (Neomycin/Bacitracin/Polymyxinb) 1 Each Oint.pack 1 Sonja TP BID Mirtazapine 15 Mg Tablet 7.5 Mg PO HS Analgesic [place] (Methyl Salicylate/Menthol) 28 Gm Oint...g. 1 Sonja TP PRN QID PRN Milk Of Magnesia (Magnesium Hydroxide) 2,400 Mg/10 Ml Oral.susp 2,400 Mg PO PRN QHS PRN Advanced Antacid Liquid (Mag Hydrox/Al Hydrox/Simeth) 355 Ml Oral.susp 15 Ml PO PRN AFTMEALHC PRN Donepezil Hcl 10 Mg Tablet 10 Mg PO DAILY Divalproex Sodium 125 Mg Cap.sprink 375 Mg PO TID Vitamin B-12 (Cyanocobalamin (Vitamin B-12)) 1,000 Mcg Tablet 1,000 Mcg PO DAILY Acetaminophen 500 Mg Tablet 500 Mg PO PRN Q6HRS PRN Melatonin 3 Mg Tablet 3 Mg PO QHS Atorvastatin Calcium 20 Mg Tablet 20 Mg PO QHS Lactulose 10 Gm/15 Ml Solution 20 Gm PO TID@0900,1300,1700 Metoprolol Tartrate 100 Mg Tablet 100 Mg PO BID Colace (Docusate Sodium) 100 Mg Capsule 100 Mg PO DAILY Vitamin D3 (Cholecalciferol (Vitamin D3)) 1,000 Unit Tablet 2,000 Unit PO DAILYBFRSUP Aspir-Low (Aspirin) 81 Mg Tablet.dr 81 Mg PO DAILY I have reviewed the current psychotropics carefully including drug interactions. Risk benefit ratio favors no change other than as noted in my dictated progress note. Diagnosis: Problems: (1) Anxiety disorder (2) Dementia in Alzheimer's disease with delusions (3) Dementia in Alzheimer's disease with depression (4) Dementia, vascular, with delirium (5) Dementia, vascular, with delusions (6) Impulse control disorder (7) Violent behavior ELLIS NOBLES MD Dec 28, 2017 22:12
[2017-12-29 05:59] VITALS: BP 144/85
[2017-12-29] MEDS: LACTULOSE 20 GM/30 ML SOLUTION. PO SCH ×3 (07:54→17:00)
[2017-12-29] MEDS: CYANOCOBALAMIN (VITAMIN B-12) 1,000 MCG TABLET. PO SCH (07:55)
[2017-12-29] MEDS: DIVALPROEX 125 MG CAP.SPRINK PO SCH ×3 (07:55→21:02)
[2017-12-29] MEDS: DONEPEZIL HCL 10 MG TABLET PO SCH (07:55)
[2017-12-29] MEDS: MULTIVITAMIN with MINERAL TABLET. PO SCH (07:55)
[2017-12-29] MEDS: QUEtiapine 25 MG TABLET. PO SCH ×2 (07:56→17:12)
[2017-12-29] MEDS: METOPROLOL TART IMMED RELEASE 50 MG TABLET PO SCH ×2 (07:57→21:02)
[2017-12-29] MEDS: ASPIRIN 81 MG TAB.CHEW PO SCH (07:57)
[2017-12-29] MEDS: SERTRALINE 50 MG TABLET. PO SCH (07:57)
[2017-12-29 16:34] VITALS: BP 107/74
[2017-12-29] MEDS: CHOLECALCIFEROL (VITAMIN D3) 1,000 UNIT TABLET PO SCH (17:12)
--- NOTE | 2017-12-29 20:06 | PDOC ---
Exam Note: Darci Note: Please also refer to the separate dictated note~for this date of service dictated separately.~Patient seen individually. Discussed the patient with Nursing staff reviewed the chart.~Reviewed interim history and current functioning. Reviewed vital signs,~Labs/ Radiology~and current medications noted below. Continue current treatment with the changes noted in the dictated addendum note Assessment: Vital Signs: Vital Signs Date Time Temp Pulse Resp B/P (MAP) Pulse Ox O2 Delivery O2 Flow Rate FiO2 12/29/17 16:34 98.1 100 20 107/74 (85) 91 12/27/17 08:33 Room Air I&O Intake and Output 12/29/17 07:00 Intake Total 960 ml Balance 960 ml Intake Oral 960 ml # Voids 1 # Bowel Movements 1 Current Medications: Meds: Current Medications Olanzapine (ZyPREXA ZYDIS) 2.5 mg PRN Q2HR PRN PO PSYCHOSIS Last administered on 12/28/17at 14:56; Start 12/27/17 at 12:45 Acetaminophen (Tylenol) 650 mg PRN Q6HRS PRN PO PAIN / TEMP; Start 12/27/17 at 13:00 Multi-Ingredient Ointment (Analgesic [place]) 1 sonja PRN QID PRN TP MUSCLE PAIN; Start 12/27/17 at 13:00 Al Hydroxide/Mg Hydroxide (Mylanta Plus Xs) 15 ml PRN AFTMEALHC PRN PO DYSPEPSIA; Start 12/27/17 at 13:00 Magnesium Hydroxide (Milk Of Magnesia) 2,400 mg PRN QHS PRN PO CONSTIPATION; Start 12/27/17 at 13:00 Atorvastatin Calcium (Lipitor) 20 mg QHS PO Last administered on 12/28/17at 20:35 ; Start 12/27/17 at 21:00 Vitamin D (Vitamin D3) 2,000 unit DAILYBFRSUP PO Last administered on 12/29/17at 17:12; Start 12/27/17 at 17:00 Cyanocobalamin (Vitamin B-12) 1,000 mcg DAILY PO Last administered on 12/29/17at 07:55; Start 12/28/17 at 09:00 Multi-Ingredient Ointment (Analgesic [place]) 1 sonja PRN QID PRN TP MUSCLE PAIN; Start 12/27/17 at 14:45; Stop 12/27/17 at 15:06; Status DC Sertraline HCl (Zoloft) 50 mg DAILY PO Last administered on 12/29/17 07:57; Start 12/28/17 at 09:00 Non-Formulary Medication (Acetaminophen ) 500 mg PRN Q6HRS PRN PO PAIN / TEMP; Start 12/27/17 at 14:45; Stop 12/27/17 at 15:11; Status DC Aspirin (Children'S Aspirin) 81 mg DAILYWBKFT PO Last administered on 12/29/17 07:57; Start 12/28/17 at 08:00 Divalproex Sodium (Depakote Sprinkles) 375 mg TID PO Last administered on 12:00; Start 12/27/17 at 21:00; Stop 12/28/17 at 18:33; Status DC Donepezil HCl (Aricept) 10 mg DAILY PO Last administered on 12/29/17 07:55; Start 12/28/17 at 09:00 Lactulose (Lactulose) 20 gm TID@0900,1300,1700 PO Last administered on 12:06; Start 12/27/17 at 17:00 Non-Formulary Medication (Mag Hydrox/Al Hydrox/Simeth (Advanced Antacid Liquid) ) 15 ml PRN AFTMEALHC PRN PO DYSPEPSIA; Start 12/27/17 at 14:45; Stop 12/27/17 at 15:06; Status DC Non-Formulary Medication (Magnesium Hydroxide (Milk Of Magnesia)) 2,400 mg PRN QHS PRN PO CONSTIPATION; Start 12/27/17 at 14:45; Stop 12/27/17 at 15:06; Status DC Melatonin 3 mg QHS PO Last administered on 12/28/17 20:36; Start 12/27/17 at 21: 00 Metoprolol Tartrate (Lopressor) 100 mg BID PO Last administered on 12/28/17 20: 35; Start 12/27/17 at 21:00 Mirtazapine (Remeron) 7.5 mg QHS PO Last administered on 12/28/17 20:35; Start 12/27/17 at 21:00 Multivitamins/ Calcium (Thera-M Plus) 1 tab DAILY PO Last administered on 6/3/ 18at 07:55; Start 12/28/17 at 09:00 Quetiapine Fumarate (SEROquel) 37.5 mg BID@0900,1700 PO Last administered on 12/29/17at 17:12; Start 12/27/17 at 17:00 Trazodone HCl (Desyrel) 50 mg PRN QHS PRN PO INSOMNIA Last administered on at 20:36; Start 12/27/17 at 15:30 Divalproex Sodium (Depakote Sprinkles) 500 mg TID PO Last administered on at 12:06; Start 12/28/17 at 21:00 Active Scripts Active Reported Multivitamins (Multivitamin) 1 Each Tablet 1 Tab PO DAILY Trazodone Hcl 100 Mg Tablet 100 Mg PO PRN QHS PRN Zoloft (Sertraline Hcl) 50 Mg Tablet 50 Mg PO DAILY Seroquel (Quetiapine Fumarate) 25 Mg Tablet 37.5 Mg PO BID@0900,1700 Seroquel (Quetiapine Fumarate) 25 Mg Tablet 12.5 Mg PO BID@1300,2100 Tablet (Pnv Cmb#95/Ferrous Fumarate/Fa) 1 Each Tablet 1 Tab PO DAILY Zyprexa Zydis (Olanzapine) 5 Mg Tab.rapdis 2.5 Mg PO PRN Q2HR PRN Curad Triple Antibiotic Oint (Neomycin/Bacitracin/Polymyxinb) 1 Each Oint.pack 1 Sonja TP BID Mirtazapine 15 Mg Tablet 7.5 Mg PO HS Analgesic [place] (Methyl Salicylate/Menthol) 28 Gm Oint...g. 1 Sonja TP PRN QID PRN Milk Of Magnesia (Magnesium Hydroxide) 2,400 Mg/10 Ml Oral.susp 2,400 Mg PO PRN QHS PRN Advanced Antacid Liquid (Mag Hydrox/Al Hydrox/Simeth) 355 Ml Oral.susp 15 Ml PO PRN AFTMEALHC PRN Donepezil Hcl 10 Mg Tablet 10 Mg PO DAILY Divalproex Sodium 125 Mg Cap.sprink 375 Mg PO TID Vitamin B-12 (Cyanocobalamin (Vitamin B-12)) 1,000 Mcg Tablet 1,000 Mcg PO DAILY Acetaminophen 500 Mg Tablet 500 Mg PO PRN Q6HRS PRN Melatonin 3 Mg Tablet 3 Mg PO QHS Atorvastatin Calcium 20 Mg Tablet 20 Mg PO QHS Lactulose 10 Gm/15 Ml Solution 20 Gm PO TID@0900,1300,1700 Metoprolol Tartrate 100 Mg Tablet 100 Mg PO BID Colace (Docusate Sodium) 100 Mg Capsule 100 Mg PO DAILY Vitamin D3 (Cholecalciferol (Vitamin D3)) 1,000 Unit Tablet 2,000 Unit PO DAILYBFRSUP Aspir-Low (Aspirin) 81 Mg Tablet. 81 Mg PO DAILY I have reviewed the current psychotropics carefully including drug interactions. Risk benefit ratio favors no change other than as noted in my dictated progress note. Diagnosis: Problems: (1) Anxiety disorder (2) Dementia in Alzheimer's disease with delusions (3) Dementia in Alzheimer's disease with depression (4) Dementia, vascular, with delirium (5) Dementia, vascular, with delusions (6) Impulse control disorder (7) Violent behavior ELLIS NOBLES MD Dec 29, 2017 20:06
[2017-12-29] MEDS: MELATONIN 3 MG TABLET PO SCH (21:02)
[2017-12-29] MEDS: ATORVASTATIN CALCIUM 20 MG TABLET PO SCH (21:02)
[2017-12-29] MEDS: traZODone 50 MG TABLET. PO PRN (21:02)
[2017-12-29] MEDS: MIRTAZAPINE 7.5 MG TABLET. PO SCH (21:02)
[2017-12-30 06:01] VITALS: BP 142/76
[2017-12-30] MEDS: DIVALPROEX 125 MG CAP.SPRINK PO SCH ×3 (08:23→19:52)
[2017-12-30] MEDS: CYANOCOBALAMIN (VITAMIN B-12) 1,000 MCG TABLET. PO SCH (08:24)
[2017-12-30] MEDS: ASPIRIN 81 MG TAB.CHEW PO SCH (08:24)
[2017-12-30] MEDS: SERTRALINE 50 MG TABLET. PO SCH (08:24)
[2017-12-30] MEDS: QUEtiapine 25 MG TABLET. PO SCH ×2 (08:24→17:38)
[2017-12-30] MEDS: METOPROLOL TART IMMED RELEASE 50 MG TABLET PO SCH ×2 (08:24→19:52)
[2017-12-30] MEDS: MULTIVITAMIN with MINERAL TABLET. PO SCH (08:25)
[2017-12-30] MEDS: LACTULOSE 20 GM/30 ML SOLUTION. PO SCH ×3 (08:25→17:38)
[2017-12-30] MEDS: DONEPEZIL HCL 10 MG TABLET PO SCH (08:27)
[2017-12-30 16:47] VITALS: BP 119/65
[2017-12-30] MEDS: CHOLECALCIFEROL (VITAMIN D3) 1,000 UNIT TABLET PO SCH (17:38)
[2017-12-30] MEDS: MIRTAZAPINE 7.5 MG TABLET. PO SCH (19:52)
[2017-12-30] MEDS: ATORVASTATIN CALCIUM 20 MG TABLET PO SCH (19:52)
[2017-12-30] MEDS: MELATONIN 3 MG TABLET PO SCH (19:52)
--- NOTE | 2017-12-30 20:56 | PDOC ---
Exam Note: Darci Note: Please also refer to the separate dictated note~for this date of service dictated separately.~Patient seen individually. Discussed the patient with Nursing staff reviewed the chart.~Reviewed interim history and current functioning. Reviewed vital signs,~Labs/ Radiology~and current medications noted below. Continue current treatment with the changes noted in the dictated addendum note Assessment: Vital Signs: Vital Signs Date Time Temp Pulse Resp B/P (MAP) Pulse Ox O2 Delivery O2 Flow Rate FiO2 12/30/17 19:52 66 119/65 12/30/17 16:47 97.0 17 95 Room Air I&O Intake and Output 12/30/17 07:00 Intake Total 1380 ml Balance 1380 ml Intake Oral 1380 ml Labs: Laboratory Tests Test 12/30/17 07:05 Ammonia 30 mcmol/L (11-34) Current Medications: Meds: Current Medications Olanzapine (ZyPREXA ZYDIS) 2.5 mg PRN Q2HR PRN PO PSYCHOSIS Last administered on 12/28/17at 14:56; Start 12/27/17 at 12:45 Acetaminophen (Tylenol) 650 mg PRN Q6HRS PRN PO PAIN / TEMP; Start 12/27/17 at 13:00 Multi-Ingredient Ointment (Analgesic [place]) 1 sonja PRN QID PRN TP MUSCLE PAIN; Start 12/27/17 at 13:00 Al Hydroxide/Mg Hydroxide (Mylanta Plus Xs) 15 ml PRN AFTMEALHC PRN PO DYSPEPSIA; Start 12/27/17 at 13:00 Magnesium Hydroxide (Milk Of Magnesia) 2,400 mg PRN QHS PRN PO CONSTIPATION; Start 12/27/17 at 13:00 Atorvastatin Calcium (Lipitor) 20 mg QHS PO Last administered on 12/30/17at 19:52 ; Start 12/27/17 at 21:00 Vitamin D (Vitamin D3) 2,000 unit DAILYBFRSUP PO Last administered on 12/30/17at 17:38; Start 12/27/17 at 17:00 Cyanocobalamin (Vitamin B-12) 1,000 mcg DAILY PO Last administered on 12/30/17at 08:24; Start 12/28/17 at 09:00 Multi-Ingredient Ointment (Analgesic [place]) 1 sonja PRN QID PRN TP MUSCLE PAIN; Start 12/27/17 at 14:45; Stop 12/27/17 at 15:06; Status DC Sertraline HCl (Zoloft) 50 mg DAILY PO Last administered on 12/30/17at 08:24; Start 12/28/17 at 09:00 Non-Formulary Medication (Acetaminophen ) 500 mg PRN Q6HRS PRN PO PAIN / TEMP; Start 12/27/17 at 14:45; Stop 12/27/17 at 15:11; Status DC Aspirin (Children'S Aspirin) 81 mg DAILYWBKFT PO Last administered on 12/30/17 08:24; Start 12/28/17 at 08:00 Divalproex Sodium (Depakote Sprinkles) 375 mg TID PO Last administered on at 12:00; Start 12/27/17 at 21:00; Stop 12/28/17 at 18:33; Status DC Donepezil HCl (Aricept) 10 mg DAILY PO Last administered on 12/30/17 08:27; Start 12/28/17 at 09:00 Lactulose (Lactulose) 20 gm TID@0900,1300,1700 PO Last administered on at 17:38; Start 12/27/17 at 17:00 Non-Formulary Medication (Mag Hydrox/Al Hydrox/Simeth (Advanced Antacid Liquid) ) 15 ml PRN AFTMEALHC PRN PO DYSPEPSIA; Start 12/27/17 at 14:45; Stop 12/27/17 at 15:06; Status DC Non-Formulary Medication (Magnesium Hydroxide (Milk Of Magnesia)) 2,400 mg PRN QHS PRN PO CONSTIPATION; Start 12/27/17 at 14:45; Stop 12/27/17 at 15:06; Status DC Melatonin 3 mg QHS PO Last administered on 12/30/17 19:52; Start 12/27/17 at 21: 00 Metoprolol Tartrate (Lopressor) 100 mg BID PO Last administered on 12/30/17 19: 52; Start 12/27/17 at 21:00 Mirtazapine (Remeron) 7.5 mg QHS PO Last administered on 12/30/17 19:52; Start 12/27/17 at 21:00 Multivitamins/ Calcium (Thera-M Plus) 1 tab DAILY PO Last administered on at 08:25; Start 12/28/17 at 09:00 Quetiapine Fumarate (SEROquel) 37.5 mg BID@0900,1700 PO Last administered on 12/30/17at 17:38; Start 12/27/17 at 17:00 Trazodone HCl (Desyrel) 50 mg PRN QHS PRN PO INSOMNIA Last administered on 21:02; Start 12/27/17 at 15:30 Divalproex Sodium (Depakote Sprinkles) 500 mg TID PO Last administered on at 19:52; Start 12/28/17 at 21:00 Active Scripts Active Reported Multivitamins (Multivitamin) 1 Each Tablet 1 Tab PO DAILY Trazodone Hcl 100 Mg Tablet 100 Mg PO PRN QHS PRN Zoloft (Sertraline Hcl) 50 Mg Tablet 50 Mg PO DAILY Seroquel (Quetiapine Fumarate) 25 Mg Tablet 37.5 Mg PO BID@0900,1700 Seroquel (Quetiapine Fumarate) 25 Mg Tablet 12.5 Mg PO BID@1300,2100 Tablet (Pnv Cmb#95/Ferrous Fumarate/Fa) 1 Each Tablet 1 Tab PO DAILY Zyprexa Zydis (Olanzapine) 5 Mg Tab.rapdis 2.5 Mg PO PRN Q2HR PRN Curad Triple Antibiotic Oint (Neomycin/Bacitracin/Polymyxinb) 1 Each Oint.pack 1 Sonja TP BID Mirtazapine 15 Mg Tablet 7.5 Mg PO HS Analgesic [place] (Methyl Salicylate/Menthol) 28 Gm Oint...g. 1 Sonja TP PRN QID PRN Milk Of Magnesia (Magnesium Hydroxide) 2,400 Mg/10 Ml Oral.susp 2,400 Mg PO PRN QHS PRN Advanced Antacid Liquid (Mag Hydrox/Al Hydrox/Simeth) 355 Ml Oral.susp 15 Ml PO PRN AFTMEALHC PRN Donepezil Hcl 10 Mg Tablet 10 Mg PO DAILY Divalproex Sodium 125 Mg Cap.sprink 375 Mg PO TID Vitamin B-12 (Cyanocobalamin (Vitamin B-12)) 1,000 Mcg Tablet 1,000 Mcg PO DAILY Acetaminophen 500 Mg Tablet 500 Mg PO PRN Q6HRS PRN Melatonin 3 Mg Tablet 3 Mg PO QHS Atorvastatin Calcium 20 Mg Tablet 20 Mg PO QHS Lactulose 10 Gm/15 Ml Solution 20 Gm PO TID@0900,1300,1700 Metoprolol Tartrate 100 Mg Tablet 100 Mg PO BID Colace (Docusate Sodium) 100 Mg Capsule 100 Mg PO DAILY Vitamin D3 (Cholecalciferol (Vitamin D3)) 1,000 Unit Tablet 2,000 Unit PO DAILYBFRSUP Aspir-Low (Aspirin) 81 Mg Tablet. 81 Mg PO DAILY I have reviewed the current psychotropics carefully including drug interactions. Risk benefit ratio favors no change other than as noted in my dictated progress note. Diagnosis: Problems: (1) Anxiety disorder (2) Dementia in Alzheimer's disease with delusions (3) Dementia in Alzheimer's disease with depression (4) Dementia, vascular, with delirium (5) Dementia, vascular, with delusions (6) Impulse control disorder (7) Violent behavior ELLIS NOBLES MD Dec 30, 2017 20:56
--- NOTE | 2017-12-30 22:06 | PN ---
DATE: 12/28/2017 This late entry 12/28/2017 covers elements not covered in my initial note 12/28/2017. I met with the patient in the evening. The patient slept 3-3/4 hours, remains confused, and received Zyprexa in the evening as he was exit seeking, refused medications, agitated. Valproic acid level 47. REVIEW OF SYSTEMS: No CV, , pulmonary, eye, ENT system symptoms on review. Reliability poor. MENTAL STATUS EXAM: Oriented to himself. Insight, judgment, recent and remote memory, attention, concentration, fund of knowledge poor, consistent with his diagnosis, not very verbal at all, oriented to himself, but nothing else. LABORATORY DATA: Reviewed. IMPRESSION: Major neurocognitive disorder, Alzheimer, vascular with delusion, depression, behavioral disturbance. Rest unchanged. PLAN: Continue current psychotropics. Valproic acid level subtherapeutic at 47. Increase Depakote Sprinkles from 375 t.i.d. to 500 three times a day. Check CBC, CMP, valproic acid level in 3 days. MAN Estefany NOBLES MD DR: MONICA/joe JOB#: [id number] / [id number]
[2017-12-31 06:16] VITALS: BP 122/76
[2017-12-31] MEDS: ASPIRIN 81 MG TAB.CHEW PO SCH (08:35)
[2017-12-31] MEDS: QUEtiapine 25 MG TABLET. PO SCH ×2 (08:35→17:11)
[2017-12-31] MEDS: MULTIVITAMIN with MINERAL TABLET. PO SCH (08:35)
[2017-12-31] MEDS: DIVALPROEX 125 MG CAP.SPRINK PO SCH ×3 (08:35→19:52)
[2017-12-31] MEDS: SERTRALINE 50 MG TABLET. PO SCH (08:36)
[2017-12-31] MEDS: DONEPEZIL HCL 10 MG TABLET PO SCH (08:36)
[2017-12-31] MEDS: CYANOCOBALAMIN (VITAMIN B-12) 1,000 MCG TABLET. PO SCH (08:36)
[2017-12-31] MEDS: METOPROLOL TART IMMED RELEASE 50 MG TABLET PO SCH ×2 (08:36→19:53)
[2017-12-31] MEDS: LACTULOSE 20 GM/30 ML SOLUTION. PO SCH ×3 (08:36→17:11)
--- NOTE | 2017-12-31 10:18 | PN ---
DATE: 12/29/2017 PSYCHIATRIC PROGRESS NOTE This late entry 12/29/2017, covers elements not covered in my initial note 12/29/2017. SUBJECTIVE: I met with the patient in the evening. Overall, the patient remains confused, somewhat flat, withdrawn, but calm, compliant with his medications. Appetite is fair. REVIEW OF SYSTEMS: No CV, , pulmonary, eye, ENT system symptoms on review. Reliability poor. MENTAL STATUS EXAM: Oriented to himself. Insight, judgment, recent and remote memory, attention, concentration, fund of knowledge poor, consistent with his diagnoses mentioned in my initial note. PLAN: Continue psychotropics mentioned in my initial note. MAN Estefany NOBLES MD DR: MONICA/joe JOB#: [id number] / [id number]
[2017-12-31 17:00] VITALS: BP 106/68
[2017-12-31] MEDS: CHOLECALCIFEROL (VITAMIN D3) 1,000 UNIT TABLET PO SCH (17:11)
[2017-12-31] MEDS: MELATONIN 3 MG TABLET PO SCH (19:50)
[2017-12-31] MEDS: ATORVASTATIN CALCIUM 20 MG TABLET PO SCH (19:52)
[2017-12-31] MEDS: MIRTAZAPINE 7.5 MG TABLET. PO SCH (19:53)
--- NOTE | 2017-12-31 20:59 | PDOC ---
Exam Note: Darci Note: Please also refer to the separate dictated note~for this date of service dictated separately.~Patient seen individually. Discussed the patient with Nursing staff reviewed the chart.~Reviewed interim history and current functioning. Reviewed vital signs,~Labs/ Radiology~and current medications noted below. Continue current treatment with the changes noted in the dictated addendum note Assessment: Vital Signs: Vital Signs Date Time Temp Pulse Resp B/P (MAP) Pulse Ox O2 Delivery O2 Flow Rate FiO2 12/31/17 19:53 58 106/68 12/31/17 17:00 97.7 16 97 12/30/17 16:47 Room Air I&O Intake and Output 12/31/17 07:00 Intake Total 840 ml Balance 840 ml Intake Oral 840 ml # Bowel Movements 1 Current Medications: Meds: Current Medications Olanzapine (ZyPREXA ZYDIS) 2.5 mg PRN Q2HR PRN PO PSYCHOSIS Last administered on 12/28/17at 14:56; Start 12/27/17 at 12:45 Acetaminophen (Tylenol) 650 mg PRN Q6HRS PRN PO PAIN / TEMP; Start 12/27/17 at 13:00 Multi-Ingredient Ointment (Analgesic [place]) 1 sonja PRN QID PRN TP MUSCLE PAIN; Start 12/27/17 at 13:00 Al Hydroxide/Mg Hydroxide (Mylanta Plus Xs) 15 ml PRN AFTMEALHC PRN PO DYSPEPSIA; Start 12/27/17 at 13:00 Magnesium Hydroxide (Milk Of Magnesia) 2,400 mg PRN QHS PRN PO CONSTIPATION; Start 12/27/17 at 13:00 Atorvastatin Calcium (Lipitor) 20 mg QHS PO Last administered on 12/31/17at 19:52 ; Start 12/27/17 at 21:00 Vitamin D (Vitamin D3) 2,000 unit DAILYBFRSUP PO Last administered on 12/31/17at 17:11; Start 12/27/17 at 17:00 Cyanocobalamin (Vitamin B-12) 1,000 mcg DAILY PO Last administered on 12/31/17at 08:36; Start 12/28/17 at 09:00 Multi-Ingredient Ointment (Analgesic [place]) 1 sonja PRN QID PRN TP MUSCLE PAIN; Start 12/27/17 at 14:45; Stop 12/27/17 at 15:06; Status DC Sertraline HCl (Zoloft) 50 mg DAILY PO Last administered on 12/31/17 08:36; Start 12/28/17 at 09:00 Non-Formulary Medication (Acetaminophen ) 500 mg PRN Q6HRS PRN PO PAIN / TEMP; Start 12/27/17 at 14:45; Stop 12/27/17 at 15:11; Status DC Aspirin (Children'S Aspirin) 81 mg DAILYWBKFT PO Last administered on 12/31/17 08:35; Start 12/28/17 at 08:00 Divalproex Sodium (Depakote Sprinkles) 375 mg TID PO Last administered on 12:00; Start 12/27/17 at 21:00; Stop 12/28/17 at 18:33; Status DC Donepezil HCl (Aricept) 10 mg DAILY PO Last administered on 12/31/17 08:36; Start 12/28/17 at 09:00 Lactulose (Lactulose) 20 gm TID@0900,1300,1700 PO Last administered on 17:11; Start 12/27/17 at 17:00 Non-Formulary Medication (Mag Hydrox/Al Hydrox/Simeth (Advanced Antacid Liquid) ) 15 ml PRN AFTMEALHC PRN PO DYSPEPSIA; Start 12/27/17 at 14:45; Stop 12/27/17 at 15:06; Status DC Non-Formulary Medication (Magnesium Hydroxide (Milk Of Magnesia)) 2,400 mg PRN QHS PRN PO CONSTIPATION; Start 12/27/17 at 14:45; Stop 12/27/17 at 15:06; Status DC Melatonin 3 mg QHS PO Last administered on 12/31/17 19:50; Start 12/27/17 at 21: 00 Metoprolol Tartrate (Lopressor) 100 mg BID PO Last administered on 12/31/17 19: 53; Start 12/27/17 at 21:00 Mirtazapine (Remeron) 7.5 mg QHS PO Last administered on 12/31/17 19:53; Start 12/27/17 at 21:00 Multivitamins/ Calcium (Thera-M Plus) 1 tab DAILY PO Last administered on 6/5/ 18at 08:35; Start 12/28/17 at 09:00 Quetiapine Fumarate (SEROquel) 37.5 mg BID@0900,1700 PO Last administered on 12/31/17at 17:11; Start 12/27/17 at 17:00 Trazodone HCl (Desyrel) 50 mg PRN QHS PRN PO INSOMNIA Last administered on 21:02; Start 12/27/17 at 15:30 Divalproex Sodium (Depakote Sprinkles) 500 mg TID PO Last administered on at 19:52; Start 12/28/17 at 21:00 Active Scripts Active Reported Multivitamins (Multivitamin) 1 Each Tablet 1 Tab PO DAILY Trazodone Hcl 100 Mg Tablet 100 Mg PO PRN QHS PRN Zoloft (Sertraline Hcl) 50 Mg Tablet 50 Mg PO DAILY Seroquel (Quetiapine Fumarate) 25 Mg Tablet 37.5 Mg PO BID@0900,1700 Seroquel (Quetiapine Fumarate) 25 Mg Tablet 12.5 Mg PO BID@1300,2100 Tablet (Pnv Cmb#95/Ferrous Fumarate/Fa) 1 Each Tablet 1 Tab PO DAILY Zyprexa Zydis (Olanzapine) 5 Mg Tab.rapdis 2.5 Mg PO PRN Q2HR PRN Curad Triple Antibiotic Oint (Neomycin/Bacitracin/Polymyxinb) 1 Each Oint.pack 1 Sonja TP BID Mirtazapine 15 Mg Tablet 7.5 Mg PO HS Analgesic [place] (Methyl Salicylate/Menthol) 28 Gm Oint...g. 1 Sonja TP PRN QID PRN Milk Of Magnesia (Magnesium Hydroxide) 2,400 Mg/10 Ml Oral.susp 2,400 Mg PO PRN QHS PRN Advanced Antacid Liquid (Mag Hydrox/Al Hydrox/Simeth) 355 Ml Oral.susp 15 Ml PO PRN AFTMEALHC PRN Donepezil Hcl 10 Mg Tablet 10 Mg PO DAILY Divalproex Sodium 125 Mg Cap.sprink 375 Mg PO TID Vitamin B-12 (Cyanocobalamin (Vitamin B-12)) 1,000 Mcg Tablet 1,000 Mcg PO DAILY Acetaminophen 500 Mg Tablet 500 Mg PO PRN Q6HRS PRN Melatonin 3 Mg Tablet 3 Mg PO QHS Atorvastatin Calcium 20 Mg Tablet 20 Mg PO QHS Lactulose 10 Gm/15 Ml Solution 20 Gm PO TID@0900,1300,1700 Metoprolol Tartrate 100 Mg Tablet 100 Mg PO BID Colace (Docusate Sodium) 100 Mg Capsule 100 Mg PO DAILY Vitamin D3 (Cholecalciferol (Vitamin D3)) 1,000 Unit Tablet 2,000 Unit PO DAILYBFRSUP Aspir-Low (Aspirin) 81 Mg Tablet. 81 Mg PO DAILY I have reviewed the current psychotropics carefully including drug interactions. Risk benefit ratio favors no change other than as noted in my dictated progress note. Diagnosis: Problems: (1) Anxiety disorder (2) Dementia in Alzheimer's disease with delusions (3) Dementia in Alzheimer's disease with depression (4) Dementia, vascular, with delirium (5) Dementia, vascular, with delusions (6) Impulse control disorder (7) Violent behavior ELLIS NOBLES MD Dec 31, 2017 20:58
--- NOTE | 2017-12-31 21:26 | PN ---
DATE: 12/30/2017 This is a late entry, 12/30/2017, covers the elements not covered in my initial note, 12/30/2017. SUBJECTIVE: I met with the patient in the evening. The patient slept 6-1/4 hours the previous evening, confused, wandering, serum ammonia level is 30, unremarkable. He has not been aggressive. REVIEW OF SYSTEMS: No CV, , pulmonary, eye, ENT system symptoms on review. He is oblivious of his surroundings, smiling as I met with him. MENTAL STATUS EXAM: Oriented to himself. Insight, judgment, recent and remote memory, attention, concentration, fund of knowledge poor, consistent with his diagnosis as mentioned in my initial note. IMPRESSION: Major neurocognitive disorder, Alzheimer, vascular with delusion, depression, behavioral disturbance. Rest unchanged. PLAN: Continue psychotropics as mentioned in my initial note, Zoloft, Aricept, Zyprexa p.r.n., Seroquel, and Depakote. Valproic acid level is 47. If aggression resurfaces, we will adjust this to reach therapeutic level. Maintain Remeron, trazodone along with melatonin. MAN Estefany NOBLES MD DR: MONICA/joe JOB#: [id number] / [id number]
[2018-01-01 06:40] VITALS: BP 156/90
[2018-01-01] MEDS: LACTULOSE 20 GM/30 ML SOLUTION. PO SCH ×3 (08:37→16:42)
[2018-01-01] MEDS: DONEPEZIL HCL 10 MG TABLET PO SCH (08:38)
[2018-01-01] MEDS: ASPIRIN 81 MG TAB.CHEW PO SCH (08:38)
[2018-01-01] MEDS: DIVALPROEX 125 MG CAP.SPRINK PO SCH ×3 (08:38→19:23)
[2018-01-01] MEDS: METOPROLOL TART IMMED RELEASE 50 MG TABLET PO SCH ×2 (08:38→19:24)
[2018-01-01] MEDS: MULTIVITAMIN with MINERAL TABLET. PO SCH (08:38)
[2018-01-01] MEDS: CYANOCOBALAMIN (VITAMIN B-12) 1,000 MCG TABLET. PO SCH (08:38)
[2018-01-01] MEDS: QUEtiapine 25 MG TABLET. PO SCH ×2 (08:39→16:42)
[2018-01-01] MEDS: SERTRALINE 50 MG TABLET. PO SCH (08:39)
[2018-01-01 09:37] LABS: BASO # 0.1 x10^3/uL (0.0-0.2); BASO % 1 % (0-3); EOS # 0.3 x10^3/uL (0.0-0.7); EOS % 4 % (0-3); HEMATOCRIT 42.9 % (39.0-53.0); HEMOGLOBIN 14.3 g/dL (13.0-17.5); LYMPH # 2.7 x10^3/uL (1.0-4.8); LYMPH % 34 % (24-48); MEAN CORPUSCULAR HEMOGLOBIN 33 pg (25-35); MEAN CORPUSCULAR HGB CONC 33 g/dL (31-37); MEAN CORPUSCULAR VOLUME 97 fL (79-100); MONO # 1.2 x10^3/uL (0.0-1.1); MONO % 15 % (0-9); NEUT # 3.6 x10^3uL (1.8-7.7); NEUT % 46 % (31-73); PLATELET COUNT 180 x10^3/uL (140-400); RED CELL DISTRIBUTION WIDTH 14.7 % (11.5-14.5); WHITE BLOOD COUNT 7.9 x10^3/uL (4.0-11.0)
[2018-01-01 09:48] LABS: ALBUMIN/GLOBULIN RATIO 0.7 (1.0-1.7); ALK PHOS 75 U/L (46-116); ALT (SGPT) 23 U/L (16-63); ANION GAP 6 (6-14); AST (SGOT) 16 U/L (15-37); BLOOD UREA NITROGEN 17 mg/dL (8-26); BUN/CREATININE RATIO 19 (6-20); CALCIUM 8.4 mg/dL (8.5-10.1); CARBON DIOXIDE 29 mmol/L (21-32); CHLORIDE 103 mmol/L (98-107); CREATININE 0.9 mg/dL (0.7-1.3); GFR 102.2; GLUCOSE 72 mg/dL (70-99); POTASSIUM 4.1 mmol/L (3.5-5.1); SODIUM 138 mmol/L (136-145); TOTAL BILIRUBIN 0.3 mg/dL (0.2-1.0); TOTAL PROTEIN 7.6 g/dL (6.4-8.2)
[2018-01-01 09:56] LABS: VAL ACID 63 mcg/mL (50-100)
--- NOTE | 2018-01-01 11:36 | PN ---
DATE: 12/31/2017 PSYCHIATRIC PROGRESS NOTE This is a late entry 12/31/2017, covers elements not covered in my initial note 12/31/2017. SUBJECTIVE: I met with the patient in the evening. The patient slept just 3 hours previous evening, slept poorly, did not receive repeat trazodone and we will give him the extra trazodone night of 12/31/2017 to see how he sleeps. Otherwise, he is confused, wandering the hallways, not aggressive. REVIEW OF SYSTEMS: No CV, , pulmonary, eye, ENT system symptoms on review. Reliability poor. MENTAL STATUS EXAM: Oriented to himself. Insight, judgment, recent and remote memory, attention, concentration, fund of knowledge poor, consistent with his diagnosis. IMPRESSION: Major neurocognitive disorder, Alzheimer, vascular with delusion, depression, behavioral disturbance. PLAN: Continue psychotropics from initial note, give the trazodone p.r.n. and at bedtime then decide further changes after that. ELLIS NOBELS MD DR: MONICA/joe JOB#: [id number] / [id number]
[2018-01-01 16:21] VITALS: BP 103/68
[2018-01-01] MEDS: CHOLECALCIFEROL (VITAMIN D3) 1,000 UNIT TABLET PO SCH (16:41)
[2018-01-01] MEDS: MELATONIN 3 MG TABLET PO SCH (19:22)
[2018-01-01] MEDS: ATORVASTATIN CALCIUM 20 MG TABLET PO SCH (19:23)
[2018-01-01] MEDS: MIRTAZAPINE 7.5 MG TABLET. PO SCH (19:24)
--- NOTE | 2018-01-01 20:53 | PDOC ---
Exam Note: Darci Note: Please also refer to the separate dictated note~for this date of service dictated separately.~Patient seen individually. Discussed the patient with Nursing staff reviewed the chart.~Reviewed interim history and current functioning. Reviewed vital signs,~Labs/ Radiology~and current medications noted below. Continue current treatment with the changes noted in the dictated addendum note Assessment: Vital Signs: Vital Signs Date Time Temp Pulse Resp B/P (MAP) Pulse Ox O2 Delivery O2 Flow Rate FiO2 01/01/18 19:24 63 103/68 01/01/18 16:21 97.2 18 99 12/30/17 16:47 Room Air I&O Intake and Output 01/01/18 07:00 Intake Total 1080 ml Balance 1080 ml Intake Oral 1080 ml # Bowel Movements 2 Labs: Laboratory Tests Test 01/01/18 09:09 White Blood Count 7.9 x10^3/uL (4.0-11.0) Red Blood Count 4.40 x10^6/uL (4.30-5.70) Hemoglobin 14.3 g/dL (13.0-17.5) Hematocrit 42.9 % (39.0-53.0) Mean Corpuscular Volume 97 fL (79-100) Mean Corpuscular Hemoglobin 33 pg (25-35) Mean Corpuscular Hemoglobin Concent 33 g/dL (31-37) Red Cell Distribution Width 14.7 % (11.5-14.5) H Platelet Count 180 x10^3/uL (140-400) Neutrophils (%) (Auto) 46 % (31-73) Lymphocytes (%) (Auto) 34 % (24-48) Monocytes (%) (Auto) 15 % (0-9) H Eosinophils (%) (Auto) 4 % (0-3) H Basophils (%) (Auto) 1 % (0-3) Neutrophils # (Auto) 3.6 x10^3uL (1.8-7.7) Lymphocytes # (Auto) 2.7 x10^3/uL (1.0-4.8) Monocytes # (Auto) 1.2 x10^3/uL (0.0-1.1) H Eosinophils # (Auto) 0.3 x10^3/uL (0.0-0.7) Basophils # (Auto) 0.1 x10^3/uL (0.0-0.2) Sodium Level 138 mmol/L (136-145) Potassium Level 4.1 mmol/L (3.5-5.1) Chloride Level 103 mmol/L (98-107) Carbon Dioxide Level 29 mmol/L (21-32) Anion Gap 6 (6-14) Blood Urea Nitrogen 17 mg/dL (8-26) Creatinine 0.9 mg/dL (0.7-1.3) Estimated GFR (Cockcroft-Gault) 102.2 BUN/Creatinine Ratio 19 (6-20) Glucose Level 72 mg/dL (70-99) Calcium Level 8.4 mg/dL (8.5-10.1) L Total Bilirubin 0.3 mg/dL (0.2-1.0) Aspartate Amino Transferase (AST) 16 U/L (15-37) Alanine Aminotransferase (ALT) 23 U/L (16-63) Alkaline Phosphatase 75 U/L (46-116) Total Protein 7.6 g/dL (6.4-8.2) Albumin 3.0 g/dL (3.4-5.0) L Albumin/Globulin Ratio 0.7 (1.0-1.7) L Valproic Acid Level 63 mcg/mL (50-100) Valproic Acid Last Dose Date 12/31/2017 Valproic Acid Last Dose Time 2100 Current Medications: Meds: Current Medications Olanzapine (ZyPREXA ZYDIS) 2.5 mg PRN Q2HR PRN PO PSYCHOSIS Last administered on 12/28/17at 14:56; Start 12/27/17 at 12:45 Acetaminophen (Tylenol) 650 mg PRN Q6HRS PRN PO PAIN / TEMP; Start 12/27/17 at 13:00 Multi-Ingredient Ointment (Analgesic [place]) 1 sonja PRN QID PRN TP MUSCLE PAIN; Start 12/27/17 at 13:00 Al Hydroxide/Mg Hydroxide (Mylanta Plus Xs) 15 ml PRN AFTMEALHC PRN PO DYSPEPSIA; Start 12/27/17 at 13:00 Magnesium Hydroxide (Milk Of Magnesia) 2,400 mg PRN QHS PRN PO CONSTIPATION; Start 12/27/17 at 13:00 Atorvastatin Calcium (Lipitor) 20 mg QHS PO Last administered on 01/01/18at 19:23 ; Start 12/27/17 at 21:00 Vitamin D (Vitamin D3) 2,000 unit DAILYBFRSUP PO Last administered on 01/01/18at 16:41; Start 12/27/17 at 17:00 Cyanocobalamin (Vitamin B-12) 1,000 mcg DAILY PO Last administered on 01/01/18at 08:38; Start 12/28/17 at 09:00 Multi-Ingredient Ointment (Analgesic [place]) 1 sonja PRN QID PRN TP MUSCLE PAIN; Start 12/27/17 at 14:45; Stop 12/27/17 at 15:06; Status DC Sertraline HCl (Zoloft) 50 mg DAILY PO Last administered on 01/01/18 08:39; Start 12/28/17 at 09:00 Non-Formulary Medication (Acetaminophen ) 500 mg PRN Q6HRS PRN PO PAIN / TEMP; Start 12/27/17 at 14:45; Stop 12/27/17 at 15:11; Status DC Aspirin (Children'S Aspirin) 81 mg DAILYWBKFT PO Last administered on 01/01/18at 08:38; Start 12/28/17 at 08:00 Divalproex Sodium (Depakote Sprinkles) 375 mg TID PO Last administered on at 12:00; Start 12/27/17 at 21:00; Stop 12/28/17 at 18:33; Status DC Donepezil HCl (Aricept) 10 mg DAILY PO Last administered on 01/01/18at 08:38; Start 12/28/17 at 09:00 Lactulose (Lactulose) 20 gm TID@0900,1300,1700 PO Last administered on at 16:42; Start 12/27/17 at 17:00 Non-Formulary Medication (Mag Hydrox/Al Hydrox/Simeth (Advanced Antacid Liquid) ) 15 ml PRN AFTMEALHC PRN PO DYSPEPSIA; Start 12/27/17 at 14:45; Stop 12/27/17 at 15:06; Status DC Non-Formulary Medication (Magnesium Hydroxide (Milk Of Magnesia)) 2,400 mg PRN QHS PRN PO CONSTIPATION; Start 12/27/17 at 14:45; Stop 12/27/17 at 15:06; Status DC Melatonin 3 mg QHS PO Last administered on 01/01/18 19:22; Start 12/27/17 at 21: 00 Metoprolol Tartrate (Lopressor) 100 mg BID PO Last administered on 01/01/18 08: 38; Start 12/27/17 at 21:00 Mirtazapine (Remeron) 7.5 mg QHS PO Last administered on 01/01/18 19:24; Start 12/27/17 at 21:00 Multivitamins/ Calcium (Thera-M Plus) 1 tab DAILY PO Last administered on 08:38; Start 12/28/17 at 09:00 Quetiapine Fumarate (SEROquel) 37.5 mg BID@0900,1700 PO Last administered on 16:42; Start 12/27/17 at 17:00 Trazodone HCl (Desyrel) 50 mg PRN QHS PRN PO INSOMNIA Last administered on 21:02; Start 12/27/17 at 15:30 Divalproex Sodium (Depakote Sprinkles) 500 mg TID PO Last administered on 19:23; Start 12/28/17 at 21:00 Active Scripts Active Reported Multivitamins (Multivitamin) 1 Each Tablet 1 Tab PO DAILY Trazodone Hcl 100 Mg Tablet 100 Mg PO PRN QHS PRN Zoloft (Sertraline Hcl) 50 Mg Tablet 50 Mg PO DAILY Seroquel (Quetiapine Fumarate) 25 Mg Tablet 37.5 Mg PO BID@0900,1700 Seroquel (Quetiapine Fumarate) 25 Mg Tablet 12.5 Mg PO BID@1300,2100 Tablet (Pnv Cmb#95/Ferrous Fumarate/Fa) 1 Each Tablet 1 Tab PO DAILY Zyprexa Zydis (Olanzapine) 5 Mg Tab.rapdis 2.5 Mg PO PRN Q2HR PRN Curad Triple Antibiotic Oint (Neomycin/Bacitracin/Polymyxinb) 1 Each Oint.pack 1 Sonja TP BID Mirtazapine 15 Mg Tablet 7.5 Mg PO HS Analgesic [place] (Methyl Salicylate/Menthol) 28 Gm Oint...g. 1 Sonja TP PRN QID PRN Milk Of Magnesia (Magnesium Hydroxide) 2,400 Mg/10 Ml Oral.susp 2,400 Mg PO PRN QHS PRN Advanced Antacid Liquid (Mag Hydrox/Al Hydrox/Simeth) 355 Ml Oral.susp 15 Ml PO PRN AFTMEALHC PRN Donepezil Hcl 10 Mg Tablet 10 Mg PO DAILY Divalproex Sodium 125 Mg Cap.sprink 375 Mg PO TID Vitamin B-12 (Cyanocobalamin (Vitamin B-12)) 1,000 Mcg Tablet 1,000 Mcg PO DAILY Acetaminophen 500 Mg Tablet 500 Mg PO PRN Q6HRS PRN Melatonin 3 Mg Tablet 3 Mg PO QHS Atorvastatin Calcium 20 Mg Tablet 20 Mg PO QHS Lactulose 10 Gm/15 Ml Solution 20 Gm PO TID@0900,1300,1700 Metoprolol Tartrate 100 Mg Tablet 100 Mg PO BID Colace (Docusate Sodium) 100 Mg Capsule 100 Mg PO DAILY Vitamin D3 (Cholecalciferol (Vitamin D3)) 1,000 Unit Tablet 2,000 Unit PO DAILYBFRSUP Aspir-Low (Aspirin) 81 Mg Tablet. 81 Mg PO DAILY I have reviewed the current psychotropics carefully including drug interactions. Risk benefit ratio favors no change other than as noted in my dictated progress note. Diagnosis: Problems: (1) Anxiety disorder (2) Dementia in Alzheimer's disease with delusions (3) Dementia in Alzheimer's disease with depression (4) Dementia, vascular, with delirium (5) Dementia, vascular, with delusions (6) Impulse control disorder (7) Violent behavior ELLIS NOBLES MD Jan 01, 2018 20:53
[2018-01-02 06:33] VITALS: BP 148/87
[2018-01-02] MEDS: MULTIVITAMIN with MINERAL TABLET. PO SCH (08:51)
[2018-01-02] MEDS: CYANOCOBALAMIN (VITAMIN B-12) 1,000 MCG TABLET. PO SCH (08:51)
[2018-01-02] MEDS: ASPIRIN 81 MG TAB.CHEW PO SCH (08:51)
[2018-01-02] MEDS: DONEPEZIL HCL 10 MG TABLET PO SCH (08:51)
[2018-01-02] MEDS: SERTRALINE 50 MG TABLET. PO SCH (08:51)
[2018-01-02] MEDS: DIVALPROEX 125 MG CAP.SPRINK PO SCH ×3 (08:52→19:56)
[2018-01-02] MEDS: METOPROLOL TART IMMED RELEASE 50 MG TABLET PO SCH ×2 (08:52→19:56)
[2018-01-02] MEDS: LACTULOSE 20 GM/30 ML SOLUTION. PO SCH ×3 (08:52→17:00)
[2018-01-02] MEDS: QUEtiapine 25 MG TABLET. PO SCH ×2 (08:52→17:44)
[2018-01-02 16:27] VITALS: BP 112/74
[2018-01-02] MEDS: CHOLECALCIFEROL (VITAMIN D3) 1,000 UNIT TABLET PO SCH (17:44)
[2018-01-02] MEDS: ATORVASTATIN CALCIUM 20 MG TABLET PO SCH (19:55)
[2018-01-02] MEDS: MIRTAZAPINE 7.5 MG TABLET. PO SCH (19:55)
[2018-01-02] MEDS: MELATONIN 3 MG TABLET PO SCH (19:55)
--- NOTE | 2018-01-02 22:32 | PDOC ---
Exam Note: Darci Note: Please also refer to the separate dictated note~for this date of service dictated separately.~Patient seen individually. Discussed the patient with Nursing staff reviewed the chart.~Reviewed interim history and current functioning. Reviewed vital signs,~Labs/ Radiology~and current medications noted below. Continue current treatment with the changes noted in the dictated addendum note Assessment: Vital Signs: Vital Signs Date Time Temp Pulse Resp B/P (MAP) Pulse Ox O2 Delivery O2 Flow Rate FiO2 01/02/18 19:56 64 112/74 01/02/18 16:27 97.2 20 01/02/18 06:33 100 12/30/17 16:47 Room Air I&O Intake and Output 01/02/18 07:00 Intake Total 1500 ml Balance 1500 ml Intake Oral 1500 ml # Voids 1 # Bowel Movements 2 Current Medications: Meds: Current Medications Olanzapine (ZyPREXA ZYDIS) 2.5 mg PRN Q2HR PRN PO PSYCHOSIS Last administered on 12/28/17at 14:56; Start 12/27/17 at 12:45 Acetaminophen (Tylenol) 650 mg PRN Q6HRS PRN PO PAIN / TEMP; Start 12/27/17 at 13:00 Multi-Ingredient Ointment (Analgesic [place]) 1 sonja PRN QID PRN TP MUSCLE PAIN; Start 12/27/17 at 13:00 Al Hydroxide/Mg Hydroxide (Mylanta Plus Xs) 15 ml PRN AFTMEALHC PRN PO DYSPEPSIA; Start 12/27/17 at 13:00 Magnesium Hydroxide (Milk Of Magnesia) 2,400 mg PRN QHS PRN PO CONSTIPATION; Start 12/27/17 at 13:00 Atorvastatin Calcium (Lipitor) 20 mg QHS PO Last administered on 01/02/18at 19:55 ; Start 12/27/17 at 21:00 Vitamin D (Vitamin D3) 2,000 unit DAILYBFRSUP PO Last administered on 01/02/18at 17:44; Start 12/27/17 at 17:00 Cyanocobalamin (Vitamin B-12) 1,000 mcg DAILY PO Last administered on 01/02/18at 08:51; Start 12/28/17 at 09:00 Multi-Ingredient Ointment (Analgesic [place]) 1 sonja PRN QID PRN TP MUSCLE PAIN; Start 12/27/17 at 14:45; Stop 12/27/17 at 15:06; Status DC Sertraline HCl (Zoloft) 50 mg DAILY PO Last administered on 01/02/18at 08:51; Start 12/28/17 at 09:00 Non-Formulary Medication (Acetaminophen ) 500 mg PRN Q6HRS PRN PO PAIN / TEMP; Start 12/27/17 at 14:45; Stop 12/27/17 at 15:11; Status DC Aspirin (Children'S Aspirin) 81 mg DAILYWBKFT PO Last administered on 01/02/18at 08:51; Start 12/28/17 at 08:00 Divalproex Sodium (Depakote Sprinkles) 375 mg TID PO Last administered on at 12:00; Start 12/27/17 at 21:00; Stop 12/28/17 at 18:33; Status DC Donepezil HCl (Aricept) 10 mg DAILY PO Last administered on 01/02/18at 08:51; Start 12/28/17 at 09:00 Lactulose (Lactulose) 20 gm TID@0900,1300,1700 PO Last administered on at 17:00; Start 12/27/17 at 17:00 Non-Formulary Medication (Mag Hydrox/Al Hydrox/Simeth (Advanced Antacid Liquid) ) 15 ml PRN AFTMEALHC PRN PO DYSPEPSIA; Start 12/27/17 at 14:45; Stop 12/27/17 at 15:06; Status DC Non-Formulary Medication (Magnesium Hydroxide (Milk Of Magnesia)) 2,400 mg PRN QHS PRN PO CONSTIPATION; Start 12/27/17 at 14:45; Stop 12/27/17 at 15:06; Status DC Melatonin 3 mg QHS PO Last administered on 01/02/18 19:55; Start 12/27/17 at 21: 00 Metoprolol Tartrate (Lopressor) 100 mg BID PO Last administered on 01/02/18 19: 56; Start 12/27/17 at 21:00 Mirtazapine (Remeron) 7.5 mg QHS PO Last administered on 01/02/18 19:55; Start 12/27/17 at 21:00 Multivitamins/ Calcium (Thera-M Plus) 1 tab DAILY PO Last administered on at 08:51; Start 12/28/17 at 09:00 Quetiapine Fumarate (SEROquel) 37.5 mg BID@0900,1700 PO Last administered on 01/02/18at 17:44; Start 12/27/17 at 17:00 Trazodone HCl (Desyrel) 50 mg PRN QHS PRN PO INSOMNIA Last administered on 21:02; Start 12/27/17 at 15:30 Divalproex Sodium (Depakote Sprinkles) 500 mg TID PO Last administered on at 19:56; Start 12/28/17 at 21:00 Active Scripts Active Reported Multivitamins (Multivitamin) 1 Each Tablet 1 Tab PO DAILY Trazodone Hcl 100 Mg Tablet 100 Mg PO PRN QHS PRN Zoloft (Sertraline Hcl) 50 Mg Tablet 50 Mg PO DAILY Seroquel (Quetiapine Fumarate) 25 Mg Tablet 37.5 Mg PO BID@0900,1700 Seroquel (Quetiapine Fumarate) 25 Mg Tablet 12.5 Mg PO BID@1300,2100 Tablet (Pnv Cmb#95/Ferrous Fumarate/Fa) 1 Each Tablet 1 Tab PO DAILY Zyprexa Zydis (Olanzapine) 5 Mg Tab.rapdis 2.5 Mg PO PRN Q2HR PRN Curad Triple Antibiotic Oint (Neomycin/Bacitracin/Polymyxinb) 1 Each Oint.pack 1 Sonja TP BID Mirtazapine 15 Mg Tablet 7.5 Mg PO HS Analgesic [place] (Methyl Salicylate/Menthol) 28 Gm Oint...g. 1 Sonja TP PRN QID PRN Milk Of Magnesia (Magnesium Hydroxide) 2,400 Mg/10 Ml Oral.susp 2,400 Mg PO PRN QHS PRN Advanced Antacid Liquid (Mag Hydrox/Al Hydrox/Simeth) 355 Ml Oral.susp 15 Ml PO PRN AFTMEALHC PRN Donepezil Hcl 10 Mg Tablet 10 Mg PO DAILY Divalproex Sodium 125 Mg Cap.sprink 375 Mg PO TID Vitamin B-12 (Cyanocobalamin (Vitamin B-12)) 1,000 Mcg Tablet 1,000 Mcg PO DAILY Acetaminophen 500 Mg Tablet 500 Mg PO PRN Q6HRS PRN Melatonin 3 Mg Tablet 3 Mg PO QHS Atorvastatin Calcium 20 Mg Tablet 20 Mg PO QHS Lactulose 10 Gm/15 Ml Solution 20 Gm PO TID@0900,1300,1700 Metoprolol Tartrate 100 Mg Tablet 100 Mg PO BID Colace (Docusate Sodium) 100 Mg Capsule 100 Mg PO DAILY Vitamin D3 (Cholecalciferol (Vitamin D3)) 1,000 Unit Tablet 2,000 Unit PO DAILYBFRSUP Aspir-Low (Aspirin) 81 Mg Tablet.dr 81 Mg PO DAILY I have reviewed the current psychotropics carefully including drug interactions. Risk benefit ratio favors no change other than as noted in my dictated progress note. Diagnosis: Problems: (1) Anxiety disorder (2) Dementia in Alzheimer's disease with delusions (3) Dementia in Alzheimer's disease with depression (4) Dementia, vascular, with delirium (5) Dementia, vascular, with delusions (6) Impulse control disorder (7) Violent behavior ELLIS NOBLES MD Jan 02, 2018 22:32
[2018-01-03 05:53] VITALS: BP 164/100
[2018-01-03] MEDS: QUEtiapine 25 MG TABLET. PO SCH ×2 (08:29→17:22)
[2018-01-03] MEDS: LACTULOSE 20 GM/30 ML SOLUTION. PO SCH ×3 (08:30→17:22)
[2018-01-03] MEDS: ASPIRIN 81 MG TAB.CHEW PO SCH (08:30)
[2018-01-03] MEDS: DONEPEZIL HCL 10 MG TABLET PO SCH (08:30)
[2018-01-03] MEDS: DIVALPROEX 125 MG CAP.SPRINK PO SCH ×3 (08:30→19:53)
[2018-01-03] MEDS: METOPROLOL TART IMMED RELEASE 50 MG TABLET PO SCH ×2 (08:30→19:53)
[2018-01-03] MEDS: CYANOCOBALAMIN (VITAMIN B-12) 1,000 MCG TABLET. PO SCH (08:30)
[2018-01-03] MEDS: SERTRALINE 50 MG TABLET. PO SCH (08:30)
[2018-01-03] MEDS: MULTIVITAMIN with MINERAL TABLET. PO SCH (08:30)
[2018-01-03 15:59] VITALS: BP 99/64
--- NOTE | 2018-01-03 17:13 | PN ---
DATE: 01/01/2018 PSYCHIATRIC PROGRESS NOTE This late entry 01/01/2018 covers elements, not covered in my initial note of 01/01/2018. I met with the patient in the evening. The patient slept 5-1/4 hours. Appetite fair. Alert, oriented to himself, not aggressive. REVIEW OF SYSTEMS: No CV, , pulmonary, eye, ENT system symptoms on review. Reliability poor. MENTAL STATUS EXAM: Oriented to himself. Insight, judgment, recent and remote memory, attention, concentration, fund of knowledge poor, consistent with his diagnosis mentioned in my initial note. LABORATORY DATA: Valproic acid level 63. PLAN: Continue psychotropics from my initial note. MAN Estefany NOBLES MD DR: MONICA/joe JOB#: [id number] / [id number]
[2018-01-03] MEDS: CHOLECALCIFEROL (VITAMIN D3) 1,000 UNIT TABLET PO SCH (17:21)
[2018-01-03] MEDS: ATORVASTATIN CALCIUM 20 MG TABLET PO SCH (19:52)
[2018-01-03] MEDS: MIRTAZAPINE 7.5 MG TABLET. PO SCH (19:52)
[2018-01-03] MEDS: MELATONIN 3 MG TABLET PO SCH (19:53)
--- NOTE | 2018-01-03 20:40 | PN ---
DATE: 01/02/2018 PSYCHIATRIC PROGRESS NOTE This is a late entry for 01/02/2018, covers elements not covered in my initial note. SUBJECTIVE: I met with the patient in the evening and staffed at a treatment team meeting with the entire team in the morning. The patient remains confused, less aggressive. REVIEW OF SYSTEMS: No CV, , pulmonary, eye, ENT system symptoms on review. Reliability poor. MENTAL STATUS EXAM: Oriented to himself. Insight, judgment, recent and remote memory, attention, concentration, fund of knowledge poor, consistent with his diagnosis from initial note. PLAN: Continue current psychotropics. Adjust as indicated. . MAN Estefany NOBLES MD DR: MONICA/joe JOB#: [id number] / [id number]
--- NOTE | 2018-01-03 23:19 | PDOC ---
Exam Note: Darci Note: Please also refer to the separate dictated note~for this date of service dictated separately.~Patient seen individually. Discussed the patient with Nursing staff reviewed the chart.~Reviewed interim history and current functioning. Reviewed vital signs,~Labs/ Radiology~and current medications noted below. Continue current treatment with the changes noted in the dictated addendum note Assessment: Vital Signs: Vital Signs Date Time Temp Pulse Resp B/P (MAP) Pulse Ox O2 Delivery O2 Flow Rate FiO2 01/03/18 19:53 58 99/48 01/03/18 15:59 97.5 16 98 12/30/17 16:47 Room Air I&O Intake and Output 01/03/18 07:00 Intake Total 720 ml Balance 720 ml Intake Oral 720 ml Current Medications: Meds: Current Medications Olanzapine (ZyPREXA ZYDIS) 2.5 mg PRN Q2HR PRN PO PSYCHOSIS Last administered on 12/28/17at 14:56; Start 12/27/17 at 12:45 Acetaminophen (Tylenol) 650 mg PRN Q6HRS PRN PO PAIN / TEMP; Start 12/27/17 at 13:00 Multi-Ingredient Ointment (Analgesic [place]) 1 sonja PRN QID PRN TP MUSCLE PAIN; Start 12/27/17 at 13:00 Al Hydroxide/Mg Hydroxide (Mylanta Plus Xs) 15 ml PRN AFTMEALHC PRN PO DYSPEPSIA; Start 12/27/17 at 13:00 Magnesium Hydroxide (Milk Of Magnesia) 2,400 mg PRN QHS PRN PO CONSTIPATION; Start 12/27/17 at 13:00 Atorvastatin Calcium (Lipitor) 20 mg QHS PO Last administered on 01/03/18at 19:52 ; Start 12/27/17 at 21:00 Vitamin D (Vitamin D3) 2,000 unit DAILYBFRSUP PO Last administered on 01/03/18at 17:21; Start 12/27/17 at 17:00 Cyanocobalamin (Vitamin B-12) 1,000 mcg DAILY PO Last administered on 01/03/18at 08:30; Start 12/28/17 at 09:00 Multi-Ingredient Ointment (Analgesic [place]) 1 sonja PRN QID PRN TP MUSCLE PAIN; Start 12/27/17 at 14:45; Stop 12/27/17 at 15:06; Status DC Sertraline HCl (Zoloft) 50 mg DAILY PO Last administered on 01/03/18 08:30; Start 12/28/17 at 09:00 Non-Formulary Medication (Acetaminophen ) 500 mg PRN Q6HRS PRN PO PAIN / TEMP; Start 12/27/17 at 14:45; Stop 12/27/17 at 15:11; Status DC Aspirin (Children'S Aspirin) 81 mg DAILYWBKFT PO Last administered on 01/03/18 08:30; Start 12/28/17 at 08:00 Divalproex Sodium (Depakote Sprinkles) 375 mg TID PO Last administered on 12:00; Start 12/27/17 at 21:00; Stop 12/28/17 at 18:33; Status DC Donepezil HCl (Aricept) 10 mg DAILY PO Last administered on 01/03/18 08:30; Start 12/28/17 at 09:00 Lactulose (Lactulose) 20 gm TID@0900,1300,1700 PO Last administered on 17:22; Start 12/27/17 at 17:00 Non-Formulary Medication (Mag Hydrox/Al Hydrox/Simeth (Advanced Antacid Liquid) ) 15 ml PRN AFTMEALHC PRN PO DYSPEPSIA; Start 12/27/17 at 14:45; Stop 12/27/17 at 15:06; Status DC Non-Formulary Medication (Magnesium Hydroxide (Milk Of Magnesia)) 2,400 mg PRN QHS PRN PO CONSTIPATION; Start 12/27/17 at 14:45; Stop 12/27/17 at 15:06; Status DC Melatonin 3 mg QHS PO Last administered on 01/03/18 19:53; Start 12/27/17 at 21: 00 Metoprolol Tartrate (Lopressor) 100 mg BID PO Last administered on 01/03/18 08: 30; Start 12/27/17 at 21:00 Mirtazapine (Remeron) 7.5 mg QHS PO Last administered on 01/03/18 19:52; Start 12/27/17 at 21:00 Multivitamins/ Calcium (Thera-M Plus) 1 tab DAILY PO Last administered on 6/8/ 18at 08:30; Start 12/28/17 at 09:00 Quetiapine Fumarate (SEROquel) 37.5 mg BID@0900,1700 PO Last administered on 01/03/18at 17:22; Start 12/27/17 at 17:00 Trazodone HCl (Desyrel) 50 mg PRN QHS PRN PO INSOMNIA Last administered on 21:02; Start 12/27/17 at 15:30 Divalproex Sodium (Depakote Sprinkles) 500 mg TID PO Last administered on at 19:53; Start 12/28/17 at 21:00 Olanzapine (ZyPREXA ZYDIS) 1.25 mg PRN Q2HR PRN PO PSYCHOSIS Last administered on 01/03/18 17:22; Start 01/03/18 at 16:00 Active Scripts Active Reported Multivitamins (Multivitamin) 1 Each Tablet 1 Tab PO DAILY Trazodone Hcl 100 Mg Tablet 100 Mg PO PRN QHS PRN Zoloft (Sertraline Hcl) 50 Mg Tablet 50 Mg PO DAILY Seroquel (Quetiapine Fumarate) 25 Mg Tablet 37.5 Mg PO BID@0900,1700 Seroquel (Quetiapine Fumarate) 25 Mg Tablet 12.5 Mg PO BID@1300,2100 Tablet (Pnv Cmb#95/Ferrous Fumarate/Fa) 1 Each Tablet 1 Tab PO DAILY Zyprexa Zydis (Olanzapine) 5 Mg Tab.rapdis 2.5 Mg PO PRN Q2HR PRN Curad Triple Antibiotic Oint (Neomycin/Bacitracin/Polymyxinb) 1 Each Oint.pack 1 Sonja TP BID Mirtazapine 15 Mg Tablet 7.5 Mg PO HS Analgesic [place] (Methyl Salicylate/Menthol) 28 Gm Oint...g. 1 Sonja TP PRN QID PRN Milk Of Magnesia (Magnesium Hydroxide) 2,400 Mg/10 Ml Oral.susp 2,400 Mg PO PRN QHS PRN Advanced Antacid Liquid (Mag Hydrox/Al Hydrox/Simeth) 355 Ml Oral.susp 15 Ml PO PRN AFTMEALHC PRN Donepezil Hcl 10 Mg Tablet 10 Mg PO DAILY Divalproex Sodium 125 Mg Cap.sprink 375 Mg PO TID Vitamin B-12 (Cyanocobalamin (Vitamin B-12)) 1,000 Mcg Tablet 1,000 Mcg PO DAILY Acetaminophen 500 Mg Tablet 500 Mg PO PRN Q6HRS PRN Melatonin 3 Mg Tablet 3 Mg PO QHS Atorvastatin Calcium 20 Mg Tablet 20 Mg PO QHS Lactulose 10 Gm/15 Ml Solution 20 Gm PO TID@0900,1300,1700 Metoprolol Tartrate 100 Mg Tablet 100 Mg PO BID Colace (Docusate Sodium) 100 Mg Capsule 100 Mg PO DAILY Vitamin D3 (Cholecalciferol (Vitamin D3)) 1,000 Unit Tablet 2,000 Unit PO DAILYBFRSUP Aspir-Low (Aspirin) 81 Mg Tablet. 81 Mg PO DAILY I have reviewed the current psychotropics carefully including drug interactions. Risk benefit ratio favors no change other than as noted in my dictated progress note. Diagnosis: Problems: (1) Anxiety disorder (2) Dementia in Alzheimer's disease with delusions (3) Dementia in Alzheimer's disease with depression (4) Dementia, vascular, with delirium (5) Dementia, vascular, with delusions (6) Impulse control disorder (7) Violent behavior ELLIS NBOLES MD Jan 03, 2018 23:19
[2018-01-04 06:02] VITALS: BP 174/81
[2018-01-04] MEDS: DONEPEZIL HCL 10 MG TABLET PO SCH (09:42)
[2018-01-04] MEDS: CYANOCOBALAMIN (VITAMIN B-12) 1,000 MCG TABLET. PO SCH (09:42)
[2018-01-04] MEDS: DIVALPROEX 125 MG CAP.SPRINK PO SCH ×3 (09:42→20:15)
[2018-01-04] MEDS: QUEtiapine 25 MG TABLET. PO SCH ×2 (09:43→17:04)
[2018-01-04] MEDS: METOPROLOL TART IMMED RELEASE 50 MG TABLET PO SCH ×2 (09:43→20:16)
[2018-01-04] MEDS: ASPIRIN 81 MG TAB.CHEW PO SCH (09:43)
[2018-01-04] MEDS: SERTRALINE 50 MG TABLET. PO SCH (09:44)
[2018-01-04] MEDS: LACTULOSE 20 GM/30 ML SOLUTION. PO SCH ×3 (09:44→17:02)
[2018-01-04] MEDS: MULTIVITAMIN with MINERAL TABLET. PO SCH (09:44)
--- NOTE | 2018-01-04 13:24 | PN ---
DATE: 01/03/2018 PSYCHIATRIC PROGRESS NOTE This is a late entry 01/03/2018 covers elements not covered in my initial note 01/03/2018. SUBJECTIVE: I met with the patient in the evening. The patient remains confused, wanders in the hallways, oblivious of his surroundings, but not aggressive. Appears somewhat depressed, unable to specify and respond about this to me when I questioned him. REVIEW OF SYSTEMS: No CV, , pulmonary, eye, ENT system symptoms on review. Reliability poor. MENTAL STATUS EXAM: Oriented to himself. Insight, judgment, recent and remote memory, attention, concentration, fund of knowledge poor, consistent with his diagnosis. Per nursing report, the day before on 01/02/2018 and in the evening of 01/02/2018, he was quite combative with care, especially with brief change. At night, he urinated on the floor, but during the day on 01/03/2018, he has been more redirectable. IMPRESSION: Major neurocognitive disorder, Alzheimer, vascular with delusion, depression, behavioral disturbance. Rest unchanged. PLAN: We will go ahead and start scheduled Zyprexa 1.25 mg to be given right before, about half hour before his briefs have to be changed. We will do this for the next few days and then discontinue it and hopefully break this habit and automatic response he seems to have generated when assisted. Continue rest unchanged including Aricept, Zoloft, Depakote along with Remeron, trazodone, and Seroquel. MAN Estefany NOBLES MD DR: MONICA/joe JOB#: [id number] / [id number]
[2018-01-04 16:32] VITALS: BP 109/73
[2018-01-04] MEDS: CHOLECALCIFEROL (VITAMIN D3) 1,000 UNIT TABLET PO SCH (17:02)
[2018-01-04] MEDS: MIRTAZAPINE 7.5 MG TABLET. PO SCH (20:15)
[2018-01-04] MEDS: ATORVASTATIN CALCIUM 20 MG TABLET PO SCH (20:15)
[2018-01-04] MEDS: MELATONIN 3 MG TABLET PO SCH (20:16)
[2018-01-04] MEDS: traZODone 50 MG TABLET. PO PRN (22:13)
[2018-01-05 05:45] VITALS: BP 118/54
[2018-01-05 05:47] VITALS: BP 155/83
[2018-01-05] MEDS: DONEPEZIL HCL 10 MG TABLET PO SCH (10:24)
[2018-01-05] MEDS: ASPIRIN 81 MG TAB.CHEW PO SCH (10:24)
[2018-01-05] MEDS: MULTIVITAMIN with MINERAL TABLET. PO SCH (10:25)
[2018-01-05] MEDS: SERTRALINE 50 MG TABLET. PO SCH (10:25)
[2018-01-05] MEDS: CYANOCOBALAMIN (VITAMIN B-12) 1,000 MCG TABLET. PO SCH (10:25)
[2018-01-05] MEDS: QUEtiapine 25 MG TABLET. PO SCH ×2 (10:25→17:26)
[2018-01-05] MEDS: METOPROLOL TART IMMED RELEASE 50 MG TABLET PO SCH ×2 (10:26→21:00)
[2018-01-05] MEDS: DIVALPROEX 125 MG CAP.SPRINK PO SCH ×3 (10:27→21:25)
[2018-01-05] MEDS: LACTULOSE 20 GM/30 ML SOLUTION. PO SCH ×3 (10:27→17:26)
[2018-01-05 16:40] VITALS: BP 98/61
[2018-01-05] MEDS: CHOLECALCIFEROL (VITAMIN D3) 1,000 UNIT TABLET PO SCH (17:26)
--- NOTE | 2018-01-05 20:40 | PDOC ---
Exam Note: Darci Note: Late entry for date of service January 04, 2018. Please also refer to the separate dictated note~for this date of service dictated separately.~Patient seen individually. Discussed the patient with Nursing staff reviewed the chart.~ Reviewed interim history and current functioning. Reviewed vital signs,~Labs/ Radiology~and current medications noted below. Continue current treatment with the changes noted in the dictated addendum note Assessment: Vital Signs: VS - Last 72 Hours, by Label Date Time Temp Pulse Resp B/P (MAP) Pulse Ox O2 Delivery O2 Flow Rate FiO2 01/05/18 16:40 97.6 62 18 98/61 (73) 96 01/05/18 10:26 57 155/83 01/05/18 05:47 97.8 57 18 155/83 (107) 98 01/05/18 05:45 97.8 18 18 118/54 (75) 99 01/04/18 20:16 68 109/73 01/04/18 16:32 97.8 61 19 109/73 (85) 97 01/04/18 09:43 74 174/81 01/04/18 06:02 74 20 174/81 (112) 95 01/03/18 19:53 58 99/48 01/03/18 15:59 97.5 58 16 99/64 (76) 98 01/03/18 08:30 65 164/100 01/03/18 05:53 97.3 65 18 164/100 (121) 90 Vital Signs Date Time Temp Pulse Resp B/P (MAP) Pulse Ox O2 Delivery O2 Flow Rate FiO2 01/05/18 16:40 97.6 62 18 98/61 (73) 96 12/30/17 16:47 Room Air I&O Intake and Output 01/05/18 07:00 Intake Total 840 ml Balance 840 ml Intake Oral 840 ml Current Medications: Meds: Current Medications Olanzapine (ZyPREXA ZYDIS) 2.5 mg PRN Q2HR PRN PO PSYCHOSIS Last administered on 01/05/18at 13:52; Start 12/27/17 at 12:45 Acetaminophen (Tylenol) 650 mg PRN Q6HRS PRN PO PAIN / TEMP; Start 12/27/17 at 13:00 Multi-Ingredient Ointment (Analgesic [place]) 1 sonja PRN QID PRN TP MUSCLE PAIN; Start 12/27/17 at 13:00 Al Hydroxide/Mg Hydroxide (Mylanta Plus Xs) 15 ml PRN AFTMEALHC PRN PO DYSPEPSIA; Start 12/27/17 at 13:00 Magnesium Hydroxide (Milk Of Magnesia) 2,400 mg PRN QHS PRN PO CONSTIPATION; Start 12/27/17 at 13:00 Atorvastatin Calcium (Lipitor) 20 mg QHS PO Last administered on 01/04/18at 20:15 ; Start 12/27/17 at 21:00 Vitamin D (Vitamin D3) 2,000 unit DAILYBFRSUP PO Last administered on at 17:26; Start 12/27/17 at 17:00 Cyanocobalamin (Vitamin B-12) 1,000 mcg DAILY PO Last administered on at 10:25; Start 12/28/17 at 09:00 Multi-Ingredient Ointment (Analgesic [place]) 1 sonja PRN QID PRN TP MUSCLE PAIN; Start 12/27/17 at 14:45; Stop 12/27/17 at 15:06; Status DC Sertraline HCl (Zoloft) 50 mg DAILY PO Last administered on 01/05/18at 10:25; Start 12/28/17 at 09:00 Non-Formulary Medication (Acetaminophen ) 500 mg PRN Q6HRS PRN PO PAIN / TEMP; Start 12/27/17 at 14:45; Stop 12/27/17 at 15:11; Status DC Aspirin (Children'S Aspirin) 81 mg DAILYWBKFT PO Last administered on at 10:24; Start 12/28/17 at 08:00 Divalproex Sodium (Depakote Sprinkles) 375 mg TID PO Last administered on at 12:00; Start 12/27/17 at 21:00; Stop 12/28/17 at 18:33; Status DC Donepezil HCl (Aricept) 10 mg DAILY PO Last administered on 01/05/18at 10:24; Start 12/28/17 at 09:00 Lactulose (Lactulose) 20 gm TID@0900,1300,1700 PO Last administered on at 17:26; Start 12/27/17 at 17:00 Non-Formulary Medication (Mag Hydrox/Al Hydrox/Simeth (Advanced Antacid Liquid) ) 15 ml PRN AFTMEALHC PRN PO DYSPEPSIA; Start 12/27/17 at 14:45; Stop 12/27/17 at 15:06; Status DC Non-Formulary Medication (Magnesium Hydroxide (Milk Of Magnesia)) 2,400 mg PRN QHS PRN PO CONSTIPATION; Start 12/27/17 at 14:45; Stop 12/27/17 at 15:06; Status DC Melatonin 3 mg QHS PO Last administered on 01/04/18at 20:16; Start 12/27/17 at 21: 00 Metoprolol Tartrate (Lopressor) 100 mg BID PO Last administered on 01/05/18 10 :26; Start 12/27/17 at 21:00 Mirtazapine (Remeron) 7.5 mg QHS PO Last administered on 01/04/18 20:15; Start 12/27/17 at 21:00; Stop 01/05/18 at 19:21; Status DC Multivitamins/ Calcium (Thera-M Plus) 1 tab DAILY PO Last administered on 10:25; Start 12/28/17 at 09:00 Quetiapine Fumarate (SEROquel) 37.5 mg BID@0900,1700 PO Last administered on 17:26; Start 12/27/17 at 17:00 Trazodone HCl (Desyrel) 50 mg PRN QHS PRN PO INSOMNIA Last administered on 22:13; Start 12/27/17 at 15:30 Divalproex Sodium (Depakote Sprinkles) 500 mg TID PO Last administered on at 14:32; Start 12/28/17 at 21:00 Olanzapine (ZyPREXA ZYDIS) 1.25 mg PRN Q2HR PRN PO PSYCHOSIS Last administered on 01/03/18 17:22; Start 01/03/18 at 16:00 Mirtazapine (Remeron) 15 mg QHS PO ; Start 01/05/18 at 21:00 Active Scripts Active Reported Multivitamins (Multivitamin) 1 Each Tablet 1 Tab PO DAILY Trazodone Hcl 100 Mg Tablet 100 Mg PO PRN QHS PRN Zoloft (Sertraline Hcl) 50 Mg Tablet 50 Mg PO DAILY Seroquel (Quetiapine Fumarate) 25 Mg Tablet 37.5 Mg PO BID@0900,1700 Seroquel (Quetiapine Fumarate) 25 Mg Tablet 12.5 Mg PO BID@1300,2100 Tablet (Pnv Cmb#95/Ferrous Fumarate/Fa) 1 Each Tablet 1 Tab PO DAILY Zyprexa Zydis (Olanzapine) 5 Mg Tab.rapdis 2.5 Mg PO PRN Q2HR PRN Curad Triple Antibiotic Oint (Neomycin/Bacitracin/Polymyxinb) 1 Each Oint.pack 1 Sonja TP BID Mirtazapine 15 Mg Tablet 7.5 Mg PO HS Analgesic [place] (Methyl Salicylate/Menthol) 28 Gm Oint...g. 1 Sonja TP PRN QID PRN Milk Of Magnesia (Magnesium Hydroxide) 2,400 Mg/10 Ml Oral.susp 2,400 Mg PO PRN QHS PRN Advanced Antacid Liquid (Mag Hydrox/Al Hydrox/Simeth) 355 Ml Oral.susp 15 Ml PO PRN AFTMEALHC PRN Donepezil Hcl 10 Mg Tablet 10 Mg PO DAILY Divalproex Sodium 125 Mg Cap.sprink 375 Mg PO TID Vitamin B-12 (Cyanocobalamin (Vitamin B-12)) 1,000 Mcg Tablet 1,000 Mcg PO DAILY Acetaminophen 500 Mg Tablet 500 Mg PO PRN Q6HRS PRN Melatonin 3 Mg Tablet 3 Mg PO QHS Atorvastatin Calcium 20 Mg Tablet 20 Mg PO QHS Lactulose 10 Gm/15 Ml Solution 20 Gm PO TID@0900,1300,1700 Metoprolol Tartrate 100 Mg Tablet 100 Mg PO BID Colace (Docusate Sodium) 100 Mg Capsule 100 Mg PO DAILY Vitamin D3 (Cholecalciferol (Vitamin D3)) 1,000 Unit Tablet 2,000 Unit PO DAILYBFRSUP Aspir-Low (Aspirin) 81 Mg Tablet.dr 81 Mg PO DAILY I have reviewed the current psychotropics carefully including drug interactions. Risk benefit ratio favors no change other than as noted in my dictated progress note. Diagnosis: Problems: (1) Anxiety disorder (2) Dementia in Alzheimer's disease with delusions (3) Dementia in Alzheimer's disease with depression (4) Dementia, vascular, with delirium (5) Dementia, vascular, with delusions (6) Impulse control disorder (7) Violent behavior MALLORIE,MAN M MD Jan 05, 2018 20:40
--- NOTE | 2018-01-05 20:40 | PDOC ---
Exam Note: Darci Note: Please also refer to the separate dictated note~for this date of service dictated separately.~Patient seen individually. Discussed the patient with Nursing staff reviewed the chart.~Reviewed interim history and current functioning. Reviewed vital signs,~Labs/ Radiology~and current medications noted below. Continue current treatment with the changes noted in the dictated addendum note Assessment: Vital Signs: Vital Signs Date Time Temp Pulse Resp B/P (MAP) Pulse Ox O2 Delivery O2 Flow Rate FiO2 01/05/18 16:40 97.6 62 18 98/61 (73) 96 12/30/17 16:47 Room Air I&O Intake and Output 01/05/18 07:00 Intake Total 840 ml Balance 840 ml Intake Oral 840 ml Current Medications: Meds: Current Medications Olanzapine (ZyPREXA ZYDIS) 2.5 mg PRN Q2HR PRN PO PSYCHOSIS Last administered on 01/05/18at 13:52; Start 12/27/17 at 12:45 Acetaminophen (Tylenol) 650 mg PRN Q6HRS PRN PO PAIN / TEMP; Start 12/27/17 at 13:00 Multi-Ingredient Ointment (Analgesic [place]) 1 sonja PRN QID PRN TP MUSCLE PAIN; Start 12/27/17 at 13:00 Al Hydroxide/Mg Hydroxide (Mylanta Plus Xs) 15 ml PRN AFTMEALHC PRN PO DYSPEPSIA; Start 12/27/17 at 13:00 Magnesium Hydroxide (Milk Of Magnesia) 2,400 mg PRN QHS PRN PO CONSTIPATION; Start 12/27/17 at 13:00 Atorvastatin Calcium (Lipitor) 20 mg QHS PO Last administered on 01/04/18at 20:15 ; Start 12/27/17 at 21:00 Vitamin D (Vitamin D3) 2,000 unit DAILYBFRSUP PO Last administered on at 17:26; Start 12/27/17 at 17:00 Cyanocobalamin (Vitamin B-12) 1,000 mcg DAILY PO Last administered on at 10:25; Start 12/28/17 at 09:00 Multi-Ingredient Ointment (Analgesic [place]) 1 sonja PRN QID PRN TP MUSCLE PAIN; Start 12/27/17 at 14:45; Stop 12/27/17 at 15:06; Status DC Sertraline HCl (Zoloft) 50 mg DAILY PO Last administered on 01/05/18at 10:25; Start 12/28/17 at 09:00 Non-Formulary Medication (Acetaminophen ) 500 mg PRN Q6HRS PRN PO PAIN / TEMP; Start 12/27/17 at 14:45; Stop 12/27/17 at 15:11; Status DC Aspirin (Children'S Aspirin) 81 mg DAILYWBKFT PO Last administered on at 10:24; Start 12/28/17 at 08:00 Divalproex Sodium (Depakote Sprinkles) 375 mg TID PO Last administered on at 12:00; Start 12/27/17 at 21:00; Stop 12/28/17 at 18:33; Status DC Donepezil HCl (Aricept) 10 mg DAILY PO Last administered on 01/05/18 10:24; Start 12/28/17 at 09:00 Lactulose (Lactulose) 20 gm TID@0900,1300,1700 PO Last administered on at 17:26; Start 12/27/17 at 17:00 Non-Formulary Medication (Mag Hydrox/Al Hydrox/Simeth (Advanced Antacid Liquid) ) 15 ml PRN AFTMEALHC PRN PO DYSPEPSIA; Start 12/27/17 at 14:45; Stop 12/27/17 at 15:06; Status DC Non-Formulary Medication (Magnesium Hydroxide (Milk Of Magnesia)) 2,400 mg PRN QHS PRN PO CONSTIPATION; Start 12/27/17 at 14:45; Stop 12/27/17 at 15:06; Status DC Melatonin 3 mg QHS PO Last administered on 01/04/18at 20:16; Start 12/27/17 at 21: 00 Metoprolol Tartrate (Lopressor) 100 mg BID PO Last administered on 01/05/18 10 :26; Start 12/27/17 at 21:00 Mirtazapine (Remeron) 7.5 mg QHS PO Last administered on 01/04/18at 20:15; Start 12/27/17 at 21:00; Stop 01/05/18 at 19:21; Status DC Multivitamins/ Calcium (Thera-M Plus) 1 tab DAILY PO Last administered on at 10:25; Start 12/28/17 at 09:00 Quetiapine Fumarate (SEROquel) 37.5 mg BID@0900,1700 PO Last administered on 05/15at 17:26; Start 12/27/17 at 17:00 Trazodone HCl (Desyrel) 50 mg PRN QHS PRN PO INSOMNIA Last administered on 22:13; Start 12/27/17 at 15:30 Divalproex Sodium (Depakote Sprinkles) 500 mg TID PO Last administered on at 14:32; Start 12/28/17 at 21:00 Olanzapine (ZyPREXA ZYDIS) 1.25 mg PRN Q2HR PRN PO PSYCHOSIS Last administered on 01/03/18at 17:22; Start 01/03/18 at 16:00 Mirtazapine (Remeron) 15 mg QHS PO ; Start 01/05/18 at 21:00 Active Scripts Active Reported Multivitamins (Multivitamin) 1 Each Tablet 1 Tab PO DAILY Trazodone Hcl 100 Mg Tablet 100 Mg PO PRN QHS PRN Zoloft (Sertraline Hcl) 50 Mg Tablet 50 Mg PO DAILY Seroquel (Quetiapine Fumarate) 25 Mg Tablet 37.5 Mg PO BID@0900,1700 Seroquel (Quetiapine Fumarate) 25 Mg Tablet 12.5 Mg PO BID@1300,2100 Tablet (Pnv Cmb#95/Ferrous Fumarate/Fa) 1 Each Tablet 1 Tab PO DAILY Zyprexa Zydis (Olanzapine) 5 Mg Tab.rapdis 2.5 Mg PO PRN Q2HR PRN Curad Triple Antibiotic Oint (Neomycin/Bacitracin/Polymyxinb) 1 Each Oint.pack 1 Sonja TP BID Mirtazapine 15 Mg Tablet 7.5 Mg PO HS Analgesic [place] (Methyl Salicylate/Menthol) 28 Gm Oint...g. 1 Sonja TP PRN QID PRN Milk Of Magnesia (Magnesium Hydroxide) 2,400 Mg/10 Ml Oral.susp 2,400 Mg PO PRN QHS PRN Advanced Antacid Liquid (Mag Hydrox/Al Hydrox/Simeth) 355 Ml Oral.susp 15 Ml PO PRN AFTMEALHC PRN Donepezil Hcl 10 Mg Tablet 10 Mg PO DAILY Divalproex Sodium 125 Mg Cap.sprink 375 Mg PO TID Vitamin B-12 (Cyanocobalamin (Vitamin B-12)) 1,000 Mcg Tablet 1,000 Mcg PO DAILY Acetaminophen 500 Mg Tablet 500 Mg PO PRN Q6HRS PRN Melatonin 3 Mg Tablet 3 Mg PO QHS Atorvastatin Calcium 20 Mg Tablet 20 Mg PO QHS Lactulose 10 Gm/15 Ml Solution 20 Gm PO TID@0900,1300,1700 Metoprolol Tartrate 100 Mg Tablet 100 Mg PO BID Colace (Docusate Sodium) 100 Mg Capsule 100 Mg PO DAILY Vitamin D3 (Cholecalciferol (Vitamin D3)) 1,000 Unit Tablet 2,000 Unit PO DAILYBFRSUP Aspir-Low (Aspirin) 81 Mg Tablet. 81 Mg PO DAILY I have reviewed the current psychotropics carefully including drug interactions. Risk benefit ratio favors no change other than as noted in my dictated progress note. Diagnosis: Problems: (1) Anxiety disorder (2) Dementia in Alzheimer's disease with delusions (3) Dementia in Alzheimer's disease with depression (4) Dementia, vascular, with delirium (5) Dementia, vascular, with delusions (6) Impulse control disorder (7) Violent behavior ELLIS NOBLES MD Jan 05, 2018 20:40
[2018-01-05] MEDS: MELATONIN 3 MG TABLET PO SCH (21:25)
[2018-01-05] MEDS: ATORVASTATIN CALCIUM 20 MG TABLET PO SCH (21:25)
[2018-01-05] MEDS: MIRTAZAPINE 15 MG TABLET PO SCH (21:27)
[2018-01-06 06:37] VITALS: BP 106/74
[2018-01-06] MEDS: METOPROLOL TART IMMED RELEASE 50 MG TABLET PO SCH ×2 (09:00→19:13)
[2018-01-06] MEDS: MULTIVITAMIN with MINERAL TABLET. PO SCH (09:01)
[2018-01-06] MEDS: LACTULOSE 20 GM/30 ML SOLUTION. PO SCH ×3 (09:01→17:00)
[2018-01-06] MEDS: QUEtiapine 25 MG TABLET. PO SCH ×2 (09:01→17:04)
[2018-01-06] MEDS: SERTRALINE 50 MG TABLET. PO SCH (09:01)
[2018-01-06] MEDS: CYANOCOBALAMIN (VITAMIN B-12) 1,000 MCG TABLET. PO SCH (09:01)
[2018-01-06] MEDS: DONEPEZIL HCL 10 MG TABLET PO SCH (09:01)
[2018-01-06] MEDS: ASPIRIN 81 MG TAB.CHEW PO SCH (09:01)
[2018-01-06] MEDS: DIVALPROEX 125 MG CAP.SPRINK PO SCH ×3 (09:02→19:12)
[2018-01-06 16:10] VITALS: BP 131/70
[2018-01-06] MEDS: CHOLECALCIFEROL (VITAMIN D3) 1,000 UNIT TABLET PO SCH (17:00)
[2018-01-06] MEDS: MIRTAZAPINE 15 MG TABLET PO SCH (19:12)
[2018-01-06] MEDS: MELATONIN 3 MG TABLET PO SCH (19:13)
[2018-01-06] MEDS: ATORVASTATIN CALCIUM 20 MG TABLET PO SCH (19:13)
[2018-01-06] MEDS: traZODone 50 MG TABLET. PO PRN (19:14)
--- NOTE | 2018-01-06 20:37 | PN ---
DATE: 01/04/2018 This is a late entry 01/04/2018, covers elements not covered in my initial note. SUBJECTIVE: I met with the patient in the evening. Per nursing report, the patient remains confused, somewhat anxious, restless, but redirectable. REVIEW OF SYSTEMS: No CV, , pulmonary, eye, ENT system symptoms on review. Reliability poor. MENTAL STATUS EXAM: Oriented to himself. Insight, judgment, recent and remote memory, attention, concentration, fund of knowledge poor, consistent with his diagnosis. LABORATORY DATA: Reviewed. PLAN: Continue current psychotropics. Adjust further as clinically indicated. MAN Estefany NOBLES MD DR: MONICA/joe JOB#: [id number] / [id number]
--- NOTE | 2018-01-06 20:56 | PDOC ---
Exam Note: Darci Note: Please also refer to the separate dictated note~for this date of service dictated separately.~Patient seen individually. Discussed the patient with Nursing staff reviewed the chart.~Reviewed interim history and current functioning. Reviewed vital signs,~Labs/ Radiology~and current medications noted below. Continue current treatment with the changes noted in the dictated addendum note Assessment: Vital Signs: Vital Signs Date Time Temp Pulse Resp B/P (MAP) Pulse Ox O2 Delivery O2 Flow Rate FiO2 01/06/18 19:13 92 131/70 01/06/18 16:10 97.8 16 97 I&O Intake and Output 01/06/18 07:00 Intake Total 925 ml Balance 925 ml Intake Oral 925 ml # Bowel Movements 1 Current Medications: Meds: Current Medications Olanzapine (ZyPREXA ZYDIS) 2.5 mg PRN Q2HR PRN PO PSYCHOSIS Last administered on 01/06/18at 17:04; Start 12/27/17 at 12:45 Acetaminophen (Tylenol) 650 mg PRN Q6HRS PRN PO PAIN / TEMP; Start 12/27/17 at 13:00 Multi-Ingredient Ointment (Analgesic [place]) 1 sonja PRN QID PRN TP MUSCLE PAIN; Start 12/27/17 at 13:00 Al Hydroxide/Mg Hydroxide (Mylanta Plus Xs) 15 ml PRN AFTMEALHC PRN PO DYSPEPSIA; Start 12/27/17 at 13:00 Magnesium Hydroxide (Milk Of Magnesia) 2,400 mg PRN QHS PRN PO CONSTIPATION; Start 12/27/17 at 13:00 Atorvastatin Calcium (Lipitor) 20 mg QHS PO Last administered on 01/06/18at 19: 13; Start 12/27/17 at 21:00 Vitamin D (Vitamin D3) 2,000 unit DAILYBFRSUP PO Last administered on at 17:26; Start 12/27/17 at 17:00 Cyanocobalamin (Vitamin B-12) 1,000 mcg DAILY PO Last administered on at 09:01; Start 12/28/17 at 09:00 Multi-Ingredient Ointment (Analgesic [place]) 1 sonja PRN QID PRN TP MUSCLE PAIN; Start 12/27/17 at 14:45; Stop 12/27/17 at 15:06; Status DC Sertraline HCl (Zoloft) 50 mg DAILY PO Last administered on 01/06/18 09:01; Start 12/28/17 at 09:00 Non-Formulary Medication (Acetaminophen ) 500 mg PRN Q6HRS PRN PO PAIN / TEMP; Start 12/27/17 at 14:45; Stop 12/27/17 at 15:11; Status DC Aspirin (Children'S Aspirin) 81 mg DAILYWBKFT PO Last administered on at 09:01; Start 12/28/17 at 08:00 Divalproex Sodium (Depakote Sprinkles) 375 mg TID PO Last administered on at 12:00; Start 12/27/17 at 21:00; Stop 12/28/17 at 18:33; Status DC Donepezil HCl (Aricept) 10 mg DAILY PO Last administered on 01/06/18 09:01; Start 12/28/17 at 09:00 Lactulose (Lactulose) 20 gm TID@0900,1300,1700 PO Last administered on at 09:01; Start 12/27/17 at 17:00 Non-Formulary Medication (Mag Hydrox/Al Hydrox/Simeth (Advanced Antacid Liquid) ) 15 ml PRN AFTMEALHC PRN PO DYSPEPSIA; Start 12/27/17 at 14:45; Stop 12/27/17 at 15:06; Status DC Non-Formulary Medication (Magnesium Hydroxide (Milk Of Magnesia)) 2,400 mg PRN QHS PRN PO CONSTIPATION; Start 12/27/17 at 14:45; Stop 12/27/17 at 15:06; Status DC Melatonin 3 mg QHS PO Last administered on 01/06/18at 19:13; Start 12/27/17 at 21 :00 Metoprolol Tartrate (Lopressor) 100 mg BID PO Last administered on 01/06/18 19 :13; Start 12/27/17 at 21:00 Mirtazapine (Remeron) 7.5 mg QHS PO Last administered on 01/04/18at 20:15; Start 12/27/17 at 21:00; Stop 01/05/18 at 19:21; Status DC Multivitamins/ Calcium (Thera-M Plus) 1 tab DAILY PO Last administered on at 09:01; Start 12/28/17 at 09:00 Quetiapine Fumarate (SEROquel) 37.5 mg BID@0900,1700 PO Last administered on 06/15at 17:04; Start 12/27/17 at 17:00; Stop 01/06/18 at 18:20; Status DC Trazodone HCl (Desyrel) 50 mg PRN QHS PRN PO INSOMNIA Last administered on 01/06at 19:14; Start 12/27/17 at 15:30 Divalproex Sodium (Depakote Sprinkles) 500 mg TID PO Last administered on at 19:12; Start 12/28/17 at 21:00 Olanzapine (ZyPREXA ZYDIS) 1.25 mg PRN Q2HR PRN PO PSYCHOSIS Last administered on 01/03/18at 17:22; Start 01/03/18 at 16:00 Mirtazapine (Remeron) 15 mg QHS PO Last administered on 01/06/18at 19:12; Start 01/05/18 at 21:00 Quetiapine Fumarate (SEROquel) 37.5 mg TID@0900,1300,1700 PO ; Start 01/07/18 at 09:00 Active Scripts Active Reported Multivitamins (Multivitamin) 1 Each Tablet 1 Tab PO DAILY Trazodone Hcl 100 Mg Tablet 100 Mg PO PRN QHS PRN Zoloft (Sertraline Hcl) 50 Mg Tablet 50 Mg PO DAILY Seroquel (Quetiapine Fumarate) 25 Mg Tablet 37.5 Mg PO BID@0900,1700 Seroquel (Quetiapine Fumarate) 25 Mg Tablet 12.5 Mg PO BID@1300,2100 Tablet (Pnv Cmb#95/Ferrous Fumarate/Fa) 1 Each Tablet 1 Tab PO DAILY Zyprexa Zydis (Olanzapine) 5 Mg Tab.rapdis 2.5 Mg PO PRN Q2HR PRN Curad Triple Antibiotic Oint (Neomycin/Bacitracin/Polymyxinb) 1 Each Oint.pack 1 Sonja TP BID Mirtazapine 15 Mg Tablet 7.5 Mg PO HS Analgesic [place] (Methyl Salicylate/Menthol) 28 Gm Oint...g. 1 Sonja TP PRN QID PRN Milk Of Magnesia (Magnesium Hydroxide) 2,400 Mg/10 Ml Oral.susp 2,400 Mg PO PRN QHS PRN Advanced Antacid Liquid (Mag Hydrox/Al Hydrox/Simeth) 355 Ml Oral.susp 15 Ml PO PRN AFTMEALHC PRN Donepezil Hcl 10 Mg Tablet 10 Mg PO DAILY Divalproex Sodium 125 Mg Cap.sprink 375 Mg PO TID Vitamin B-12 (Cyanocobalamin (Vitamin B-12)) 1,000 Mcg Tablet 1,000 Mcg PO DAILY Acetaminophen 500 Mg Tablet 500 Mg PO PRN Q6HRS PRN Melatonin 3 Mg Tablet 3 Mg PO QHS Atorvastatin Calcium 20 Mg Tablet 20 Mg PO QHS Lactulose 10 Gm/15 Ml Solution 20 Gm PO TID@0900,1300,1700 Metoprolol Tartrate 100 Mg Tablet 100 Mg PO BID Colace (Docusate Sodium) 100 Mg Capsule 100 Mg PO DAILY Vitamin D3 (Cholecalciferol (Vitamin D3)) 1,000 Unit Tablet 2,000 Unit PO DAILYBFRSUP Aspir-Low (Aspirin) 81 Mg Tablet. 81 Mg PO DAILY I have reviewed the current psychotropics carefully including drug interactions. Risk benefit ratio favors no change other than as noted in my dictated progress note. Diagnosis: Problems: (1) Anxiety disorder (2) Dementia in Alzheimer's disease with delusions (3) Dementia in Alzheimer's disease with depression (4) Dementia, vascular, with delirium (5) Dementia, vascular, with delusions (6) Impulse control disorder (7) Violent behavior ELLIS NOBLES MD Jan 06, 2018 20:56
--- NOTE | 2018-01-07 02:34 | PN ---
DATE: 01/05/2018 This late entry 01/05/2018 covers elements not covered in my initial note. SUBJECTIVE: Met with the patient in the evening. The patient slept 3 hours previous evening, remains confused, somewhat restless. No CV, , pulmonary, eye, ENT system symptoms on review. Reliability poor. MENTAL STATUS EXAM: Oriented to himself. Insight, judgment, recent and remote memory, attention, concentration, fund of knowledge poor, consistent with his diagnosis from initial note. PLAN: Increase Remeron from 7.5 at bedtime to 15 mg at bedtime. Valproic acid level therapeutic at 63. Continue rest unchanged. Hopefully, the Remeron will help the insomnia. MAN Estefany NOBLES MD DR: MONICA/joe JOB#: [id number] / [id number]
[2018-01-07 05:57] VITALS: BP 128/75
[2018-01-07 07:27] LABS: BASO # 0.1 x10^3/uL (0.0-0.2); BASO % 1 % (0-3); EOS # 0.5 x10^3/uL (0.0-0.7); EOS % 7 % (0-3); HEMATOCRIT 39.8 % (39.0-53.0); HEMOGLOBIN 13.4 g/dL (13.0-17.5); LYMPH # 2.5 x10^3/uL (1.0-4.8); LYMPH % 37 % (24-48); MEAN CORPUSCULAR HEMOGLOBIN 33 pg (25-35); MEAN CORPUSCULAR HGB CONC 34 g/dL (31-37); MEAN CORPUSCULAR VOLUME 97 fL (79-100); MONO # 0.8 x10^3/uL (0.0-1.1); MONO % 12 % (0-9); NEUT % 44 % (31-73); PLATELET COUNT 144 x10^3/uL (140-400); RED BLOOD COUNT 4.12 x10^6/uL (4.30-5.70); RED CELL DISTRIBUTION WIDTH 14.4 % (11.5-14.5); WHITE BLOOD COUNT 6.8 x10^3/uL (4.0-11.0)
[2018-01-07 07:32] LABS: ALBUMIN 2.9 g/dL (3.4-5.0); ALBUMIN/GLOBULIN RATIO 0.7 (1.0-1.7); CALCIUM 8.2 mg/dL (8.5-10.1); CREATININE 0.9 mg/dL (0.7-1.3); GFR 102.2; POTASSIUM 4.3 mmol/L (3.5-5.1); TOTAL BILIRUBIN 0.3 mg/dL (0.2-1.0)
[2018-01-07] MEDS: DIVALPROEX 125 MG CAP.SPRINK PO SCH ×3 (09:24→19:40)
[2018-01-07] MEDS: DONEPEZIL HCL 10 MG TABLET PO SCH (09:25)
[2018-01-07] MEDS: MULTIVITAMIN with MINERAL TABLET. PO SCH (09:25)
[2018-01-07] MEDS: LACTULOSE 20 GM/30 ML SOLUTION. PO SCH ×3 (09:25→17:06)
[2018-01-07] MEDS: CYANOCOBALAMIN (VITAMIN B-12) 1,000 MCG TABLET. PO SCH (09:25)
[2018-01-07] MEDS: METOPROLOL TART IMMED RELEASE 50 MG TABLET PO SCH ×2 (09:25→19:44)
[2018-01-07] MEDS: ASPIRIN 81 MG TAB.CHEW PO SCH (09:25)
[2018-01-07] MEDS: SERTRALINE 50 MG TABLET. PO SCH (09:25)
[2018-01-07] MEDS: QUEtiapine 25 MG TABLET. PO SCH ×3 (09:26→17:06)
[2018-01-07 13:59] LABS: BACTERIA,URINE 0 /HPF (0-FEW); BILIRUBIN,URINE NEG (NEG); CLARITY,URINE HAZY; COLOR,URINE AMBER; GLUCOSE,URINE NEG (NEG); NITRITE,URINE NEG (NEG); SQUAMOUS EPITHELIAL CELL,UR FEW /LPF; UROBILINOGEN,URINE 1 mg/dL (0.2 mg/dL)
[2018-01-07 16:53] VITALS: BP 96/62
[2018-01-07] MEDS: CHOLECALCIFEROL (VITAMIN D3) 1,000 UNIT TABLET PO SCH (17:06)
[2018-01-07] MEDS: ATORVASTATIN CALCIUM 20 MG TABLET PO SCH (19:40)
[2018-01-07] MEDS: MIRTAZAPINE 15 MG TABLET PO SCH (19:40)
[2018-01-07] MEDS: MELATONIN 3 MG TABLET PO SCH (19:40)
[2018-01-07] MEDS: traZODone 50 MG TABLET. PO PRN (19:42)
--- NOTE | 2018-01-07 20:15 | PDOC ---
Exam Note: Darci Note: Please also refer to the separate dictated note~for this date of service dictated separately.~Patient seen individually. Discussed the patient with Nursing staff reviewed the chart.~Reviewed interim history and current functioning. Reviewed vital signs,~Labs/ Radiology~and current medications noted below. Continue current treatment with the changes noted in the dictated addendum note Assessment: Vital Signs: Vital Signs Date Time Temp Pulse Resp B/P (MAP) Pulse Ox O2 Delivery O2 Flow Rate FiO2 01/07/18 19:44 64 96/62 01/07/18 16:53 97.5 16 100 Room Air I&O Intake and Output 01/07/18 07:00 Intake Total 1200 ml Balance 1200 ml Intake Oral 1200 ml Labs: Laboratory Tests Test 01/07/18 07:05 01/07/18 13:40 White Blood Count 6.8 x10^3/uL (4.0-11.0) Red Blood Count 4.12 x10^6/uL (4.30-5.70) L Hemoglobin 13.4 g/dL (13.0-17.5) Hematocrit 39.8 % (39.0-53.0) Mean Corpuscular Volume 97 fL (79-100) Mean Corpuscular Hemoglobin 33 pg (25-35) Mean Corpuscular Hemoglobin Concent 34 g/dL (31-37) Red Cell Distribution Width 14.4 % (11.5-14.5) Platelet Count 144 x10^3/uL (140-400) Neutrophils (%) (Auto) 44 % (31-73) Lymphocytes (%) (Auto) 37 % (24-48) Monocytes (%) (Auto) 12 % (0-9) H Eosinophils (%) (Auto) 7 % (0-3) H Basophils (%) (Auto) 1 % (0-3) Neutrophils # (Auto) 3.0 x10^3uL (1.8-7.7) Lymphocytes # (Auto) 2.5 x10^3/uL (1.0-4.8) Monocytes # (Auto) 0.8 x10^3/uL (0.0-1.1) Eosinophils # (Auto) 0.5 x10^3/uL (0.0-0.7) Basophils # (Auto) 0.1 x10^3/uL (0.0-0.2) Sodium Level 138 mmol/L (136-145) Potassium Level 4.3 mmol/L (3.5-5.1) Chloride Level 103 mmol/L (98-107) Carbon Dioxide Level 29 mmol/L (21-32) Anion Gap 6 (6-14) Blood Urea Nitrogen 19 mg/dL (8-26) Creatinine 0.9 mg/dL (0.7-1.3) Estimated GFR (Cockcroft-Gault) 102.2 BUN/Creatinine Ratio 21 (6-20) H Glucose Level 77 mg/dL (70-99) Calcium Level 8.2 mg/dL (8.5-10.1) L Total Bilirubin 0.3 mg/dL (0.2-1.0) Aspartate Amino Transferase (AST) 15 U/L (15-37) Alanine Aminotransferase (ALT) 21 U/L (16-63) Alkaline Phosphatase 68 U/L (46-116) Total Protein 7.0 g/dL (6.4-8.2) Albumin 2.9 g/dL (3.4-5.0) L Albumin/Globulin Ratio 0.7 (1.0-1.7) L Urine Collection Type Unknown Urine Color Britney Urine Clarity Hazy Urine pH 5.5 Urine Specific [place] 1.025 Urine Protein Trace (NEG-TRACE) Urine Glucose (UA) Neg mg/dL (NEG) Urine Ketones (Stick) 15 mg/dL (NEG) Urine Blood Neg (NEG) Urine Nitrite Neg (NEG) Urine Bilirubin Neg (NEG) Urine Urobilinogen Dipstick 1 mg/dL (0.2 mg/dL) Urine Leukocyte Esterase Neg (NEG) Urine RBC 1-2 /HPF (0-2) Urine WBC 1-4 /HPF (0-4) Urine Squamous Epithelial Cells Few /LPF Urine Bacteria 0 /HPF (0-FEW) Urine Mucus Mod /LPF Current Medications: Meds: Current Medications Olanzapine (ZyPREXA ZYDIS) 2.5 mg PRN Q2HR PRN PO PSYCHOSIS Last administered on 01/06/18at 17:04; Start 12/27/17 at 12:45 Acetaminophen (Tylenol) 650 mg PRN Q6HRS PRN PO PAIN / TEMP; Start 12/27/17 at 13:00 Multi-Ingredient Ointment (Analgesic [place]) 1 sonja PRN QID PRN TP MUSCLE PAIN; Start 12/27/17 at 13:00 Al Hydroxide/Mg Hydroxide (Mylanta Plus Xs) 15 ml PRN AFTMEALHC PRN PO DYSPEPSIA; Start 12/27/17 at 13:00 Magnesium Hydroxide (Milk Of Magnesia) 2,400 mg PRN QHS PRN PO CONSTIPATION; Start 12/27/17 at 13:00 Atorvastatin Calcium (Lipitor) 20 mg QHS PO Last administered on 01/07/18at 19: 40; Start 12/27/17 at 21:00 Vitamin D (Vitamin D3) 2,000 unit DAILYBFRSUP PO Last administered on at 17:06; Start 12/27/17 at 17:00 Cyanocobalamin (Vitamin B-12) 1,000 mcg DAILY PO Last administered on at 09:25; Start 12/28/17 at 09:00 Multi-Ingredient Ointment (Analgesic [place]) 1 sonja PRN QID PRN TP MUSCLE PAIN; Start 12/27/17 at 14:45; Stop 12/27/17 at 15:06; Status DC Sertraline HCl (Zoloft) 50 mg DAILY PO Last administered on 01/07/18at 09:25; Start 12/28/17 at 09:00 Non-Formulary Medication (Acetaminophen ) 500 mg PRN Q6HRS PRN PO PAIN / TEMP; Start 12/27/17 at 14:45; Stop 12/27/17 at 15:11; Status DC Aspirin (Children'S Aspirin) 81 mg DAILYWBKFT PO Last administered on at 09:25; Start 12/28/17 at 08:00 Divalproex Sodium (Depakote Sprinkles) 375 mg TID PO Last administered on at 12:00; Start 12/27/17 at 21:00; Stop 12/28/17 at 18:33; Status DC Donepezil HCl (Aricept) 10 mg DAILY PO Last administered on 01/07/18at 09:25; Start 12/28/17 at 09:00; Stop 01/07/18 at 18:04; Status DC Lactulose (Lactulose) 20 gm TID@0900,1300,1700 PO Last administered on at 17:06; Start 12/27/17 at 17:00 Non-Formulary Medication (Mag Hydrox/Al Hydrox/Simeth (Advanced Antacid Liquid) ) 15 ml PRN AFTMEALHC PRN PO DYSPEPSIA; Start 12/27/17 at 14:45; Stop 12/27/17 at 15:06; Status DC Non-Formulary Medication (Magnesium Hydroxide (Milk Of Magnesia)) 2,400 mg PRN QHS PRN PO CONSTIPATION; Start 12/27/17 at 14:45; Stop 12/27/17 at 15:06; Status DC Melatonin 3 mg QHS PO Last administered on 01/07/18 19:40; Start 12/27/17 at 21 :00 Metoprolol Tartrate (Lopressor) 100 mg BID PO Last administered on 01/07/18 09 :25; Start 12/27/17 at 21:00 Mirtazapine (Remeron) 7.5 mg QHS PO Last administered on 01/04/18 20:15; Start 12/27/17 at 21:00; Stop 01/05/18 at 19:21; Status DC Multivitamins/ Calcium (Thera-M Plus) 1 tab DAILY PO Last administered on 09:25; Start 12/28/17 at 09:00 Quetiapine Fumarate (SEROquel) 37.5 mg BID@0900,1700 PO Last administered on 17:04; Start 12/27/17 at 17:00; Stop 01/06/18 at 18:20; Status DC Trazodone HCl (Desyrel) 50 mg PRN QHS PRN PO INSOMNIA Last administered on 01/07 19:42; Start 12/27/17 at 15:30 Divalproex Sodium (Depakote Sprinkles) 500 mg TID PO Last administered on 19:40; Start 12/28/17 at 21:00 Olanzapine (ZyPREXA ZYDIS) 1.25 mg PRN Q2HR PRN PO PSYCHOSIS Last administered on 01/03/18 17:22; Start 01/03/18 at 16:00 Mirtazapine (Remeron) 15 mg QHS PO Last administered on 01/07/18 19:40; Start 01/05/18 at 21:00 Quetiapine Fumarate (SEROquel) 37.5 mg TID@0900,1300,1700 PO Last administered on 01/07/18at 17:06; Start 01/07/18 at 09:00 Active Scripts Active Reported Multivitamins (Multivitamin) 1 Each Tablet 1 Tab PO DAILY Trazodone Hcl 100 Mg Tablet 100 Mg PO PRN QHS PRN Zoloft (Sertraline Hcl) 50 Mg Tablet 50 Mg PO DAILY Seroquel (Quetiapine Fumarate) 25 Mg Tablet 37.5 Mg PO BID@0900,1700 Seroquel (Quetiapine Fumarate) 25 Mg Tablet 12.5 Mg PO BID@1300,2100 Tablet (Pnv Cmb#95/Ferrous Fumarate/Fa) 1 Each Tablet 1 Tab PO DAILY Zyprexa Zydis (Olanzapine) 5 Mg Tab.rapdis 2.5 Mg PO PRN Q2HR PRN Curad Triple Antibiotic Oint (Neomycin/Bacitracin/Polymyxinb) 1 Each Oint.pack 1 Sonja TP BID Mirtazapine 15 Mg Tablet 7.5 Mg PO HS Analgesic [place] (Methyl Salicylate/Menthol) 28 Gm Oint...g. 1 Sonja TP PRN QID PRN Milk Of Magnesia (Magnesium Hydroxide) 2,400 Mg/10 Ml Oral.susp 2,400 Mg PO PRN QHS PRN Advanced Antacid Liquid (Mag Hydrox/Al Hydrox/Simeth) 355 Ml Oral.susp 15 Ml PO PRN AFTMEALHC PRN Donepezil Hcl 10 Mg Tablet 10 Mg PO DAILY Divalproex Sodium 125 Mg Cap.sprink 375 Mg PO TID Vitamin B-12 (Cyanocobalamin (Vitamin B-12)) 1,000 Mcg Tablet 1,000 Mcg PO DAILY Acetaminophen 500 Mg Tablet 500 Mg PO PRN Q6HRS PRN Melatonin 3 Mg Tablet 3 Mg PO QHS Atorvastatin Calcium 20 Mg Tablet 20 Mg PO QHS Lactulose 10 Gm/15 Ml Solution 20 Gm PO TID@0900,1300,1700 Metoprolol Tartrate 100 Mg Tablet 100 Mg PO BID Colace (Docusate Sodium) 100 Mg Capsule 100 Mg PO DAILY Vitamin D3 (Cholecalciferol (Vitamin D3)) 1,000 Unit Tablet 2,000 Unit PO DAILYBFRSUP Aspir-Low (Aspirin) 81 Mg Tablet. 81 Mg PO DAILY I have reviewed the current psychotropics carefully including drug interactions. Risk benefit ratio favors no change other than as noted in my dictated progress note. Diagnosis: Problems: (1) Anxiety disorder (2) Dementia in Alzheimer's disease with delusions (3) Dementia in Alzheimer's disease with depression (4) Dementia, vascular, with delirium (5) Dementia, vascular, with delusions (6) Impulse control disorder (7) Violent behavior ELLIS NOBLES MD Jan 07, 2018 20:15
--- NOTE | 2018-01-08 00:01 | PN ---
DATE: 01/06/2018 This late entry 01/06/2018 covers elements not covered in my initial note 01/06/2018. SUBJECTIVE: I met with the patient in the evening. The patient slept 6 hours previous night, noncompliant with medications, agitated, aggressive, disruptive, received Zyprexa x 2 to help with this. He was agitated around dinnertime and used the F word to a nursing staff member per nursing report. Urinated on the floor. We will check a UA to make sure he does not have a UTI to explain some of the change in his mood lability, psychosis, agitation. REVIEW OF SYSTEMS: No CV, , pulmonary, eye, ENT system symptoms on review. MENTAL STATUS EXAM: Oriented to himself. Insight, judgment, recent and remote memory, attention, concentration, fund of knowledge poor, consistent with his diagnosis mentioned in my initial note. IMPRESSION: Major neurocognitive disorder, Alzheimer, vascular with delusion, depression, behavioral disturbance. Rest unchanged. PLAN: Check UA to rule out urinary tract infection. Increase Seroquel from 37.5 mg b.i.d. to 37.5 mg three times a day. Continue rest unchanged per initial note for now. ELLIS NOBLES MD DR: MONICA/joe JOB#: [id number] / [id number]
[2018-01-08 07:13] VITALS: BP 110/65
[2018-01-08] MEDS: METOPROLOL TART IMMED RELEASE 50 MG TABLET PO SCH ×2 (09:16→19:27)
[2018-01-08] MEDS: DIVALPROEX 125 MG CAP.SPRINK PO SCH ×3 (09:16→19:16)
[2018-01-08] MEDS: LACTULOSE 20 GM/30 ML SOLUTION. PO SCH ×3 (09:16→17:24)
[2018-01-08] MEDS: MULTIVITAMIN with MINERAL TABLET. PO SCH (09:17)
[2018-01-08] MEDS: CYANOCOBALAMIN (VITAMIN B-12) 1,000 MCG TABLET. PO SCH (09:17)
[2018-01-08] MEDS: ASPIRIN 81 MG TAB.CHEW PO SCH (09:17)
[2018-01-08] MEDS: QUEtiapine 25 MG TABLET. PO SCH ×3 (09:17→17:24)
[2018-01-08] MEDS: SERTRALINE 50 MG TABLET. PO SCH (09:17)
[2018-01-08 16:31] VITALS: BP 95/63
[2018-01-08] MEDS: CHOLECALCIFEROL (VITAMIN D3) 1,000 UNIT TABLET PO SCH (17:23)
[2018-01-08] MEDS: MIRTAZAPINE 15 MG TABLET PO SCH (19:16)
[2018-01-08] MEDS: ATORVASTATIN CALCIUM 20 MG TABLET PO SCH (19:16)
[2018-01-08] MEDS: traZODone 50 MG TABLET. PO PRN (19:16)
[2018-01-08] MEDS: MELATONIN 3 MG TABLET PO SCH (19:16)
--- NOTE | 2018-01-08 22:09 | PN ---
DATE: 01/07/2018 This late entry 01/07/2018 covers elements not covered in my initial note 01/07/2018. SUBJECTIVE: I met with the patient in the evening. The patient slept 5-1/2 hours previous evening. He took his medications, but very reluctantly, nursing staff had to persevere over a long period of time. He takes his medications crushed and hidden in food, agitated at times, other times drowsy. REVIEW OF SYSTEMS: No CV, , pulmonary, eye, ENT system symptoms on review. UA is negative. Reliability poor. MENTAL STATUS EXAM: Oriented to himself. Insight, judgment, recent and remote memory, attention, concentration, fund of knowledge poor, consistent with his diagnosis mentioned in my initial note. IMPRESSION: Major neurocognitive disorder, Alzheimer, vascular with delusion, depression, behavioral disturbance; anxiety disorder, unspecified; impulse control disorder, unspecified. PLAN: Stop the Aricept since it has little benefit at this stage of his dementia. Continue rest of the psychotropics. MAN Estefany NOBLES MD DR: MONICA/joe JOB#: [id number] / [id number]
[2018-01-09] MEDS: METOPROLOL TART IMMED RELEASE 50 MG TABLET PO SCH ×3 (09:00→20:50)
[2018-01-09] MEDS: DIVALPROEX 125 MG CAP.SPRINK PO SCH ×3 (09:29→20:39)
[2018-01-09] MEDS: LACTULOSE 20 GM/30 ML SOLUTION. PO SCH ×3 (09:29→18:42)
[2018-01-09] MEDS: ASPIRIN 81 MG TAB.CHEW PO SCH (09:29)
[2018-01-09] MEDS: MULTIVITAMIN with MINERAL TABLET. PO SCH (09:30)
[2018-01-09] MEDS: CYANOCOBALAMIN (VITAMIN B-12) 1,000 MCG TABLET. PO SCH (09:30)
[2018-01-09] MEDS: QUEtiapine 25 MG TABLET. PO SCH (09:31)
[2018-01-09] MEDS: SERTRALINE 50 MG TABLET. PO SCH (09:31)
[2018-01-09] MEDS: QUEtiapine 50 MG TABLET. PO SCH ×2 (13:36→18:42)
[2018-01-09 16:55] VITALS: BP 96/65
[2018-01-09] MEDS: CHOLECALCIFEROL (VITAMIN D3) 1,000 UNIT TABLET PO SCH (18:42)
[2018-01-09] MEDS: MIRTAZAPINE 15 MG TABLET PO SCH (20:39)
[2018-01-09] MEDS: ATORVASTATIN CALCIUM 20 MG TABLET PO SCH (20:39)
[2018-01-09] MEDS: MELATONIN 3 MG TABLET PO SCH (20:39)
--- NOTE | 2018-01-09 22:32 | PDOC ---
Exam Note: Darci Note: Please also refer to the separate dictated note~for this date of service dictated separately.~Patient seen individually. Discussed the patient with Nursing staff reviewed the chart.~Reviewed interim history and current functioning. Reviewed vital signs,~Labs/ Radiology~and current medications noted below. Continue current treatment with the changes noted in the dictated addendum note Assessment: Vital Signs: Vital Signs Date Time Temp Pulse Resp B/P (MAP) Pulse Ox O2 Delivery O2 Flow Rate FiO2 01/09/18 20:50 108 96/65 01/09/18 16:55 97.0 22 98 Room Air I&O Intake and Output 01/09/18 07:00 Intake Total 1200 ml Balance 1200 ml Intake Oral 1200 ml # Voids 2 # Bowel Movements 2 Current Medications: Meds: Current Medications Olanzapine (ZyPREXA ZYDIS) 2.5 mg PRN Q2HR PRN PO PSYCHOSIS Last administered on 01/06/18at 17:04; Start 12/27/17 at 12:45 Acetaminophen (Tylenol) 650 mg PRN Q6HRS PRN PO PAIN / TEMP; Start 12/27/17 at 13:00 Multi-Ingredient Ointment (Analgesic [place]) 1 sonja PRN QID PRN TP MUSCLE PAIN; Start 12/27/17 at 13:00 Al Hydroxide/Mg Hydroxide (Mylanta Plus Xs) 15 ml PRN AFTMEALHC PRN PO DYSPEPSIA; Start 12/27/17 at 13:00 Magnesium Hydroxide (Milk Of Magnesia) 2,400 mg PRN QHS PRN PO CONSTIPATION; Start 12/27/17 at 13:00 Atorvastatin Calcium (Lipitor) 20 mg QHS PO Last administered on 01/09/18at 20: 39; Start 12/27/17 at 21:00 Vitamin D (Vitamin D3) 2,000 unit DAILYBFRSUP PO Last administered on at 18:42; Start 12/27/17 at 17:00 Cyanocobalamin (Vitamin B-12) 1,000 mcg DAILY PO Last administered on at 09:30; Start 12/28/17 at 09:00 Multi-Ingredient Ointment (Analgesic [place]) 1 sonja PRN QID PRN TP MUSCLE PAIN; Start 12/27/17 at 14:45; Stop 12/27/17 at 15:06; Status DC Sertraline HCl (Zoloft) 50 mg DAILY PO Last administered on 01/09/18at 09:31; Start 12/28/17 at 09:00 Non-Formulary Medication (Acetaminophen ) 500 mg PRN Q6HRS PRN PO PAIN / TEMP; Start 12/27/17 at 14:45; Stop 12/27/17 at 15:11; Status DC Aspirin (Children'S Aspirin) 81 mg DAILYWBKFT PO Last administered on at 09:29; Start 12/28/17 at 08:00 Divalproex Sodium (Depakote Sprinkles) 375 mg TID PO Last administered on at 12:00; Start 12/27/17 at 21:00; Stop 12/28/17 at 18:33; Status DC Donepezil HCl (Aricept) 10 mg DAILY PO Last administered on 01/07/18at 09:25; Start 12/28/17 at 09:00; Stop 01/07/18 at 18:04; Status DC Lactulose (Lactulose) 20 gm TID@0900,1300,1700 PO Last administered on at 18:42; Start 12/27/17 at 17:00 Non-Formulary Medication (Mag Hydrox/Al Hydrox/Simeth (Advanced Antacid Liquid) ) 15 ml PRN AFTMEALHC PRN PO DYSPEPSIA; Start 12/27/17 at 14:45; Stop 12/27/17 at 15:06; Status DC Non-Formulary Medication (Magnesium Hydroxide (Milk Of Magnesia)) 2,400 mg PRN QHS PRN PO CONSTIPATION; Start 12/27/17 at 14:45; Stop 12/27/17 at 15:06; Status DC Melatonin 3 mg QHS PO Last administered on 01/09/18at 20:39; Start 12/27/17 at 21 :00 Metoprolol Tartrate (Lopressor) 100 mg BID PO Last administered on 01/08/18at 09 :16; Start 12/27/17 at 21:00; Stop 01/09/18 at 18:08; Status DC Mirtazapine (Remeron) 7.5 mg QHS PO Last administered on 01/04/18at 20:15; Start 12/27/17 at 21:00; Stop 01/05/18 at 19:21; Status DC Multivitamins/ Calcium (Thera-M Plus) 1 tab DAILY PO Last administered on at 09:30; Start 12/28/17 at 09:00 Quetiapine Fumarate (SEROquel) 37.5 mg BID@0900,1700 PO Last administered on 06/15at 17:04; Start 12/27/17 at 17:00; Stop 01/06/18 at 18:20; Status DC Trazodone HCl (Desyrel) 50 mg PRN QHS PRN PO INSOMNIA Last administered on 01/08at 19:16; Start 12/27/17 at 15:30 Divalproex Sodium (Depakote Sprinkles) 500 mg TID PO Last administered on at 20:39; Start 12/28/17 at 21:00 Olanzapine (ZyPREXA ZYDIS) 1.25 mg PRN Q2HR PRN PO PSYCHOSIS Last administered on 01/03/18at 17:22; Start 01/03/18 at 16:00 Mirtazapine (Remeron) 15 mg QHS PO Last administered on 01/09/18at 20:39; Start 01/05/18 at 21:00 Quetiapine Fumarate (SEROquel) 37.5 mg TID@0900,1300,1700 PO Last administered on 01/09/18at 09:31; Start 01/07/18 at 09:00; Stop 01/09/18 at 10:56; Status DC Quetiapine Fumarate (SEROquel) 50 mg TID@0900,1300,1700 PO Last administered on 01/09/18at 18:42; Start 01/09/18 at 13:00 Metoprolol Tartrate (Lopressor) 50 mg BID PO ; Start 01/09/18 at 21:00 Active Scripts Active Reported Multivitamins (Multivitamin) 1 Each Tablet 1 Tab PO DAILY Trazodone Hcl 100 Mg Tablet 100 Mg PO PRN QHS PRN Zoloft (Sertraline Hcl) 50 Mg Tablet 50 Mg PO DAILY Seroquel (Quetiapine Fumarate) 25 Mg Tablet 37.5 Mg PO BID@0900,1700 Seroquel (Quetiapine Fumarate) 25 Mg Tablet 12.5 Mg PO BID@1300,2100 Tablet (Pnv Cmb#95/Ferrous Fumarate/Fa) 1 Each Tablet 1 Tab PO DAILY Zyprexa Zydis (Olanzapine) 5 Mg Tab.rapdis 2.5 Mg PO PRN Q2HR PRN Curad Triple Antibiotic Oint (Neomycin/Bacitracin/Polymyxinb) 1 Each Oint.pack 1 Sonja TP BID Mirtazapine 15 Mg Tablet 7.5 Mg PO HS Analgesic [place] (Methyl Salicylate/Menthol) 28 Gm Oint...g. 1 Sonja TP PRN QID PRN Milk Of Magnesia (Magnesium Hydroxide) 2,400 Mg/10 Ml Oral.susp 2,400 Mg PO PRN QHS PRN Advanced Antacid Liquid (Mag Hydrox/Al Hydrox/Simeth) 355 Ml Oral.susp 15 Ml PO PRN AFTMEALHC PRN Donepezil Hcl 10 Mg Tablet 10 Mg PO DAILY Divalproex Sodium 125 Mg Cap.sprink 375 Mg PO TID Vitamin B-12 (Cyanocobalamin (Vitamin B-12)) 1,000 Mcg Tablet 1,000 Mcg PO DAILY Acetaminophen 500 Mg Tablet 500 Mg PO PRN Q6HRS PRN Melatonin 3 Mg Tablet 3 Mg PO QHS Atorvastatin Calcium 20 Mg Tablet 20 Mg PO QHS Lactulose 10 Gm/15 Ml Solution 20 Gm PO TID@0900,1300,1700 Metoprolol Tartrate 100 Mg Tablet 100 Mg PO BID Colace (Docusate Sodium) 100 Mg Capsule 100 Mg PO DAILY Vitamin D3 (Cholecalciferol (Vitamin D3)) 1,000 Unit Tablet 2,000 Unit PO DAILYBFRSUP Aspir-Low (Aspirin) 81 Mg Tablet. 81 Mg PO DAILY I have reviewed the current psychotropics carefully including drug interactions. Risk benefit ratio favors no change other than as noted in my dictated progress note. Diagnosis: Problems: (1) Anxiety disorder (2) Dementia in Alzheimer's disease with delusions (3) Dementia in Alzheimer's disease with depression (4) Dementia, vascular, with delirium (5) Dementia, vascular, with delusions (6) Impulse control disorder (7) Violent behavior ELLIS NOBLES MD Jan 09, 2018 22:32
[2018-01-10 06:53] VITALS: BP 117/76
[2018-01-10] MEDS: QUEtiapine 50 MG TABLET. PO SCH ×3 (07:54→17:00)
[2018-01-10] MEDS: DIVALPROEX 125 MG CAP.SPRINK PO SCH ×3 (07:54→19:29)
[2018-01-10] MEDS: METOPROLOL TART IMMED RELEASE 50 MG TABLET PO SCH ×2 (07:55→19:29)
[2018-01-10] MEDS: CHOLECALCIFEROL (VITAMIN D3) 1,000 UNIT TABLET PO SCH (07:55)
[2018-01-10] MEDS: MULTIVITAMIN with MINERAL TABLET. PO SCH (07:58)
[2018-01-10] MEDS: CYANOCOBALAMIN (VITAMIN B-12) 1,000 MCG TABLET. PO SCH (07:58)
[2018-01-10] MEDS: ASPIRIN 81 MG TAB.CHEW PO SCH (07:58)
[2018-01-10] MEDS: LACTULOSE 20 GM/30 ML SOLUTION. PO SCH ×3 (07:58→17:00)
[2018-01-10] MEDS: SERTRALINE 50 MG TABLET. PO SCH (07:59)
[2018-01-10 16:41] VITALS: BP 98/64
[2018-01-10] MEDS: MELATONIN 3 MG TABLET PO SCH (19:29)
[2018-01-10] MEDS: ATORVASTATIN CALCIUM 20 MG TABLET PO SCH (19:29)
[2018-01-10] MEDS: MIRTAZAPINE 15 MG TABLET PO SCH (19:31)
[2018-01-10] MEDS: traZODone 50 MG TABLET. PO PRN (19:32)
--- NOTE | 2018-01-10 20:09 | PN ---
DATE: 01/09/2018 PSYCHIATRIC PROGRESS NOTE This late entry 01/09/2018 covers elements, not covered in my initial note. The patient was staffed at a treatment team meeting, seen individually. Takes his medications hidden, labile at times, urinating everywhere and staff will put him in an [place] to help with this. REVIEW OF SYSTEMS: No CV, , pulmonary, eye, ENT system symptoms on review. Reliability poor. MENTAL STATUS EXAM: Oriented to himself. Insight, judgment, recent and remote memory, attention, concentration, fund of knowledge poor, consistent with his diagnosis mentioned in my initial note. PLAN: Increase Seroquel from 37.5 mg 3 times a day to 50 mg 3 times a day. Continue rest unchanged. The patient was staffed at a treatment team meeting with entire team in the morning. MAN Estefany NOBLES MD DR: MONICA/joe JOB#: [id number] / [id number]
--- NOTE | 2018-01-10 22:33 | PDOC ---
Exam Note: Darci Note: Please also refer to the separate dictated note~for this date of service dictated separately.~Patient seen individually. Discussed the patient with Nursing staff reviewed the chart.~Reviewed interim history and current functioning. Reviewed vital signs,~Labs/ Radiology~and current medications noted below. Continue current treatment with the changes noted in the dictated addendum note Assessment: Vital Signs: Vital Signs Date Time Temp Pulse Resp B/P (MAP) Pulse Ox O2 Delivery O2 Flow Rate FiO2 01/10/18 19:29 77 98/64 01/10/18 16:41 97.5 16 97 Room Air I&O Intake and Output 01/10/18 07:00 Intake Total 600 ml Balance 600 ml Intake Oral 600 ml # Voids 2 # Bowel Movements 1 Current Medications: Meds: Current Medications Olanzapine (ZyPREXA ZYDIS) 2.5 mg PRN Q2HR PRN PO PSYCHOSIS Last administered on 01/10/18at 20:16; Start 12/27/17 at 12:45 Acetaminophen (Tylenol) 650 mg PRN Q6HRS PRN PO PAIN / TEMP; Start 12/27/17 at 13:00 Multi-Ingredient Ointment (Analgesic [place]) 1 sonja PRN QID PRN TP MUSCLE PAIN; Start 12/27/17 at 13:00 Al Hydroxide/Mg Hydroxide (Mylanta Plus Xs) 15 ml PRN AFTMEALHC PRN PO DYSPEPSIA; Start 12/27/17 at 13:00 Magnesium Hydroxide (Milk Of Magnesia) 2,400 mg PRN QHS PRN PO CONSTIPATION; Start 12/27/17 at 13:00 Atorvastatin Calcium (Lipitor) 20 mg QHS PO Last administered on 01/10/18at 19: 29; Start 12/27/17 at 21:00 Vitamin D (Vitamin D3) 2,000 unit DAILYBFRSUP PO Last administered on at 07:55; Start 12/27/17 at 17:00 Cyanocobalamin (Vitamin B-12) 1,000 mcg DAILY PO Last administered on at 07:58; Start 12/28/17 at 09:00 Multi-Ingredient Ointment (Analgesic [place]) 1 sonja PRN QID PRN TP MUSCLE PAIN; Start 12/27/17 at 14:45; Stop 12/27/17 at 15:06; Status DC Sertraline HCl (Zoloft) 50 mg DAILY PO Last administered on 01/10/18at 07:59; Start 12/28/17 at 09:00 Non-Formulary Medication (Acetaminophen ) 500 mg PRN Q6HRS PRN PO PAIN / TEMP; Start 12/27/17 at 14:45; Stop 12/27/17 at 15:11; Status DC Aspirin (Children'S Aspirin) 81 mg DAILYWBKFT PO Last administered on at 07:58; Start 12/28/17 at 08:00 Divalproex Sodium (Depakote Sprinkles) 375 mg TID PO Last administered on at 12:00; Start 12/27/17 at 21:00; Stop 12/28/17 at 18:33; Status DC Donepezil HCl (Aricept) 10 mg DAILY PO Last administered on 01/07/18at 09:25; Start 12/28/17 at 09:00; Stop 01/07/18 at 18:04; Status DC Lactulose (Lactulose) 20 gm TID@0900,1300,1700 PO Last administered on at 17:00; Start 12/27/17 at 17:00 Non-Formulary Medication (Mag Hydrox/Al Hydrox/Simeth (Advanced Antacid Liquid) ) 15 ml PRN AFTMEALHC PRN PO DYSPEPSIA; Start 12/27/17 at 14:45; Stop 12/27/17 at 15:06; Status DC Non-Formulary Medication (Magnesium Hydroxide (Milk Of Magnesia)) 2,400 mg PRN QHS PRN PO CONSTIPATION; Start 12/27/17 at 14:45; Stop 12/27/17 at 15:06; Status DC Melatonin 3 mg QHS PO Last administered on 01/10/18at 19:29; Start 12/27/17 at 21 :00 Metoprolol Tartrate (Lopressor) 100 mg BID PO Last administered on 01/08/18at 09 :16; Start 12/27/17 at 21:00; Stop 01/09/18 at 18:08; Status DC Mirtazapine (Remeron) 7.5 mg QHS PO Last administered on 01/04/18at 20:15; Start 12/27/17 at 21:00; Stop 01/05/18 at 19:21; Status DC Multivitamins/ Calcium (Thera-M Plus) 1 tab DAILY PO Last administered on at 07:58; Start 12/28/17 at 09:00 Quetiapine Fumarate (SEROquel) 37.5 mg BID@0900,1700 PO Last administered on 06/15at 17:04; Start 12/27/17 at 17:00; Stop 01/06/18 at 18:20; Status DC Trazodone HCl (Desyrel) 50 mg PRN QHS PRN PO INSOMNIA Last administered on 01/10 19:32; Start 12/27/17 at 15:30 Divalproex Sodium (Depakote Sprinkles) 500 mg TID PO Last administered on 19:29; Start 12/28/17 at 21:00 Olanzapine (ZyPREXA ZYDIS) 1.25 mg PRN Q2HR PRN PO PSYCHOSIS Last administered on 01/03/18 17:22; Start 01/03/18 at 16:00 Mirtazapine (Remeron) 15 mg QHS PO Last administered on 01/10/18 19:31; Start 01/05/18 at 21:00 Quetiapine Fumarate (SEROquel) 37.5 mg TID@0900,1300,1700 PO Last administered on 01/09/18at 09:31; Start 01/07/18 at 09:00; Stop 01/09/18 at 10:56; Status DC Quetiapine Fumarate (SEROquel) 50 mg TID@0900,1300,1700 PO Last administered on 01/10/18at 17:00; Start 01/09/18 at 13:00 Metoprolol Tartrate (Lopressor) 50 mg BID PO Last administered on 01/10/18 07: 55; Start 01/09/18 at 21:00 Active Scripts Active Reported Multivitamins (Multivitamin) 1 Each Tablet 1 Tab PO DAILY Trazodone Hcl 100 Mg Tablet 100 Mg PO PRN QHS PRN Zoloft (Sertraline Hcl) 50 Mg Tablet 50 Mg PO DAILY Seroquel (Quetiapine Fumarate) 25 Mg Tablet 37.5 Mg PO BID@0900,1700 Seroquel (Quetiapine Fumarate) 25 Mg Tablet 12.5 Mg PO BID@1300,2100 Tablet (Pnv Cmb#95/Ferrous Fumarate/Fa) 1 Each Tablet 1 Tab PO DAILY Zyprexa Zydis (Olanzapine) 5 Mg Tab.rapdis 2.5 Mg PO PRN Q2HR PRN Curad Triple Antibiotic Oint (Neomycin/Bacitracin/Polymyxinb) 1 Each Oint.pack 1 Sonja TP BID Mirtazapine 15 Mg Tablet 7.5 Mg PO HS Analgesic [place] (Methyl Salicylate/Menthol) 28 Gm Oint...g. 1 Sonja TP PRN QID PRN Milk Of Magnesia (Magnesium Hydroxide) 2,400 Mg/10 Ml Oral.susp 2,400 Mg PO PRN QHS PRN Advanced Antacid Liquid (Mag Hydrox/Al Hydrox/Simeth) 355 Ml Oral.susp 15 Ml PO PRN AFTMEALHC PRN Donepezil Hcl 10 Mg Tablet 10 Mg PO DAILY Divalproex Sodium 125 Mg Cap.sprink 375 Mg PO TID Vitamin B-12 (Cyanocobalamin (Vitamin B-12)) 1,000 Mcg Tablet 1,000 Mcg PO DAILY Acetaminophen 500 Mg Tablet 500 Mg PO PRN Q6HRS PRN Melatonin 3 Mg Tablet 3 Mg PO QHS Atorvastatin Calcium 20 Mg Tablet 20 Mg PO QHS Lactulose 10 Gm/15 Ml Solution 20 Gm PO TID@0900,1300,1700 Metoprolol Tartrate 100 Mg Tablet 100 Mg PO BID Colace (Docusate Sodium) 100 Mg Capsule 100 Mg PO DAILY Vitamin D3 (Cholecalciferol (Vitamin D3)) 1,000 Unit Tablet 2,000 Unit PO DAILYBFRSUP Aspir-Low (Aspirin) 81 Mg Tablet.dr 81 Mg PO DAILY I have reviewed the current psychotropics carefully including drug interactions. Risk benefit ratio favors no change other than as noted in my dictated progress note. Diagnosis: Problems: (1) Anxiety disorder (2) Dementia in Alzheimer's disease with delusions (3) Dementia in Alzheimer's disease with depression (4) Dementia, vascular, with delirium (5) Dementia, vascular, with delusions (6) Impulse control disorder (7) Violent behavior ELLIS NOBLES MD Jan 10, 2018 22:33
[2018-01-11 06:40] VITALS: BP 139/90
[2018-01-11] MEDS: METOPROLOL TART IMMED RELEASE 50 MG TABLET PO SCH ×2 (07:58→19:23)
[2018-01-11] MEDS: MULTIVITAMIN with MINERAL TABLET. PO SCH (07:58)
[2018-01-11] MEDS: CYANOCOBALAMIN (VITAMIN B-12) 1,000 MCG TABLET. PO SCH (07:58)
[2018-01-11] MEDS: ASPIRIN 81 MG TAB.CHEW PO SCH (07:58)
[2018-01-11] MEDS: QUEtiapine 50 MG TABLET. PO SCH ×3 (07:58→17:51)
[2018-01-11] MEDS: DIVALPROEX 125 MG CAP.SPRINK PO SCH ×3 (07:58→19:21)
[2018-01-11] MEDS: LACTULOSE 20 GM/30 ML SOLUTION. PO SCH ×3 (07:58→17:00)
[2018-01-11] MEDS: SERTRALINE 50 MG TABLET. PO SCH (07:58)
--- NOTE | 2018-01-11 08:32 | PN ---
DATE: 01/08/2018 This is a late entry for 01/08/2018 and covers elements not covered in my initial note of 01/08/2018. SUBJECTIVE: I met with the patient in the evening. The patient slept 2 hours. At times, agitated when he was changed following a bowel movement. REVIEW OF SYSTEMS: No CV, , pulmonary, eye system symptoms on review. Reliability poor. MENTAL STATUS EXAM: Oriented to himself. Insight, judgment, recent and remote memory, attention, concentration, fund of knowledge poor, consistent with his diagnosis as mentioned in my initial note. PLAN: No change in psychotropics from my initial note. MAN Estefany NOBLES MD DR: OMNICA/joe JOB#: [id number] / [id number]
[2018-01-11 16:52] VITALS: BP 99/66
[2018-01-11] MEDS: CHOLECALCIFEROL (VITAMIN D3) 1,000 UNIT TABLET PO SCH (17:51)
[2018-01-11] MEDS: ATORVASTATIN CALCIUM 20 MG TABLET PO SCH (19:21)
[2018-01-11] MEDS: MELATONIN 3 MG TABLET PO SCH (19:21)
[2018-01-11] MEDS: MIRTAZAPINE 15 MG TABLET PO SCH (19:22)
[2018-01-11] MEDS: traZODone 50 MG TABLET. PO PRN (19:22)
--- NOTE | 2018-01-11 22:37 | PDOC ---
Exam Note: Darci Note: Please also refer to the separate dictated note~for this date of service dictated separately.~Patient seen individually. Discussed the patient with Nursing staff reviewed the chart.~Reviewed interim history and current functioning. Reviewed vital signs,~Labs/ Radiology~and current medications noted below. Continue current treatment with the changes noted in the dictated addendum note Assessment: Vital Signs: Vital Signs Date Time Temp Pulse Resp B/P (MAP) Pulse Ox O2 Delivery O2 Flow Rate FiO2 01/11/18 19:23 69 99/66 01/11/18 16:52 98.0 20 01/11/18 06:40 90 Room Air I&O Intake and Output 01/11/18 07:01 Intake Total 720 ml Balance 720 ml Intake Oral 720 ml Current Medications: Meds: Current Medications Olanzapine (ZyPREXA ZYDIS) 2.5 mg PRN Q2HR PRN PO PSYCHOSIS Last administered on 01/10/18at 20:16; Start 12/27/17 at 12:45 Acetaminophen (Tylenol) 650 mg PRN Q6HRS PRN PO PAIN / TEMP; Start 12/27/17 at 13:00 Multi-Ingredient Ointment (Analgesic [place]) 1 sonja PRN QID PRN TP MUSCLE PAIN; Start 12/27/17 at 13:00 Al Hydroxide/Mg Hydroxide (Mylanta Plus Xs) 15 ml PRN AFTMEALHC PRN PO DYSPEPSIA; Start 12/27/17 at 13:00 Magnesium Hydroxide (Milk Of Magnesia) 2,400 mg PRN QHS PRN PO CONSTIPATION; Start 12/27/17 at 13:00 Atorvastatin Calcium (Lipitor) 20 mg QHS PO Last administered on 01/11/18at 19: 21; Start 12/27/17 at 21:00 Vitamin D (Vitamin D3) 2,000 unit DAILYBFRSUP PO Last administered on at 17:51; Start 12/27/17 at 17:00 Cyanocobalamin (Vitamin B-12) 1,000 mcg DAILY PO Last administered on at 07:58; Start 12/28/17 at 09:00 Multi-Ingredient Ointment (Analgesic [place]) 1 sonja PRN QID PRN TP MUSCLE PAIN; Start 12/27/17 at 14:45; Stop 12/27/17 at 15:06; Status DC Sertraline HCl (Zoloft) 50 mg DAILY PO Last administered on 01/11/18at 07:58; Start 12/28/17 at 09:00 Non-Formulary Medication (Acetaminophen ) 500 mg PRN Q6HRS PRN PO PAIN / TEMP; Start 12/27/17 at 14:45; Stop 12/27/17 at 15:11; Status DC Aspirin (Children'S Aspirin) 81 mg DAILYWBKFT PO Last administered on at 07:58; Start 12/28/17 at 08:00 Divalproex Sodium (Depakote Sprinkles) 375 mg TID PO Last administered on at 12:00; Start 12/27/17 at 21:00; Stop 12/28/17 at 18:33; Status DC Donepezil HCl (Aricept) 10 mg DAILY PO Last administered on 01/07/18at 09:25; Start 12/28/17 at 09:00; Stop 01/07/18 at 18:04; Status DC Lactulose (Lactulose) 20 gm TID@0900,1300,1700 PO Last administered on at 17:00; Start 12/27/17 at 17:00 Non-Formulary Medication (Mag Hydrox/Al Hydrox/Simeth (Advanced Antacid Liquid) ) 15 ml PRN AFTMEALHC PRN PO DYSPEPSIA; Start 12/27/17 at 14:45; Stop 12/27/17 at 15:06; Status DC Non-Formulary Medication (Magnesium Hydroxide (Milk Of Magnesia)) 2,400 mg PRN QHS PRN PO CONSTIPATION; Start 12/27/17 at 14:45; Stop 12/27/17 at 15:06; Status DC Melatonin 3 mg QHS PO Last administered on 01/11/18at 19:21; Start 12/27/17 at 21 :00 Metoprolol Tartrate (Lopressor) 100 mg BID PO Last administered on 01/08/18at 09 :16; Start 12/27/17 at 21:00; Stop 01/09/18 at 18:08; Status DC Mirtazapine (Remeron) 7.5 mg QHS PO Last administered on 01/04/18at 20:15; Start 12/27/17 at 21:00; Stop 01/05/18 at 19:21; Status DC Multivitamins/ Calcium (Thera-M Plus) 1 tab DAILY PO Last administered on at 07:58; Start 12/28/17 at 09:00 Quetiapine Fumarate (SEROquel) 37.5 mg BID@0900,1700 PO Last administered on 06/15at 17:04; Start 12/27/17 at 17:00; Stop 01/06/18 at 18:20; Status DC Trazodone HCl (Desyrel) 50 mg PRN QHS PRN PO INSOMNIA Last administered on 01/11 19:22; Start 12/27/17 at 15:30 Divalproex Sodium (Depakote Sprinkles) 500 mg TID PO Last administered on 19:21; Start 12/28/17 at 21:00 Olanzapine (ZyPREXA ZYDIS) 1.25 mg PRN Q2HR PRN PO PSYCHOSIS Last administered on 01/03/18 17:22; Start 01/03/18 at 16:00 Mirtazapine (Remeron) 15 mg QHS PO Last administered on 01/11/18 19:22; Start 01/05/18 at 21:00 Quetiapine Fumarate (SEROquel) 37.5 mg TID@0900,1300,1700 PO Last administered on 01/09/18at 09:31; Start 01/07/18 at 09:00; Stop 01/09/18 at 10:56; Status DC Quetiapine Fumarate (SEROquel) 50 mg TID@0900,1300,1700 PO Last administered on 01/11/18at 17:51; Start 01/09/18 at 13:00 Metoprolol Tartrate (Lopressor) 50 mg BID PO Last administered on 01/11/18 07: 58; Start 01/09/18 at 21:00 Active Scripts Active Reported Multivitamins (Multivitamin) 1 Each Tablet 1 Tab PO DAILY Trazodone Hcl 100 Mg Tablet 100 Mg PO PRN QHS PRN Zoloft (Sertraline Hcl) 50 Mg Tablet 50 Mg PO DAILY Seroquel (Quetiapine Fumarate) 25 Mg Tablet 37.5 Mg PO BID@0900,1700 Seroquel (Quetiapine Fumarate) 25 Mg Tablet 12.5 Mg PO BID@1300,2100 Tablet (Pnv Cmb#95/Ferrous Fumarate/Fa) 1 Each Tablet 1 Tab PO DAILY Zyprexa Zydis (Olanzapine) 5 Mg Tab.rapdis 2.5 Mg PO PRN Q2HR PRN Curad Triple Antibiotic Oint (Neomycin/Bacitracin/Polymyxinb) 1 Each Oint.pack 1 Sonja TP BID Mirtazapine 15 Mg Tablet 7.5 Mg PO HS Analgesic [place] (Methyl Salicylate/Menthol) 28 Gm Oint...g. 1 Sonja TP PRN QID PRN Milk Of Magnesia (Magnesium Hydroxide) 2,400 Mg/10 Ml Oral.susp 2,400 Mg PO PRN QHS PRN Advanced Antacid Liquid (Mag Hydrox/Al Hydrox/Simeth) 355 Ml Oral.susp 15 Ml PO PRN AFTMEALHC PRN Donepezil Hcl 10 Mg Tablet 10 Mg PO DAILY Divalproex Sodium 125 Mg Cap.sprink 375 Mg PO TID Vitamin B-12 (Cyanocobalamin (Vitamin B-12)) 1,000 Mcg Tablet 1,000 Mcg PO DAILY Acetaminophen 500 Mg Tablet 500 Mg PO PRN Q6HRS PRN Melatonin 3 Mg Tablet 3 Mg PO QHS Atorvastatin Calcium 20 Mg Tablet 20 Mg PO QHS Lactulose 10 Gm/15 Ml Solution 20 Gm PO TID@0900,1300,1700 Metoprolol Tartrate 100 Mg Tablet 100 Mg PO BID Colace (Docusate Sodium) 100 Mg Capsule 100 Mg PO DAILY Vitamin D3 (Cholecalciferol (Vitamin D3)) 1,000 Unit Tablet 2,000 Unit PO DAILYBFRSUP Aspir-Low (Aspirin) 81 Mg Tablet.dr 81 Mg PO DAILY I have reviewed the current psychotropics carefully including drug interactions. Risk benefit ratio favors no change other than as noted in my dictated progress note. Diagnosis: Problems: (1) Anxiety disorder (2) Dementia in Alzheimer's disease with delusions (3) Dementia in Alzheimer's disease with depression (4) Dementia, vascular, with delirium (5) Dementia, vascular, with delusions (6) Impulse control disorder (7) Violent behavior ELLIS NOBLES MD Jan 11, 2018 22:37
[2018-01-12 06:29] VITALS: BP 112/73
[2018-01-12] MEDS: METOPROLOL TART IMMED RELEASE 50 MG TABLET PO SCH ×2 (07:56→20:05)
[2018-01-12] MEDS: CYANOCOBALAMIN (VITAMIN B-12) 1,000 MCG TABLET. PO SCH (07:56)
[2018-01-12] MEDS: SERTRALINE 50 MG TABLET. PO SCH (07:56)
[2018-01-12] MEDS: QUEtiapine 50 MG TABLET. PO SCH ×3 (07:56→17:57)
[2018-01-12] MEDS: ASPIRIN 81 MG TAB.CHEW PO SCH (07:56)
[2018-01-12] MEDS: LACTULOSE 20 GM/30 ML SOLUTION. PO SCH ×3 (07:56→17:57)
[2018-01-12] MEDS: DIVALPROEX 125 MG CAP.SPRINK PO SCH ×3 (07:57→19:57)
[2018-01-12] MEDS: MULTIVITAMIN with MINERAL TABLET. PO SCH (07:57)
[2018-01-12] MEDS: CHOLECALCIFEROL (VITAMIN D3) 1,000 UNIT TABLET PO SCH (07:57)
[2018-01-12 15:58] VITALS: BP 103/72
[2018-01-12] MEDS: MIRTAZAPINE 15 MG TABLET PO SCH (19:57)
[2018-01-12] MEDS: ATORVASTATIN CALCIUM 20 MG TABLET PO SCH (19:57)
[2018-01-12] MEDS: MELATONIN 3 MG TABLET PO SCH (19:57)
[2018-01-12] MEDS: traZODone 50 MG TABLET. PO PRN (20:00)
[2018-01-12 20:05] VITALS: BP 112/68
--- NOTE | 2018-01-12 21:07 | PDOC ---
Exam Note: Darci Note: Please also refer to the separate dictated note~for this date of service dictated separately.~Patient seen individually. Discussed the patient with Nursing staff reviewed the chart.~Reviewed interim history and current functioning. Reviewed vital signs,~Labs/ Radiology~and current medications noted below. Continue current treatment with the changes noted in the dictated addendum note Assessment: Vital Signs: Vital Signs Date Time Temp Pulse Resp B/P (MAP) Pulse Ox O2 Delivery O2 Flow Rate FiO2 01/12/18 20:05 84 112/68 (83) 01/12/18 15:58 97.0 18 96 01/11/18 06:40 Room Air I&O Intake and Output 01/12/18 07:01 Intake Total 930 ml Balance 930 ml Intake Oral 930 ml Current Medications: Meds: Current Medications Olanzapine (ZyPREXA ZYDIS) 2.5 mg PRN Q2HR PRN PO PSYCHOSIS Last administered on 01/12/18at 04:59; Start 12/27/17 at 12:45 Acetaminophen (Tylenol) 650 mg PRN Q6HRS PRN PO PAIN / TEMP; Start 12/27/17 at 13:00 Multi-Ingredient Ointment (Analgesic [place]) 1 sonja PRN QID PRN TP MUSCLE PAIN; Start 12/27/17 at 13:00 Al Hydroxide/Mg Hydroxide (Mylanta Plus Xs) 15 ml PRN AFTMEALHC PRN PO DYSPEPSIA; Start 12/27/17 at 13:00 Magnesium Hydroxide (Milk Of Magnesia) 2,400 mg PRN QHS PRN PO CONSTIPATION; Start 12/27/17 at 13:00 Atorvastatin Calcium (Lipitor) 20 mg QHS PO Last administered on 01/12/18at 19: 57; Start 12/27/17 at 21:00 Vitamin D (Vitamin D3) 2,000 unit DAILYBFRSUP PO Last administered on at 07:57; Start 12/27/17 at 17:00 Cyanocobalamin (Vitamin B-12) 1,000 mcg DAILY PO Last administered on at 07:56; Start 12/28/17 at 09:00 Multi-Ingredient Ointment (Analgesic [place]) 1 sonja PRN QID PRN TP MUSCLE PAIN; Start 12/27/17 at 14:45; Stop 12/27/17 at 15:06; Status DC Sertraline HCl (Zoloft) 50 mg DAILY PO Last administered on 01/12/18at 07:56; Start 12/28/17 at 09:00 Non-Formulary Medication (Acetaminophen ) 500 mg PRN Q6HRS PRN PO PAIN / TEMP; Start 12/27/17 at 14:45; Stop 12/27/17 at 15:11; Status DC Aspirin (Children'S Aspirin) 81 mg DAILYWBKFT PO Last administered on at 07:56; Start 12/28/17 at 08:00 Divalproex Sodium (Depakote Sprinkles) 375 mg TID PO Last administered on at 12:00; Start 12/27/17 at 21:00; Stop 12/28/17 at 18:33; Status DC Donepezil HCl (Aricept) 10 mg DAILY PO Last administered on 01/07/18at 09:25; Start 12/28/17 at 09:00; Stop 01/07/18 at 18:04; Status DC Lactulose (Lactulose) 20 gm TID@0900,1300,1700 PO Last administered on at 17:57; Start 12/27/17 at 17:00 Non-Formulary Medication (Mag Hydrox/Al Hydrox/Simeth (Advanced Antacid Liquid) ) 15 ml PRN AFTMEALHC PRN PO DYSPEPSIA; Start 12/27/17 at 14:45; Stop 12/27/17 at 15:06; Status DC Non-Formulary Medication (Magnesium Hydroxide (Milk Of Magnesia)) 2,400 mg PRN QHS PRN PO CONSTIPATION; Start 12/27/17 at 14:45; Stop 12/27/17 at 15:06; Status DC Melatonin 3 mg QHS PO Last administered on 01/12/18at 19:57; Start 12/27/17 at 21 :00 Metoprolol Tartrate (Lopressor) 100 mg BID PO Last administered on 01/08/18at 09 :16; Start 12/27/17 at 21:00; Stop 01/09/18 at 18:08; Status DC Mirtazapine (Remeron) 7.5 mg QHS PO Last administered on 01/04/18at 20:15; Start 12/27/17 at 21:00; Stop 01/05/18 at 19:21; Status DC Multivitamins/ Calcium (Thera-M Plus) 1 tab DAILY PO Last administered on at 07:57; Start 12/28/17 at 09:00 Quetiapine Fumarate (SEROquel) 37.5 mg BID@0900,1700 PO Last administered on 06/15at 17:04; Start 12/27/17 at 17:00; Stop 01/06/18 at 18:20; Status DC Trazodone HCl (Desyrel) 50 mg PRN QHS PRN PO INSOMNIA Last administered on 01/12at 20:00; Start 12/27/17 at 15:30 Divalproex Sodium (Depakote Sprinkles) 500 mg TID PO Last administered on at 19:57; Start 12/28/17 at 21:00 Olanzapine (ZyPREXA ZYDIS) 1.25 mg PRN Q2HR PRN PO PSYCHOSIS Last administered on 01/03/18at 17:22; Start 01/03/18 at 16:00 Mirtazapine (Remeron) 15 mg QHS PO Last administered on 01/12/18at 19:57; Start 01/05/18 at 21:00 Quetiapine Fumarate (SEROquel) 37.5 mg TID@0900,1300,1700 PO Last administered on 01/09/18at 09:31; Start 01/07/18 at 09:00; Stop 01/09/18 at 10:56; Status DC Quetiapine Fumarate (SEROquel) 50 mg TID@0900,1300,1700 PO Last administered on 01/12/18at 17:57; Start 01/09/18 at 13:00 Metoprolol Tartrate (Lopressor) 50 mg BID PO Last administered on 01/12/18at 07: 56; Start 01/09/18 at 21:00; Stop 01/12/18 at 15:42; Status DC Metoprolol Tartrate (Lopressor) 25 mg BID PO Last administered on 01/12/18at 20: 05; Start 01/12/18 at 21:00 Active Scripts Active Reported Multivitamins (Multivitamin) 1 Each Tablet 1 Tab PO DAILY Trazodone Hcl 100 Mg Tablet 100 Mg PO PRN QHS PRN Zoloft (Sertraline Hcl) 50 Mg Tablet 50 Mg PO DAILY Seroquel (Quetiapine Fumarate) 25 Mg Tablet 37.5 Mg PO BID@0900,1700 Seroquel (Quetiapine Fumarate) 25 Mg Tablet 12.5 Mg PO BID@1300,2100 Tablet (Pnv Cmb#95/Ferrous Fumarate/Fa) 1 Each Tablet 1 Tab PO DAILY Zyprexa Zydis (Olanzapine) 5 Mg Tab.rapdis 2.5 Mg PO PRN Q2HR PRN Curad Triple Antibiotic Oint (Neomycin/Bacitracin/Polymyxinb) 1 Each Oint.pack 1 Sonja TP BID Mirtazapine 15 Mg Tablet 7.5 Mg PO HS Analgesic [place] (Methyl Salicylate/Menthol) 28 Gm Oint...g. 1 Sonja TP PRN QID PRN Milk Of Magnesia (Magnesium Hydroxide) 2,400 Mg/10 Ml Oral.susp 2,400 Mg PO PRN QHS PRN Advanced Antacid Liquid (Mag Hydrox/Al Hydrox/Simeth) 355 Ml Oral.susp 15 Ml PO PRN AFTMEALHC PRN Donepezil Hcl 10 Mg Tablet 10 Mg PO DAILY Divalproex Sodium 125 Mg Cap.sprink 375 Mg PO TID Vitamin B-12 (Cyanocobalamin (Vitamin B-12)) 1,000 Mcg Tablet 1,000 Mcg PO DAILY Acetaminophen 500 Mg Tablet 500 Mg PO PRN Q6HRS PRN Melatonin 3 Mg Tablet 3 Mg PO QHS Atorvastatin Calcium 20 Mg Tablet 20 Mg PO QHS Lactulose 10 Gm/15 Ml Solution 20 Gm PO TID@0900,1300,1700 Metoprolol Tartrate 100 Mg Tablet 100 Mg PO BID Colace (Docusate Sodium) 100 Mg Capsule 100 Mg PO DAILY Vitamin D3 (Cholecalciferol (Vitamin D3)) 1,000 Unit Tablet 2,000 Unit PO DAILYBFRSUP Aspir-Low (Aspirin) 81 Mg Tablet. 81 Mg PO DAILY I have reviewed the current psychotropics carefully including drug interactions. Risk benefit ratio favors no change other than as noted in my dictated progress note. Diagnosis: Problems: (1) Anxiety disorder (2) Dementia in Alzheimer's disease with delusions (3) Dementia in Alzheimer's disease with depression (4) Dementia, vascular, with delirium (5) Dementia, vascular, with delusions (6) Impulse control disorder (7) Violent behavior ELLIS NOBLES MD Jan 12, 2018 21:07
--- NOTE | 2018-01-13 02:45 | PN ---
DATE: 01/10/2018 PSYCHIATRIC PROGRESS NOTE This late entry 01/10/2018, covers elements not covered in my initial note. SUBJECTIVE: Met with the patient in the evening. The patient has been incontinent of bowel, bladder, somewhat aggressive, abrasive at times, later laid himself in the quiet room. REVIEW OF SYSTEMS: No CV, , pulmonary, eye, ENT system symptoms on review. Reliability poor. MENTAL STATUS EXAM: Oriented to himself. Insight, judgment, recent, remote memory, attention, concentration, fund of knowledge is poor, consistent with his diagnoses mentioned in my initial note. Valproic acid level is therapeutic at 63. PLAN: Continue psychotropics from initial note. MAN Estefany NOBLES MD DR: MONICA/joe JOB#: [id number] / [id number]
[2018-01-13 06:29] VITALS: BP 106/74
[2018-01-13] MEDS: MULTIVITAMIN with MINERAL TABLET. PO SCH (07:37)
[2018-01-13] MEDS: SERTRALINE 50 MG TABLET. PO SCH (07:37)
[2018-01-13] MEDS: LACTULOSE 20 GM/30 ML SOLUTION. PO SCH ×3 (07:37→16:35)
[2018-01-13] MEDS: METOPROLOL TART IMMED RELEASE 50 MG TABLET PO SCH ×2 (07:39→20:25)
[2018-01-13] MEDS: DIVALPROEX 125 MG CAP.SPRINK PO SCH ×3 (07:39→20:31)
[2018-01-13] MEDS: CYANOCOBALAMIN (VITAMIN B-12) 1,000 MCG TABLET. PO SCH (07:39)
[2018-01-13] MEDS: ASPIRIN 81 MG TAB.CHEW PO SCH (07:39)
[2018-01-13] MEDS: QUEtiapine 50 MG TABLET. PO SCH ×3 (07:39→16:35)
[2018-01-13 16:27] VITALS: BP 100/66
[2018-01-13] MEDS: CHOLECALCIFEROL (VITAMIN D3) 1,000 UNIT TABLET PO SCH (16:35)
--- NOTE | 2018-01-13 19:50 | PN ---
DATE: 01/11/2018 PSYCHIATRIC PROGRESS NOTE This is a late entry for 01/11/2018, covers elements not covered in my initial note of 01/11/2018. SUBJECTIVE: I met with the patient in the evening. The patient remains somewhat anxious, restless and quickly before nursing staff assist him with changes in ADLs. He gets somewhat agitated and we will premedicate him for this to help. REVIEW OF SYSTEMS: No CV, , pulmonary, eye, ENT system symptoms on review. Reliability poor. MENTAL STATUS EXAM: Oriented to himself. Insight, judgment, recent and remote memory, attention, concentration, fund of knowledge poor, consistent with his diagnosis mentioned in my initial note. IMPRESSION: Major neurocognitive disorder, Alzheimer, vascular with delusion, depression, behavioral disturbance. Rest unchanged. PLAN: Continue psychotropics from initial note. MAN Estefany NOBLES MD DR: MONICA/joe JOB#: [id number] / [id number]
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
[2018-01-13] MEDS: MIRTAZAPINE 15 MG TABLET PO SCH (20:26)
[2018-01-13] MEDS: ATORVASTATIN CALCIUM 20 MG TABLET PO SCH (20:26)
[2018-01-13] MEDS: MELATONIN 3 MG TABLET PO SCH (20:26)
--- NOTE | 2018-01-13 21:10 | PDOC ---
Exam Note: Darci Note: Please also refer to the separate dictated note~for this date of service dictated separately.~Patient seen individually. Discussed the patient with Nursing staff reviewed the chart.~Reviewed interim history and current functioning. Reviewed vital signs,~Labs/ Radiology~and current medications noted below. Continue current treatment with the changes noted in the dictated addendum note Assessment: Vital Signs: Vital Signs Date Time Temp Pulse Resp B/P (MAP) Pulse Ox O2 Delivery O2 Flow Rate FiO2 01/13/18 20:25 64 100/66 01/13/18 16:27 97.8 18 94 Room Air I&O Intake and Output 01/13/18 07:01 Intake Total 1575 ml Balance 1575 ml Intake Oral 1575 ml # Voids 1 # Bowel Movements 1 Current Medications: Meds: Current Medications Olanzapine (ZyPREXA ZYDIS) 2.5 mg PRN Q2HR PRN PO PSYCHOSIS Last administered on 01/12/18at 04:59; Start 12/27/17 at 12:45 Acetaminophen (Tylenol) 650 mg PRN Q6HRS PRN PO PAIN / TEMP Last administered on 01/13/18at 20:25; Start 12/27/17 at 13:00 Multi-Ingredient Ointment (Analgesic [place]) 1 sonja PRN QID PRN TP MUSCLE PAIN; Start 12/27/17 at 13:00 Al Hydroxide/Mg Hydroxide (Mylanta Plus Xs) 15 ml PRN AFTMEALHC PRN PO DYSPEPSIA; Start 12/27/17 at 13:00 Magnesium Hydroxide (Milk Of Magnesia) 2,400 mg PRN QHS PRN PO CONSTIPATION; Start 12/27/17 at 13:00 Atorvastatin Calcium (Lipitor) 20 mg QHS PO Last administered on 01/13/18at 20: 26; Start 12/27/17 at 21:00 Vitamin D (Vitamin D3) 2,000 unit DAILYBFRSUP PO Last administered on at 16:35; Start 12/27/17 at 17:00 Cyanocobalamin (Vitamin B-12) 1,000 mcg DAILY PO Last administered on at 07:39; Start 12/28/17 at 09:00 Multi-Ingredient Ointment (Analgesic [place]) 1 sonja PRN QID PRN TP MUSCLE PAIN; Start 12/27/17 at 14:45; Stop 12/27/17 at 15:06; Status DC Sertraline HCl (Zoloft) 50 mg DAILY PO Last administered on 01/13/18at 07:37; Start 12/28/17 at 09:00 Non-Formulary Medication (Acetaminophen ) 500 mg PRN Q6HRS PRN PO PAIN / TEMP; Start 12/27/17 at 14:45; Stop 12/27/17 at 15:11; Status DC Aspirin (Children'S Aspirin) 81 mg DAILYWBKFT PO Last administered on at 07:39; Start 12/28/17 at 08:00 Divalproex Sodium (Depakote Sprinkles) 375 mg TID PO Last administered on at 12:00; Start 12/27/17 at 21:00; Stop 12/28/17 at 18:33; Status DC Donepezil HCl (Aricept) 10 mg DAILY PO Last administered on 01/07/18at 09:25; Start 12/28/17 at 09:00; Stop 01/07/18 at 18:04; Status DC Lactulose (Lactulose) 20 gm TID@0900,1300,1700 PO Last administered on at 16:35; Start 12/27/17 at 17:00 Non-Formulary Medication (Mag Hydrox/Al Hydrox/Simeth (Advanced Antacid Liquid) ) 15 ml PRN AFTMEALHC PRN PO DYSPEPSIA; Start 12/27/17 at 14:45; Stop 12/27/17 at 15:06; Status DC Non-Formulary Medication (Magnesium Hydroxide (Milk Of Magnesia)) 2,400 mg PRN QHS PRN PO CONSTIPATION; Start 12/27/17 at 14:45; Stop 12/27/17 at 15:06; Status DC Melatonin 3 mg QHS PO Last administered on 01/13/18at 20:26; Start 12/27/17 at 21 :00 Metoprolol Tartrate (Lopressor) 100 mg BID PO Last administered on 01/08/18at 09 :16; Start 12/27/17 at 21:00; Stop 01/09/18 at 18:08; Status DC Mirtazapine (Remeron) 7.5 mg QHS PO Last administered on 01/04/18at 20:15; Start 12/27/17 at 21:00; Stop 01/05/18 at 19:21; Status DC Multivitamins/ Calcium (Thera-M Plus) 1 tab DAILY PO Last administered on at 07:37; Start 12/28/17 at 09:00 Quetiapine Fumarate (SEROquel) 37.5 mg BID@0900,1700 PO Last administered on 06/15at 17:04; Start 12/27/17 at 17:00; Stop 01/06/18 at 18:20; Status DC Trazodone HCl (Desyrel) 50 mg PRN QHS PRN PO INSOMNIA Last administered on 01/12at 20:00; Start 12/27/17 at 15:30 Divalproex Sodium (Depakote Sprinkles) 500 mg TID PO Last administered on at 20:31; Start 12/28/17 at 21:00 Olanzapine (ZyPREXA ZYDIS) 1.25 mg PRN Q2HR PRN PO PSYCHOSIS Last administered on 01/03/18at 17:22; Start 01/03/18 at 16:00 Mirtazapine (Remeron) 15 mg QHS PO Last administered on 01/13/18 20:26; Start 01/05/18 at 21:00 Quetiapine Fumarate (SEROquel) 37.5 mg TID@0900,1300,1700 PO Last administered on 01/09/18at 09:31; Start 01/07/18 at 09:00; Stop 01/09/18 at 10:56; Status DC Quetiapine Fumarate (SEROquel) 50 mg TID@0900,1300,1700 PO Last administered on 01/13/18at 16:35; Start 01/09/18 at 13:00 Metoprolol Tartrate (Lopressor) 50 mg BID PO Last administered on 01/12/18at 07: 56; Start 01/09/18 at 21:00; Stop 01/12/18 at 15:42; Status DC Metoprolol Tartrate (Lopressor) 25 mg BID PO Last administered on 01/13/18at 20: 25; Start 01/12/18 at 21:00 Active Scripts Active Reported Multivitamins (Multivitamin) 1 Each Tablet 1 Tab PO DAILY Trazodone Hcl 100 Mg Tablet 100 Mg PO PRN QHS PRN Zoloft (Sertraline Hcl) 50 Mg Tablet 50 Mg PO DAILY Seroquel (Quetiapine Fumarate) 25 Mg Tablet 37.5 Mg PO BID@0900,1700 Seroquel (Quetiapine Fumarate) 25 Mg Tablet 12.5 Mg PO BID@1300,2100 Tablet (Pnv Cmb#95/Ferrous Fumarate/Fa) 1 Each Tablet 1 Tab PO DAILY Zyprexa Zydis (Olanzapine) 5 Mg Tab.rapdis 2.5 Mg PO PRN Q2HR PRN Curad Triple Antibiotic Oint (Neomycin/Bacitracin/Polymyxinb) 1 Each Oint.pack 1 Sonja TP BID Mirtazapine 15 Mg Tablet 7.5 Mg PO HS Analgesic [place] (Methyl Salicylate/Menthol) 28 Gm Oint...g. 1 Sonja TP PRN QID PRN Milk Of Magnesia (Magnesium Hydroxide) 2,400 Mg/10 Ml Oral.susp 2,400 Mg PO PRN QHS PRN Advanced Antacid Liquid (Mag Hydrox/Al Hydrox/Simeth) 355 Ml Oral.susp 15 Ml PO PRN AFTMEALHC PRN Donepezil Hcl 10 Mg Tablet 10 Mg PO DAILY Divalproex Sodium 125 Mg Cap.sprink 375 Mg PO TID Vitamin B-12 (Cyanocobalamin (Vitamin B-12)) 1,000 Mcg Tablet 1,000 Mcg PO DAILY Acetaminophen 500 Mg Tablet 500 Mg PO PRN Q6HRS PRN Melatonin 3 Mg Tablet 3 Mg PO QHS Atorvastatin Calcium 20 Mg Tablet 20 Mg PO QHS Lactulose 10 Gm/15 Ml Solution 20 Gm PO TID@0900,1300,1700 Metoprolol Tartrate 100 Mg Tablet 100 Mg PO BID Colace (Docusate Sodium) 100 Mg Capsule 100 Mg PO DAILY Vitamin D3 (Cholecalciferol (Vitamin D3)) 1,000 Unit Tablet 2,000 Unit PO DAILYBFRSUP Aspir-Low (Aspirin) 81 Mg Tablet.dr 81 Mg PO DAILY I have reviewed the current psychotropics carefully including drug interactions. Risk benefit ratio favors no change other than as noted in my dictated progress note. Diagnosis: Problems: (1) Anxiety disorder (2) Dementia in Alzheimer's disease with delusions (3) Dementia in Alzheimer's disease with depression (4) Dementia, vascular, with delirium (5) Dementia, vascular, with delusions (6) Impulse control disorder (7) Violent behavior ELLIS NOBLES MD Jan 13, 2018 21:10
[2018-01-14 06:13] VITALS: BP 136/76
[2018-01-14] MEDS: LACTULOSE 20 GM/30 ML SOLUTION. PO SCH ×3 (09:15→16:26)
[2018-01-14] MEDS: DIVALPROEX 125 MG CAP.SPRINK PO SCH ×3 (09:16→20:07)
[2018-01-14] MEDS: METOPROLOL TART IMMED RELEASE 50 MG TABLET PO SCH ×2 (09:16→20:06)
[2018-01-14] MEDS: ASPIRIN 81 MG TAB.CHEW PO SCH (09:16)
[2018-01-14] MEDS: CYANOCOBALAMIN (VITAMIN B-12) 1,000 MCG TABLET. PO SCH (09:16)
[2018-01-14] MEDS: SERTRALINE 50 MG TABLET. PO SCH (09:16)
[2018-01-14] MEDS: QUEtiapine 50 MG TABLET. PO SCH ×3 (09:16→16:27)
[2018-01-14] MEDS: MULTIVITAMIN with MINERAL TABLET. PO SCH (09:17)
[2018-01-14 15:57] VITALS: BP 95/60
[2018-01-14] MEDS: CHOLECALCIFEROL (VITAMIN D3) 1,000 UNIT TABLET PO SCH (16:27)
[2018-01-14] MEDS: MELATONIN 3 MG TABLET PO SCH (20:06)
[2018-01-14] MEDS: MIRTAZAPINE 15 MG TABLET PO SCH (20:06)
[2018-01-14] MEDS: ATORVASTATIN CALCIUM 20 MG TABLET PO SCH (20:06)
--- NOTE | 2018-01-14 21:08 | PDOC ---
Exam Note: Darci Note: Please also refer to the separate dictated note~for this date of service dictated separately.~Patient seen individually. Discussed the patient with Nursing staff reviewed the chart.~Reviewed interim history and current functioning. Reviewed vital signs,~Labs/ Radiology~and current medications noted below. Continue current treatment with the changes noted in the dictated addendum note Assessment: Vital Signs: Vital Signs Date Time Temp Pulse Resp B/P (MAP) Pulse Ox O2 Delivery O2 Flow Rate FiO2 01/14/18 20:06 72 95/60 01/14/18 15:57 98.4 22 98 01/13/18 16:27 Room Air I&O Intake and Output 01/14/18 07:00 Intake Total 840 ml Balance 840 ml Intake Oral 840 ml Current Medications: Meds: Current Medications Olanzapine (ZyPREXA ZYDIS) 2.5 mg PRN Q2HR PRN PO PSYCHOSIS Last administered on 01/12/18at 04:59; Start 12/27/17 at 12:45 Acetaminophen (Tylenol) 650 mg PRN Q6HRS PRN PO PAIN / TEMP Last administered on 01/13/18at 20:25; Start 12/27/17 at 13:00 Multi-Ingredient Ointment (Analgesic [place]) 1 sonja PRN QID PRN TP MUSCLE PAIN; Start 12/27/17 at 13:00 Al Hydroxide/Mg Hydroxide (Mylanta Plus Xs) 15 ml PRN AFTMEALHC PRN PO DYSPEPSIA; Start 12/27/17 at 13:00 Magnesium Hydroxide (Milk Of Magnesia) 2,400 mg PRN QHS PRN PO CONSTIPATION; Start 12/27/17 at 13:00 Atorvastatin Calcium (Lipitor) 20 mg QHS PO Last administered on 01/14/18at 20: 06; Start 12/27/17 at 21:00 Vitamin D (Vitamin D3) 2,000 unit DAILYBFRSUP PO Last administered on at 16:27; Start 12/27/17 at 17:00 Cyanocobalamin (Vitamin B-12) 1,000 mcg DAILY PO Last administered on at 09:16; Start 12/28/17 at 09:00 Multi-Ingredient Ointment (Analgesic [place]) 1 sonja PRN QID PRN TP MUSCLE PAIN; Start 12/27/17 at 14:45; Stop 12/27/17 at 15:06; Status DC Sertraline HCl (Zoloft) 50 mg DAILY PO Last administered on 01/14/18at 09:16; Start 12/28/17 at 09:00; Stop 01/14/18 at 18:47; Status DC Non-Formulary Medication (Acetaminophen ) 500 mg PRN Q6HRS PRN PO PAIN / TEMP; Start 12/27/17 at 14:45; Stop 12/27/17 at 15:11; Status DC Aspirin (Children'S Aspirin) 81 mg DAILYWBKFT PO Last administered on at 09:16; Start 12/28/17 at 08:00 Divalproex Sodium (Depakote Sprinkles) 375 mg TID PO Last administered on at 12:00; Start 12/27/17 at 21:00; Stop 12/28/17 at 18:33; Status DC Donepezil HCl (Aricept) 10 mg DAILY PO Last administered on 01/07/18at 09:25; Start 12/28/17 at 09:00; Stop 01/07/18 at 18:04; Status DC Lactulose (Lactulose) 20 gm TID@0900,1300,1700 PO Last administered on at 16:26; Start 12/27/17 at 17:00 Non-Formulary Medication (Mag Hydrox/Al Hydrox/Simeth (Advanced Antacid Liquid) ) 15 ml PRN AFTMEALHC PRN PO DYSPEPSIA; Start 12/27/17 at 14:45; Stop 12/27/17 at 15:06; Status DC Non-Formulary Medication (Magnesium Hydroxide (Milk Of Magnesia)) 2,400 mg PRN QHS PRN PO CONSTIPATION; Start 12/27/17 at 14:45; Stop 12/27/17 at 15:06; Status DC Melatonin 3 mg QHS PO Last administered on 01/14/18at 20:06; Start 12/27/17 at 21 :00 Metoprolol Tartrate (Lopressor) 100 mg BID PO Last administered on 01/08/18at 09 :16; Start 12/27/17 at 21:00; Stop 01/09/18 at 18:08; Status DC Mirtazapine (Remeron) 7.5 mg QHS PO Last administered on 01/04/18at 20:15; Start 12/27/17 at 21:00; Stop 01/05/18 at 19:21; Status DC Multivitamins/ Calcium (Thera-M Plus) 1 tab DAILY PO Last administered on at 09:17; Start 12/28/17 at 09:00 Quetiapine Fumarate (SEROquel) 37.5 mg BID@0900,1700 PO Last administered on 06/15at 17:04; Start 12/27/17 at 17:00; Stop 01/06/18 at 18:20; Status DC Trazodone HCl (Desyrel) 50 mg PRN QHS PRN PO INSOMNIA Last administered on 01/12at 20:00; Start 12/27/17 at 15:30 Divalproex Sodium (Depakote Sprinkles) 500 mg TID PO Last administered on at 20:07; Start 12/28/17 at 21:00 Olanzapine (ZyPREXA ZYDIS) 1.25 mg PRN Q2HR PRN PO PSYCHOSIS Last administered on 01/03/18at 17:22; Start 01/03/18 at 16:00 Mirtazapine (Remeron) 15 mg QHS PO Last administered on 01/14/18at 20:06; Start 01/05/18 at 21:00 Quetiapine Fumarate (SEROquel) 37.5 mg TID@0900,1300,1700 PO Last administered on 01/09/18at 09:31; Start 01/07/18 at 09:00; Stop 01/09/18 at 10:56; Status DC Quetiapine Fumarate (SEROquel) 50 mg TID@0900,1300,1700 PO Last administered on 01/14/18at 16:27; Start 01/09/18 at 13:00 Metoprolol Tartrate (Lopressor) 50 mg BID PO Last administered on 01/12/18at 07: 56; Start 01/09/18 at 21:00; Stop 01/12/18 at 15:42; Status DC Metoprolol Tartrate (Lopressor) 25 mg BID PO Last administered on 01/14/18at 20: 06; Start 01/12/18 at 21:00 Sertraline HCl (Zoloft) 75 mg DAILY PO ; Start 01/15/18 at 09:00 Active Scripts Active Reported Multivitamins (Multivitamin) 1 Each Tablet 1 Tab PO DAILY Trazodone Hcl 100 Mg Tablet 100 Mg PO PRN QHS PRN Zoloft (Sertraline Hcl) 50 Mg Tablet 50 Mg PO DAILY Seroquel (Quetiapine Fumarate) 25 Mg Tablet 37.5 Mg PO BID@0900,1700 Seroquel (Quetiapine Fumarate) 25 Mg Tablet 12.5 Mg PO BID@1300,2100 Tablet (Pnv Cmb#95/Ferrous Fumarate/Fa) 1 Each Tablet 1 Tab PO DAILY Zyprexa Zydis (Olanzapine) 5 Mg Tab.rapdis 2.5 Mg PO PRN Q2HR PRN Curad Triple Antibiotic Oint (Neomycin/Bacitracin/Polymyxinb) 1 Each Oint.pack 1 Sonja TP BID Mirtazapine 15 Mg Tablet 7.5 Mg PO HS Analgesic [place] (Methyl Salicylate/Menthol) 28 Gm Oint...g. 1 Sonja TP PRN QID PRN Milk Of Magnesia (Magnesium Hydroxide) 2,400 Mg/10 Ml Oral.susp 2,400 Mg PO PRN QHS PRN Advanced Antacid Liquid (Mag Hydrox/Al Hydrox/Simeth) 355 Ml Oral.susp 15 Ml PO PRN AFTMEALHC PRN Donepezil Hcl 10 Mg Tablet 10 Mg PO DAILY Divalproex Sodium 125 Mg Cap.sprink 375 Mg PO TID Vitamin B-12 (Cyanocobalamin (Vitamin B-12)) 1,000 Mcg Tablet 1,000 Mcg PO DAILY Acetaminophen 500 Mg Tablet 500 Mg PO PRN Q6HRS PRN Melatonin 3 Mg Tablet 3 Mg PO QHS Atorvastatin Calcium 20 Mg Tablet 20 Mg PO QHS Lactulose 10 Gm/15 Ml Solution 20 Gm PO TID@0900,1300,1700 Metoprolol Tartrate 100 Mg Tablet 100 Mg PO BID Colace (Docusate Sodium) 100 Mg Capsule 100 Mg PO DAILY Vitamin D3 (Cholecalciferol (Vitamin D3)) 1,000 Unit Tablet 2,000 Unit PO DAILYBFRSUP Aspir-Low (Aspirin) 81 Mg Tablet. 81 Mg PO DAILY I have reviewed the current psychotropics carefully including drug interactions. Risk benefit ratio favors no change other than as noted in my dictated progress note. Diagnosis: Problems: (1) Anxiety disorder (2) Dementia in Alzheimer's disease with delusions (3) Dementia in Alzheimer's disease with depression (4) Dementia, vascular, with delirium (5) Dementia, vascular, with delusions (6) Impulse control disorder (7) Violent behavior ELLIS NOBLES MD Jan 14, 2018 21:08
--- NOTE | 2018-01-14 21:14 | PN ---
DATE: 01/13/2018 PSYCHIATRIC PROGRESS NOTE This is a late entry 01/13/2018 covers elements not covered in my initial note. SUBJECTIVE: I met with the patient in the evening. Overall, the patient remains confused, but has been calmer, has been walking up and down the hallway, not aggressive, confused, takes his meds in ice cream and applesauce. REVIEW OF SYSTEMS: No CV, , pulmonary, eye, ENT system symptoms on review. Reliability poor. MENTAL STATUS EXAM: Oriented to himself. Insight, judgment, recent and remote memory, attention, concentration, fund of knowledge poor, consistent with his diagnosis mentioned in my initial note. PLAN: No change from a psychiatric standpoint from initial note for now. MAN Estefany NOBLES MD DR: MONICA/joe JOB#: [id number] / [id number]
[2018-01-15 06:11] VITALS: BP 130/78
[2018-01-15 09:12] LABS: BASO # 0.1 x10^3/uL (0.0-0.2); BASO % 1 % (0-3); EOS # 0.3 x10^3/uL (0.0-0.7); EOS % 5 % (0-3); HEMATOCRIT 41.3 % (39.0-53.0); LYMPH # 2.1 x10^3/uL (1.0-4.8); LYMPH % 35 % (24-48); MEAN CORPUSCULAR HEMOGLOBIN 33 pg (25-35); MEAN CORPUSCULAR HGB CONC 34 g/dL (31-37); MEAN CORPUSCULAR VOLUME 97 fL (79-100); MONO # 0.5 x10^3/uL (0.0-1.1); MONO % 8 % (0-9); NEUT # 3.1 x10^3uL (1.8-7.7); NEUT % 51 % (31-73); PLATELET COUNT 163 x10^3/uL (140-400); RED BLOOD COUNT 4.26 x10^6/uL (4.30-5.70); RED CELL DISTRIBUTION WIDTH 14.6 % (11.5-14.5); WHITE BLOOD COUNT 6.1 x10^3/uL (4.0-11.0)
[2018-01-15 09:17] LABS: ALBUMIN 3.3 g/dL (3.4-5.0); ALBUMIN/GLOBULIN RATIO 0.8 (1.0-1.7); CALCIUM 8.7 mg/dL (8.5-10.1); GFR 90.5; POTASSIUM 4.2 mmol/L (3.5-5.1); TOTAL BILIRUBIN 0.3 mg/dL (0.2-1.0); TOTAL PROTEIN 7.5 g/dL (6.4-8.2)
[2018-01-15] MEDS: QUEtiapine 50 MG TABLET. PO SCH ×3 (10:31→17:27)
[2018-01-15] MEDS: ASPIRIN 81 MG TAB.CHEW PO SCH (10:31)
[2018-01-15] MEDS: MULTIVITAMIN with MINERAL TABLET. PO SCH (10:31)
[2018-01-15] MEDS: METOPROLOL TART IMMED RELEASE 50 MG TABLET PO SCH ×2 (10:31→20:04)
[2018-01-15] MEDS: CHOLECALCIFEROL (VITAMIN D3) 1,000 UNIT TABLET PO SCH (10:31)
[2018-01-15] MEDS: LACTULOSE 20 GM/30 ML SOLUTION. PO SCH ×3 (10:31→17:27)
[2018-01-15] MEDS: CYANOCOBALAMIN (VITAMIN B-12) 1,000 MCG TABLET. PO SCH (10:31)
[2018-01-15] MEDS: DIVALPROEX 125 MG CAP.SPRINK PO SCH ×3 (10:32→20:03)
[2018-01-15] MEDS: SERTRALINE 50 MG TABLET. PO SCH (10:37)
--- NOTE | 2018-01-15 14:12 | PN ---
DATE: 01/14/2018 PSYCHIATRIC PROGRESS NOTE This is a late entry 01/14/2018, covers elements not covered in my initial note. SUBJECTIVE: I met with the patient in the evening. The patient slept 7 hours previous evening. Remains confused, wanders the hallways, did well till dinner time, then he stole some silverware, but was not aggressive. He was using profanities to his nursing staff, had to be placed in the quiet hallway, but then was quite redirectable. REVIEW OF SYSTEMS: No CV, , pulmonary, eye, ENT system symptoms on review. Reliability poor. MENTAL STATUS EXAM: Oriented to himself. Insight, judgment, recent and remote memory, attention, concentration, fund of knowledge poor, consistent with his diagnoses mentioned in my initial note. PLAN: Increase Zoloft to 75 mg a day after he has on 50 for 3 days, maintain rest unchanged including Seroquel together with Depakote, Zyprexa p.r.n., melatonin, Remeron along with trazodone p.r.n. MAN Estefany NOBLES MD DR: MONICA/joe JOB#: [id number] / [id number]
[2018-01-15 17:16] VITALS: BP 107/79
[2018-01-15] MEDS: ATORVASTATIN CALCIUM 20 MG TABLET PO SCH (20:03)
[2018-01-15] MEDS: MELATONIN 3 MG TABLET PO SCH (20:04)
[2018-01-15] MEDS: MIRTAZAPINE 15 MG TABLET PO SCH (20:04)
--- NOTE | 2018-01-15 21:41 | PDOC ---
Exam Note: Adrci Note: Please also refer to the separate dictated note~for this date of service dictated separately.~Patient seen individually. Discussed the patient with Nursing staff reviewed the chart.~Reviewed interim history and current functioning. Reviewed vital signs,~Labs/ Radiology~and current medications noted below. Continue current treatment with the changes noted in the dictated addendum note Assessment: Vital Signs: Vital Signs Date Time Temp Pulse Resp B/P (MAP) Pulse Ox O2 Delivery O2 Flow Rate FiO2 01/15/18 20:04 86 107/79 01/15/18 17:16 97.5 18 100 01/13/18 16:27 Room Air I&O Intake and Output 01/15/18 07:00 Intake Total 480 ml Balance 480 ml Intake Oral 480 ml # Voids 1 # Bowel Movements 2 Labs: Laboratory Tests Test 01/15/18 08:56 White Blood Count 6.1 x10^3/uL (4.0-11.0) Red Blood Count 4.26 x10^6/uL (4.30-5.70) L Hemoglobin 14.0 g/dL (13.0-17.5) Hematocrit 41.3 % (39.0-53.0) Mean Corpuscular Volume 97 fL (79-100) Mean Corpuscular Hemoglobin 33 pg (25-35) Mean Corpuscular Hemoglobin Concent 34 g/dL (31-37) Red Cell Distribution Width 14.6 % (11.5-14.5) H Platelet Count 163 x10^3/uL (140-400) Neutrophils (%) (Auto) 51 % (31-73) Lymphocytes (%) (Auto) 35 % (24-48) Monocytes (%) (Auto) 8 % (0-9) Eosinophils (%) (Auto) 5 % (0-3) H Basophils (%) (Auto) 1 % (0-3) Neutrophils # (Auto) 3.1 x10^3uL (1.8-7.7) Lymphocytes # (Auto) 2.1 x10^3/uL (1.0-4.8) Monocytes # (Auto) 0.5 x10^3/uL (0.0-1.1) Eosinophils # (Auto) 0.3 x10^3/uL (0.0-0.7) Basophils # (Auto) 0.1 x10^3/uL (0.0-0.2) Sodium Level 142 mmol/L (136-145) Potassium Level 4.2 mmol/L (3.5-5.1) Chloride Level 102 mmol/L (98-107) Carbon Dioxide Level 31 mmol/L (21-32) Anion Gap 9 (6-14) Blood Urea Nitrogen 20 mg/dL (8-26) Creatinine 1.0 mg/dL (0.7-1.3) Estimated GFR (Cockcroft-Gault) 90.5 BUN/Creatinine Ratio 20 (6-20) Glucose Level 98 mg/dL (70-99) Calcium Level 8.7 mg/dL (8.5-10.1) Total Bilirubin 0.3 mg/dL (0.2-1.0) Aspartate Amino Transferase (AST) 16 U/L (15-37) Alanine Aminotransferase (ALT) 25 U/L (16-63) Alkaline Phosphatase 82 U/L (46-116) Total Protein 7.5 g/dL (6.4-8.2) Albumin 3.3 g/dL (3.4-5.0) L Albumin/Globulin Ratio 0.8 (1.0-1.7) L Current Medications: Meds: Current Medications Olanzapine (ZyPREXA ZYDIS) 2.5 mg PRN Q2HR PRN PO PSYCHOSIS Last administered on 01/12/18at 04:59; Start 12/27/17 at 12:45 Acetaminophen (Tylenol) 650 mg PRN Q6HRS PRN PO PAIN / TEMP Last administered on 01/13/18at 20:25; Start 12/27/17 at 13:00 Multi-Ingredient Ointment (Analgesic [place]) 1 sojna PRN QID PRN TP MUSCLE PAIN; Start 12/27/17 at 13:00 Al Hydroxide/Mg Hydroxide (Mylanta Plus Xs) 15 ml PRN AFTMEALHC PRN PO DYSPEPSIA; Start 12/27/17 at 13:00 Magnesium Hydroxide (Milk Of Magnesia) 2,400 mg PRN QHS PRN PO CONSTIPATION; Start 12/27/17 at 13:00 Atorvastatin Calcium (Lipitor) 20 mg QHS PO Last administered on 01/15/18at 20: 03; Start 12/27/17 at 21:00 Vitamin D (Vitamin D3) 2,000 unit DAILYBFRSUP PO Last administered on at 10:31; Start 12/27/17 at 17:00 Cyanocobalamin (Vitamin B-12) 1,000 mcg DAILY PO Last administered on at 10:31; Start 12/28/17 at 09:00 Multi-Ingredient Ointment (Analgesic [place]) 1 sonja PRN QID PRN TP MUSCLE PAIN; Start 12/27/17 at 14:45; Stop 12/27/17 at 15:06; Status DC Sertraline HCl (Zoloft) 50 mg DAILY PO Last administered on 01/14/18at 09:16; Start 12/28/17 at 09:00; Stop 01/14/18 at 18:47; Status DC Non-Formulary Medication (Acetaminophen ) 500 mg PRN Q6HRS PRN PO PAIN / TEMP; Start 12/27/17 at 14:45; Stop 12/27/17 at 15:11; Status DC Aspirin (Children'S Aspirin) 81 mg DAILYWBKFT PO Last administered on at 10:31; Start 12/28/17 at 08:00 Divalproex Sodium (Depakote Sprinkles) 375 mg TID PO Last administered on at 12:00; Start 12/27/17 at 21:00; Stop 12/28/17 at 18:33; Status DC Donepezil HCl (Aricept) 10 mg DAILY PO Last administered on 01/07/18at 09:25; Start 12/28/17 at 09:00; Stop 01/07/18 at 18:04; Status DC Lactulose (Lactulose) 20 gm TID@0900,1300,1700 PO Last administered on at 17:27; Start 12/27/17 at 17:00 Non-Formulary Medication (Mag Hydrox/Al Hydrox/Simeth (Advanced Antacid Liquid) ) 15 ml PRN AFTMEALHC PRN PO DYSPEPSIA; Start 12/27/17 at 14:45; Stop 12/27/17 at 15:06; Status DC Non-Formulary Medication (Magnesium Hydroxide (Milk Of Magnesia)) 2,400 mg PRN QHS PRN PO CONSTIPATION; Start 12/27/17 at 14:45; Stop 12/27/17 at 15:06; Status DC Melatonin 3 mg QHS PO Last administered on 01/15/18at 20:04; Start 12/27/17 at 21 :00 Metoprolol Tartrate (Lopressor) 100 mg BID PO Last administered on 01/08/18at 09 :16; Start 12/27/17 at 21:00; Stop 01/09/18 at 18:08; Status DC Mirtazapine (Remeron) 7.5 mg QHS PO Last administered on 01/04/18at 20:15; Start 12/27/17 at 21:00; Stop 01/05/18 at 19:21; Status DC Multivitamins/ Calcium (Thera-M Plus) 1 tab DAILY PO Last administered on at 10:31; Start 12/28/17 at 09:00 Quetiapine Fumarate (SEROquel) 37.5 mg BID@0900,1700 PO Last administered on 06/15at 17:04; Start 12/27/17 at 17:00; Stop 01/06/18 at 18:20; Status DC Trazodone HCl (Desyrel) 50 mg PRN QHS PRN PO INSOMNIA Last administered on 01/12at 20:00; Start 12/27/17 at 15:30 Divalproex Sodium (Depakote Sprinkles) 500 mg TID PO Last administered on at 20:03; Start 12/28/17 at 21:00 Olanzapine (ZyPREXA ZYDIS) 1.25 mg PRN Q2HR PRN PO PSYCHOSIS Last administered on 01/03/18 17:22; Start 01/03/18 at 16:00 Mirtazapine (Remeron) 15 mg QHS PO Last administered on 01/15/18at 20:04; Start 01/05/18 at 21:00 Quetiapine Fumarate (SEROquel) 37.5 mg TID@0900,1300,1700 PO Last administered on 01/09/18at 09:31; Start 01/07/18 at 09:00; Stop 01/09/18 at 10:56; Status DC Quetiapine Fumarate (SEROquel) 50 mg TID@0900,1300,1700 PO Last administered on 01/15/18at 17:27; Start 01/09/18 at 13:00 Metoprolol Tartrate (Lopressor) 50 mg BID PO Last administered on 01/12/18at 07: 56; Start 01/09/18 at 21:00; Stop 01/12/18 at 15:42; Status DC Metoprolol Tartrate (Lopressor) 25 mg BID PO Last administered on 01/15/18at 20: 04; Start 01/12/18 at 21:00 Sertraline HCl (Zoloft) 75 mg DAILY PO Last administered on 01/15/18at 10:37; Start 01/15/18 at 09:00 Active Scripts Active Reported Multivitamins (Multivitamin) 1 Each Tablet 1 Tab PO DAILY Trazodone Hcl 100 Mg Tablet 100 Mg PO PRN QHS PRN Zoloft (Sertraline Hcl) 50 Mg Tablet 50 Mg PO DAILY Seroquel (Quetiapine Fumarate) 25 Mg Tablet 37.5 Mg PO BID@0900,1700 Seroquel (Quetiapine Fumarate) 25 Mg Tablet 12.5 Mg PO BID@1300,2100 Tablet (Pnv Cmb#95/Ferrous Fumarate/Fa) 1 Each Tablet 1 Tab PO DAILY Zyprexa Zydis (Olanzapine) 5 Mg Tab.rapdis 2.5 Mg PO PRN Q2HR PRN Curad Triple Antibiotic Oint (Neomycin/Bacitracin/Polymyxinb) 1 Each Oint.pack 1 Sonja TP BID Mirtazapine 15 Mg Tablet 7.5 Mg PO HS Analgesic [place] (Methyl Salicylate/Menthol) 28 Gm Oint...g. 1 Sonja TP PRN QID PRN Milk Of Magnesia (Magnesium Hydroxide) 2,400 Mg/10 Ml Oral.susp 2,400 Mg PO PRN QHS PRN Advanced Antacid Liquid (Mag Hydrox/Al Hydrox/Simeth) 355 Ml Oral.susp 15 Ml PO PRN AFTMEALHC PRN Donepezil Hcl 10 Mg Tablet 10 Mg PO DAILY Divalproex Sodium 125 Mg Cap.sprink 375 Mg PO TID Vitamin B-12 (Cyanocobalamin (Vitamin B-12)) 1,000 Mcg Tablet 1,000 Mcg PO DAILY Acetaminophen 500 Mg Tablet 500 Mg PO PRN Q6HRS PRN Melatonin 3 Mg Tablet 3 Mg PO QHS Atorvastatin Calcium 20 Mg Tablet 20 Mg PO QHS Lactulose 10 Gm/15 Ml Solution 20 Gm PO TID@0900,1300,1700 Metoprolol Tartrate 100 Mg Tablet 100 Mg PO BID Colace (Docusate Sodium) 100 Mg Capsule 100 Mg PO DAILY Vitamin D3 (Cholecalciferol (Vitamin D3)) 1,000 Unit Tablet 2,000 Unit PO DAILYBFRSUP Aspir-Low (Aspirin) 81 Mg Tablet. 81 Mg PO DAILY I have reviewed the current psychotropics carefully including drug interactions. Risk benefit ratio favors no change other than as noted in my dictated progress note. Diagnosis: Problems: (1) Anxiety disorder (2) Dementia in Alzheimer's disease with delusions (3) Dementia in Alzheimer's disease with depression (4) Dementia, vascular, with delirium (5) Dementia, vascular, with delusions (6) Impulse control disorder (7) Violent behavior ELLIS NOBLES MD Jan 15, 2018 21:41
[2018-01-16 05:56] VITALS: BP 137/87
[2018-01-16] MEDS: LACTULOSE 20 GM/30 ML SOLUTION. PO SCH ×3 (08:06→17:09)
[2018-01-16] MEDS: DIVALPROEX 125 MG CAP.SPRINK PO SCH ×3 (08:06→20:19)
[2018-01-16] MEDS: QUEtiapine 50 MG TABLET. PO SCH ×3 (08:06→17:09)
[2018-01-16] MEDS: METOPROLOL TART IMMED RELEASE 50 MG TABLET PO SCH ×2 (08:07→20:20)
[2018-01-16] MEDS: SERTRALINE 50 MG TABLET. PO SCH (08:07)
[2018-01-16] MEDS: CYANOCOBALAMIN (VITAMIN B-12) 1,000 MCG TABLET. PO SCH (08:07)
[2018-01-16] MEDS: ASPIRIN 81 MG TAB.CHEW PO SCH (08:07)
[2018-01-16] MEDS: MULTIVITAMIN with MINERAL TABLET. PO SCH (08:07)
[2018-01-16 16:14] VITALS: BP 99/59
[2018-01-16] MEDS: CHOLECALCIFEROL (VITAMIN D3) 1,000 UNIT TABLET PO SCH (17:09)
[2018-01-16] MEDS: ATORVASTATIN CALCIUM 20 MG TABLET PO SCH (20:19)
[2018-01-16] MEDS: MIRTAZAPINE 15 MG TABLET PO SCH (20:19)
[2018-01-16] MEDS: MELATONIN 3 MG TABLET PO SCH (20:19)
[2018-01-16] MEDS: traZODone 50 MG TABLET. PO PRN (20:22)
--- NOTE | 2018-01-16 21:01 | PDOC ---
Exam Note: Darci Note: Please also refer to the separate dictated note~for this date of service dictated separately.~Patient seen individually. Discussed the patient with Nursing staff reviewed the chart.~Reviewed interim history and current functioning. Reviewed vital signs,~Labs/ Radiology~and current medications noted below. Continue current treatment with the changes noted in the dictated addendum note Assessment: Vital Signs: Vital Signs Date Time Temp Pulse Resp B/P (MAP) Pulse Ox O2 Delivery O2 Flow Rate FiO2 01/16/18 20:20 75 99/59 01/16/18 16:14 97.7 18 97 01/13/18 16:27 Room Air I&O Intake and Output 01/16/18 07:00 Intake Total 600 ml Balance 600 ml Intake Oral 600 ml Current Medications: Meds: Current Medications Olanzapine (ZyPREXA ZYDIS) 2.5 mg PRN Q2HR PRN PO PSYCHOSIS Last administered on 01/12/18at 04:59; Start 12/27/17 at 12:45 Acetaminophen (Tylenol) 650 mg PRN Q6HRS PRN PO PAIN / TEMP Last administered on 01/13/18at 20:25; Start 12/27/17 at 13:00 Multi-Ingredient Ointment (Analgesic [place]) 1 sonja PRN QID PRN TP MUSCLE PAIN; Start 12/27/17 at 13:00 Al Hydroxide/Mg Hydroxide (Mylanta Plus Xs) 15 ml PRN AFTMEALHC PRN PO DYSPEPSIA; Start 12/27/17 at 13:00 Magnesium Hydroxide (Milk Of Magnesia) 2,400 mg PRN QHS PRN PO CONSTIPATION; Start 12/27/17 at 13:00 Atorvastatin Calcium (Lipitor) 20 mg QHS PO Last administered on 01/16/18at 20: 19; Start 12/27/17 at 21:00 Vitamin D (Vitamin D3) 2,000 unit DAILYBFRSUP PO Last administered on at 17:09; Start 12/27/17 at 17:00 Cyanocobalamin (Vitamin B-12) 1,000 mcg DAILY PO Last administered on at 08:07; Start 12/28/17 at 09:00 Multi-Ingredient Ointment (Analgesic [place]) 1 sonja PRN QID PRN TP MUSCLE PAIN; Start 12/27/17 at 14:45; Stop 12/27/17 at 15:06; Status DC Sertraline HCl (Zoloft) 50 mg DAILY PO Last administered on 01/14/18at 09:16; Start 12/28/17 at 09:00; Stop 01/14/18 at 18:47; Status DC Non-Formulary Medication (Acetaminophen ) 500 mg PRN Q6HRS PRN PO PAIN / TEMP; Start 12/27/17 at 14:45; Stop 12/27/17 at 15:11; Status DC Aspirin (Children'S Aspirin) 81 mg DAILYWBKFT PO Last administered on at 08:07; Start 12/28/17 at 08:00 Divalproex Sodium (Depakote Sprinkles) 375 mg TID PO Last administered on at 12:00; Start 12/27/17 at 21:00; Stop 12/28/17 at 18:33; Status DC Donepezil HCl (Aricept) 10 mg DAILY PO Last administered on 01/07/18at 09:25; Start 12/28/17 at 09:00; Stop 01/07/18 at 18:04; Status DC Lactulose (Lactulose) 20 gm TID@0900,1300,1700 PO Last administered on at 17:09; Start 12/27/17 at 17:00 Non-Formulary Medication (Mag Hydrox/Al Hydrox/Simeth (Advanced Antacid Liquid) ) 15 ml PRN AFTMEALHC PRN PO DYSPEPSIA; Start 12/27/17 at 14:45; Stop 12/27/17 at 15:06; Status DC Non-Formulary Medication (Magnesium Hydroxide (Milk Of Magnesia)) 2,400 mg PRN QHS PRN PO CONSTIPATION; Start 12/27/17 at 14:45; Stop 12/27/17 at 15:06; Status DC Melatonin 3 mg QHS PO Last administered on 01/16/18at 20:19; Start 12/27/17 at 21 :00 Metoprolol Tartrate (Lopressor) 100 mg BID PO Last administered on 01/08/18at 09 :16; Start 12/27/17 at 21:00; Stop 01/09/18 at 18:08; Status DC Mirtazapine (Remeron) 7.5 mg QHS PO Last administered on 01/04/18 20:15; Start 12/27/17 at 21:00; Stop 01/05/18 at 19:21; Status DC Multivitamins/ Calcium (Thera-M Plus) 1 tab DAILY PO Last administered on at 08:07; Start 12/28/17 at 09:00 Quetiapine Fumarate (SEROquel) 37.5 mg BID@0900,1700 PO Last administered on 06/15at 17:04; Start 12/27/17 at 17:00; Stop 01/06/18 at 18:20; Status DC Trazodone HCl (Desyrel) 50 mg PRN QHS PRN PO INSOMNIA Last administered on 01/16 20:22; Start 12/27/17 at 15:30 Divalproex Sodium (Depakote Sprinkles) 500 mg TID PO Last administered on at 20:19; Start 12/28/17 at 21:00 Olanzapine (ZyPREXA ZYDIS) 1.25 mg PRN Q2HR PRN PO PSYCHOSIS Last administered on 01/03/18 17:22; Start 01/03/18 at 16:00 Mirtazapine (Remeron) 15 mg QHS PO Last administered on 01/16/18 20:19; Start 01/05/18 at 21:00 Quetiapine Fumarate (SEROquel) 37.5 mg TID@0900,1300,1700 PO Last administered on 01/09/18at 09:31; Start 01/07/18 at 09:00; Stop 01/09/18 at 10:56; Status DC Quetiapine Fumarate (SEROquel) 50 mg TID@0900,1300,1700 PO Last administered on 01/16/18at 17:09; Start 01/09/18 at 13:00 Metoprolol Tartrate (Lopressor) 50 mg BID PO Last administered on 01/12/18at 07: 56; Start 01/09/18 at 21:00; Stop 01/12/18 at 15:42; Status DC Metoprolol Tartrate (Lopressor) 25 mg BID PO Last administered on 01/16/18at 20: 20; Start 01/12/18 at 21:00 Sertraline HCl (Zoloft) 75 mg DAILY PO Last administered on 01/16/18at 08:07; Start 01/15/18 at 09:00 Active Scripts Active Reported Multivitamins (Multivitamin) 1 Each Tablet 1 Tab PO DAILY Trazodone Hcl 100 Mg Tablet 100 Mg PO PRN QHS PRN Zoloft (Sertraline Hcl) 50 Mg Tablet 50 Mg PO DAILY Seroquel (Quetiapine Fumarate) 25 Mg Tablet 37.5 Mg PO BID@0900,1700 Seroquel (Quetiapine Fumarate) 25 Mg Tablet 12.5 Mg PO BID@1300,2100 Tablet (Pnv Cmb#95/Ferrous Fumarate/Fa) 1 Each Tablet 1 Tab PO DAILY Zyprexa Zydis (Olanzapine) 5 Mg Tab.rapdis 2.5 Mg PO PRN Q2HR PRN Curad Triple Antibiotic Oint (Neomycin/Bacitracin/Polymyxinb) 1 Each Oint.pack 1 Sonja TP BID Mirtazapine 15 Mg Tablet 7.5 Mg PO HS Analgesic [place] (Methyl Salicylate/Menthol) 28 Gm Oint...g. 1 Sonja TP PRN QID PRN Milk Of Magnesia (Magnesium Hydroxide) 2,400 Mg/10 Ml Oral.susp 2,400 Mg PO PRN QHS PRN Advanced Antacid Liquid (Mag Hydrox/Al Hydrox/Simeth) 355 Ml Oral.susp 15 Ml PO PRN AFTMEALHC PRN Donepezil Hcl 10 Mg Tablet 10 Mg PO DAILY Divalproex Sodium 125 Mg Cap.sprink 375 Mg PO TID Vitamin B-12 (Cyanocobalamin (Vitamin B-12)) 1,000 Mcg Tablet 1,000 Mcg PO DAILY Acetaminophen 500 Mg Tablet 500 Mg PO PRN Q6HRS PRN Melatonin 3 Mg Tablet 3 Mg PO QHS Atorvastatin Calcium 20 Mg Tablet 20 Mg PO QHS Lactulose 10 Gm/15 Ml Solution 20 Gm PO TID@0900,1300,1700 Metoprolol Tartrate 100 Mg Tablet 100 Mg PO BID Colace (Docusate Sodium) 100 Mg Capsule 100 Mg PO DAILY Vitamin D3 (Cholecalciferol (Vitamin D3)) 1,000 Unit Tablet 2,000 Unit PO DAILYBFRSUP Aspir-Low (Aspirin) 81 Mg Tablet.dr 81 Mg PO DAILY I have reviewed the current psychotropics carefully including drug interactions. Risk benefit ratio favors no change other than as noted in my dictated progress note. Diagnosis: Problems: (1) Anxiety disorder (2) Dementia in Alzheimer's disease with delusions (3) Dementia in Alzheimer's disease with depression (4) Dementia, vascular, with delirium (5) Dementia, vascular, with delusions (6) Impulse control disorder (7) Violent behavior ELLIS NOBLES MD Jan 16, 2018 21:01
[2018-01-17] MEDS ORDERED: ACET325T21 PO (00:05)
[2018-01-17] MEDS ORDERED: METO25TA4 PO (00:05)
[2018-01-17] MEDS ORDERED: OLAN5TAB5 PO (00:06)
[2018-01-17] MEDS ORDERED: QUET50TA5 PO (00:07)
[2018-01-17] MEDS ORDERED: TRAZ50TA15 PO (00:08)
[2018-01-17 05:59] VITALS: BP 126/68
[2018-01-17] MEDS: DIVALPROEX 125 MG CAP.SPRINK PO SCH (07:59)
[2018-01-17] MEDS: SERTRALINE 50 MG TABLET. PO SCH (08:00)
[2018-01-17] MEDS: QUEtiapine 50 MG TABLET. PO SCH (08:00)
[2018-01-17] MEDS: CYANOCOBALAMIN (VITAMIN B-12) 1,000 MCG TABLET. PO SCH (08:00)
[2018-01-17] MEDS: ASPIRIN 81 MG TAB.CHEW PO SCH (08:00)
[2018-01-17] MEDS: MULTIVITAMIN with MINERAL TABLET. PO SCH (08:00)
[2018-01-17 08:01] VITALS: BP 126/68
[2018-01-17] MEDS: METOPROLOL TART IMMED RELEASE 50 MG TABLET PO SCH (08:01)
[2018-01-17] MEDS: LACTULOSE 20 GM/30 ML SOLUTION. PO SCH (08:02)
--- NOTE | 2018-01-17 18:17 | PN ---
DATE: 01/15/2018 This is a late entry, 01/15/2018, covers the elements not covered in my initial note, 01/15/2018. SUBJECTIVE: I met with the patient in the evening, staffed at a treatment team meeting with the entire team. The patient's appetite about 90%, slept 6-1/4 hours, takes medications hidden in pudding, wandering, labile at times. REVIEW OF SYSTEMS: No CV, , pulmonary, eye, ENT system symptoms on review. Reliability poor. MENTAL STATUS EXAM: Oriented to himself. Insight, judgment, recent and remote memory, attention, concentration, fund of knowledge poor, consistent with his diagnosis as mentioned in my initial note. PLAN: Continue psychotropics from initial note. MAN Estefany NOBLES MD DR: MONICA/joe JOB#: [id number] / [id number]
--- NOTE | 2018-01-17 18:44 | PN ---
DATE: 01/16/2018 This is a late entry, 01/16/2018, covers the elements not covered in my initial note, 01/16/2018. SUBJECTIVE: I met with the patient in the evening. He has been confused, otherwise cooperative, not aggressive. REVIEW OF SYSTEMS: No CV, , pulmonary, eye, ENT system symptoms on review. MENTAL STATUS EXAM: Oriented to himself. Insight, judgment, recent and remote memory, attention, concentration, fund of knowledge poor, consistent with his diagnosis as mentioned in my initial note. LABORATORY DATA: Valproic acid level therapeutic at 63. PLAN: Continue psychotropics from my initial note. MAN KamJerome NOBLES MD DR: MONICA/joe JOB#: [id number] / [id number]
--- NOTE | 2018-01-17 20:43 | PDOC ---
Exam Note: Darci Note: Please also refer to the separate dictated note~for this date of service dictated separately.~Patient seen individually. Discussed the patient with Nursing staff reviewed the chart.~Reviewed interim history and current functioning. Reviewed vital signs,~Labs/ Radiology~and current medications noted below. Continue current treatment with the changes noted in the dictated addendum note Assessment: Vital Signs: Vital Signs Date Time Temp Pulse Resp B/P (MAP) Pulse Ox O2 Delivery O2 Flow Rate FiO2 01/17/18 08:01 92 126/68 01/17/18 05:59 97.9 22 98 01/13/18 16:27 Room Air I&O Intake and Output 01/17/18 07:00 Intake Total 1200 ml Balance 1200 ml Intake Oral 1200 ml # Bowel Movements 2 Current Medications: Meds: Current Medications Olanzapine (ZyPREXA ZYDIS) 2.5 mg PRN Q2HR PRN PO PSYCHOSIS Last administered on 01/12/18at 04:59; Start 12/27/17 at 12:45; Stop 01/17/18 at 12:32; Status DC Acetaminophen (Tylenol) 650 mg PRN Q6HRS PRN PO PAIN / TEMP Last administered on 01/13/18at 20:25; Start 12/27/17 at 13:00; Stop 01/17/18 at 12:32; Status DC Multi-Ingredient Ointment (Analgesic [place]) 1 sonja PRN QID PRN TP MUSCLE PAIN; Start 12/27/17 at 13:00; Stop 01/17/18 at 12:32; Status DC Al Hydroxide/Mg Hydroxide (Mylanta Plus Xs) 15 ml PRN AFTMEALHC PRN PO DYSPEPSIA; Start 12/27/17 at 13:00; Stop 01/17/18 at 12:32; Status DC Magnesium Hydroxide (Milk Of Magnesia) 2,400 mg PRN QHS PRN PO CONSTIPATION; Start 12/27/17 at 13:00; Stop 01/17/18 at 12:32; Status DC Atorvastatin Calcium (Lipitor) 20 mg QHS PO Last administered on 01/16/18at 20: 19; Start 12/27/17 at 21:00; Stop 01/17/18 at 12:32; Status DC Vitamin D (Vitamin D3) 2,000 unit DAILYBFRSUP PO Last administered on at 17:09; Start 12/27/17 at 17:00; Stop 01/17/18 at 12:32; Status DC Cyanocobalamin (Vitamin B-12) 1,000 mcg DAILY PO Last administered on at 08:00; Start 12/28/17 at 09:00; Stop 01/17/18 at 12:32; Status DC Multi-Ingredient Ointment (Analgesic [place]) 1 sonja PRN QID PRN TP MUSCLE PAIN; Start 12/27/17 at 14:45; Stop 12/27/17 at 15:06; Status DC Sertraline HCl (Zoloft) 50 mg DAILY PO Last administered on 01/14/18at 09:16; Start 12/28/17 at 09:00; Stop 01/14/18 at 18:47; Status DC Non-Formulary Medication (Acetaminophen ) 500 mg PRN Q6HRS PRN PO PAIN / TEMP; Start 12/27/17 at 14:45; Stop 12/27/17 at 15:11; Status DC Aspirin (Children'S Aspirin) 81 mg DAILYWBKFT PO Last administered on at 08:00; Start 12/28/17 at 08:00; Stop 01/17/18 at 12:32; Status DC Divalproex Sodium (Depakote Sprinkles) 375 mg TID PO Last administered on at 12:00; Start 12/27/17 at 21:00; Stop 12/28/17 at 18:33; Status DC Donepezil HCl (Aricept) 10 mg DAILY PO Last administered on 01/07/18at 09:25; Start 12/28/17 at 09:00; Stop 01/07/18 at 18:04; Status DC Lactulose (Lactulose) 20 gm TID@0900,1300,1700 PO Last administered on at 08:02; Start 12/27/17 at 17:00; Stop 01/17/18 at 12:32; Status DC Non-Formulary Medication (Mag Hydrox/Al Hydrox/Simeth (Advanced Antacid Liquid) ) 15 ml PRN AFTMEALHC PRN PO DYSPEPSIA; Start 12/27/17 at 14:45; Stop 12/27/17 at 15:06; Status DC Non-Formulary Medication (Magnesium Hydroxide (Milk Of Magnesia)) 2,400 mg PRN QHS PRN PO CONSTIPATION; Start 12/27/17 at 14:45; Stop 12/27/17 at 15:06; Status DC Melatonin 3 mg QHS PO Last administered on 01/16/18at 20:19; Start 12/27/17 at 21 :00; Stop 01/17/18 at 12:32; Status DC Metoprolol Tartrate (Lopressor) 100 mg BID PO Last administered on 01/08/18at 09 :16; Start 12/27/17 at 21:00; Stop 01/09/18 at 18:08; Status DC Mirtazapine (Remeron) 7.5 mg QHS PO Last administered on 01/04/18at 20:15; Start 12/27/17 at 21:00; Stop 01/05/18 at 19:21; Status DC Multivitamins/ Calcium (Thera-M Plus) 1 tab DAILY PO Last administered on at 08:00; Start 12/28/17 at 09:00; Stop 01/17/18 at 12:32; Status DC Quetiapine Fumarate (SEROquel) 37.5 mg BID@0900,1700 PO Last administered on 06/15at 17:04; Start 12/27/17 at 17:00; Stop 01/06/18 at 18:20; Status DC Trazodone HCl (Desyrel) 50 mg PRN QHS PRN PO INSOMNIA Last administered on 01/16at 20:22; Start 12/27/17 at 15:30; Stop 01/17/18 at 12:32; Status DC Divalproex Sodium (Depakote Sprinkles) 500 mg TID PO Last administered on at 07:59; Start 12/28/17 at 21:00; Stop 01/17/18 at 12:32; Status DC Olanzapine (ZyPREXA ZYDIS) 1.25 mg PRN Q2HR PRN PO PSYCHOSIS Last administered on 01/03/18at 17:22; Start 01/03/18 at 16:00; Stop 01/17/18 at 12:32; Status DC Mirtazapine (Remeron) 15 mg QHS PO Last administered on 6/21/18at 20:19; Start 01/05/18 at 21:00; Stop 01/17/18 at 12:32; Status DC Quetiapine Fumarate (SEROquel) 37.5 mg TID@0900,1300,1700 PO Last administered on 01/09/18at 09:31; Start 01/07/18 at 09:00; Stop 01/09/18 at 10:56; Status DC Quetiapine Fumarate (SEROquel) 50 mg TID@0900,1300,1700 PO Last administered on 01/17/18at 08:00; Start 01/09/18 at 13:00; Stop 01/17/18 at 12:32; Status DC Metoprolol Tartrate (Lopressor) 50 mg BID PO Last administered on 01/12/18at 07: 56; Start 01/09/18 at 21:00; Stop 01/12/18 at 15:42; Status DC Metoprolol Tartrate (Lopressor) 25 mg BID PO Last administered on 01/17/18at 08: 01; Start 01/12/18 at 21:00; Stop 01/17/18 at 12:32; Status DC Sertraline HCl (Zoloft) 75 mg DAILY PO Last administered on 01/17/18at 08:00; Start 01/15/18 at 09:00; Stop 01/17/18 at 12:32; Status DC Active Scripts Active Reported Trazodone Hcl 50 Mg Tablet 50 Mg PO PRN QHS PRN Seroquel (Quetiapine Fumarate) 50 Mg Tablet 50 Mg PO TID@0900,1300,1700 Zyprexa Zydis (Olanzapine) 5 Mg Tab.rapdis 1.25 Mg PO PRN Q2HR PRN Administer 30 minutes prior to brief change Metoprolol Tartrate 25 Mg Tablet 25 Mg PO BID Acetaminophen 325 Mg Tablet 650 Mg PO PRN Q6HRS PRN Multivitamins (Multivitamin) 1 Each Tablet 1 Tab PO DAILY Zoloft (Sertraline Hcl) 50 Mg Tablet 75 Mg PO DAILY Zyprexa Zydis (Olanzapine) 5 Mg Tab.rapdis 2.5 Mg PO PRN Q2HR PRN Mirtazapine 15 Mg Tablet 15 Mg PO HS Analgesic [place] (Methyl Salicylate/Menthol) 28 Gm Oint...g. 1 Sonja TP PRN QID PRN Milk Of Magnesia (Magnesium Hydroxide) 2,400 Mg/10 Ml Oral.susp 2,400 Mg PO PRN QHS PRN Advanced Antacid Liquid (Mag Hydrox/Al Hydrox/Simeth) 355 Ml Oral.susp 15 Ml PO PRN AFTMEALHC PRN Divalproex Sodium 125 Mg Cap.sprink 500 Mg PO TID Vitamin B-12 (Cyanocobalamin (Vitamin B-12)) 1,000 Mcg Tablet 1,000 Mcg PO DAILY Melatonin 3 Mg Tablet 3 Mg PO QHS Atorvastatin Calcium 20 Mg Tablet 20 Mg PO QHS Lactulose 10 Gm/15 Ml Solution 20 Gm PO TID@0900,1300,1700 Vitamin D3 (Cholecalciferol (Vitamin D3)) 1,000 Unit Tablet 2,000 Unit PO DAILYBFRSUP Aspir-Low (Aspirin) 81 Mg Tablet. 81 Mg PO DAILY I have reviewed the current psychotropics carefully including drug interactions. Risk benefit ratio favors no change other than as noted in my dictated progress note. Diagnosis: Problems: (1) Anxiety disorder (2) Dementia in Alzheimer's disease with delusions (3) Dementia in Alzheimer's disease with depression (4) Dementia, vascular, with delirium (5) Dementia, vascular, with delusions (6) Impulse control disorder ELLIS NOBLES MD Jan 17, 2018 20:43
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
--- NOTE | 2018-01-19 22:36 | PN ---
DATE: 01/17/2018 NO DICTATION. MAN Estefany NOBLES MD DR: Radha JOB#: [id number] / [id number]
== END 2018-01-17 12:32 | disposition home or self-care (01) | DRG 57 ==
LOC: ER 08:33 → GEROPSY 10:40
PROVIDERS: ADMIT Psychiatry & Neurology Psychiatry; ATTEND Psychiatry & Neurology Psychiatry
DX: G30.9 Alzheimer's disease, unspecified (principal); F01.51 Vascular dementia, unspecified severity, with behavioral disturbance; F05 Delirium due to known physiological condition; F02.81 Dementia in other diseases classified elsewhere, unspecified severity, with behavioral disturbance; F32.9 Major depressive disorder, single episode, unspecified; I10 Essential (primary) hypertension; E78.5 Hyperlipidemia, unspecified; F41.9 Anxiety disorder, unspecified; F63.9 Impulse disorder, unspecified; E55.9 Vitamin D deficiency, unspecified; L91.0 Hypertrophic scar; G47.00 Insomnia, unspecified; Z88.0 Allergy status to penicillin; Z91.14 Patient's other noncompliance with medication regimen; Z79.899 Other long term (current) drug therapy
CPT/HCPCS: 36415; 80053; 80061; 80164; 80307; 81001; 82140; 82306; 82607; 83036; 83540; 83550; 83735; 84436; 84443; 84480; 85025; 86593; 93005; 99285-25; G0479